=== PATIENT | female | born 1980 | race Caucasian/White ===

== ENCOUNTER 2020-11-10 08:21 | Emergency (ER) | payer MEDICARE, MEDICAID, SELFPAY ==
[2020-11-10 10:01] VITALS: BP 142/93; PULSE 109; RESP 18; TEMP 36.7; O2SAT 98; BMI 21.6
--- NOTE | 2020-11-10 10:44 | ECG_ITS ---
Test Reason : EPIGASTRIC PAIN Blood Pressure : / mmHG Vent. Rate : 090 BPM Atrial Rate : 090 BPM P-R Int : 138 ms QRS Dur : 090 ms QT Int : 358 ms P-R-T Axes : 059 067 060 degrees QTc Int : 437 ms Poor data quality, interpretation may be adversely affected Normal sinus rhythm with sinus arrhythmia Possible Anterior infarct , age undetermined Abnormal ECG No previous ECGs available Referred By: Jacquie Newell Electronically Signed By:KAT VALLE MD
--- NOTE | 2020-11-10 10:47 | ED_ITS ---
HPI - Nausea/Vomiting/Diarrhea General Chief complaint: Nausea/Vomiting/Diarrhea Stated complaint: VOMITING PAIN Time Seen by Provider: 11/10/20 10:27 Source: patient Mode of arrival: ambulatory Limitations: no limitations History of Present Illness HPI Narrative: 40-year-old female to male transgender here with complaints of upper abdominal pain and vomiting for weeks to months. Patient has been seen by a refinery operator polymerization plant at [facility] for quite some time and has an upper endoscopy scheduled for December 20. The patient admits she then has a follow-up appointment after this. She has been in discussion with her refinery operator polymerization plant and is currently on nortyplline and dexilant. She is not currently on a PPI. The patient delusion that she has upper abdominal pain which is described as burning which radiates to the chest which is associated with vomiting. She tells me that she has lost 10 lb the last month. She has no associated diarrhea, urinary symptoms, fevers, chills. Patient tells me she has symptoms right after eating. Most the time it is food in her emesis. There is no bloody or bilious emesis. Associated nausea: Yes Related Data Allergies Allergy/AdvReac Type Severity Reaction Status Date / Time strawberry [STRAWBERRY] Allergy Severe ANAPHYLAXIS Verified 11/10/20 10:05 watermelon [WATERMELON] Allergy Severe ANAPHYLAXIS Unverified 04/06/20 19:21 acetaminophen [From VICODIN] Allergy Intermediate ITCHING Unverified 04/06/20 19:21 amoxicillin [AMOXICILLIN] Allergy Intermediate ITCHING Unverified 04/06/20 19:21 hydrocodone [From VICODIN] Allergy Intermediate ITCHING Unverified 04/06/20 19:21 oxycodone [From PERCOCET] Allergy Intermediate ITCHING Unverified 04/06/20 19:21 propoxyphene Allergy Intermediate HEADACHES Unverified 04/06/20 19:21 [From DARVOCET-N] honey [HONEY] AdvReac Intermediate HEADACHES Unverified 04/06/20 19:21 Review of Systems Review of Systems: Yes all other systems are reviewed and are negative Constitutional: Constitutional: Reports no additional constitutional complaints, Denies body ache(s), Denies chills, Denies fever(s), Denies headache(s) and Denies weakness Eyes: Eyes: Reports no additional eye complaints and Denies change in vision ENT: Reports system reviewed and no additional complaints, except as documented, Denies dizziness, Denies headache(s), Denies nasal congestion, Denies nasal discharge and Denies neck pain Cardiovascular: Cardiovascular: Reports no additional cardiovascular complaints, Denies chest pain, Denies leg edema and Denies dyspnea Respiratory: Respiratory: Reports no additional respiratory complaints, Denies cough and Denies dyspnea Gastrointestinal: Gastrointestinal: Reports no additional gastrointestinal complaints, Reports abdominal pain, Denies diarrhea, Reports nausea and Reports vomiting Genitourinary: Genitourinary: Reports no additional female genitourinary complaints and Denies urinary incontinence Musculoskeletal: Musculoskeletal: Reports no additional musculoskeletal complaints, Denies back pain, Denies arthralgias, Denies joint swelling, Denies neck pain, Denies numbness and Denies tingling Integumentary/Breasts: Skin/Breast: Reports system reviewed and no additional complaints, except as docu and Denies rash Neurologic: Reports system reviewed and no additional complaints, except as documented, Denies Abnormal speech present, Denies dizziness, Denies headache(s), Denies numbness, Denies tingling and Denies weakness PMF Past Medical History Attestation statement: The following information was validated with the patient. Source: old records reviewed and nursing notes reviewed Medical History No known health problems Social History Social History Advance Directives: Yes Advance Directives Information Provided: Yes Advance Directives on File: No Physical Exam Vital Signs: Vital Signs: Last Vital Signs Temp 98.1 F 11/10/20 10:01 Pulse 109 H 11/10/20 10:01 Resp 18 11/10/20 10:01 BP 142/93 H 11/10/20 10:01 Pulse Ox 98 11/10/20 10:01 Body Mass Index 21.6 Const: General: cooperative, healthy appearing, comfortable and no acute distress Orientation/consciousness: patient oriented x3 Limitations: no limitations HENMT: Head: Yes normal to inspection Ears: hearing grossly normal bilaterally General nose exam: Normal external nose present Face and sinus: Yes normal facial exam Mouth: Normal oral and palatal mucosa present Throat: Yes posterior oropharynx normal Eyes: General: appearance normal, both eyes and all related structures Pupils: Equal, round and reactive pupils present Neck: Neck: Yes normal visual inspection Chest: Chest palpation & inspection: normal inspection of the chest Resp: Effort & Inspection: normal respiratory effort Auscultation: clear to auscultation bilaterally Cardio: Rate: regular rate Rhythm: regular rhythm Peripheral pulses: Peripheral pulses 2+ throughout GI: Inspection: Yes normal to inspection Palpation (GI): Soft to palpation and Tenderness to palpation present (GI) (Mild epigastric pain and no rebound or guarding) Auscultation: normal bowel sounds Back/Spine/Pelvis: Thoracic/Lumbar Spine: thoracic and lumbar spine normal to inspection Skin: General skin exam: no rashes or lesions noted Neuro: General: patient oriented x3, no focal motor deficits and normal sensation to monofilament Cranial nerves: Yes Equal, round and reactive pupils present Cognition (Neuro): normal cognition Speech: No Abnormal speech present Gait exam (Neuro): Normal gait present Motor exam (neuro): 5/5 motor strength present throughout Extrem: General: Yes normal to inspection Course Course Course Narrative: 40-year-old female to male here with complaints of chronic upper abdominal pain and vomiting followed by GI at [facility]. Unable to maintain p.o. per patient. Feels like he has lost weight and is dehydrated. Will check labs, UA, EKG, NS, zofran, PPI, GI cocktail. 1350-Labs unremarkable. Continued epigastric pain. Will give dose of morphine. Patient tells me she has continued epigastric pain. She is status post marly. LFTs and lipase unremarkable. Likely gastritis, GERD vs PUD. Has upcoming endoscopy with GI outpatient 12/20 at [facility]. Will discuss the patient's GI Dr. Morton. 1445-urine contaminated. No UTI symptoms. Will hold on antibiotics. Discussed with Dr. Morton from [facility]. She tells me the patient has had greater than 10 endoscopy use due to complaints of this pain. All have been unremarkable. She plans on doing a repeat endoscopy December 20 at however will put the patient on a cancellation list and with the endoscopy as needed. She tells me she saw the patient in the office on Friday. We discussed the labs that were done then and today and there are no changes. She did start the patient on Gaviscon on Friday and recommended that the patient give it some more time to see if that helps. She will follow-up with the patient in the office. Discussed the findings with the patient. Reviewed the abdominal exam is benign. Reviewed worrisome signs and symptoms such as to her more additional vomiting episodes, bilious or bloody emesis, severe abdominal pain. MDM - Nausea/Vomiting/Diarrhea MDM Narrative Medical decision making narrative: pancreatitis, gerd, gastritis, PUD Medical Records Attestation: I reviewed the patient's medical records. Lab Data Attestation: I reviewed the patient's lab results. Result diagrams: 11/10/20 11:17 11/10/20 11:17 Labs: Lab Results 11/10/20 11/10/20 11/10/20 Range/Units 11:17 11:17 11:17 WBC 7.4 (4.8-10.8) X10*3/uL RBC 5.81 H (4.20-5.50) X10*6/uL Hgb 18.0 H (12.0-16.0) g/dl Hct 54.5 H (37-47) % MCV 93.8 (80-98) fL MCH 31.0 (27.0-33.0) pg MCHC 33.0 (31.0-35.0) g/dl RDW 13.0 (11.0-16.0) % Plt Count 294 (160-400) X10*3/uL MPV 9.8 (9.4-12.3) fL Immature Gran % (Auto) 0.4 (0.0-0.4) % Neut % (Auto) 57.1 (45-73) % Lymph % (Auto) 33.4 (20-40) % [place] % (Auto) 7.4 (2-11) % Eos % (Auto) 1.4 (0-4) % Baso % (Auto) 0.3 (0-2) % Lymph # (Auto) 2.5 (1.2-4.9) X10*3/uL [place] # (Auto) 0.6 (0.1-1.2) X10*3/uL Eos # (Auto) 0.1 (0.0-0.4) X10*3/uL Baso # (Auto) 0.0 (0.0-0.2) X10*3/uL Abs Immat Gran (auto) 0.03 (0.00-0.03) X10*3/uL Absolute Neuts (auto) 4.2 (2.0-8.3) X10*3/uL Absolute Nucleated RBC 0.000 (0.0-0.012) X10*3/uL Nucleated RBC % (auto) 0.0 (0.0-0.2) /100WBC Hold Blue Top SEE NOTE Sodium 141 (135-145) mmol/L Potassium 4.0 (3.3-5.1) mmol/L Chloride 101 (96-108) mmol/L Carbon Dioxide 31 H (22-29) mmol/L Anion Gap 13 (12-20) BUN 10 (9-16) mg/dL Creatinine 1.10 (0.5-1.4) mg/dL Estim Creat Clear Calc 46.3 Estimated GFR 55 Random Glucose 74 (60-115) mg/dL Calcium 9.9 (8.4-10.2) mg/dL Magnesium 2.4 (1.6-2.6) mg/dL Total Bilirubin 0.6 (0.0-1.0) mg/dL Direct Bilirubin 0.2 (0.0-0.5) mg/dL AST 18 (5-31) U/L ALT 23 (0-31) U/L Alkaline Phosphatase 52 (39-117) U/L Total Protein 7.9 (6.5-8.0) g/dL Albumin 4.5 (3.5-5.0) g/dL Lipase 16 (8-78) U/L Urine Color Urine Appearance Urine pH (5.0-8.0) Ur Specific [place] (1.005-1.025) Urine Protein (NEG-TRACE) MG/DL Urine Glucose (UA) (NEG) MG/DL Urine Ketones (NEG) MG/DL Urine Blood (NEG) Urine Nitrite (NEG) Ur Leukocyte Esterase (NEG) Urine RBC (0) /HPF Urine WBC (0-4) /HPF Ur Squamous Epith Cells /LPF Amorphous Sediment /LPF Urine Bacteria /LPF 11/10/20 11/10/20 Range/Units 11:17 14:22 WBC (4.8-10.8) X10*3/uL RBC (4.20-5.50) X10*6/uL Hgb (12.0-16.0) g/dl Hct (37-47) % MCV (80-98) fL MCH (27.0-33.0) pg MCHC (31.0-35.0) g/dl RDW (11.0-16.0) % Plt Count (160-400) X10*3/uL MPV (9.4-12.3) fL Immature Gran % (Auto) (0.0-0.4) % Neut % (Auto) (45-73) % Lymph % (Auto) (20-40) % [place] % (Auto) (2-11) % Eos % (Auto) (0-4) % Baso % (Auto) (0-2) % Lymph # (Auto) (1.2-4.9) X10*3/uL [place] # (Auto) (0.1-1.2) X10*3/uL Eos # (Auto) (0.0-0.4) X10*3/uL Baso # (Auto) (0.0-0.2) X10*3/uL Abs Immat Gran (auto) (0.00-0.03) X10*3/uL Absolute Neuts (auto) (2.0-8.3) X10*3/uL Absolute Nucleated RBC (0.0-0.012) X10*3/uL Nucleated RBC % (auto) (0.0-0.2) /100WBC Hold Blue Top Sodium (135-145) mmol/L Potassium (3.3-5.1) mmol/L Chloride (96-108) mmol/L Carbon Dioxide (22-29) mmol/L Anion Gap (12-20) BUN (9-16) mg/dL Creatinine (0.5-1.4) mg/dL Estim Creat Clear Calc Estimated GFR Random Glucose (60-115) mg/dL Calcium (8.4-10.2) mg/dL Magnesium Cancelled (1.6-2.6) mg/dL Total Bilirubin (0.0-1.0) mg/dL Direct Bilirubin (0.0-0.5) mg/dL AST (5-31) U/L ALT (0-31) U/L Alkaline Phosphatase (39-117) U/L Total Protein (6.5-8.0) g/dL Albumin (3.5-5.0) g/dL Lipase Cancelled (8-78) U/L Urine Color YELLOW Urine Appearance TURBID Urine pH 8.5 H (5.0-8.0) Ur Specific [place] 1.015 (1.005-1.025) Urine Protein NEG (NEG-TRACE) MG/DL Urine Glucose (UA) NEG (NEG) MG/DL Urine Ketones 5 (NEG) MG/DL Urine Blood 1+ H (NEG) Urine Nitrite NEG (NEG) Ur Leukocyte Esterase 1+ H (NEG) Urine RBC 1-4 (0) /HPF Urine WBC 1-4 (0-4) /HPF Ur Squamous Epith Cells 1+ /LPF Amorphous Sediment 4+ /LPF Urine Bacteria NONE /LPF ECG Data Attestation: I personally reviewed and interpreted this ECG as follows: ECG interpretation date: 11/10/20 ECG interpretation time: 13:04 Interpretation: Normal sinus rhythm with sinus arrhythmia, rate of 90, normal OR, normal QRS, normal QTC Discharge Plan Discharge Clinical Impression: Abdominal pain Qualifiers: Abdominal location: epigastric Qualified Code(s): R10.13 - Epigastric pain Patient Disposition: Home, Self-Care Instructions: Abdominal Pain (ED) Additional Instructions: Continue the [facility] Follow-up with GI DR Morton Referrals: Korina Gerard NP [Primary Care Provider] - 2 days Interventions: ED Discharge Assessment Last Done: 11/10/20 14:51 Discharge Date/Time: 11/10/20 14:52
[2020-11-10] MEDS: 0.9 % Sodium Chloride 1,000 ML 999 ML IV (11:19)
[2020-11-10] MEDS: Lidocaine HCl Viscous 2 % 15 ML SOLUTION MUCOUS MEM (11:19)
[2020-11-10] MEDS: Famotidine/PF 20 MG/2 ML VIAL IVPUSH (11:19)
[2020-11-10] MEDS: ondansetron HCL 4 MG/2 ML VIAL IVPUSH (11:19)
[2020-11-10] MEDS: Magnesium Hydrox/Alum Hydrox 30 ML ORAL.SUSP PO (11:19)
[2020-11-10 11:30] LABS: MANUAL DIFF FLAG NO
[2020-11-10 11:37] LABS: Basophils Percent Auto 0.3 % (0-2); Eosinophils Absolute Auto 0.1 X10*3/uL (0.0-0.4); Eosinophils Percent Auto 1.4 % (0-4); Hematocrit 54.5 % (37-47); Imm Gran Abs Auto 0.03 X10*3/uL (0.00-0.03); Imm Gran Pct Auto 0.4 % (0.0-0.4); Lymphocytes Absolute Auto 2.5 X10*3/uL (1.2-4.9); Lymphocytes Percent Auto 33.4 % (20-40); Mean Corpuscular Volume 93.8 fL (80-98); Mean Platelet Volume 9.8 fL (9.4-12.3); Monocytes Absolute Auto 0.6 X10*3/uL (0.1-1.2); Monocytes Percent Auto 7.4 % (2-11); Neutrophils Absolute Auto 4.2 X10*3/uL (2.0-8.3); Neutrophils Percent Auto 57.1 % (45-73); Platelet Count 294 X10*3/uL (160-400); Red Blood Count 5.81 X10*6/uL (4.20-5.50); White Blood Count 7.4 X10*3/uL (4.8-10.8)
[2020-11-10 12:01] LABS: Alanine Aminotransferase 23 U/L (0-31); Albumin Level 4.5 g/dL (3.5-5.0); Alkaline Phosphatase 52 U/L (39-117); Anion Gap 13 (12-20); Aspartate Amino Transferase 18 U/L (5-31); Bilirubin Direct 0.2 mg/dL (0.0-0.5); Bilirubin Total 0.6 mg/dL (0.0-1.0); Blood Urea Nitrogen 10 mg/dL (9-16); Calcium 9.9 mg/dL (8.4-10.2); Carbon Dioxide 31 mmol/L (22-29); Chloride 101 mmol/L (96-108); Creatinine Clr Calc Pharmacy 46.3; Estimated Glomerular Filt Rate 55; Glucose Random 74 mg/dL (60-115); Lipase 16 U/L (8-78); Magnesium 2.4 mg/dL (1.6-2.6); Sodium 141 mmol/L (135-145); Total Protein 7.9 g/dL (6.5-8.0)
[2020-11-10] MEDS: Morphine Sulfate 4 MG/ML CARTRIDGE IVPUSH (13:26)
--- NOTE | 2020-11-10 14:17 | PC.NURSE ---
pt refusing second liter ns, gave ua spec for eval. asking to go home if theres nothing else to do .
[2020-11-10 14:30] LABS: Glucose Urine UA NEG (NEG); Leukocyte Esterase Urine 1+ (NEG); Nitrite Urine NEG (NEG); PH 8.5 (5.0-8.0); Specific Gravity - Urine 1.015 (1.005-1.025); UACC Culture Trigger YES; Urine Blood 1+ (NEG); Urine Ketones 5 MG/DL (NEG); Urine Protein NEG (NEG-TRACE)
[2020-11-10 14:36] LABS: Appearance Urine TURBID; Color Urine YELLOW
[2020-11-10 14:41] LABS: Amorphous Sediment Urine 4+ /LPF; Squamous Epithelial Cell Urine 1+ /LPF
== END 2020-11-10 14:52 | disposition home or self-care (01) ==
PROVIDERS: Nurse Practitioner Family; Emergency Provider Emergency Medicine; PCP Nurse Practitioner Family
DX: R10.13 Epigastric pain (principal); R11.2 Nausea with vomiting, unspecified
CPT/HCPCS: 36415; 80048; 80076; 81001; 81003; 83690; 83735; 85025; 87086; 93005; 96365; 96375; 99282; 99284; J2270; J2405

== ENCOUNTER 2020-11-26 15:27 | Inpatient (IN) | payer MEDICARE, MEDICAID, SELFPAY ==
--- NOTE | 2020-11-26 | ECG_ITS ---
Test Reason : ABD PAIN Blood Pressure : / mmHG Vent. Rate : 109 BPM Atrial Rate : 109 BPM P-R Int : 140 ms QRS Dur : 088 ms QT Int : 316 ms P-R-T Axes : 078 078 070 degrees QTc Int : 425 ms Sinus tachycardia Possible Left atrial enlargement Anterior infarct (cited on or before 10-NOV-2020) Abnormal ECG When compared with ECG of 10-NOV-2020 13:04, No significant change was found Referred By: Generic ED Physician Electronically Signed By:ROSS MONAE
--- NOTE | ~2020-11-26 | CT_ITS ---
EXAMINATION: CT CHEST, ABDOMEN AND PELVIS WITH CONTRAST CLINICAL INFORMATION: Reason for Exam 20 lbs weight loss, hypercalcemia, r/o malignancy COMPARISON: No pertinent prior studies are available for comparison. TECHNIQUE: Multidetector volumetric imaging was performed from the thoracic inlet through the pubic symphysis following administration of 85 mL of Omnipaque 350. Sagittal and coronal reformatted images were obtained on the technologist's workstation. This CT examination was performed using dose optimization techniques as appropriate, variously including the following: *Automated exposure control *Adjustment of mA and/or kV according to patient size (this includes techniques or standardized protocols for targeted exams where dose is matched to indication/reason for exam; i.e. extremities or head) *Use of iterative reconstruction technique DLP: 255 mGy-cm FINDINGS: CHEST: Lung: The lungs are clear without worrisome focal opacity or nodule. Nonspecific groundglass changes present in the azygoesophageal recess Mediastinum: The mediastinum is normal. The thyroid appears normal. The central vascular structures are unremarkable. No hilar or mediastinal lymphadenopathy. Pericardium/Pleura: No significant effusion. No pleural mass or thickening. Chest Wall/Axilla: Unremarkable ABDOMEN/PELVIS: Peritoneal Space: No significant free air or free fluid identified. Liver, Gallbladder, Biliary Tree: The liver is normal in size, shape, and attenuation. A hyperenhancing 1.7 x 1.2 x 1.4 cm mass is noted at the tip of the right lobe of the liver (14:244). This may be a hemangioma. No other focal hepatic lesion or biliary ductal dilatation is present. Patient status post cholecystectomy. Pancreas: Unremarkable Spleen: Unremarkable Adrenal Glands: Unremarkable Kidneys and Ureters: The kidneys are normal in size, shape, and attenuation. No hydronephrosis, hydroureter, or calculi seen. No perinephric stranding. Bladder: Unremarkable Gastrointestinal Tract: A tiny hiatal hernia is present. The esophagus at the GE junction is poorly seen and may be thickened. Given the history of weight loss, upper GI or endoscopy may be of value. A gastric diverticulum is noted superiorly. The small and large bowel are unremarkable. The appendix is none seen with certainty but there is no evidence of appendicitis.. Abdominal Wall: No significant hernia is appreciated. Lymph Nodes: No lymphadenopathy. Vascular: The aorta appears normal.. The IVC appears unremarkable. PELVIC VISCERA: An anteverted retroflexed uterus is present. An abnormal adnexal mass or free intraperitoneal fluid is not seen. OSSEUS STRUCTURES: Mild degenerative changes are noted in the spine. No bony destructive lesions are seen. CT/CT abdomen pelvis w con IMPRESSION: 1. There is some subtle possible thickening of the GE junction and given the history of weight loss further evaluation with upper GI or endoscopy is recommended. 2. Hyperenhancing liver lesion may very well be a benign hemangioma. This could be easily proven with hepatic MR. 3. No other significant abnormality is seen in the chest or abdomen.
[2020-11-26 15:32] VITALS: BP 139/99; PULSE 101; RESP 18; TEMP 36.7; O2SAT 98; BMI 20.6
--- NOTE | 2020-11-26 16:47 | ED_ITS ---
HPI - General Adult General Chief complaint: General Medical Stated complaint: Vomiting Time Seen by Provider: 11/26/20 16:12 Source: patient Mode of arrival: ambulatory Limitations: no limitations History of Present Illness HPI narrative: Patient comes emergency room complaining of vomiting and burning sensation from the left upper quadrant to the esophagus. Patient states it has been ongoing for approximately a month. Patient had an endoscopy done on November 17, her results were within normal limits, patient has been diagnosed with gastritis. This morning, patient states that she called her tactical air defense controller at [facility], she was prescribed anti emetics, patient tried taking them but he vomited the medications. Patient states that every time that he ingest anything, he vomits. This occurs daily. Patient states that he lost 20 lbs in 2 months Related Data Allergies Allergy/AdvReac Type Severity Reaction Status Date / Time strawberry [STRAWBERRY] Allergy Severe ANAPHYLAXIS Verified 11/26/20 15:31 watermelon [WATERMELON] Allergy Severe ANAPHYLAXIS Verified 11/26/20 15:31 acetaminophen [From VICODIN] Allergy Intermediate ITCHING Verified 11/26/20 15:31 amoxicillin [AMOXICILLIN] Allergy Intermediate ITCHING Verified 11/26/20 15:31 hydrocodone [From VICODIN] Allergy Intermediate ITCHING Verified 11/26/20 15:31 oxycodone [From PERCOCET] Allergy Intermediate ITCHING Verified 11/26/20 15:31 propoxyphene Allergy Intermediate HEADACHES Verified 11/26/20 15:31 [From DARVOCET-N] honey [HONEY] AdvReac Intermediate HEADACHES Verified 11/26/20 15:31 Review of Systems Review of Systems: Constitutional : 20 lb weight loss in 2 months, No Fever, No Chills, No Night Sweats, No Fatigue, No Malaise ENT/Mouth : No Hearing loss, No Ear Pain, No Nasal Congestion, No Sinus Pain, No Hoarseness, No sore throat, No Rhinorrhea, No Swallowing Difficulty Eyes: No Eye Pain, No Swelling, No Redness, No Foreign Body, No Discharge, No Vision Changes Cardiovascular : No Chest Pain, No SOB, No Dyspnea on Exertion, No Orthopnea, No Edema, No Palpitations Respiratory : No Cough, No Sputum, No Wheezing, No Smoke Exposure, No Dyspnea Gastrointestinal : Daily nausea and vomiting, saw specks of blood this morning in the vomit, No Diarrhea, No Constipation, complaining of chronic left upper quadrant burning sensation radiating to the upper esophagus, denies melena Genitourinary : no irregular bleeding, No Dysuria, No Urinary Frequency, No Hematuria, No Urinary Incontinence, No Urgency, No Flank Pain, No Urinary Flow Changes, No Hesitancy Musculoskeletal : No joint pain, No Myalgias, No Joint Swelling Skin : No Skin Lesions, No rash Neuro : No Weakness, No Numbness, No Paresthesias, No Loss of Consciousness, No Dizziness, No Headache Psych : No Anxiety/Panic, No Depression, No SI/HI/AH/VH, No Social Issues, Heme/Lymph: No Bruising, No Bleeding,No Lymphadenopathy Endocrine : No Polyuria, No Polydipsia, No Temperature Intolerance [facility] Past Medical History Medical History Asthma Bipolar 1 disorder Borderline personality disorder Depression Gastritis GERD (gastroesophageal reflux disease) PTSD (post-traumatic stress disorder) Social History Social History Alcohol intake: never Smoking Status: Current every day smoker Smoked in Last 30 Days: Yes Use of substances other than those prescribed or required for medical reasons: Yes Substance Use Type: Marijuana Advance Directives: No Advance Directives Information Provided: Yes Patient : No Physical Exam Vital Signs: Vital Signs: Last Vital Signs Temp 98.4 F 11/26/20 21:00 Pulse 84 11/26/20 21:00 Resp 16 11/26/20 21:00 BP 150/104 H 11/26/20 21:00 Pulse Ox 99 11/26/20 21:00 Body Mass Index 20.6 Appearance: Alert. Oriented X3. No acute distress. vomiting Eyes: Pupils equal, round and reactive to light. ENT: Pharynx normal. Neck: Normal inspection. Neck supple. No lymph nodes noted. No crepitus CVS: Normal heart rate and rhythm. Pulses normal. Normal S1 and S2 Respiratory: No respiratory distress. Breath sounds normal. No Wheezing. No rales Abdomen: Soft and nontender. No rigidity. No distention. MARILYN brown stool Skin: Skin warm and dry. Normal skin color. Normal skin turgor. Extremities: No lower extremity edema. No lower extremity edema. No Lacerations. No Rash Neuro: Oriented X 3. No motor deficit. No sensory deficit. Moving all extermities. No slurred speech. Course Course Course Narrative: I discussed with the patient that her calcium is high. I discussed with the patient that considering the recent finding of hypercalcemia and a 20 lb weight loss, I recommend that we scanned her chest abdomen pelvis. I discussed with the patient that it is more likely a weight loss is due to the constant vomiting episodes. However, the CT scan will be done to detect any possible malignancy. Patient agrees with plan I discussed the CT findings with the patient, he will need an MRI, patient likely having a hepatic hemangioma, unrelated to patient's symptoms. Patient agrees to be admitted. I discussed the patient with Dr. Brown Medical Decision Making Lab Data Result diagrams: 11/26/20 17:03 11/26/20 17:03 Labs: Lab Results 11/26/20 11/26/20 11/26/20 Range/Units 16:48 16:48 17:03 WBC 14.0 H (4.8-10.8) X10*3/uL RBC 5.47 (4.20-5.50) X10*6/uL Hgb 17.0 H (12.0-16.0) g/dl Hct 50.4 H (37-47) % MCV 92.1 (80-98) fL MCH 31.1 (27.0-33.0) pg MCHC 33.7 (31.0-35.0) g/dl RDW 12.5 (11.0-16.0) % Plt Count 274 (160-400) X10*3/uL MPV 9.7 (9.4-12.3) fL Immature Gran % (Auto) 0.4 (0.0-0.4) % Neut % (Auto) 76.3 H (45-73) % Lymph % (Auto) 13.4 L (20-40) % [place] % (Auto) 9.5 (2-11) % Eos % (Auto) 0.2 (0-4) % Baso % (Auto) 0.2 (0-2) % Lymph # (Auto) 1.9 (1.2-4.9) X10*3/uL [place] # (Auto) 1.3 H (0.1-1.2) X10*3/uL Eos # (Auto) 0.0 (0.0-0.4) X10*3/uL Baso # (Auto) 0.0 (0.0-0.2) X10*3/uL Abs Immat Gran (auto) 0.05 H (0.00-0.03) X10*3/uL Absolute Neuts (auto) 10.7 H (2.0-8.3) X10*3/uL Absolute Nucleated RBC 0.000 (0.0-0.012) X10*3/uL Nucleated RBC % (auto) 0.0 (0.0-0.2) /100WBC Sodium (135-145) mmol/L Potassium (3.3-5.1) mmol/L Chloride (96-108) mmol/L Carbon Dioxide (22-29) mmol/L Anion Gap (12-20) BUN (9-16) mg/dL Creatinine (0.5-1.4) mg/dL Estim Creat Clear Calc Estimated GFR Random Glucose (60-115) mg/dL Calcium (8.4-10.2) mg/dL Total Bilirubin (0.0-1.0) mg/dL Direct Bilirubin (0.0-0.5) mg/dL AST (5-31) U/L ALT (0-31) U/L Alkaline Phosphatase (39-117) U/L Total Protein (6.5-8.0) g/dL Albumin (3.5-5.0) g/dL Lipase (8-78) U/L Gastric Occult Blood POS H (NEG) Stool Occult Blood NEGATIVE (NEGATIVE) 11/26/20 Range/Units 17:03 WBC (4.8-10.8) X10*3/uL RBC (4.20-5.50) X10*6/uL Hgb (12.0-16.0) g/dl Hct (37-47) % MCV (80-98) fL MCH (27.0-33.0) pg MCHC (31.0-35.0) g/dl RDW (11.0-16.0) % Plt Count (160-400) X10*3/uL MPV (9.4-12.3) fL Immature Gran % (Auto) (0.0-0.4) % Neut % (Auto) (45-73) % Lymph % (Auto) (20-40) % [place] % (Auto) (2-11) % Eos % (Auto) (0-4) % Baso % (Auto) (0-2) % Lymph # (Auto) (1.2-4.9) X10*3/uL [place] # (Auto) (0.1-1.2) X10*3/uL Eos # (Auto) (0.0-0.4) X10*3/uL Baso # (Auto) (0.0-0.2) X10*3/uL Abs Immat Gran (auto) (0.00-0.03) X10*3/uL Absolute Neuts (auto) (2.0-8.3) X10*3/uL Absolute Nucleated RBC (0.0-0.012) X10*3/uL Nucleated RBC % (auto) (0.0-0.2) /100WBC Sodium 141 (135-145) mmol/L Potassium 3.9 (3.3-5.1) mmol/L Chloride 99 (96-108) mmol/L Carbon Dioxide 33 H (22-29) mmol/L Anion Gap 13 (12-20) BUN 8 L (9-16) mg/dL Creatinine 1.05 (0.5-1.4) mg/dL Estim Creat Clear Calc 48.5 Estimated GFR 58 Random Glucose 94 (60-115) mg/dL Calcium 13.6 H* D (8.4-10.2) mg/dL Total Bilirubin 0.6 (0.0-1.0) mg/dL Direct Bilirubin 0.2 (0.0-0.5) mg/dL AST 20 (5-31) U/L ALT 20 (0-31) U/L Alkaline Phosphatase 50 (39-117) U/L Total Protein 7.6 (6.5-8.0) g/dL Albumin 4.4 (3.5-5.0) g/dL Lipase 12 (8-78) U/L Gastric Occult Blood (NEG) Stool Occult Blood (NEGATIVE) ECG Data Attestation: I personally reviewed and interpreted this ECG as follows: (Sinus tachycardia, heart rate 109, no ST segment depression, nonspecific [address]- elevation in V3, no reciprocal changes, noT-wave inversions, QTC 109) Discharge Plan Discharge Clinical Impression: Hypercalcemia, Vomiting Patient Disposition: Admitted As Inpatient
[2020-11-26 17:05] LABS: GASOB Int Neg Ctl Valid YES; GASOB Int Pos Ctl Valid YES; Occult Blood Gastric POS (NEG)
[2020-11-26 17:06] LABS: OBS Int Ctl Valid YES; OBS1 NEGATIVE (NEGATIVE)
[2020-11-26 17:08] LABS: MANUAL DIFF FLAG NO
[2020-11-26 17:10] LABS: Basophils Percent Auto 0.2 % (0-2); Eosinophils Percent Auto 0.2 % (0-4); Hematocrit 50.4 % (37-47); Imm Gran Abs Auto 0.05 X10*3/uL (0.00-0.03); Imm Gran Pct Auto 0.4 % (0.0-0.4); Lymphocytes Absolute Auto 1.9 X10*3/uL (1.2-4.9); Lymphocytes Percent Auto 13.4 % (20-40); Mean Corpuscular HGB Conc 33.7 g/dl (31.0-35.0); Mean Corpuscular Hemoglobin 31.1 pg (27.0-33.0); Mean Corpuscular Volume 92.1 fL (80-98); Mean Platelet Volume 9.7 fL (9.4-12.3); Monocytes Absolute Auto 1.3 X10*3/uL (0.1-1.2); Monocytes Percent Auto 9.5 % (2-11); Neutrophils Absolute Auto 10.7 X10*3/uL (2.0-8.3); Neutrophils Percent Auto 76.3 % (45-73); Platelet Count 274 X10*3/uL (160-400); Red Blood Count 5.47 X10*6/uL (4.20-5.50); Red Cell Distribution Width 12.5 % (11.0-16.0)
[2020-11-26] MEDS: Famotidine/PF 20 MG/2 ML VIAL IVPUSH (17:13)
[2020-11-26] MEDS: ondansetron HCL 4 MG/2 ML VIAL IVPUSH (17:13)
[2020-11-26] MEDS: 0.9 % Sodium Chloride 1,000 ML 999 ML IVCONT ×2 (17:13→20:50)
[2020-11-26 17:42] LABS: Alanine Aminotransferase 20 U/L (0-31); Albumin Level 4.4 g/dL (3.5-5.0); Alkaline Phosphatase 50 U/L (39-117); Anion Gap 13 (12-20); Aspartate Amino Transferase 20 U/L (5-31); Bilirubin Direct 0.2 mg/dL (0.0-0.5); Bilirubin Total 0.6 mg/dL (0.0-1.0); Blood Urea Nitrogen 8 mg/dL (9-16); Carbon Dioxide 33 mmol/L (22-29); Chloride 99 mmol/L (96-108); Creatinine Clr Calc Pharmacy 48.5; Estimated Glomerular Filt Rate 58; Glucose Random 94 mg/dL (60-115); Lipase 12 U/L (8-78); Potassium 3.9 mmol/L (3.3-5.1); Sodium 141 mmol/L (135-145); Total Protein 7.6 g/dL (6.5-8.0)
[2020-11-26 17:51] LABS: Calcium 13.6 mg/dL (8.4-10.2)
[2020-11-26] MEDS: iohexoL 350 MG/ML 100 ML INFUS..BTL IV (20:10)
[2020-11-26 21:00] VITALS: BP 150/104; PULSE 84; RESP 16; TEMP 36.9; O2SAT 99
[2020-11-26 22:29] LABS: COVID-19 Test Negative (Negative)
--- NOTE | 2020-11-26 22:36 | PM.IMHP ---
History of Present Illness Date of Service: 11/26/20 Chief Complaint: Nausea vomiting This is a biological female transitioning to male, prefers the name Chin who presents to the hospital with complaints of intractable nausea and vomiting. Patient reports that started to develop nausea and vomiting since October 31 almost daily, with very minimal oral intake, reports that even a cracker would make him vomit. He is also complaining of severe heartburn, left quadrant abdominal pain, hand no bowel movements. Patient reports that he had been following up with snack steward at [facility] and and had an endoscopy done on November 17, results showed gastritis and he was started on nortriptyline as well as PPI. He reports that he tried multiple different antiemetics including Compazine with no relief of symptoms. He reports that after receiving Zofran IV in the ED he had some relief and was able to keep caridad down the 1st time in a long time. On arrival to the ED patient's lab significant for WBC count of 14, hemoglobin of 17, hematocrit of 50, sodium of 141, calcium of 13.6, heme-positive vomitus, stool occult blood negative, COVID-19 negative. Patient underwent abdominal/pelvic and CT chest with results showing some subtle possible thickening of the GE junction with a history of gastritis, hyperenhancing liver lesion possibly secondary to benign hemangioma no other significant abnormality Patient denies being on lithium, no thiazides, For p.o. intolerance as well as hyperkalemia Review of Systems Review of Systems: Yes all other systems are reviewed and are negative [facility] Medical History Asthma Bipolar 1 disorder Borderline personality disorder Depression Gastritis GERD (gastroesophageal reflux disease) PTSD (post-traumatic stress disorder) Social History Alcohol intake: never Smoking Status: Current every day smoker Smoked in Last 30 Days: Yes Use of substances other than those prescribed or required for medical reasons: Yes Substance Use Type: Marijuana Advance Directives: No Advance Directives Information Provided: Yes Patient : No Meds Allergies Allergy/AdvReac Type Severity Reaction Status Date / Time strawberry [STRAWBERRY] Allergy Severe ANAPHYLAXIS Verified 11/26/20 15:31 watermelon [WATERMELON] Allergy Severe ANAPHYLAXIS Verified 11/26/20 15:31 acetaminophen [From VICODIN] Allergy Intermediate ITCHING Verified 11/26/20 15:31 amoxicillin [AMOXICILLIN] Allergy Intermediate ITCHING Verified 11/26/20 15:31 hydrocodone [From VICODIN] Allergy Intermediate ITCHING Verified 11/26/20 15:31 oxycodone [From PERCOCET] Allergy Intermediate ITCHING Verified 11/26/20 15:31 propoxyphene Allergy Intermediate HEADACHES Verified 11/26/20 15:31 [From DARVOCET-N] honey [HONEY] AdvReac Intermediate HEADACHES Verified 11/26/20 15:31 Active Medications: Current Medications Generic Name Dose Route Start Last Admin Trade Name Freq PRN Reason Stop Dose Admin Sodium Chloride 1,000 mls @ 100 mls/hr 11/26/20 22:30 Ns IVCONT .Q10H RAINA Home Medications Medication Instructions Recorded Confirmed Last Taken Type clonazepam 1 tab PO TID PRN 11/26/20 11/26/20 Unknown History dexlansoprazole [Dexilant] 1 cap PO DAILY 11/26/20 11/26/20 Unknown History lurasidone [Latuda] 1 tab PO QPM 11/26/20 11/26/20 Unknown History lurasidone [Latuda] 1 tab PO QPM 11/26/20 11/26/20 Unknown History montelukast 1 tab PO DAILY 11/26/20 11/26/20 Unknown History nortriptyline 3 cap PO BEDTIME 11/26/20 11/26/20 Unknown History quetiapine 1 - 2 tab PO BEDTIME PRN 11/26/20 11/26/20 Unknown History Physical Exam Vital Signs and Narrative: Vital Signs: Last Vital Signs Temp 98.4 F 11/26/20 21:00 Pulse 84 11/26/20 21:00 Resp 16 11/26/20 21:00 BP 150/104 H 11/26/20 21:00 Pulse Ox 99 11/26/20 21:00 Body Mass Index 20.6 Const: General: cooperative and no acute distress Orientation/consciousness: patient oriented x3 Eyes: General: appearance normal, both eyes and all related structures Resp: Effort & Inspection: normal respiratory effort and able to speak in complete sentences Cardio: Rate: regular rate Rhythm: regular rhythm GI: Palpation (GI): Soft to palpation Auscultation: normal bowel sounds Skin: General skin exam: no rashes or lesions noted Neuro: General: patient oriented x3 Cognition (Neuro): normal cognition Extrem: General: Yes normal to inspection and Yes no pedal edema Results Labs CBC and Chem 7: 11/27/20 05:22 11/27/20 05:22 Labs: Laboratory Results - last 24 hr 11/26/20 11/26/20 11/26/20 16:48 16:48 17:03 MCV 92.1 MCH 31.1 MCHC 33.7 RDW 12.5 Plt Count 274 MPV 9.7 Immature Gran % (Auto) 0.4 Neut % (Auto) 76.3 H Lymph % (Auto) 13.4 L Coleman % (Auto) 9.5 Eos % (Auto) 0.2 Baso % (Auto) 0.2 Lymph # (Auto) 1.9 Coleman # (Auto) 1.3 H Eos # (Auto) 0.0 Baso # (Auto) 0.0 Abs Immat Gran (auto) 0.05 H Absolute Neuts (auto) 10.7 H Absolute Nucleated RBC 0.000 Nucleated RBC % (auto) 0.0 Anion Gap Estim Creat Clear Calc Estimated GFR Random Glucose Calcium Total Bilirubin Direct Bilirubin AST ALT Alkaline Phosphatase Total Protein Albumin Lipase Gastric Occult Blood POS H Stool Occult Blood NEGATIVE COVID-19 (RANDY) COVID-[employer] 11/26/20 11/26/20 17:03 21:44 MCV MCH MCHC RDW Plt Count MPV Immature Gran % (Auto) Neut % (Auto) Lymph % (Auto) Coleman % (Auto) Eos % (Auto) Baso % (Auto) Lymph # (Auto) Coleman # (Auto) Eos # (Auto) Baso # (Auto) Abs Immat Gran (auto) Absolute Neuts (auto) Absolute Nucleated RBC Nucleated RBC % (auto) Anion Gap 13 Estim Creat Clear Calc 48.5 Estimated GFR 58 Random Glucose 94 Calcium 13.6 H* D Total Bilirubin 0.6 Direct Bilirubin 0.2 AST 20 ALT 20 Alkaline Phosphatase 50 Total Protein 7.6 Albumin 4.4 Lipase 12 Gastric Occult Blood Stool Occult Blood COVID-19 (RANDY) Negative COVID-[employer] Clin Com See Note Imaging Radiologist's Impressions: Impressions Abdomen/Pelvis CT 11/26/20 19:18 IMPRESSION: 1. There is some subtle possible thickening of the GE junction and given the history of weight loss further evaluation with upper GI or endoscopy is recommended. 2. Hyperenhancing liver lesion may very well be a benign hemangioma. This could be easily proven with hepatic MR. 3. No other significant abnormality is seen in the chest or abdomen. Chest CT 11/26/20 19:18 IMPRESSION: 1. There is some subtle possible thickening of the GE junction and given the history of weight loss further evaluation with upper GI or endoscopy is recommended. 2. Hyperenhancing liver lesion may very well be a benign hemangioma. This could be easily proven with hepatic MR. 3. No other significant abnormality is seen in the chest or abdomen. Assessment and Plan (1) Hypercalcemia: Status: Acute (2) Intractable vomiting: Status: Acute pt presents to the hospital with history of gastritis intractable nausea/vomiting # intractable nausea/vomiting - most likely 2/2 gastritis vs gastroparesis less likely - CT abd/chest negative for any abnormal pathology - supportive measures with iv antiemetics - fluids - continue to follow up with GI op # Hypercalcemia - most likely 2/2 dehydration - IV fluids - follow calcium level # Bipolar disorder - continue home medications DVT ppx: lovenox
[2020-11-27] MEDS: Enoxaparin Sodium 40 MG/0.4 ML SYRINGE SUBCUT (00:28)
[2020-11-27] MEDS: 0.9 % Sodium Chloride 1,000 ML 100 ML IVCONT ×2 (00:29→07:59)
[2020-11-27] MEDS: 0.9 % Sodium Chloride Flush 3 ML SYRINGE IVFLUSH (00:29)
[2020-11-27 00:30] VITALS: BP 134/92; PULSE 84; RESP 16; TEMP 36.6; O2SAT 95
[2020-11-27 02:21] VITALS: BP 130/81; PULSE 75; RESP 16; TEMP 36.6; O2SAT 98
[2020-11-27 05:33] LABS: MANUAL DIFF FLAG NO
[2020-11-27 05:37] LABS: Basophils Percent Auto 0.3 % (0-2); Eosinophils Absolute Auto 0.2 X10*3/uL (0.0-0.4); Eosinophils Percent Auto 1.8 % (0-4); Hematocrit 44.9 % (37-47); Hemoglobin 14.9 g/dl (12.0-16.0); Imm Gran Abs Auto 0.04 X10*3/uL (0.00-0.03); Imm Gran Pct Auto 0.4 % (0.0-0.4); Lymphocytes Absolute Auto 2.9 X10*3/uL (1.2-4.9); Lymphocytes Percent Auto 30.4 % (20-40); Mean Corpuscular HGB Conc 33.2 g/dl (31.0-35.0); Mean Corpuscular Hemoglobin 31.4 pg (27.0-33.0); Mean Corpuscular Volume 94.5 fL (80-98); Mean Platelet Volume 9.9 fL (9.4-12.3); Monocytes Percent Auto 10.1 % (2-11); Neutrophils Absolute Auto 5.5 X10*3/uL (2.0-8.3); Platelet Count 247 X10*3/uL (160-400); Red Blood Count 4.75 X10*6/uL (4.20-5.50); Red Cell Distribution Width 12.9 % (11.0-16.0); White Blood Count 9.6 X10*3/uL (4.8-10.8)
[2020-11-27 06:02] LABS: Anion Gap 10 (12-20); Blood Urea Nitrogen 6 mg/dL (9-16); Calcium 9.7 mg/dL (8.4-10.2); Carbon Dioxide 28 mmol/L (22-29); Chloride 108 mmol/L (96-108); Estimated Glomerular Filt Rate > 60; Glucose Random 84 mg/dL (60-115); Potassium 3.8 mmol/L (3.3-5.1); Sodium 142 mmol/L (135-145)
[2020-11-27 06:18] VITALS: BP 132/84; PULSE 78; RESP 16; O2SAT 99
[2020-11-27 10:21] LABS: Amphetamine Screen Urine Not Detected (Not Detect); Barbiturates, Urine Not Detected (Not Detect); Benzodiazepines Screen Urine Not Detected (Not Detect); Cannabinoid Screen Urine Not Detected (Not Detect); Cocaine Screen Urine POSITIVE (Not Detect); Opiate Screen Urine Not Detected (Not Detect); Phencyclidine Screen Urine Not Detected (Not Detect)
--- NOTE | 2020-11-27 11:07 | MHC.CM.PN ---
Met with patient in regards to discharge planning. Patient prefers to be called Ray . Patient lives with his partner and 2 children, ambulates independently and had no services prior to coming to the ER. No services anticipated to be needed because patient is not homebound. PCP verified. Patient denies having a HCP. Information provided about HCP. Patient declining to complete one at this time. IMM explained and signed. Patient will transport himself home when medically stable. Continue to monitor for d/c needs.
--- NOTE | 2020-11-27 12:03 | PM.DS ---
DS: Providers Provider Date of Service: 11/27/20 Date of admission: 11/26/20 22:24 Primary care physician: Korina Gerard NP DS: Diagnosis Discharge Diagnosis (1) Hypercalcemia: Status: Acute (2) Intractable vomiting: Status: Acute (3) Neoplasm of uncertain behavior of liver: Status: Acute DS: Medications Discharge Medications Home Medications: Home Medications Medication Instructions Recorded Confirmed Dexilant 1 cap PO DAILY 11/26/20 11/26/20 Latuda 1 tab PO QPM 11/26/20 11/26/20 Latuda 1 tab PO QPM 11/26/20 11/26/20 clonazepam 1 tab PO TID PRN 11/26/20 11/26/20 montelukast 1 tab PO DAILY 11/26/20 11/26/20 nortriptyline 3 cap PO BEDTIME 11/26/20 11/26/20 quetiapine 1 - 2 tab PO BEDTIME PRN 11/26/20 11/26/20 Linzess 1 cap PO DAILY 11/27/20 11/27/20 DS: Summary Hospital Course Hospital Course: from the admission history and physical by hospitalist Leilani Brown, 11/26/20: This is a biological female transitioning to male, prefers the name Ray who presents to the hospital with complaints of intractable nausea and vomiting. Patient reports that started to develop nausea and vomiting since October 31 almost daily, with very minimal oral intake, reports that even a cracker would make him vomit. He is also complaining of severe heartburn, left quadrant abdominal pain, hand no bowel movements. Patient reports that he had been following up with dev ops engineer at [facility] and and had an endoscopy done on November 17, results showed gastritis and he was started on nortriptyline as well as PPI. He reports that he tried multiple different antiemetics including Compazine with no relief of symptoms. He reports that after receiving Zofran IV in the ED he had some relief and was able to keep caridad down the 1st time in a long time. On arrival to the ED patient's lab significant for WBC count of 14, hemoglobin of 17, hematocrit of 50, sodium of 141, calcium of 13.6, heme-positive vomitus, stool occult blood negative, COVID-19 negative. Patient underwent abdominal/pelvic and CT chest with results showing some subtle possible thickening of the GE junction with a history of gastritis, hyperenhancing liver lesion possibly secondary to benign hemangioma no other significant abnormality Patient denies being on lithium, no thiazides, The patient was admitted to the hospitalist service though boarded in the ED due to restricted bed availability. He was given IV hydration and symptoms resolved to the point where he was able to eat eggs and toast without provoking the symptoms. He has been worked up by his dev ops engineer at [facility], including with endoscopy less than 2 weeks prior showing only gastritis, and has follow-up with them 12/12/20. Abdominal migraine or cyclic vomiting syndrome is suspected. He should continue the PPI and nortriptyline hwas taking previously and keep a symptom diary to identify and avoid possible triggers. As for the hypercalcemia, this was thought to be a lab error given rapid improvement from 13.6 to 9.7 over 12 hours. Ionized calcium level is pending at the time of discharge. Repeat labs [basic metabolic panel, albumin, phosphorous, magnesium, and 25-OH vitamin D] to be done in 1-2 days were ordered. As for the hyperenhancing liver lesion, the radiologist felt this was almost certainly a benign hemangioma and recommended an outpatient MRI, which was ordered to be done in 1-2 weeks. The patient was discharged home and should follow-up with his primary care provider in 1-2 weeks. Time Spent with Patient Time attestation: Total time spent providing and/or coordinating discharge services: 35 Discharge coordination time: Greater than 30 minutes Physical Exam Vital Signs: Vital Signs: Last Vital Signs Temp 97.9 F 11/27/20 02:21 Pulse 78 11/27/20 06:18 Resp 16 11/27/20 06:18 BP 132/84 11/27/20 06:18 Pulse Ox 99 11/27/20 06:18 Body Mass Index 20.6 Gen: in no acute distress HEENT: sclera anicteric, moist mucus membranes Neck: supple Lungs: clear to auscultation bilaterally Heart: regular rate and rhythm, no murmurs Abd: soft, non-tender, non-distended Ext: no edema Skin: warm/well-perfused Neuro: alert and oriented x3, no focal findings Psych: appropriate affect DS: Data Data Completed and Pending Labs on day of discharge: Laboratory Results WBC 9.6 X10*3/uL (4.8-10.8) 11/27/20 05:22 RBC 4.75 X10*6/uL (4.20-5.50) 11/27/20 05:22 Hgb 14.9 g/dl (12.0-16.0) 11/27/20 05:22 Hct 44.9 % (37-47) 11/27/20 05:22 MCV 94.5 fL (80-98) 11/27/20 05:22 MCH 31.4 pg (27.0-33.0) 11/27/20 05:22 MCHC 33.2 g/dl (31.0-35.0) 11/27/20 05:22 RDW 12.9 % (11.0-16.0) 11/27/20 05:22 Plt Count 247 X10*3/uL (160-400) 11/27/20 05:22 MPV 9.9 fL (9.4-12.3) 11/27/20 05:22 Immature Gran % (Auto) 0.4 % (0.0-0.4) 11/27/20 05:22 Neut % (Auto) 57.0 % (45-73) 11/27/20 05:22 Lymph % (Auto) 30.4 % (20-40) 11/27/20 05:22 Mason % (Auto) 10.1 % (2-11) 11/27/20 05:22 Eos % (Auto) 1.8 % (0-4) 11/27/20 05:22 Baso % (Auto) 0.3 % (0-2) 11/27/20 05:22 Lymph # (Auto) 2.9 X10*3/uL (1.2-4.9) 11/27/20 05:22 Mason # (Auto) 1.0 X10*3/uL (0.1-1.2) 11/27/20 05:22 Eos # (Auto) 0.2 X10*3/uL (0.0-0.4) 11/27/20 05:22 Baso # (Auto) 0.0 X10*3/uL (0.0-0.2) 11/27/20 05:22 Abs Immat Gran (auto) 0.04 X10*3/uL (0.00-0.03) H 11/27/20 05:22 Absolute Neuts (auto) 5.5 X10*3/uL (2.0-8.3) 11/27/20 05:22 Absolute Nucleated RBC 0.000 X10*3/uL (0.0-0.012) 11/27/20 05:22 Nucleated RBC % (auto) 0.0 /100WBC (0.0-0.2) 11/27/20 05:22 Sodium 142 mmol/L (135-145) 11/27/20 05:22 Potassium 3.8 mmol/L (3.3-5.1) 11/27/20 05:22 Chloride 108 mmol/L (96-108) 11/27/20 05:22 Carbon Dioxide 28 mmol/L (22-29) 11/27/20 05:22 Anion Gap 10 (12-20) L 11/27/20 05:22 BUN 6 mg/dL (9-16) L 11/27/20 05:22 Creatinine 0.91 mg/dL (0.5-1.4) 11/27/20 05:22 Estim Creat Clear Calc 56.0 11/27/20 05:22 Estimated GFR > 60 11/27/20 05:22 Random Glucose 84 mg/dL (60-115) 11/27/20 05:22 Calcium 9.7 mg/dL (8.4-10.2) D 11/27/20 05:22 Total Bilirubin 0.6 mg/dL (0.0-1.0) 11/26/20 17:03 Direct Bilirubin 0.2 mg/dL (0.0-0.5) 11/26/20 17:03 AST 20 U/L (5-31) 11/26/20 17:03 ALT 20 U/L (0-31) 11/26/20 17:03 Alkaline Phosphatase 50 U/L (39-117) 11/26/20 17:03 Total Protein 7.6 g/dL (6.5-8.0) 11/26/20 17:03 Albumin 4.4 g/dL (3.5-5.0) 11/26/20 17:03 Lipase 12 U/L (8-78) 11/26/20 17:03 Gastric Occult Blood POS (NEG) H 11/26/20 16:48 Stool Occult Blood NEGATIVE (NEGATIVE) 11/26/20 16:48 Urine Opiates Screen Not Detected (Not Detect) 11/27/20 09:40 Ur Barbiturates Screen Not Detected (Not Detect) 11/27/20 09:40 Ur Phencyclidine Scrn Not Detected (Not Detect) 11/27/20 09:40 Ur Amphetamines Screen Not Detected (Not Detect) 11/27/20 09:40 U Benzodiazepines Scrn Not Detected (Not Detect) 11/27/20 09:40 Urine Cocaine Screen POSITIVE (Not Detect) H 11/27/20 09:40 U Marijuana (THC) Screen Not Detected (Not Detect) 11/27/20 09:40 COVID-19 (RANDY) Negative (Negative) 11/26/20 21:44 COVID-19 Clin Com See Note 11/26/20 21:44 Impressions Abdomen/Pelvis CT 11/26/20 19:18 IMPRESSION: 1. There is some subtle possible thickening of the GE junction and given the history of weight loss further evaluation with upper GI or endoscopy is recommended. 2. Hyperenhancing liver lesion may very well be a benign hemangioma. This could be easily proven with hepatic MR. 3. No other significant abnormality is seen in the chest or abdomen. Chest CT 11/26/20 19:18 IMPRESSION: 1. There is some subtle possible thickening of the GE junction and given the history of weight loss further evaluation with upper GI or endoscopy is recommended. 2. Hyperenhancing liver lesion may very well be a benign hemangioma. This could be easily proven with hepatic MR. 3. No other significant abnormality is seen in the chest or abdomen. Discharge Plan Discharge Patient Disposition: Home, Self-Care Discharge Diagnosis: nausea/vomiting Referrals: Korina Gerard NP [Primary Care Provider] - 1 Week Discharge Medications: Continued quetiapine 25 mg tablet 1 - 2 tab PO BEDTIME PRN (Reason: insomnia) RF: 0 clonazepam 0.5 mg tablet 1 tab PO TID PRN (Reason: anxiety) RF: 0 nortriptyline 10 mg capsule 3 cap PO BEDTIME RF: 0 montelukast 10 mg tablet 1 tab PO DAILY RF: 0 Dexilant 60 mg capsule,biphase delayed releas 1 cap PO DAILY RF: 0 Latuda 80 mg tablet 1 tab PO QPM RF: 0 Latuda 20 mg tablet 1 tab PO QPM RF: 0 Linzess 290 mcg capsule 1 cap PO DAILY RF: 0 Discharge Orders: Discharge Order (Routine); Ordered 11/27/20 Ordered By: Rojelio Hughes Diet: advance to usual diet Activity on Discharge: As tolerated Stand Alone Forms: Patient Portal Discharge page Other Ambulatory Orders: MR angio abdomen wo/w con (Routine) Timeframe: 1 Week Facility: [facility] - Location: MRI Ordered By: Rojelio Hughes Albumin Level (Routine) Timeframe: 1 Day Facility: [facility] - Location: Laboratory Ordered By: Rojelio Hughes Basic Metabolic Panel (Routine) Timeframe: 1 Day Facility: [facility] - Location: Laboratory Ordered By: Rojelio Hughes Magnesium (Routine) Timeframe: 1 Day Facility: [facility] - Location: Laboratory Ordered By: Rojelio Hughes Phosphorus (Routine) Timeframe: 1 Day Facility: [facility] - Location: Laboratory Ordered By: Rojelio Hughes Vitamin D 25-OH Total (Routine) Timeframe: 1 Day Facility: [facility] - Location: Laboratory Ordered By: Rojelio Hughes Care Plan Goals: control of nausea/vomiting/abdominal pain work up of brief episode of high calcium work up of liver mass that appears benign Health Concerns: recurrent nausea/vomiting/abdominal pain hypercalcemia (possibly lab error?) liver mass, likely hemangioma Plan of Treatment: identify and avoid triggers (diet? substances of abuse? stress? sleep deprivation?), possible abdominal migraine syndrome; follow up with GI at [facility] as scheduled 12/12 repeat labs (basic metabolic panel, albumin, vitamin D, phosphorous, magnesium) in 1-2 days outpatient MRI of the abdomen in 1-2 weeks follow up with your primary care provider in 1-2 weeks Assessment: see above Patient Instructions: Acute Nausea and Vomiting (ED)
== END 2020-11-27 11:01 | disposition home or self-care (01) | DRG 103 ==
LOC: HO.ED 21:36 → HO.EDOVER 22:37 → HO.IMC 11-27 17:48 → HO.EDOVER 11-27 17:48
PROVIDERS: Admitting Provider Internal Medicine; Emergency Provider Emergency Medicine; PCP Nurse Practitioner Family; Visit Provider Family Medicine
DX: G43.D0 Abdominal migraine, not intractable (principal); E83.52 Hypercalcemia; F17.210 Nicotine dependence, cigarettes, uncomplicated; F31.9 Bipolar disorder, unspecified; Z71.6 Tobacco abuse counseling; D18.03 Hemangioma of intra-abdominal structures; K21.9 Gastro-esophageal reflux disease without esophagitis; F43.10 Post-traumatic stress disorder, unspecified; Z20.822 Contact with and (suspected) exposure to COVID-19; Z88.0 Allergy status to penicillin; Z88.5 Allergy status to narcotic agent; Z79.899 Other long term (current) drug therapy
CPT/HCPCS: 36415; 71260; 74177; 80048; 80076; 80307; 82271; 82272; 82330; 83690; 85025; 87635; 93005; 96372; 96374; 96375; 99219; 99284; 99285; J1650; J2405; Q9967

== ENCOUNTER 2021-01-08 02:08 | Emergency (ER) | payer MEDICARE, MEDICAID, SELFPAY ==
[2021-01-08 02:15] VITALS: BP 146/94; PULSE 101; RESP 16; TEMP 37; O2SAT 99; BMI 21.1
[2021-01-08 04:00] VITALS: BP 146/94; PULSE 101; RESP 16; TEMP 37; O2SAT 99
--- NOTE | 2021-01-08 04:37 | ED_ITS ---
HPI - General Adult General Chief complaint: Abdominal Pain Stated complaint: dull stomach feeling, fullness in chest Time Seen by Provider: 01/08/21 04:07 Source: patient Mode of arrival: ambulatory History of Present Illness HPI narrative: This is a 40-year-old F2M presents with persistent sensation of a ?blockage in the throat? since 10/31/2020. As per patient food it is frequently stock and then patient has to vomit. Patient has been to multiple facilities to have this evaluated and is undergone endoscopy, CT, MRI and have been no significant findings. Patient also reports a 14 lb weight loss. Otherwise, no fevers, chills, diarrhea, urinary pain/burning/frequency. Related Data Home Medications Medication Instructions Recorded Confirmed Dexilant 1 cap PO DAILY 11/26/20 11/26/20 Latuda 1 tab PO QPM 11/26/20 11/26/20 Latuda 1 tab PO QPM 11/26/20 11/26/20 clonazepam 1 tab PO TID PRN 11/26/20 11/26/20 montelukast 1 tab PO DAILY 11/26/20 11/26/20 nortriptyline 3 cap PO BEDTIME 11/26/20 11/26/20 quetiapine 1 - 2 tab PO BEDTIME PRN 11/26/20 11/26/20 Linzess 1 cap PO DAILY 11/27/20 11/27/20 Previous Rx's Medication Instructions Recorded cefixime 400 mg PO DAILY 7 Days #7 cap 01/08/21 Allergies Allergy/AdvReac Type Severity Reaction Status Date / Time strawberry [STRAWBERRY] Allergy Severe ANAPHYLAXIS Verified 11/26/20 15:31 watermelon [WATERMELON] Allergy Severe ANAPHYLAXIS Verified 11/26/20 15:31 acetaminophen [From VICODIN] Allergy Intermediate ITCHING Verified 11/26/20 15:31 amoxicillin [AMOXICILLIN] Allergy Intermediate ITCHING Verified 11/26/20 15:31 hydrocodone [From VICODIN] Allergy Intermediate ITCHING Verified 11/26/20 15:31 oxycodone [From PERCOCET] Allergy Intermediate ITCHING Verified 11/26/20 15:31 propoxyphene Allergy Intermediate HEADACHES Verified 11/26/20 15:31 [From DARVOCET-N] honey [HONEY] AdvReac Intermediate HEADACHES Verified 11/26/20 15:31 Review of Systems Review of Systems: Pertinent positives and negatives as stated in HPI 10 point review of systems is otherwise negative. [facility] Past Medical History Source: nursing notes reviewed Medical History Asthma Bipolar 1 disorder Borderline personality disorder Depression Gastritis GERD (gastroesophageal reflux disease) Liver mass PTSD (post-traumatic stress disorder) Social History Social History Alcohol intake: never Patient Tobacco Use Status: Current everyday Tobacco user Use of substances other than those prescribed or required for medical reasons: Yes Substance Use Type: Marijuana Substance Use Frequency: Occasionally Advance Directives: No Advance Directives Information Provided: No service: No Current occupational status: disabled Physical Exam Vital Signs: Vital Signs: Last Vital Signs Temp 98.6 F 01/08/21 04:00 Pulse 101 H 01/08/21 04:00 Resp 16 01/08/21 04:00 BP 146/94 H 01/08/21 04:00 Pulse Ox 99 01/08/21 04:00 Body Mass Index 21.1 VITAL SIGNS: Reviewed. GENERAL: Well developed, well nourished, in no acute distress. HEAD: Normocephalic/atraumatic EYES: PERRLA, EOMI OROPHARYNX: no oral lesions noted, posterior pharynx clear LUNGS: Normal breath sounds. No adventitious sounds or accessory muscle use. SpO2<99> CARDIOVASCULAR: Regular rate and rhythm without noted murmurs ABDOMEN: Soft, non-tender, non-distended with bowel sounds. Course Course Course Narrative: This is a 40-year-old female with history and clinical presentation suggestive of possible dyspepsia or medication esophagitis but cannot rule out the possibility of esophageal dysfunction (possible barium swallow or manometry may provide further insight into patient's symptoms). Patient will be offered basic lab work, urinalysis, as well as a trial of simethicone. May consider GI cocktail as well. Review of all investigations otherwise negative for acute findings other than a UTI. Patient received initial antibiotics here in the emergency room and then will be discharged with remaining course. The treatment with the simethicone did not help patient's symptoms and she will be provided with alternative points that she can discuss with her primary care provider/windows security engineer. Medical Decision Making Lab Data Result diagrams: 01/08/21 04:41 01/08/21 04:41 Labs: Lab Results 01/08/21 01/08/21 01/08/21 Range/Units 04:28 04:28 04:41 WBC 10.2 (4.8-10.8) X10*3/uL RBC 5.02 (4.20-5.50) X10*6/uL Hgb 15.5 (12.0-16.0) g/dl Hct 46.3 (37-47) % MCV 92.2 (80-98) fL MCH 30.9 (27.0-33.0) pg MCHC 33.5 (31.0-35.0) g/dl RDW 12.9 (11.0-16.0) % Plt Count 271 (160-400) X10*3/uL MPV 9.3 L (9.4-12.3) fL Immature Gran % (Auto) 0.3 (0.0-0.4) % Neut % (Auto) 55.2 (45-73) % Lymph % (Auto) 36.4 (20-40) % [place] % (Auto) 7.1 (2-11) % Eos % (Auto) 0.7 (0-4) % Baso % (Auto) 0.3 (0-2) % Lymph # (Auto) 3.7 (1.2-4.9) X10*3/uL [place] # (Auto) 0.7 (0.1-1.2) X10*3/uL Eos # (Auto) 0.1 (0.0-0.4) X10*3/uL Baso # (Auto) 0.0 (0.0-0.2) X10*3/uL Abs Immat Gran (auto) 0.03 (0.00-0.03) X10*3/uL Absolute Neuts (auto) 5.6 (2.0-8.3) X10*3/uL Absolute Nucleated RBC 0.000 (0.0-0.012) X10*3/uL Nucleated RBC % (auto) 0.0 (0.0-0.2) /100WBC Sodium (135-145) mmol/L Potassium (3.3-5.1) mmol/L Chloride (96-108) mmol/L Carbon Dioxide (22-29) mmol/L Anion Gap (12-20) BUN (9-16) mg/dL Creatinine (0.5-1.4) mg/dL Estim Creat Clear Calc Estimated GFR Random Glucose (60-115) mg/dL Calcium (8.4-10.2) mg/dL Total Bilirubin (0.0-1.0) mg/dL AST (5-31) U/L ALT (0-31) U/L Alkaline Phosphatase (39-117) U/L Total Protein (6.5-8.0) g/dL Albumin (3.5-5.0) g/dL Lipase (8-78) U/L Urine Color STRAW Urine Appearance HAZY Urine pH 7.0 (5.0-8.0) Ur Specific [place] 1.015 (1.005-1.025) Urine Protein NEG (NEG-TRACE) MG/DL Urine Glucose (UA) NEG (NEG) MG/DL Urine Ketones NEG (NEG) MG/DL Urine Blood TRACE (NEG) Urine Nitrite NEG (NEG) Ur Leukocyte Esterase 3+ H (NEG) Urine RBC 0-2 (0) /HPF Urine WBC 30-49 H (0-4) /HPF Urine WBC Clumps NOTED Ur Squamous Epith Cells 2+ /LPF Urine Bacteria 1+ /LPF Urine Test NEGATIVE (NEGATIVE) 01/08/21 Range/Units 04:41 WBC (4.8-10.8) X10*3/uL RBC (4.20-5.50) X10*6/uL Hgb (12.0-16.0) g/dl Hct (37-47) % MCV (80-98) fL MCH (27.0-33.0) pg MCHC (31.0-35.0) g/dl RDW (11.0-16.0) % Plt Count (160-400) X10*3/uL MPV (9.4-12.3) fL Immature Gran % (Auto) (0.0-0.4) % Neut % (Auto) (45-73) % Lymph % (Auto) (20-40) % [place] % (Auto) (2-11) % Eos % (Auto) (0-4) % Baso % (Auto) (0-2) % Lymph # (Auto) (1.2-4.9) X10*3/uL [place] # (Auto) (0.1-1.2) X10*3/uL Eos # (Auto) (0.0-0.4) X10*3/uL Baso # (Auto) (0.0-0.2) X10*3/uL Abs Immat Gran (auto) (0.00-0.03) X10*3/uL Absolute Neuts (auto) (2.0-8.3) X10*3/uL Absolute Nucleated RBC (0.0-0.012) X10*3/uL Nucleated RBC % (auto) (0.0-0.2) /100WBC Sodium 142 (135-145) mmol/L Potassium 3.4 (3.3-5.1) mmol/L Chloride 106 (96-108) mmol/L Carbon Dioxide 31 H (22-29) mmol/L Anion Gap 8 L (12-20) BUN 7 L (9-16) mg/dL Creatinine 0.93 (0.5-1.4) mg/dL Estim Creat Clear Calc 57.7 Estimated GFR > 60 Random Glucose 95 (60-115) mg/dL Calcium 9.4 (8.4-10.2) mg/dL Total Bilirubin 0.2 (0.0-1.0) mg/dL AST 13 (5-31) U/L ALT 15 (0-31) U/L Alkaline Phosphatase 39 D (39-117) U/L Total Protein 6.8 (6.5-8.0) g/dL Albumin 4.2 (3.5-5.0) g/dL Lipase 16 (8-78) U/L Urine Color Urine Appearance Urine pH (5.0-8.0) Ur Specific [place] (1.005-1.025) Urine Protein (NEG-TRACE) MG/DL Urine Glucose (UA) (NEG) MG/DL Urine Ketones (NEG) MG/DL Urine Blood (NEG) Urine Nitrite (NEG) Ur Leukocyte Esterase (NEG) Urine RBC (0) /HPF Urine WBC (0-4) /HPF Urine WBC Clumps Ur Squamous Epith Cells /LPF Urine Bacteria /LPF Urine Test (NEGATIVE) Discharge Plan Discharge Clinical Impression: Dysphagia, Dyspepsia, UTI (urinary tract infection) Patient Disposition: Home, Self-Care Instructions: Urinary Tract Infection in Women (ED), Indigestion (ED), Dysphagia (ED) Additional Instructions: Resume all home medications as prescribed. Follow-up with your primary care provider in the next 1-2 days for re-evaluation and further outpatient management. - consider the possibility pill esophagitis. - may consider requesting possible manometry studies or barium swallow for further evaluation of your symptoms. Return to the ER for acute worsening of your symptoms. Prescriptions: New cefixime 400 mg capsule 400 mg PO DAILY 7 Days Qty: 7 RF: 0 No Action quetiapine 25 mg tablet 1 - 2 tab PO BEDTIME PRN (Reason: insomnia) RF: 0 clonazepam 0.5 mg tablet 1 tab PO TID PRN (Reason: anxiety) RF: 0 nortriptyline 10 mg capsule 3 cap PO BEDTIME RF: 0 montelukast 10 mg tablet 1 tab PO DAILY RF: 0 Dexilant 60 mg capsule,biphase delayed releas 1 cap PO DAILY RF: 0 Latuda 80 mg tablet 1 tab PO QPM RF: 0 Latuda 20 mg tablet 1 tab PO QPM RF: 0 Linzess 290 mcg capsule 1 cap PO DAILY RF: 0 Referrals: Physician,Unknown [Primary Care Provider] - 2 days
[2021-01-08 04:46] LABS: Basophils Percent Auto 0.3 % (0-2); Eosinophils Absolute Auto 0.1 X10*3/uL (0.0-0.4); Eosinophils Percent Auto 0.7 % (0-4); Hematocrit 46.3 % (37-47); Hemoglobin 15.5 g/dl (12.0-16.0); Imm Gran Abs Auto 0.03 X10*3/uL (0.00-0.03); Imm Gran Pct Auto 0.3 % (0.0-0.4); Lymphocytes Absolute Auto 3.7 X10*3/uL (1.2-4.9); Lymphocytes Percent Auto 36.4 % (20-40); MANUAL DIFF FLAG NO; Mean Corpuscular HGB Conc 33.5 g/dl (31.0-35.0); Mean Corpuscular Hemoglobin 30.9 pg (27.0-33.0); Mean Corpuscular Volume 92.2 fL (80-98); Mean Platelet Volume 9.3 fL (9.4-12.3); Monocytes Absolute Auto 0.7 X10*3/uL (0.1-1.2); Monocytes Percent Auto 7.1 % (2-11); Neutrophils Absolute Auto 5.6 X10*3/uL (2.0-8.3); Neutrophils Percent Auto 55.2 % (45-73); Platelet Count 271 X10*3/uL (160-400); Red Blood Count 5.02 X10*6/uL (4.20-5.50); Red Cell Distribution Width 12.9 % (11.0-16.0); White Blood Count 10.2 X10*3/uL (4.8-10.8)
[2021-01-08 04:47] LABS: Glucose Urine UA NEG (NEG); Leukocyte Esterase Urine 3+ (NEG); Nitrite Urine NEG (NEG); Specific Gravity - Urine 1.015 (1.005-1.025); UACC Culture Trigger YES; Urine Blood TRACE (NEG); Urine Ketones NEG (NEG); Urine Protein NEG (NEG-TRACE)
[2021-01-08 04:48] LABS: Appearance Urine HAZY; Color Urine STRAW
[2021-01-08 04:49] LABS: UPreg QC Valid YES; Urine Pregnancy NEGATIVE (NEGATIVE)
[2021-01-08 04:55] LABS: Bacteria Urine 1+ /LPF; RBC Urine 0-2 /HPF (0); Squamous Epithelial Cell Urine 2+ /LPF; WBC Clumps Urine NOTED; WBC Urine 30-49 /HPF (0-4)
[2021-01-08 05:15] LABS: Alanine Aminotransferase 15 U/L (0-31); Albumin Level 4.2 g/dL (3.5-5.0); Alkaline Phosphatase 39 U/L (39-117); Anion Gap 8 (12-20); Aspartate Amino Transferase 13 U/L (5-31); Bilirubin Total 0.2 mg/dL (0.0-1.0); Blood Urea Nitrogen 7 mg/dL (9-16); Calcium 9.4 mg/dL (8.4-10.2); Carbon Dioxide 31 mmol/L (22-29); Chloride 106 mmol/L (96-108); Creatinine Clr Calc Pharmacy 57.7; Estimated Glomerular Filt Rate > 60; Glucose Random 95 mg/dL (60-115); Lipase 16 U/L (8-78); Potassium 3.4 mmol/L (3.3-5.1); Sodium 142 mmol/L (135-145); Total Protein 6.8 g/dL (6.5-8.0)
== END 2021-01-08 06:21 | disposition home or self-care (01) ==
PROVIDERS: Emergency Provider Student in an Organized Health Care Education/Training Program
DX: N39.0 Urinary tract infection, site not specified (principal); R13.10 Dysphagia, unspecified; R10.13 Epigastric pain; J45.909 Unspecified asthma, uncomplicated
CPT/HCPCS: 36415; 80053; 81001; 81003; 81025; 83690; 85025; 87086; 99283; 99284

== ENCOUNTER 2023-05-29 08:20 | Emergency (ER) | payer MEDICARE, MEDICAID, SELFPAY ==
[2023-05-29 08:24] VITALS: BP 142/97; PULSE 109; RESP 18; TEMP 36.1; O2SAT 100; BMI 30.3
--- OUTSIDE RECORDS SUMMARY | 2023-05-29 08:43 | XMS_ITS | Continuity of Care Document ---
Author Name Unknown Organization [facility] Address [address] [place] [address]- Care Team Providers Care Grab Operator Name Role Phone Moustapha PINA, Korina Frazier Primary Care Physician [facility]counter [facility] Date(s): 03/03/23 - 04/02/23 [facility] [address] [place] [address]- Allergies, Adverse Reactions, Alerts Substance Reaction Severity Status doxycycline Active erythromycin rash Active Darvocet-N 100 Itchy Migraine Active amoxicillin hives Unknown Active penicillin rash Active pseudoephedrine Active venlafaxine Active Naprosyn gi upset Active raspberry Active Latex itching Active Strawberries migraine Hives Active Watermelon Hives Active Immunizations Given and Recorded Vaccine Date Status Refusal Reason tetanus/diphtheria/pertussis, acel(Tdap) 12/09/22 Given tetanus/diphtheria/pertussis, acel(Tdap) 1 09/25/09 Given influenza virus vaccine, inactivated 05/31/22 Jarrod rded influenza virus vaccine, inactivated 04/16/21 Jarrod rded influenza virus vaccine, inactivated 04/17/20 Jarrod rded influenza virus vaccine, inactivated 2 05/31/19 Re corded influenza virus vaccine, inactivated 04/15/18 Jarrod rded influenza virus vaccine, inactivated 03/05/16 Jarrod rded influenza virus vaccine, inactivated 11/03/15 Give n influenza virus vaccine, inactivated 05/07/14 Give n influenza virus vaccine, inactivated 3 03/21/11 Gi jimenez SARS-CoV-2 (COVID-19) mRNA-1273 vaccine 07/20/21 R ecorded SARS-CoV-2 (COVID-19) mRNA-1273 vaccine 10/11/20 R ecorded SARS-CoV-2 (COVID-19) mRNA-1273 vaccine 09/13/20 R ecorded SARS-CoV-2 (COVID-19) mRNA BNT-162b2 vac 12/09/20 Recorded hepatitis B adult vaccine 08/01/16 Given hepatitis B adult vaccine 02/02/16 Given Measles/Mumps/Rubella Virus Vaccine 02/02/16 Given Measles/Mumps/Rubella Virus Vaccine 07/25/81 Recor ded 1Admin Note: former pcp 2Result Comment: [facility] [place] [id number] 3Admin Note: MANUFACTURE BIOMEDICAL INFO SHEET GIVEN GIVEN W/O INCIDENT Medications 18 gauge 1 or 1.5 inch needles 18 gauge 1 or 1.5 inch needles, See Instructions, # 12 each, Refills 5, Tot. Refills 5, Maintenance, for use to draw testosterone cypionate, 03/03/23 14:20:00 EDT, Compound, 150, cm, 02/28/23 13:55:00 EDT, Height, 54, kg, 05/17/22 12:01:00 EDT, Dry We... Start Date: 03/03/23 Status: Ordered 1mL slip tip tuberculin syringe with 25 gauge 5/8th inch needles 1mL slip tip tuberculin syringe with 25 gauge 5/8th inch needles, See Instructions, # 12 each, Refills 5, Tot. Refills 5, Maintenance, for use with testosterone cypionate, 03/03/23 14:20:00 EDT, Compound, 150, cm, 02/28/23 13:55:00 EDT, Height, 54, kg... Start Date: 03/03/23 Status: Ordered albuterol CFC free 90 mcg/inh inhalation aerosol 1, puffs, Inhalation, 4 times a day, PRN, use with spacer chamber, # 18 Gm, Refills 6, Tot. Refills6, Maintenance, 12/09/22 9:56:00 EDT, Aerosol, Route to Pharmacy Electronically, [id number], [facility] #[id number], d/c... Start Date: 12/09/22 Status: Ordered amLODIPine 10 mg oral tablet 10 mg, 1, tablet, By Mouth, Daily, # 90 tablet, Refills 3, Tot. Refills 3, Maintenance, 02/28/23 14:09:00 EDT, Route to Pharmacy Electronically, [facility] #[id number], note dose increase, 150, cm, 02/28/23 13:55:00 EDT, Height, 54, kg, 05/17/22... Start Date: 02/28/23 Status: Ordered BP Monitor with cuff BP Monitor with cuff, See Instructions, # 1 each, Refills 0, Tot. Refills 0, Maintenance, Dx: Hypertension (I10); Amlodipine 5mg; Duration: Lifetime Check your BPDaily, 2 hours after taking BP Medication., 12/09/22 10:59:00 EDT, Supply Start Date: 12/09/22 Status: Ordered busPIRone 5 mg oral tablet See Instructions, 7.5mg BID, Instructions Replace Required Details Start Date: 08/30/22 Status: Ordered clonazePAM 0.5 mg oral tablet 1 tablet = 0.5 mg, By Mouth, 2 times a day, 0 Refills, Maintenance, 06/30/19 13:51:45 EST Start Date: 06/30/19 Status: Ordered Dexilant 60 mg oral delayed release capsule 1 capsule = 60 mg, By Mouth, Daily, # 30 capsule, 6 Refills, Maintenance, 01/27/23 13:36:00 EDT, [facility] #[id number], Partial fill upon patient request if the prescription is for a schedule II opioid drug., 150, cm, 12/09/22 9:40:00 EDT, [place]... Start Date: 01/27/23 Status: Ordered dicyclomine 20 mg oral tablet 1 tablet = 20 mg, By Mouth, 4 times a day, # 360 tablet, 3 Refills, Hard Stop 07/12/24 14:31:00 EST, 07/12/23 15:21:00 EST, Tablet, [facility] #[id number], Partial fill upon patient request if the prescription is for a schedule II opioid drug., 1... Start Date: 07/12/23 Stop Date: 07/12/24 Status: Ordered dicyclomine 20 mg oral tablet 1 tablet = 20 mg, By Mouth, 4 times a day, # 360 tablet, 3 Refills, Hard Stop 07/12/23 15:21:00 EST, 08/23/22 16:31:00 EST, Tablet, [facility] #[id number], Partial fill upon patient request if the prescription is for a schedule II opioid drug., 1... Start Date: 08/23/22 Stop Date: 07/12/23 Status: Ordered Dulcolax Stool Softener = 100 mg, By Mouth, 2 times a day, OTC, 0 Refills, Maintenance, 01/15/22 10:55:00 EDT, Partial fillupon patient request if the prescription is for a schedule II opioid drug. Start Date: 01/15/22 Status: Ordered Flonase 50 mcg/inh nasal spray 1 sprays, Nares, Both, Daily in AM, # 16 Gm, 0 Refills, Maintenance, 12/09/22 10:06:00 EDT, [place], [facility] #[id number], Partial fill upon patient request if the prescription is for a scheduleII opioid drug., 1 sprays Nares, Both Daily in AM,... Start Date: 12/09/22 Status: Ordered Latuda 20 mg oral tablet 1 tablet = 20 mg, By Mouth, Daily, 0 Refills, Maintenance, 08/30/22 9:07:00 EST, Partial fill upon patient request if the prescription is for a schedule II opioid drug. Start Date: 08/30/22 Status: Ordered Latuda 80 mg oral tablet 1 tablet = 80 mg, By Mouth, Daily, 0 Refills, Maintenance, 08/30/22 9:07:00 EST, Partial fill upon patient request if the prescription is for a schedule II opioid drug. Start Date: 08/30/22 Status: Ordered montelukast 10 mg oral tablet 1, tablet, By Mouth, Daily, # 90 tablet, Refills 3, Tot. Refills 3, 12/09/22 9:56:00 EDT, Route to Pharmacy Electronically, [facility] #[id number], 150, cm, 12/09/22 9:40:00 EDT, Height, 54, kg,05/17/22 12:01:00 EDT, Dry Weight Start Date: 12/09/22 Status: Ordered nortriptyline 10 mg oral capsule 3, capsule, By Mouth, Daily at bedtime, # 90 capsule, Refills 0, Maintenance, 02/24/23 9:21:00 EDT,Route to Pharmacy Electronically, [facility] #[id number], 150, cm, 12/09/22 9:40:00 EDT, Height, 54, kg, 05/17/22 12:01:00 EDT, Dry Weight Start Date: 02/24/23 Status: Ordered SEROquel 100 mg oral tablet 100 mg, 1, tablet, By Mouth, 2 times a day, Refills 0, Maintenance, 08/30/22 9:09:00 EST, Partial fill upon patient request if the prescription is for a schedule II opioid drug. Start Date: 08/30/22 Status: Ordered testosterone cypionate 200 mg/mL intramuscular solution 0.25 mL = 50 mg, Intramuscular, Every week, # 1.25 mL, 3 Refills, Maintenance, 02/28/23 14:10:00 EDT, Injection, [facility] #[id number], Partial fill upon patient request if the prescription is for a schedule II opioid drug., 150, cm, 02/28/23 13... Start Date: 02/28/23 Status: Ordered Vitamin D3 1000 intl units oral capsule 1 capsule = 1,000 International_Units, By Mouth, Daily, # 90 tablet, 3 Refills, Maintenance, 11/17/18 13:24:08 EDT, Capsule Start Date: 11/17/18 Status: Ordered Problem List Condition Confirmation Course Effective Dates Status Health St atus Informant Allergic rhinitis Confirmed Active Anxiety Confirmed Active Cyst, arachnoid 1 Confirmed Active Asthma Confirmed Active Chronic constipation Confirmed Active Conduction disorder of the heart Confirmed Active Gender dysphoria Confirmed Active GERD - Gastro-esophageal reflux disease 2 Confirmed Active Hypertension Confirmed Active Major depression Confirmed Active Migraines Confirmed Active Nicotine dependence Confirmed Active PTSD - Post-traumatic stress disorder Confirmed Active 1followed by neurology MRI brain was perfomed showing right posterior fossa arachnoid cyst with no concerning of feature of rapid expansion. MRI T&LSpine essentially normal. 2followed by GI Social History Social History Type Response Smoking Status Never (less than 100 in lifetime) entered on: 12/09/22 Sex Female Patient Care team information Care Team Personnel Name: Sandie Saleem MA Position: [facility] RN Member Role: Primary Care Nurse Name: Amita Arredondo RN Position: [facility] SN Musical Instrument Maker Member Role: Primary Care Nurse Name: Caroline Hernandez Position: [facility] RN Member Role: Primary Care Nurse Name: Arthur Griffin DO Position: [facility] EMPLOYMENT INTERVIEWER MD Member Role: Lifetime EMPLOYMENT INTERVIEWER Physician Address: Address: [address] [place], [place] [address]s [facility] [employer] [place] [address]- [place] Name: Moustapha PINA, Korina Frazier Position: [facility] PCO Associate Professional Member Role: PCP Address: Address: [address], -Level [facility] [place] [address]- Care Team Related Persons Name: TRAVON CANTRELL Address: home [address] [place] [address] Name: SERAFIN LANDA Address: [address] [place] [address] Name: SOL GILLILAND Address: home [address] [place] [address] Name: DELIA DWYER Address: [address] [place] [address]
--- OUTSIDE RECORDS SUMMARY | 2023-05-29 08:43 | XMS_ITS | Continuity of Care Document ---
Author Name Unknown Organization [facility] Address [address] [place] [address]- Care Team Providers Care Belt And Link Assembly Supervisor Name Role Phone Moustapha PINA, Korina Frazier Primary Care Physician [facility] Date[facility]s): 01/07/23 - 02/26/23 [facility] [address] [place] [address]- Attending Physician: Korina Gerard NP Admitting Physician: Moustapha PINA, Korina Frazier Allergies, Adverse Reactions, Alerts Substance Reaction Severity Status doxycycline Active erythromycin rash Active venlafaxine Active Darvocet-N 100 Itchy Migraine Active amoxicillin hives Unknown Active penicillin rash Active pseudoephedrine Active Naprosyn gi upset Active raspberry Active [...] former pcp 2Result Comment: notification [place] [id number] 3Admin Note: MANUFACTURE BIOMEDICAL INFO SHEET GIVEN GIVEN W/O INCIDENT Medications albuterol CFC free 90 mcg/inh inhalation aerosol 1, puffs, Inhalation, 4 times a day, PRN, use with spacer chamber, # 18 Gm, Refills 6, Tot. Refills6, Maintenance, 12/09/22 9:56:00 EDT, Aerosol, Route to Pharmacy Electronically, [id number], [facility] #[id number], d/c... Start Date: 12/09/22 Status: Ordered amLODIPine 5 mg oral tablet 5 mg, 1, tablet, By Mouth, Daily, # 90 tablet, Refills 0, Tot. Refills 0, Maintenance, 12/09/22 10:13:00 EDT, Route to Pharmacy Electronically, [facility] #[id number], Partial fill upon patient request if the prescription is for a schedule II opi... Start Date: 12/09/22 Status: Ordered BP Monitor with cuff BP [...] capsule, 6 Refills, Maintenance, 01/27/23 13:36:00 EDT, [facility] #[id number], Partial fill upon patient request if the prescription is for a schedule II opioid drug., 150, cm, 12/09/22 9:40:00 EDT, He[place]... Start Date: 01/27/23 Status: Ordered dicyclomine 20 mg oral tablet 1 tablet = 20 mg, By Mouth, 4 times a day, # 360 tablet, 3 Refills, Hard Stop 07/12/23 15:21:00 EST, 08/23/22 16:31:00 EST, Tablet, [facility] #[id number], Partial fill upon patient request if the [...] Gm, 0 Refills, Maintenance, 12/09/22 10:06:00 EDT, [place], [facility] #[id number], Partial fill upon patient request if the [...] 12/09/22 9:56:00 EDT, Route to Pharmacy Electronically, [facility] #[id number], 150, cm, 12/09/22 9:40:00 EDT, Height, 54, kg,05/17/22 12:01:00 EDT, Dry Weight Start Date: 12/09/22 Status: Ordered nortriptyline 10 mg oral capsule 3, capsule, By Mouth, Daily at bedtime, # 90 capsule, Refills 0, Maintenance, 02/24/23 9:21:00 EDT,Route to Pharmacy Electronically, [facility] #[id number], 150, cm, 12/09/22 9:40:00 EDT, Height, 54, [...] mL = 50 mg, Intramuscular, Every week, 0 Refills, Maintenance, 12/15/18 11:41:31 EDT Start Date: 12/15/18 Status: Ordered Vitamin D3 1000 intl units [...] Team Personnel Name: Sandie Saleem [place] Position: [facility] RN Member Role: Primary Care Nurse Name: Amita Arredondo RN Position: [facility] SN Machinist Instructor Member Role: Primary Care Nurse Name: Caroline Hernandez Position: [facility] RN Member Role: Primary Care Nurse Name: Arthur Girffin DO Position: [facility] RETURNER MD Member Role: Lifetime RETURNER Physician Address: Address: [address] [place], [place] [address]s [facility] [place] [address]- Name: Moustapha PINA, Korina Frazier Position: [facility] PCO Associate Professional Member Role: PCP Address: Address: [address] [facility], C-Level [facility] [place] [address]- Care Team Related Persons Name: TRAVON CANTRELL Address: [address] [place] [address] Name: SERAFIN LANDA Address: [address] [place] [address] Name: SOL GILLILAND Address: [address] [place] [address] Name: DELIA DWYER Address: [address] [place] [address]
--- OUTSIDE RECORDS SUMMARY | 2023-05-29 08:43 | XMS_ITS | Continuity of Care Document ---
Author Name Unknown Organization [facility] Mina analia Address [address] [place] [address] [address] [place] [address]- Care Team Providers Care Warehouse Handler Name Role Phone Moustapha PINA, Korina Frazier Primary Care Physician [facility]counter [facility] Date(s): 03/06/22 - 04/05/22 [facility] [address] [place] [address]- Allergies, Adverse Reactions, Alerts Substance Reaction Severity Status doxycycline Active erythromycin rash Active amoxicillin hives Unknown Active penicillin rash Active pseudoephedrine Active venlafaxine Active Naprosyn gi upset Active raspberry Active Latex itching Active Strawberries migraine Hives Active Watermelon Hives Active Darvocet-N 100 Itchy Migraine Active Immunizations Given and Recorded Vaccine Date Status Refusal Reason SARS-CoV-2 (COVID-19) mRNA BNT-162b2 vac 12/09/20 Recorded influenza virus vaccine, inactivated 1 05/31/19 Re corded influenza virus vaccine, inactivated 11/03/15 Give n influenza virus vaccine, inactivated 05/07/14 Give n influenza virus vaccine, inactivated 2 03/21/11 Gi jimenez hepatitis B adult vaccine 08/01/16 Given hepatitis B adult vaccine 02/02/16 Given Measles/Mumps/Rubella Virus Vaccine 02/02/16 Given tetanus/diphtheria/pertussis, acel(Tdap) 3 09/25/09 Given 1Result Comment: notification [place] [id number] 2Admin Note: MANUFACTURE BIOMEDICAL INFO SHEET GIVEN GIVEN W/O INCIDENT 3Admin Note: former pcp Medications albuterol CFC free 90 mcg/inh inhalation aerosol 1, puffs, Inhalation, 4 times a day, PRN, use with spacer chamber, # 18 Gm, Refills 6, Tot. Refills6, Maintenance, 12/20/21 17:01:00 EDT, Aerosol, Route to Pharmacy Electronically, [id number], [facility] #[id number], d/... Start Date: 12/20/21 Status: Ordered biotin 5000 mcg oral tablet, disintegrating 1 tablet = 5,000 mcg, By Mouth, Daily, 0 Refills, Maintenance, 06/30/19 13:53:28 EST Start Date: 06/30/19 Status: Ordered clonazePAM 0.5 mg oral tablet 1 tablet = 0.5 mg, By Mouth, 2 times a day, 0 Refills, Maintenance, 06/30/19 13:51:45 EST Start Date: 06/30/19 Status: Ordered Dexilant 30 mg oral delayed release capsule 1 capsule = 30 mg, By Mouth, Daily, 60 mg daily, # 30 capsule, 0 Refills, Maintenance, 04/30/13 9:07:07 EDT, EC Capsule Start Date: 04/30/13 Status: Ordered dicyclomine 20 mg oral tablet 1 tablet = 20 mg, By Mouth, 4 times a day, # 120 tablet, 0 Refills, Maintenance, 03/28/22 15:53:00 EDT, Tablet, [facility] #[id number], Partial fill upon patient request if the prescription is for a schedule II opioid drug., 152.4, cm, 01/24/22 1... Start Date: 03/28/22 Status: Ordered dicyclomine 20 mg oral tablet 1 tablet = 20 mg, By Mouth, 4 times a day, # 120 tablet, 0 Refills, Hard Stop 04/25/23 11:14:00 EDT, 03/26/22 12:59:00 EDT, Tablet, [facility] #[id number], Partial fill upon patient request if the prescription is for a schedule II opioid drug., 1... Start Date: 03/26/22 Stop Date: 04/25/23 Status: Ordered docusate sodium 250 mg oral capsule 1 capsule = 250 mg, By Mouth, Daily, PRN for constipation, # 20 capsule, 2 Refills, Maintenance, 10/25/19 13:21:00 EDT, Capsule, [facility] #[id number], 152.4, cm, 09/27/19 9:43:00 EDT, Height, 52.3, kg, 07/07/19 12:17:00 EST, Dry Weight Start Date: 10/25/19 Status: Ordered Dulcolax Stool Softener = 100 mg, By Mouth, 2 times a day, OTC, 0 Refills, Maintenance, 01/15/22 10:55:00 EDT, Partial fillupon patient request if the prescription is for a schedule II opioid drug. Start Date: 01/15/22 Status: Ordered famotidine 20 mg oral tablet 1, tablet, By Mouth, 2 times a day, AVOID EATING AND DRINKING FOR 10 MINUTES AFTER EACH DOSE, # 180tablet, Refills 0, Route to Pharmacy Electronically, [facility] #[id number], 152.4, cm, 04/10/21 12:27:00 EDT, Height, 50.6, kg, 06/02/20 11:55:00... Start Date: 07/10/21 Status: Ordered Flovent HFA 110 mcg/inh inhalation aerosol 2 puffs, Inhalation, 2 times a day, # 12 Gm, 3 Refills, Maintenance, 01/15/21 16:58:00 EDT, Aerosol, [facility] #[id number], to replace arnuity ellipta, 152.4, cm, 12/11/20 18:27:00 EDT, Height,50.6, kg, 06/02/20 11:55:00 EST, Dry Weight Start Date: 01/15/21 Status: Ordered fluticasone 50 mcg/inh nasal spray See Instructions, USE 1 SPRAY IN EACH NOSTRIL TWICE A DAY, # 48 mL, 1 Refills, [id number], 90,USE 1 SPRAY IN EACH NOSTRIL TWICE A DAY, 152.4, cm, 04/10/21 12:27:00 EDT, Height, 50.6, kg, 06/02/20 11:55:00 EST, Dry Weight Start Date: 08/06/21 Status: Ordered Francesca Root 0 Refills, Maintenance, 06/30/19 13:53:04 EST Start Date: 06/30/19 Status: Ordered Latuda 60 mg oral tablet 1 tablet = 60 mg, By Mouth, Daily, 0 Refills, Maintenance, 06/30/19 13:51:11 EST Start Date: 06/30/19 Status: Ordered Linzess 145 mcg oral capsule 1 capsule = 145 mcg, By Mouth, Daily, # 30 capsule, 0 Refills, Maintenance, 01/15/22 10:52:00 EDT, Capsule, Partial fill upon patient request if the prescription is for a schedule II opioid drug. Start Date: 01/15/22 Status: Ordered montelukast 10 mg oral tablet 1, tablet, By Mouth, Daily, # 90 tablet, Refills 1, Route to Pharmacy Electronically, [id number], 152.4, cm, 04/10/21 12:27:00 EDT, Height, 50.6, kg, 06/02/20 11:55:00 EST, Dry Weight Start Date: 11/27/21 Status: Ordered Multivitamin Daily, 0 Refills, Maintenance, 06/30/19 13:53:50 EST Start Date: 06/30/19 Status: Ordered nortriptyline 10 mg oral capsule 30 mg, 3, capsule, By Mouth, Daily at bedtime, Refills 0, Maintenance, 06/30/19 13:48:55 EST Start Date: 06/30/19 Status: Ordered QUEtiapine 25 mg oral tablet 25 mg, 1, tablet, By Mouth, Daily at bedtime, Refills 0, Maintenance, 06/30/19 13:50:15 EST Start Date: 06/30/19 Status: Ordered testosterone cypionate 200 mg/mL intramuscular solution 0.2 mL = 40 mg, Intramuscular, Every week, 0 Refills, Maintenance, 12/15/18 11:41:31 EDT Start Date: 12/15/18 Status: Ordered Vitamin D3 1000 intl units oral capsule 1 capsule = 1,000 International_Units, By Mouth, Daily, # 90 tablet, 3 Refills, Maintenance, 11/17/18 13:24:08 EDT, Capsule Start Date: 11/17/18 Status: Ordered Problem List Condition Effective Dates Status Health Status Inform ant Allergic rhinitis(Confirmed) Active Anxiety(Confirmed) Active Cyst, arachnoid(Confirmed) 1 Active Asthma(Confirmed) Active Chronic constipation(Confirmed) Active Conduction disorder of the heart(Confirmed) Active Urinary hesitancy(Confirmed) Active Dysmenorrhea(Confirmed) Active Non binary masculine present ing - Ray, he/him(Confirmed) 2 Active GERD - Gastro-esophageal ref lux disease(Confirmed) 3 Active Major depression(Confirmed) Active Migraines(Confirmed) Active PTSD - Post-traumatic stress disorder(Confirmed) Active 1followed by neurology MRI brain was perfomed showing right posterior fossa arachnoid cyst with no concerning of feature of rapid expansion. MRI T&LSpine essentially normal. 2Ray, they/them, he/him 3followed by GI Social History Social History Type Response Tobacco Use: former smoker. Sex Female Care Team Personnel Name: Moustapha PINA, Korina Frazier Address: [address] [facility], C-Level [facility] [place] [address]-
--- OUTSIDE RECORDS SUMMARY | 2023-05-29 08:43 | XMS_ITS | Continuity of Care Document ---
Author Name Unknown Organization [facility] Address [address] [place] [address]- Care Team Providers Care Undercar Specialist Name Role Phone Moustapha PINA, Korina Frazier Primary Care Physician Encounter [facility] Date(s): 12/27/20 - 04/26/21 [facility] [address] [place] [address]- Attending Physician: Eliecer Obregon MD Admitting Physician: Eliecer Obregon MD Referring Physician: Korina Gerard NP Allergies, Adverse Reactions, Alerts Substance Reaction Severity Status doxycycline Active erythromycin rash Active amoxicillin hives Unknown Active venlafaxine Active Darvocet-N 100 Itchy Migraine Active penicillin rash Active pseudoephedrine Active Naprosyn [...] Comment: notification [place] [id number] 2Admin Note: MANUFACTURE BIOMEDICAL INFO SHEET GIVEN GIVEN W/O INCIDENT 3Admin Note: former pcp Medications albuterol CFC free 90 mcg/inh inhalation aerosol 1, puffs, Inhalation, 4 times a day, PRN, use with spacer chamber, # 18 Gm, Refills 6, Tot. Refills6, Maintenance, 01/02/21 16:16:00 EDT, Aerosol, Route to Pharmacy Electronically, [id number], [facility] #[id number], d/... Start Date: 01/02/21 Status: Ordered biotin 5000 mcg oral tablet, disintegrating 1 tablet = 5,000 mcg, By Mouth, Daily, 0 Refills, Maintenance, 06/30/19 13:53:28 EST Start Date: 06/30/19 Status: Ordered calcium carbonate 1000 mg oral tablet, chewable Daily, 0 Refills, Maintenance, 06/30/19 13:54:35 EST Start Date: 06/30/19 Status: Ordered clonazePAM [...] Capsule Start Date: 04/30/13 Status: Ordered dicyclomine 10 mg oral capsule 1 capsule = 10 mg, By Mouth, 4 times a day, PRN Esophageal pain spasm, # 120 capsule, 0 Refills, Maintenance, 04/10/21 13:13:00 EDT, [facility] #[id number], Partial fill upon patient request if the prescription is for a schedule II opioid drug.,... Start Date: 04/10/21 Stop Date: 05/10/21 Status: Ordered docusate sodium 250 mg oral capsule 1 capsule = 250 mg, By Mouth, Daily, PRN for constipation, # 20 capsule, 2 Refills, Maintenance, 10/25/19 13:21:00 EDT, Capsule, [facility] #[id number], 152.4, cm, 09/27/19 9:43:00 EDT, Height, 52.3, kg, 07/07/19 12:17:00 EST, Dry Weight Start Date: 10/25/19 Status: Ordered famotidine 20 mg oral tablet 1, tablet, By Mouth, 2 times a day, AVOID EATING AND DRINKING FOR 10 MINUTES AFTER EACH DOSE, # 180tablet, Refills 0, Route to Pharmacy Electronically, [facility] #[id number], 152.4, cm, 04/10/21 12:27:00 EDT, Height, 50.6, kg, 06/02/20 11:55:00... Start Date: 04/11/21 Status: Ordered Flonase 50 mcg/inh nasal spray 1 sprays, Nares, Both, 2 times a day, # 16 Gm, 5 Refills, Maintenance, 10/30/20 11:26:00 EDT, [place], [facility]/pharmacy #[id number], 1 sprays Nares, Both 2 times a day, 152.4, cm, 04/06/20 15:52:00 EDT, Height, 50.6, kg, 06/02/20 11:55:00 EST, Dry Weight Start Date: 10/30/20 Status: Ordered Flovent HFA 110 mcg/inh inhalation aerosol 2 puffs, Inhalation, 2 times a day, # 12 Gm, 3 Refills, Maintenance, 01/15/21 16:58:00 EDT, Aerosol, [facility] #[id number], to replace arnuity ellipta, 152.4, cm, 12/11/20 18:27:00 EDT, Height,50.6, kg, 06/02/20 11:55:00 EST, Dry Weight Start Date: 01/15/21 Status: Ordered Franecsca Root 0 Refills, Maintenance, 06/30/19 13:53:04 EST Start Date: 06/30/19 Status: Ordered Glucosamine Chondroitin MSM Complex 0 Refills, Maintenance, 06/30/19 13:52:24 EST Start Date: 06/30/19 Status: Ordered Latuda 60 mg oral tablet 1 tablet = 60 mg, By Mouth, Daily, 0 Refills, Maintenance, 06/30/19 13:51:11 EST Start Date: 06/30/19 Status: Ordered Linzess 290 mcg oral capsule 1 capsule = 290 mcg, By Mouth, Daily, 0 Refills, Maintenance, 06/30/19 13:49:42 EST Start Date: 06/30/19 Status: Ordered Magnesium 400 mg Magnesium 400 mg, Daily, Refills 0, Maintenance, 06/30/19 13:55:18 EST, Compound Start Date: 06/30/19 Status: Ordered Multivitamin Daily, 0 Refills, Maintenance, [...] 13:50:15 EST Start Date: 06/30/19 Status: Ordered Singulair 10 mg oral tablet 10 mg, 1, tablet, By Mouth, Daily, # 30 tablet, Refills 5, Tot. Refills 5, Maintenance, 10/30/20 11:26:00 EDT, Route to Pharmacy Electronically, [facility]/pharmacy #[id number], 152.4, cm, 04/06/20 15:52:00 EDT, Height, 50.6, kg, 06/02/20 11:55:00 EST, Dry Weight Start Date: 10/30/20 Status: Ordered sucralfate 1 gm oral tablet 1, tablet, By Mouth, 4 times a day, ON AN ON AN EMPTY STOMACH., # 360 tablet, Refills 0, Tot. Refills 0, Maintenance, 12/01/20 16:39:00 EDT, Route to Pharmacy Electronically, [facility] #[id number], 152.4, cm, 12/01/20 14:57:00 EDT, Height, 50.6,... Start Date: 12/01/20 Status: Ordered testosterone cypionate 200 mg/mL intramuscular solution 0.2 mL = 40 mg, Intramuscular, Every week, 0 Refills, Maintenance, 12/15/18 11:41:31 EDT Start Date: 12/15/18 Status: Ordered turmeric 500 mg oral capsule 1 capsule = 500 mg, By Mouth, Daily, 0 Refills, Maintenance, 06/30/19 13:52:51 EST Start Date: 06/30/19 Status: Ordered Vitamin B12 1000 mcg oral tablet 1 tablet = 1,000 mcg, By Mouth, Daily, # 30 tablet, 3 Refills, Maintenance, 04/12/19 17:05:39 EDT, Tablet Start Date: 04/12/19 Status: Ordered Vitamin D3 1000 intl units oral capsule 1 capsule = 1,000 International_Units, By Mouth, Daily, # 90 tablet, 3 Refills, Maintenance, 11/17/18 13:24:08 EDT, Capsule Start Date: 11/17/18 Status: Ordered Zinc See Instructions, 140 mg By Mouth Daily, 0 Refills, Maintenance, 06/30/19 13:56:33 EST Start Date: 06/30/19 Status: Ordered Zofran 4 mg oral tablet 1 tablet = 4 mg, By Mouth, Daily, # 5 each, 0 Refills, Maintenance, 11/13/20 19:38:00 EDT, Tablet, [facility] #[id number], Partial fill upon patient request if the prescription is for a scheduleII opioid drug., 152.4, cm, 11/13/20 17:17:00 EDT,... Start Date: 11/13/20 Status: Ordered Problem List Condition Effective Dates Status Health Status Inform ant Allergic rhinitis(Confirmed) Active Anxiety(Confirmed) Active Cyst, arachnoid(Confirmed) 1 Active Asthma(Confirmed) Active Chronic constipation(Confirmed) Active Conduction disorder of the heart(Confirmed) Active Urinary hesitancy(Confirmed) Active Dysmenorrhea(Confirmed) Active Gender dysphoria(Confirmed) 2 Active GERD - Gastro-esophageal ref lux [...]
--- OUTSIDE RECORDS SUMMARY | 2023-05-29 08:43 | XMS_ITS | Continuity of Care Document ---
Author Name Unknown Organization [facility] Address [address] [place] [address]- Care Team Providers Care Surgical Territory Manager Name Role Phone Moustapha PINA, Korina Frazier Primary Care Physician [facility] Date[facility]s): 08/04/20 - 09/03/20 [facility] [address] [place] [address]- Attending Physician: Aylin Barker Admitting Physician: AdmtrAylin Referring Physician: Admtr ArAdriana Allergies, Adverse Reactions, Alerts Substance Reaction Severity Status doxycycline Active erythromycin rash Active amoxicillin hives Unknown Active penicillin rash Active pseudoephedrine Active venlafaxine Active Naprosyn gi upset Active raspberry Active Latex itching Active Strawberries migraine Hives Active Watermelon Hives Active Darvocet-N 100 Itchy Migraine Active Immunizations Given and Recorded Vaccine Date Status Refusal Reason influenza virus vaccine, inactivated 1 05/31/19 Re corded influenza virus vaccine, inactivated 11/03/15 Give n influenza virus vaccine, inactivated 05/07/14 Give n influenza virus vaccine, inactivated 2 03/21/11 Gi jimenez hepatitis B adult vaccine 08/01/16 Given hepatitis B adult vaccine 02/02/16 Given Measles/Mumps/Rubella Virus Vaccine 02/02/16 Given tetanus/diphtheria/pertussis, acel(Tdap) 3 09/25/09 Given 1Result Comment: notification received [place] [address] [place] [id number] 2Admin Note: MANUFACTURE BIOMEDICAL INFO SHEET GIVEN GIVEN W/O INCIDENT 3Admin Note: former pcp Medications Arnuity Ellipta 100 mcg inhalation powder See Instructions, TAKE 1 PUFF EVERY 24B HOURS, # 30 Unknown, 1 Refills, Maintenance, [id number], 152.4, cm, 09/27/19 9:43:00 EDT, Height, 52.3, kg, 07/07/19 12:17:00 EST, Dry Weight Start Date: 01/11/20 Status: Ordered biotin 5000 mcg oral tablet, [...] EC Capsule Start Date: 04/30/13 Status: Ordered docusate sodium 250 mg oral capsule 1 capsule = 250 mg, By Mouth, Daily, PRN for constipation, # 20 capsule, 2 Refills, Maintenance, 10/25/19 13:21:00 EDT, Capsule, [facility] #[id number], 152.4, cm, 09/27/19 9:43:00 EDT, Height, 52.3, kg, 07/07/19 12:17:00 EST, Dry Weight Start Date: 10/25/19 Status: Ordered Flonase 50 mcg/inh nasal spray 1 sprays, Nares, Both, 2 times a day, # 16 Gm, 2 Refills, Maintenance, 08/17/20 15:24:00 EST, [place], [facility]/pharmacy #[id number], 1 sprays Nares, Both 2 times a day, 152.4, cm, 04/06/20 15:52:00 EDT, Height, 50.6, kg, 06/02/20 11:55:00 EST, Dry Weight Start Date: 08/17/20 Status: Ordered Francesca Root 0 Refills, Maintenance, [...] 13:49:42 EST Start Date: 06/30/19 Status: Ordered loratadine 10 mg oral tablet 10 mg, 1, tablet, By Mouth, Daily, # 30 tablet, Refills 4, Tot. Refills 4, Maintenance, 11/17/18 13:26:13 EDT, Route to Pharmacy Electronically, [id number], [facility]/pharmacy #[id number] Start Date: 11/17/18 Status: Ordered Magnesium 400 mg Magnesium 400 [...] 13:50:15 EST Start Date: 06/30/19 Status: Ordered Robitussin Cough + Chest Congestion DM 20 mg-200 mg/20 mL oral liquid 20 mL, By Mouth, Every 6 hours, PRN as needed for cough, not to exceed 6 doses/day, # 120 mL, 0 Refills, Maintenance, 07/15/19 15:55:00 EST, Liquid, [facility]/pharmacy #[id number], 20 mL By Mouth Every 6 hours,PRN:as needed for cough,Instr:not to exceed 6 doses/d... Start Date: 07/15/19 Status: Ordered Singulair 10 mg oral tablet 10 mg, 1, tablet, By Mouth, Daily, # 30 tablet, Refills 5, Tot. Refills 5, Maintenance, 05/09/20 17:38:00 EDT, Route to Pharmacy Electronically, [facility]/pharmacy #[id number], 152.4, cm, 04/06/20 15:52:00 EDT, Height, 52.3, kg, 07/07/19 12:17:00 EST, Dry Weight Start Date: 05/09/20 Status: Ordered testosterone cypionate 200 mg/mL intramuscular solution 0.2 mL = 40 mg, Intramuscular, Every week, 0 Refills, Maintenance, 12/15/18 11:41:31 EDT Start Date: 12/15/18 Status: Ordered turmeric 500 mg oral capsule 1 capsule = 500 mg, By Mouth, Daily, 0 Refills, Maintenance, 06/30/19 13:52:51 EST Start Date: 06/30/19 Status: Ordered Ventolin HFA 108 mcg/inh inhalation aerosol with adapter 1 puffs, Inhalation, 4 times a day, PRN for wheezing, # 18 Gm, 4 Refills, Maintenance, 10/15/19 16:09:00 EDT, Aerosol, [email or web address] #[id number], 152.4, cm, 09/27/19 9:43:00 EDT, Height, 52.3, kg, 07/07/19 12:17:00 EST, Dry Weight Start Date: 10/15/19 Status: Ordered Vitamin B12 1000 mcg oral [...] Refills, Maintenance, 06/30/19 13:56:33 EST Start Date: 12/11/19 Status: Ordered Problem List Condition Effective Dates [...]
--- OUTSIDE RECORDS SUMMARY | 2023-05-29 08:43 | XMS_ITS | Continuity of Care Document ---
Author Name Unknown Organization [facility] Address [address] [place] [address]- Care Team Providers Care Energy Technician Name Role Phone Moustapha PINA, Korina Frazier Primary Care Physician [facility] Date[facility]s): 01/27/20 - 02/26/20 [facility] [address] [place] [phone]- [place] Allergies, Adverse Reactions, Alerts Substance Reaction Severity [...] Comment: notification [place] [id number] 2Admin Note: MANUFACTURE BIOMEDICAL INFO SHEET GIVEN GIVEN W/O INCIDENT 3Admin Note: former pcp Medications Arnuity Ellipta 100 mcg inhalation powder See Instructions, TAKE 1 PUFF EVERY 24B HOURS, # 30 Unknown, 1 Refills, Maintenance, [facility], 152.4, cm, 09/27/19 9:43:00 EDT, Height, 52.3, [...] 2 Refills, Maintenance, 10/25/19 13:21:00 EDT, Capsule, [facility] #[id number], 152.4, cm, 09/27/19 9:43:00 EDT, Height, 52.3, kg, 07/07/19 12:17:00 EST, Dry Weight Start Date: 10/25/19 Status: Ordered Flonase 50 mcg/inh nasal spray 1 sprays, Nares, Both, 2 times a day, # 16 Gm, 2 Refills, Maintenance, 12/01/19 17:06:00 EDT, [place], [facility] #[id number], 1 sprays Nares, Both 2 times a day, 152.4, cm, 09/27/19 9:43:00 EDT, Height, 52.3, kg, 07/07/19 12:17:00 EST, Dry Weight Start Date: 12/01/19 Status: Ordered Francesca Root 0 Refills, Maintenance, [...] 11/17/18 13:26:13 EDT, Route to Pharmacy Electronically, [id number], [facility]/pharmacy #[id number] Start Date: 11/17/18 Status: [...] 0 Refills, Maintenance, 07/15/19 15:55:00 EST, Liquid, [facility]/pharmacy #[id number], 20 mL By Mouth Every 6 hours,PRN:as needed for cough,Instr:not to exceed 6 doses/d... Start Date: 07/15/19 Status: Ordered Singulair 10 mg oral tablet 10 mg, 1, tablet, By Mouth, Daily, # 30 tablet, Refills 5, Tot. Refills 5, Maintenance, 09/09/19 18:57:00 EST, Route to Pharmacy Electronically, [facility]/pharmacy #[id number], 152.4, cm, 07/15/19 13:23:00 EST, Height, 52.3, kg, 07/07/19 12:17:00 EST, Dry Weight Start Date: 09/09/19 Status: Ordered testosterone cypionate 200 mg/mL intramuscular [...] 4 Refills, Maintenance, 10/15/19 16:09:00 EDT, Aerosol, [facility] #[id number], 152.4, cm, 09/27/19 9:43:00 EDT, Height, 52.3, [...] 13:56:33 EST Start Date: 06/30/19 Status: Ordered Problem List Condition Effective Dates [...]
--- OUTSIDE RECORDS SUMMARY | 2023-05-29 08:43 | XMS_ITS | Continuity of Care Document ---
Author Name Unknown Organization [facility] Address [address] [place] [address]- Care Team Providers Care Bending Shed Worker Name Role Phone Moustapha PINA, Korina Frazier Primary Care Physician [facility] Date[facility]s): 01/25/20 - 02/24/20 [facility] [address] [place] [id number]- [place] Allergies, Adverse Reactions, Alerts Substance Reaction [...] Comment: notification [place] [id number] 2Admin Note: MANUFACTURE BIOMEDICAL INFO SHEET GIVEN GIVEN W/O INCIDENT 3Admin Note: former pcp Medications Arnuity Ellipta 100 mcg inhalation powder See Instructions, TAKE 1 PUFF EVERY 24B HOURS, # 30 Unknown, 1 Refills, Maintenance, [facility], 152.4, cm, 09/27/19 9:43:00 EDT, Height, 52.3, [...] 2 Refills, Maintenance, 10/25/19 13:21:00 EDT, Capsule, [facility] #[id number], 152.4, cm, 09/27/19 9:43:00 EDT, Height, 52.3, kg, 07/07/19 12:17:00 EST, Dry Weight Start Date: 10/25/19 Status: Ordered Flonase 50 mcg/inh nasal spray 1 sprays, Nares, Both, 2 times a day, # 16 Gm, 2 Refills, Maintenance, 12/01/19 17:06:00 EDT, [place], [facility] #[id number], 1 sprays Nares, Both 2 times a [...] 11/17/18 13:26:13 EDT, Route to Pharmacy Electronically, [id number], [facility]/pharmacy #[id number] Start Date: 11/17/18 Status: Ordered [...] 0 Refills, Maintenance, 07/15/19 15:55:00 EST, Liquid, [facility]/pharmacy #[id number], 20 mL By Mouth Every 6 hours,PRN:as needed for cough,Instr:not to exceed 6 doses/d... Start Date: 07/15/19 Status: Ordered Singulair 10 mg oral tablet 10 mg, 1, tablet, By Mouth, Daily, # 30 tablet, Refills 5, Tot. Refills 5, Maintenance, 09/09/19 18:57:00 EST, Route to Pharmacy Electronically, [facility]/pharmacy #[id number], 152.4, cm, 07/15/19 13:23:00 EST, [...] 4 Refills, Maintenance, 10/15/19 16:09:00 EDT, Aerosol, [facility] #[id number], 152.4, cm, 09/27/19 9:43:00 EDT, Height, 52.3, [...]
--- OUTSIDE RECORDS SUMMARY | 2023-05-29 08:43 | XMS_ITS | Continuity of Care Document ---
Author Name Unknown Organization [facility] Address [address] [place] [address]- Care Team Providers Care General Utility Maintenance Repairer Name Role Phone Moustapha PINA, Korina Frazier Primary Care Physician [facility] 03[facility]14[facility]23 - 04/13/23 [facility] [address] [place] [address]- Allergies, Adverse Reactions, Alerts Substance Reaction Severity Status doxycycline Active erythromycin rash Active pseudoephedrine Active Darvocet-N 100 Itchy Migraine Active amoxicillin hives Unknown Active penicillin rash Active venlafaxine Active Naprosyn gi upset Active [...] former pcp 2Result Comment: [facility] [place] [id number] 3Admin Note: MANUFACTURE BIOMEDICAL INFO SHEET GIVEN [...] 9:56:00 EDT, Aerosol, Route to Pharmacy Electronically, [id number], [facility] #[id number], d/c... Start Date: 12/09/22 Status: Ordered amLODIPine 10 mg oral tablet 10 mg, 1, tablet, By Mouth, Daily, # 90 tablet, Refills 3, Tot. Refills 3, Maintenance, 02/28/23 14:09:00 EDT, Route to Pharmacy Electronically, [facility] #[id number], note dose increase, 150, cm, 02/28/23 13:55:00 [...] capsule, 6 Refills, Maintenance, 01/27/23 13:36:00 EDT, [facility] #[id number], Partial fill upon patient request if the prescription is for a schedule II opioid drug., 150, cm, 12/09/22 9:40:00 EDT, [facility]... Start Date: 01/27/23 Status: Ordered dicyclomine 20 mg oral tablet 1 tablet = 20 mg, By Mouth, 4 times a day, # 360 tablet, 3 Refills, Hard Stop 07/12/24 14:31:00 EST, 07/12/23 15:21:00 EST, Tablet, [facility] #[id number], Partial fill upon patient request if the prescription is for a schedule II opioid drug., 1... Start Date: 07/12/23 Stop Date: 07/12/24 Status: Ordered dicyclomine 20 mg oral tablet 1 tablet = 20 mg, By Mouth, 4 times a day, # 360 tablet, 3 Refills, Hard Stop 07/12/23 15:21:00 EST, 08/23/22 16:31:00 EST, Tablet, [facility] #[id number], Partial fill upon patient request if the [...] Gm, 0 Refills, Maintenance, 12/09/22 10:06:00 EDT, [place], [facility] #[id number], Partial fill upon patient request if the [...] 12/09/22 9:56:00 EDT, Route to Pharmacy Electronically, [facility] #[id number], 150, cm, 12/09/22 9:40:00 EDT, Height, 54, kg,05/17/22 12:01:00 EDT, Dry Weight Start Date: 12/09/22 Status: Ordered nortriptyline 10 mg oral capsule 3, capsule, By Mouth, Daily at bedtime, # 90 capsule, Refills 0, Maintenance, 02/24/23 9:21:00 EDT,Route to Pharmacy Electronically, [facility] #[id number], 150, cm, 12/09/22 9:40:00 EDT, Height, 54, [...] 3 Refills, Maintenance, 02/28/23 14:10:00 EDT, [place], [facility] #[id number], Partial fill upon patient request if the [...] Team Personnel Name: Sandie Saleem [place] Position: [facility] RN Member Role: Primary Care Nurse Name: Amita Arredondo RN Position: [facility] SN Radio Time Buyer Member Role: Primary Care Nurse Name: Caroline Hernandez Position: [facility] RN Member Role: Primary Care Nurse Name: Arthur Griffin DO Position: [facility] PLAYGROUND AIDE MD Member Role: Lifetime PLAYGROUND AIDE Physician Address: Address: [address] [place], [place] [address] [facility] [place] [address]- [place] Name: Moustapha PINA, Korina Frazier Position: [facility] PCO Associate Professional Member Role: PCP Address: Address: [address] [facility], -Level [facility] [place] [address]- Care Team Related Persons Name: TRAVON CANTRELL Address: home [address] [place] [address] Name: SERAFIN LANDA Address: [address] [place] [address] Name: SOL GILLILAND Address: [address] [place] [address] Name: DELIA DWYER Address: home [address] [place] [address]
--- OUTSIDE RECORDS SUMMARY | 2023-05-29 08:43 | XMS_ITS | Continuity of Care Document ---
Author Name Unknown Organization [facility] Address [address] [place] [address]- Care Team Providers Care Outreach Librarian Name Role Phone Moustapha PINA, Korina Frazier Primary Care Physician [facility]): 03/10/23 - 04/09/23 [facility] [address] [place] [address]- Allergies, Adverse Reactions, Alerts Substance Reaction Severity [...] former pcp 2Result Comment: [facility] [place] [id number] 3Admin Note: MANUFACTURE BIOMEDICAL INFO SHEET GIVEN [...] 9:56:00 EDT, Aerosol, Route to Pharmacy Electronically, [id number], [facility] #[id number], d/c... Start Date: 12/09/22 Status: Ordered amLODIPine 10 mg oral tablet 10 mg, 1, tablet, By Mouth, Daily, # 90 tablet, Refills 3, Tot. Refills 3, Maintenance, 02/28/23 14:09:00 EDT, Route to Pharmacy Electronically, [facility] #[id number], note dose increase, 150, cm, 02/28/23 13:55:00 [...] capsule, 6 Refills, Maintenance, 01/27/23 13:36:00 EDT, [facility] #92007, Partial fill upon patient request if the prescription is for a schedule II opioid drug., 150, cm, 12/09/22 9:40:00 EDT, Vinh... Start Date: 01/27/23 Status: Ordered dicyclomine 20 mg oral tablet 1 tablet = 20 mg, By Mouth, 4 times a day, # 360 tablet, 3 Refills, Hard Stop 07/12/24 14:31:00 EST, 07/12/23 15:21:00 EST, Tablet, [facility] #88936, Partial fill upon patient request if the prescription is for a schedule II opioid drug., 1... Start Date: 07/12/23 Stop Date: 07/12/24 Status: Ordered dicyclomine 20 mg oral tablet 1 tablet = 20 mg, By Mouth, 4 times a day, # 360 tablet, 3 Refills, Hard Stop 07/12/23 15:21:00 EST, 08/23/22 16:31:00 EST, Tablet, [facility] #[id number], Partial fill upon patient request if the [...] Gm, 0 Refills, Maintenance, 12/09/22 10:06:00 EDT, [place], [facility] #53608, Partial fill upon patient request if the [...] 12/09/22 9:56:00 EDT, Route to Pharmacy Electronically, [facility] #[id number], 150, cm, 12/09/22 9:40:00 EDT, Height, 54, kg,05/17/22 12:01:00 EDT, Dry Weight Start Date: 12/09/22 Status: Ordered nortriptyline 10 mg oral capsule 3, capsule, By Mouth, Daily at bedtime, # 90 capsule, Refills 0, Maintenance, 02/24/23 9:21:00 EDT,Route to Pharmacy Electronically, [facility] #35491, 150, cm, 12/09/22 9:40:00 EDT, Height, 54, [...] 3 Refills, Maintenance, 02/28/23 14:10:00 EDT, In[place], [facility] #36529, Partial fill upon patient request if the [...] Team Personnel Name: Sandie Saleem [place] Position: [facility] RN Member Role: Primary Care Nurse Name: Amita Arredondo RN Position: [facility] SN Golf Course Superintendent Member Role: Primary Care Nurse Name: Caroline Hernandez Position: [facility] RN Member Role: Primary Care Nurse Name: Arthur Griffin DO Position: [facility] STEEL WORKER MD Member Role: Lifetime STEEL WORKER Physician Address: Address: [address] [place], [place] [address]s [facility] [place] [address]- [place] Name: Moustapha PINA, Korina Frazier Position: [facility] PCO Associate Professional Member Role: PCP Address: Address: [address] [facility], -Level [facility] [place] [address]- Care Team Related Persons Name: TRAVON CANTRELL Address: [address] [place] [address] Name: SERAFIN LANDA Address: [address] [place] [address] Name: SOL GILLILAND Address: [address] [place] [address] Name: DELIA DWYER Address: [address] [place] [address]
--- OUTSIDE RECORDS SUMMARY | 2023-05-29 08:43 | XMS_ITS | Continuity of Care Document ---
Author Name Unknown Organization [facility] Address [address] [place] [address]- Care Team Providers Care Exec. Creative Director Name Role Phone Moustapha PINA, Korina Frazier Primary Care Physician [facility] 04/01/23 - 05/01/23 [facility] [address] [place] [address]- Attending Physician: Aylin Barker Admitting Physician: AdmtrAylin Referring Physician: AdmtrAylin Allergies, Adverse Reactions, Alerts Substance Reaction Severity [...] former pcp 2Result Comment: notification received from [facility] [place], [place] [id number] 3Admin Note: MANUFACTURE BIOMEDICAL INFO SHEET GIVEN [...] 9:56:00 EDT, Aerosol, Route to Pharmacy Electronically, [id number], [facility] #[id number], d/c... Start Date: 12/09/22 Status: Ordered amLODIPine 10 mg oral tablet 10 mg, 1, tablet, By Mouth, Daily, # 90 tablet, Refills 3, Tot. Refills 3, Maintenance, 02/28/23 14:09:00 EDT, Route to Pharmacy Electronically, [facility] #[id number], note dose increase, 150, cm, 02/28/23 13:55:00 [...] capsule, 6 Refills, Maintenance, 01/27/23 13:36:00 EDT, [facility] #[id number], Partial fill upon patient request if the prescription is for a schedule II opioid drug., 150, cm, 12/09/22 9:40:00 EDT, [facility]... Start Date: 01/27/23 Status: Ordered dicyclomine 20 mg oral tablet 1 tablet = 20 mg, By Mouth, 4 times a day, # 360 tablet, 3 Refills, Hard Stop 07/12/24 14:31:00 EST, 07/12/23 15:21:00 EST, Tablet, [facility] #[id number], Partial fill upon patient request if the prescription is for a schedule II opioid drug., 1... Start Date: 07/12/23 Stop Date: 07/12/24 Status: Ordered dicyclomine 20 mg oral tablet 1 tablet = 20 mg, By Mouth, 4 times a day, # 360 tablet, 3 Refills, Hard Stop 07/12/23 15:21:00 EST, 08/23/22 16:31:00 EST, Tablet, [facility] #[id number], Partial fill upon patient request if the [...] Gm, 0 Refills, Maintenance, 12/09/22 10:06:00 EDT, [place], [facility] #[id number], Partial fill upon patient request if the [...] 12/09/22 9:56:00 EDT, Route to Pharmacy Electronically, [facility] #[id number], 150, cm, 12/09/22 9:40:00 EDT, Height, 54, kg,05/17/22 12:01:00 EDT, Dry Weight Start Date: 12/09/22 Status: Ordered nortriptyline 10 mg oral capsule 3, capsule, By Mouth, Daily at bedtime, # 90 capsule, Refills 6, Maintenance, 04/28/23 10:25:00 EDT, Route to Pharmacy Electronically, [facility] #[id number], 150, cm, 02/28/23 13:55:00 EDT, Height, 54, kg, 05/17/22 12:01:00 EDT, Dry Weight Start Date: 04/28/23 Status: Ordered SEROquel 100 mg oral tablet [...] 3 Refills, Maintenance, 02/28/23 14:10:00 EDT, In[place], [facility] #[id number], Partial fill upon patient request if the [...] (less than 100 in lifetime) entered on: 5/22/23 Sex Female Radiology * Event Display: X-Ray Spine, Non- BH Authored Date: * Event Display: X-Ray Spine, Non- BH Authored Date: * Event Display: MRI Spine, Non- BH Authored Date: * Event Display: MRI Spine, Non- BH Authored Date: * Event Display: MRI Spine, Non- BH Authored Date: * Event Display: MRI Spine, Non- BH Authored Date: Patient Care team information Care Team Personnel Name: Sandie Saleem [place] Position: [facility] RN Member Role: Primary Care Nurse Name: Amita Arredondo RN Position: [facility] SN Corporate Security Officer Member Role: Primary Care Nurse Name: Caroline Hernandez Position: [facility] RN Member Role: Primary Care Nurse Name: Arthur Griffin DO Position: [facility] ASSOCIATE MUSIC PROFESSOR MD Member Role: Lifetime ASSOCIATE MUSIC PROFESSOR Physician Address: Address: [address] [place], [place] [address] [facility] [place] [address]- [place] Name: Korina Gerard NP Position: [facility] PCO Associate Professional Member Role: PCP Address: Address: [address] [place] [address], -[facility] [place] [address]- Care Team Related Persons Name: TRAVON CANTRELL Address: home [address] [place] [address] Name: SERAFIN LANDA Address: [address] [place] [address] Name: SOL GILLILAND Address: [address] [place] [address] Name: DELIA DWYER Address: [address] [place] [address]
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
--- OUTSIDE RECORDS SUMMARY | 2023-05-29 08:44 | XMS_ITS | Continuity of Care Document ---
Author Name Unknown Organization [facility] Address [address] [place] [address]- Care Team Providers Care Race Starter Name Role Phone Moustapha PINA, Korina Frazier Primary Care Physician [facility] Date[facility]s): 12/29/20 - 01/28/21 [facility] [address] [place] [address]- Allergies, Adverse Reactions, Alerts Substance Reaction Severity [...] Comment: notification received [place] [address] [place] [id number] 2Admin Note: MANUFACTURE BIOMEDICAL INFO SHEET GIVEN GIVEN W/O INCIDENT 3Admin Note: former pcp Medications albuterol CFC free 90 mcg/inh inhalation aerosol 1, puffs, Inhalation, 4 times a day, PRN, use with spacer chamber, # 18 Gm, Refills 6, Tot. Refills6, Maintenance, 01/02/21 16:16:00 EDT, Aerosol, Route to Pharmacy Electronically, [id number], [facility] #68190, d/... Start Date: 01/02/21 Status: Ordered biotin [...] 2 Refills, Maintenance, 10/25/19 13:21:00 EDT, Capsule, [facility] #48404, 152.4, cm, 09/27/19 9:43:00 EDT, Height, 52.3, kg, 07/07/19 12:17:00 EST, Dry Weight Start Date: 10/25/19 Status: Ordered famotidine 20 mg oral tablet 1, tablet, By Mouth, 2 times a day, AVOID EATING AND DRINKING FOR 10 MINUTES AFTER EACH DOSE, # 180tablet, Refills 0, Tot. Refills 0, Maintenance, 12/01/20 16:39:00 EDT, Route to Pharmacy Electronically, [facility] #40793, 152.4, cm, ... Start Date: 12/01/20 Status: Ordered Flonase 50 mcg/inh nasal spray 1 sprays, Nares, Both, 2 times a day, # 16 Gm, 5 Refills, Maintenance, 10/30/20 11:26:00 EDT, [place], [facility]/pharmacy #7151, 1 sprays Nares, Both 2 times a day, 152.4, cm, 04/06/20 15:52:00 EDT, Height, 50.6, kg, 06/02/20 11:55:00 EST, Dry Weight Start Date: 10/30/20 Status: Ordered Flovent HFA 110 mcg/inh inhalation aerosol 2 puffs, Inhalation, 2 times a day, # 12 Gm, 3 Refills, Maintenance, 01/15/21 16:58:00 EDT, Aerosol, [facility] #06882, to replace arnuity ellipta, 152.4, cm, 12/11/20 [...] 10/30/20 11:26:00 EDT, Route to Pharmacy Electronically, [facility]/pharmacy #2071, 152.4, cm, 04/06/20 15:52:00 EDT, Height, 50.6, kg, 06/02/20 11:55:00 EST, Dry Weight Start Date: 10/30/20 Status: Ordered sucralfate 1 gm oral tablet 1, tablet, By Mouth, 4 times a day, ON AN ON AN EMPTY STOMACH., # 360 tablet, Refills 0, Tot. Refills 0, Maintenance, 12/01/20 16:39:00 EDT, Route to Pharmacy Electronically, [facility] #15820, 152.4, cm, 12/01/20 14:57:00 EDT, Height, 50.6,... [...] 11/13/20 19:38:00 EDT, Tablet, [facility] #12052, Partial fill upon patient request if the [...]
--- OUTSIDE RECORDS SUMMARY | 2023-05-29 08:44 | XMS_ITS | Continuity of Care Document ---
Author Name Unknown Organization [facility] Address [address] [place] [address]- Care Team Providers Care Cold Saw Operator Name Role Phone Moustapha PINA, Korina Frazier Primary Care Physician Encounter [facility] Date(s): 12/10/22 - 02/16/23 [facility] [address] [place] [address]- Attending Physician: Korina Gerard NP Admitting Physician: [...] 2Result Comment: notification [place] [address] 3Admin Note: MANUFACTURE BIOMEDICAL INFO SHEET GIVEN GIVEN W/O INCIDENT Medications albuterol CFC free 90 mcg/inh inhalation aerosol 1, puffs, Inhalation, 4 times a day, PRN, use with spacer chamber, # 18 Gm, Refills 6, Tot. Refills6, Maintenance, 12/09/22 9:56:00 EDT, Aerosol, Route to Pharmacy Electronically, [id number], [email or web address] #[id number], d/c... Start Date: 12/09/22 Status: Ordered amLODIPine 5 mg oral tablet 5 mg, 1, tablet, By Mouth, Daily, # 90 tablet, Refills 0, Tot. Refills 0, Maintenance, 12/09/22 10:13:00 EDT, Route to Pharmacy Electronically, [facility] #75370, Partial fill upon patient request if the [...] capsule, 6 Refills, Maintenance, 01/27/23 13:36:00 EDT, [facility] #00602, Partial fill upon patient request if the prescription is for a schedule II opioid drug., 150, cm, 12/09/22 9:40:00 EDT, [place]... Start Date: 01/27/23 Status: Ordered dicyclomine 20 mg oral tablet 1 tablet = 20 mg, By Mouth, 4 times a day, # 360 tablet, 3 Refills, Hard Stop 07/12/23 15:21:00 EST, 08/23/22 16:31:00 EST, Tablet, [facility] #10107, Partial fill upon patient request if the [...] Gm, 0 Refills, Maintenance, 12/09/22 10:06:00 EDT, [place], [facility] #22594, Partial fill upon patient request if the [...] 12/09/22 9:56:00 EDT, Route to Pharmacy Electronically, [facility] #43941, 150, cm, 12/09/22 9:40:00 EDT, Height, 54, kg,05/17/22 12:01:00 EDT, Dry Weight Start Date: 12/09/22 Status: Ordered nortriptyline 10 mg oral capsule 3, capsule, By Mouth, Daily at bedtime, # 90 capsule, Refills 0, Maintenance, 01/27/23 9:45:00 EDT,Route to Pharmacy Electronically, [facility] #80818, 150, cm, 12/09/22 9:40:00 EDT, Height, 54, kg, 05/17/22 12:01:00 EDT, Dry Weight Start Date: 01/27/23 Status: Ordered SEROquel 100 mg oral tablet [...] Team Personnel Name: Sandie Saleem [place] Position: [facility] RN Member Role: Primary Care Nurse Name: Amita Arredondo RN Position: [facility] SN Child Development Assistant Member Role: Primary Care Nurse Name: Caroline Hernandez Position: [facility] RN Member Role: Primary Care Nurse Name: Arthur Griffin DO Position: [facility] BUILDING CONSTRUCTION TEACHER MD Member Role: [employer] BUILDING CONSTRUCTION TEACHER Physician Address: Address: [address] [place], [place] [address]s [facility] [employer] [place] [address]- Name: Moustapha PINA, Korina Frazier Position: [facility] PCO Associate Professional Member Role: PCP Address: Address: [address] [facility], C-Level [facility] [place] [address]- Care Team Related Persons Name: TRAVON CANTRELL Address: home [address] [place] [address] Name: SERAFIN LANDA Address: home [address] [place] [address] Name: SOL GILLILAND Address: home [address] [place] [address] Name: DELIA DWYER Address: home [address] [place] [address]
--- OUTSIDE RECORDS SUMMARY | 2023-05-29 08:44 | XMS_ITS | Continuity of Care Document ---
Author Name Unknown Organization [facility] anal[facility] Address [address] [place] [address] [address] [place] [address]- Care Team Providers Care Insulation Cutter And Former Name Role Phone Moustapha PINA, Korina Frazier Primary Care Physician [facility] Date[facility]s): 02/12/22 - 03/14/22 [facility] [address] [place] [address]- Allergies, Adverse Reactions, Alerts Substance Reaction Severity [...] Comment: notification [place] [id number] 2Admin Note: MANUFACTURE BIOMEDICAL INFO SHEET GIVEN GIVEN W/O INCIDENT 3Admin Note: former pcp Medications albuterol CFC free 90 mcg/inh inhalation aerosol 1, puffs, Inhalation, 4 times a day, PRN, use with spacer chamber, # 18 Gm, Refills 6, Tot. Refills6, Maintenance, 12/20/21 17:01:00 EDT, Aerosol, Route to Pharmacy Electronically, [id number], [facility] #72208, d/... Start Date: 12/20/21 Status: Ordered biotin [...] Mouth, 4 times a day, # 120 capsule, 0 Refills, Maintenance, 02/28/22 15:12:00 EDT, Capsule, [facility] #26897, Partial fill upon patient request if the prescription is for a schedule II opioid drug., 152.4, cm, ... Start Date: 02/28/22 Stop Date: 03/30/22 Status: Ordered docusate sodium 250 mg oral capsule 1 capsule = 250 mg, By Mouth, Daily, PRN for constipation, # 20 capsule, 2 Refills, Maintenance, 10/25/19 13:21:00 EDT, Capsule, [facility] #71836, 152.4, cm, 09/27/19 9:43:00 EDT, Height, 52.3, [...] 180tablet, Refills 0, Route to Pharmacy Electronically, [facility] #62901, 152.4, cm, 04/10/21 12:27:00 EDT, Height, 50.6, kg, 06/02/20 11:55:00... Start Date: 07/10/21 Status: Ordered Flovent HFA 110 mcg/inh inhalation aerosol 2 puffs, Inhalation, 2 times a day, # 12 Gm, 3 Refills, Maintenance, 01/15/21 16:58:00 EDT, Aerosol, [facility] #57545, to replace arnuity ellipta, 152.4, cm, 12/11/20 18:27:00 EDT, Height,50.6, kg, 06/02/20 11:55:00 EST, Dry Weight Start Date: 01/15/21 Status: Ordered fluticasone 50 mcg/inh nasal spray See Instructions, USE 1 SPRAY IN EACH NOSTRIL TWICE A DAY, # 48 mL, 1 Refills, [facility], 90,USE 1 SPRAY IN EACH NOSTRIL TWICE [...] tablet, Refills 1, Route to Pharmacy Electronically, [facility], 152.4, cm, 04/10/21 12:27:00 EDT, Height, 50.6, [...] Personnel Name: Moustapha PINA, Korina Frazier Address: [address] [place] [address], -Level [facility] Adult Medicine [place], [place] [address]
--- OUTSIDE RECORDS SUMMARY | 2023-05-29 08:44 | XMS_ITS | Continuity of Care Document ---
Author Name Unknown Organization [facility] ter Address [address] [place] [address]- Care Team Providers Care Magnet Valve Assembler Name Role Phone Moustapha PINA, Korina Frazier Primary Care Physician [facility] Date[facility]s): 07/20/19 - 07/20/[address] [address]- [facility] Attending Physician: Berlin Guillen NP Allergies, Adverse Reactions, Alerts Substance Reaction [...] Comment: notification [place] [id number] 2Admin Note: MANUFACTURE BIOMEDICAL INFO SHEET GIVEN [...] Daily, PRN for constipation, # 20 capsule, 3 Refills, Maintenance, 06/14/19 20:02:16 EST, Capsule Start Date: 06/14/19 Status: Ordered Flonase 50 mcg/inh nasal spray 1 sprays, Nares, Both, 2 times a day, # 16 Gm, 2 Refills, Maintenance, 05/31/19 10:19:56 EST, [place], 1 sprays Nares, Both 2 times a day Start Date: 05/31/19 Status: Ordered Francesca Root 0 Refills, Maintenance, [...] 11/17/18 13:26:13 EDT, Route to Pharmacy Electronically, [id number], [facility]/pharmacy #[id number] Start Date: 11/17/18 Status: Ordered [...] 0 Refills, Maintenance, 07/15/19 15:55:00 EST, Liquid, [facility]/pharmacy #2071, 20 mL By Mouth Every 6 hours,PRN:as needed for cough,Instr:not to exceed 6 doses/d... Start Date: 07/15/19 Status: Ordered Singulair 10 mg oral tablet 10 mg, 1, tablet, By Mouth, Daily, # 30 tablet, Refills 5, Tot. Refills 5, Maintenance, 07/07/19 16:46:00 EST, Route to Pharmacy Electronically, [facility]/pharmacy #207, 152.4, cm, 07/07/19 12:17:00 EST, Height, 52.3, kg, 07/07/19 12:17:00 EST, Dry Weight Start Date: 07/07/19 Status: Ordered testosterone cypionate 200 mg/mL intramuscular [...] wheezing, # 18 Gm, 4 Refills, Maintenance, 01/28/19 17:30:02 EDT, Aerosol Start Date: 01/28/19 Status: Ordered Vitamin B12 1000 mcg oral [...] Effective Dates Status Health Status Inform ant Anxiety(Confirmed) Active Asthma(Confirmed) Active Conduction disorder of the heart(Confirmed) Active Urinary hesitancy(Confirmed) Active Dysmenorrhea(Confirmed) Active Esophageal reflux (GERD)(Confirmed) 11/09/12 Active Gender dysphoria(Confirmed) 1 Active GERD - Gastro-esophageal ref lux disease(Confirmed) Active Major depression(Confirmed) Active Migraines(Confirmed) Active Heart palpitations(Confirmed) Active PTSD - Post-traumatic stress disorder(Confirmed) Active 1Ray, they/them, he/him Social History Social History Type Response Tobacco Use: former smoker. Sex Female
--- OUTSIDE RECORDS SUMMARY | 2023-05-29 08:44 | XMS_ITS | Continuity of Care Document ---
Author Name Unknown Organization [facility] analia Address [address] [place] [address] [address] [place] [address]- Care Team Providers Care Payment Processor Name Role Phone Moustapha PINA, Korina Frazier Primary Care Physician [facility]s): 01/15/22 - 01/22/22 [facility] [address] [place] [address] Drive [address] [place], [place] [address] Attending Physician: Greyson Burns MD Referring Physician: Moustapha PINA, Korina Frazier Allergies, [...] Comment: notification [place] [id number] 2Admin Note: MANUFACTURE BIOMEDICAL INFO SHEET GIVEN GIVEN W/O INCIDENT 3Admin Note: former pcp Medications albuterol CFC free 90 mcg/inh inhalation aerosol 1, puffs, Inhalation, 4 times a day, PRN, use with spacer chamber, # 18 Gm, Refills 6, Tot. Refills6, Maintenance, 12/20/21 17:01:00 EDT, Aerosol, Route to Pharmacy Electronically, [id number], [facility] #12537, d/... Start Date: 12/20/21 Status: Ordered biotin [...] 2 Refills, Maintenance, 10/25/19 13:21:00 EDT, Capsule, [facility] #87109, 152.4, cm, 09/27/19 9:43:00 EDT, Height, 52.3, [...] 180tablet, Refills 0, Route to Pharmacy Electronically, [facility] #52636, 152.4, cm, 04/10/21 12:27:00 EDT, Height, 50.6, kg, 06/02/20 11:55:00... Start Date: 07/10/21 Status: Ordered Flovent HFA 110 mcg/inh inhalation aerosol 2 puffs, Inhalation, 2 times a day, # 12 Gm, 3 Refills, Maintenance, 01/15/21 16:58:00 EDT, Aerosol, [email or web address] #96381, to replace arnuity ellipta, 152.4, cm, 12/11/20 18:27:00 EDT, Height,50.6, kg, 06/02/20 11:55:00 EST, Dry Weight Start Date: 01/15/21 Status: Ordered fluticasone 50 mcg/inh nasal spray See Instructions, USE 1 SPRAY IN EACH NOSTRIL TWICE A DAY, # 48 mL, 1 Refills, [facility], 90,USE 1 SPRAY IN EACH NOSTRIL TWICE [...] 1, Route to Pharmacy Electronically, [facility], 152.4, cm, 04/10/21 12:27:00 EDT, Height, 50.6, [...] normal. 2Ray, they/them, he/him 3followed by GI Vital Signs Most recent to oldest [Reference Range]: 1 Height 152.4 cm (01/15/22 10:50 AM) Social History Social History Type Response Tobacco Use: former smoker. Sex Female
--- OUTSIDE RECORDS SUMMARY | 2023-05-29 08:44 | XMS_ITS | Continuity of Care Document ---
Author Name Unknown Organization [facility] Address [address] [place] [address]- Care Team Providers Care Crutch Maker Name Role Phone Moustapha PINA, Korina Frazier Primary Care Physician [facility]): [facility]20 - 05/03/20 [facility] [address] [place] [address]- [facility] Attending Physician: Konstantin Barker8 Admitting Physician: AdmtrAylin Referring Physician: Admtr, Ar8 Allergies, Adverse Reactions, [...] Given 1Result Comment: [facility] [place] [id number] 2Admin Note: MANUFACTURE BIOMEDICAL INFO SHEET GIVEN GIVEN W/O INCIDENT 3Admin Note: former pcp Medications Arnuity Ellipta 100 mcg inhalation powder See Instructions, TAKE 1 PUFF EVERY 24B HOURS, # 30 Unknown, 1 Refills, Maintenance, [facility], 152.4, cm, 09/27/19 9:43:00 EDT, Height, 52.3, [...] 2 Refills, Maintenance, 10/25/19 13:21:00 EDT, Capsule, [facility] #95369, 152.4, cm, 09/27/19 9:43:00 EDT, Height, 52.3, kg, 07/07/19 12:17:00 EST, Dry Weight Start Date: 10/25/19 Status: Ordered Flonase 50 mcg/inh nasal spray 1 sprays, Nares, Both, 2 times a day, # 16 Gm, 2 Refills, Maintenance, 02/28/20 18:09:00 EDT, [place], [facility]/pharmacy #2071, 1 sprays Nares, Both 2 [...] 11/17/18 13:26:13 EDT, Route to Pharmacy Electronically, [id number], [facility]/pharmacy #2071 Start Date: 11/17/18 Status: Ordered [...] 0 Refills, Maintenance, 07/15/19 15:55:00 EST, Liquid, [facility]/pharmacy #2071, 20 mL By Mouth Every 6 hours,PRN:as needed for cough,Instr:not to exceed 6 doses/d... Start Date: 07/15/19 Status: Ordered Singulair 10 mg oral tablet 10 mg, 1, tablet, By Mouth, Daily, # 30 tablet, Refills 5, Tot. Refills 5, Maintenance, 09/09/19 18:57:00 EST, Route to Pharmacy Electronically, [facility]/pharmacy #2071, 152.4, cm, 07/15/19 13:23:00 EST, [...] 4 Refills, Maintenance, 10/15/19 16:09:00 EDT, [facility]erosol, [facility], 152.4, cm, 09/27/19 9:43:00 EDT, Height, 52.3, [...]
--- OUTSIDE RECORDS SUMMARY | 2023-05-29 08:44 | XMS_ITS | Continuity of Care Document ---
Author Name Unknown Organization [facility] Address [address] [place] [address]- Care Team Providers Care Cable Repairer Name Role Phone Moustapha PINA, Korina Frazier Primary Care Physician [facility] 03/10/23 - 04/09/23 [facility] [address] [place] [address]- Allergies, Adverse Reactions, Alerts Substance Reaction Severity [...] former pcp 2Result Comment: notification received [place] [id number] 3Admin Note: MANUFACTURE BIOMEDICAL INFO SHEET GIVEN [...] 9:56:00 EDT, Aerosol, Route to Pharmacy Electronically, [id number], [facility] #75661, d/c... Start Date: 12/09/22 Status: Ordered amLODIPine 10 mg oral tablet 10 mg, 1, tablet, By Mouth, Daily, # 90 tablet, Refills 3, Tot. Refills 3, Maintenance, 02/28/23 14:09:00 EDT, Route to Pharmacy Electronically, [facility] #80766, note dose increase, 150, cm, 02/28/23 13:55:00 [...] capsule, 6 Refills, Maintenance, 01/27/23 13:36:00 EDT, [facility] #28104, Partial fill upon patient request if the prescription is for a schedule II opioid drug., 150, cm, 12/09/22 9:40:00 EDT, [facility]... Start Date: 01/27/23 Status: Ordered dicyclomine 20 mg oral tablet 1 tablet = 20 mg, By Mouth, 4 times a day, # 360 tablet, 3 Refills, Hard Stop 07/12/24 14:31:00 EST, 07/12/23 15:21:00 EST, Tablet, [facility] #98346, Partial fill upon patient request if the prescription is for a schedule II opioid drug., 1... Start Date: 07/12/23 Stop Date: 07/12/24 Status: Ordered dicyclomine 20 mg oral tablet 1 tablet = 20 mg, By Mouth, 4 times a day, # 360 tablet, 3 Refills, Hard Stop 07/12/23 15:21:00 EST, 08/23/22 16:31:00 EST, Tablet, [facility] #81686, Partial fill upon patient request if the [...] Gm, 0 Refills, Maintenance, 12/09/22 10:06:00 EDT, [place], [facility] #36020, Partial fill upon patient request if the [...] 12/09/22 9:56:00 EDT, Route to Pharmacy Electronically, [facility] #37376, 150, cm, 12/09/22 9:40:00 EDT, Height, 54, kg,05/17/22 12:01:00 EDT, Dry Weight Start Date: 12/09/22 Status: Ordered nortriptyline 10 mg oral capsule 3, capsule, By Mouth, Daily at bedtime, # 90 capsule, Refills 0, Maintenance, 02/24/23 9:21:00 EDT,Route to Pharmacy Electronically, [facility] #68187, 150, cm, 12/09/22 9:40:00 EDT, Height, 54, [...] 3 Refills, Maintenance, 02/28/23 14:10:00 EDT, [place], [facility] #79725, Partial fill upon patient request if the [...] Team Personnel Name: Sandie Saleem MA Position: [facility] RN Member Role: Primary Care Nurse Name: Amita Arredondo RN Position: [facility] SN Vp Sales Member Role: Primary Care Nurse Name: Caroline Hernandez Position: [facility] RN Member Role: Primary Care Nurse Name: Arthur Griffin DO Position: [facility] MAIL DISTRIBUTION SCHEME EXAMINER MD Member Role: [employer] MAIL DISTRIBUTION SCHEME EXAMINER Physician Address: Address: [address] [place], [place] [address]s [facility] [place] [address]- [place] Name: Moustapha PINA, Korina Frazier Position: [facility] PCO Associate Professional Member Role: PCP Address: Address: [address] [facility], -Level [facility] [place] [address]- Care Team Related Persons Name: TRAVON CANTRELL Address: home [address] [place] [address] Name: SERAFIN LANDA Address: [address] [place] [address] Name: SOL GILLILAND Address: [address] [place] [address] Name: DELIA DWYER Address: [address] [place] [address]
--- OUTSIDE RECORDS SUMMARY | 2023-05-29 08:44 | XMS_ITS | Continuity of Care Document ---
Author Name Unknown Organization [facility] Address [address] [place] [address]- Care Team Providers Care Repossessor Name Role Phone Moustapha PINA, Korina Frazier Primary Care Physician Encounter [facility] Date(s): 03/06/23 - 05/01/23 [facility] [address] [place] [address]- Attending Physician: Moustapha PINA, Korina Frazier Admitting Physician: Moustapha PINA, Korina Frazier Referring Physician: Moustapha PINA, Korina Frazier Allergies, [...] former pcp 2Result Comment: [place] [id number] 3Admin Note: MANUFACTURE BIOMEDICAL INFO SHEET GIVEN [...] 9:56:00 EDT, Aerosol, Route to Pharmacy Electronically, [id number], [id number], d/c... Start Date: 12/09/22 Status: Ordered amLODIPine 10 mg oral tablet 10 mg, 1, tablet, By Mouth, Daily, # 90 tablet, Refills 3, Tot. Refills 3, Maintenance, 02/28/23 14:09:00 EDT, Route to Pharmacy Electronically, [facility] #[id number], note dose increase, 150, cm, 02/28/23 13:55:00 [...] capsule, 6 Refills, Maintenance, 01/27/23 13:36:00 EDT, [facility] #[id number], Partial fill upon patient request if the prescription is for a schedule II opioid drug., 150, cm, 12/09/22 9:40:00 EDT, [place]... Start Date: 01/27/23 Status: Ordered dicyclomine 20 mg oral tablet 1 tablet = 20 mg, By Mouth, 4 times a day, # 360 tablet, 3 Refills, Hard Stop 07/12/24 14:31:00 EST, 07/12/23 15:21:00 EST, Tablet, [facility] #49269, Partial fill upon patient request if the prescription is for a schedule II opioid drug., 1... Start Date: 07/12/23 Stop Date: 07/12/24 Status: Ordered dicyclomine 20 mg oral tablet 1 tablet = 20 mg, By Mouth, 4 times a day, # 360 tablet, 3 Refills, Hard Stop 07/12/23 15:21:00 EST, 08/23/22 16:31:00 EST, Tablet, [facility] #50390, Partial fill upon patient request if the [...] Gm, 0 Refills, Maintenance, 12/09/22 10:06:00 EDT, [place], [facility] #87989, Partial fill upon patient request if the [...] 12/09/22 9:56:00 EDT, Route to Pharmacy Electronically, [facility] #[id number], 150, cm, 12/09/22 9:40:00 EDT, Height, 54, kg,05/17/22 12:01:00 EDT, Dry Weight Start Date: 12/09/22 Status: Ordered nortriptyline 10 mg oral capsule 3, capsule, By Mouth, Daily at bedtime, # 90 capsule, Refills 6, Maintenance, 04/28/23 10:25:00 EDT, Route to Pharmacy Electronically, [facility] #54447, 150, cm, 02/28/23 13:55:00 EDT, Height, 54, [...] 3 Refills, Maintenance, 02/28/23 14:10:00 EDT, [place], [facility] #[id number], Partial fill upon patient request if the [...] Team Personnel Name: Sandie Saleem [place] Position: [facility] RN Member Role: Primary Care Nurse Name: Amita Arredondo RN Position: [facility] SN Eyelet Punch Operator Member Role: Primary Care Nurse Name: Caroline Hernandez Position: [facility] RN Member Role: Primary Care Nurse Name: Arthur Griffin DO Position: [facility] TRAFFIC SIGN SUPERVISOR MD Member Role: [employer] TRAFFIC SIGN SUPERVISOR Physician Address: Address: [address] [place] [address] [facility] [place] [address]- Name: Moustapha PINA, Korina Frazier Position: [facility] PCO Associate Professional Member Role: PCP Address: Address: [address] [place] [address], -Level [facility] [place] [address]- Care Team Related Persons Name: TRAVON CANTRELL Address: home [address] [place] [address] Name: SERAFIN LANDA Address: home [address] [place] [address] Name: SOL GILLILAND Address: home [address] [place] [address] Name: DELIA DWYER Address: home [address] [place] [address]
--- OUTSIDE RECORDS SUMMARY | 2023-05-29 08:44 | XMS_ITS | Continuity of Care Document ---
Author Name Unknown Organization [facility] Address [address] [place] [address]- Care Team Providers Care Pens And Pencils Repairer Name Role Phone Moustapha PINA, Korina Frazier Primary Care Physician Encounter [facility] Date(s): 11/17/19 - 11/24/19 [facility] [address] [place] [address]- [facility] Attending Physician: Not on Staff, Attending MD Allergies, Adverse Reactions, Alerts Substance Reaction Severity [...] Comment: notification [place] [id number] 2Admin Note: MANUFACTURE BIOMEDICAL INFO SHEET GIVEN [...] 2 Refills, Maintenance, 10/25/19 13:21:00 EDT, Capsule, [facility] #00121, 152.4, cm, 09/27/19 9:43:00 EDT, Height, 52.3, kg, 07/07/19 12:17:00 EST, Dry Weight Start Date: 10/25/19 Status: Ordered Flonase 50 mcg/inh nasal spray 1 sprays, Nares, Both, 2 times a day, # 16 Gm, 2 Refills, Maintenance, 10/25/19 13:20:00 EDT, [place], [facility] #[id number], 1 sprays Nares, Both 2 times a [...] 11/17/18 13:26:13 EDT, Route to Pharmacy Electronically, [id number], [facility]/pharmacy #207 Start Date: 11/17/18 Status: Ordered Magnesium [...] 0 Refills, Maintenance, 07/15/19 15:55:00 EST, Liquid, [facility]/pharmacy #207, 20 mL By Mouth Every 6 hours,PRN:as needed for cough,Instr:not to exceed 6 doses/d... Start Date: 07/15/19 Status: Ordered Singulair 10 mg oral tablet 10 mg, 1, tablet, By Mouth, Daily, # 30 tablet, Refills 5, Tot. Refills 5, Maintenance, 09/09/19 18:57:00 EST, Route to Pharmacy Electronically, [facility]/pharmacy #207, 152.4, cm, 07/15/19 13:23:00 EST, Height, 52.3, [...] 4 Refills, Maintenance, 10/15/19 16:09:00 EDT, Aerosol, [facility] #[id number], 152.4, cm, 09/27/19 9:43:00 EDT, Height, 52.3, [...]
--- OUTSIDE RECORDS SUMMARY | 2023-05-29 08:44 | XMS_ITS | Continuity of Care Document ---
Author Name Unknown Organization [facility] Address [address] [place] [address]- Care Team Providers Care Egg Smeller Name Role Phone Moustapha PINA, Korina Frazier Primary Care Physician Encounter [facility] Date(s): 04/24/20 - 05/01/20 [facility] [address] [place] [address]- [facility] Attending Physician: Homar Crow MD Referring Physician: Moustapha PINA, Korina Frazier [...] Comment: notification [place] [id number] 2Admin Note: MANUFACTURE BIOMEDICAL INFO SHEET GIVEN GIVEN W/O INCIDENT 3Admin Note: former pcp Medications Arnuity Ellipta 100 mcg inhalation powder See Instructions, TAKE 1 PUFF EVERY 24B HOURS, # 30 Unknown, 1 Refills, Maintenance, [facility], 152.4, cm, 03/09/20 9:43:00 EDT, Height, 52.3, kg, 07/07/19 12:17:00 [...] 2 Refills, Maintenance, 10/25/19 13:21:00 EDT, Capsule, [facility] #20600, 152.4, cm, 09/27/19 9:43:00 EDT, Height, 52.3, kg, 07/07/19 12:17:00 EST, Dry Weight Start Date: 10/25/19 Status: Ordered Flonase 50 mcg/inh nasal spray 1 sprays, Nares, Both, 2 times a day, # 16 Gm, 2 Refills, Maintenance, 02/28/20 18:09:00 EDT, [place], [facility]/pharmacy #2561, 1 sprays Nares, Both 2 times a [...] 11/17/18 13:26:13 EDT, Route to Pharmacy Electronically, [id number], [facility]/pharmacy #2071 Start Date: 11/17/18 Status: [...] 0 Refills, Maintenance, 07/15/19 15:55:00 EST, Liquid, [facility]/pharmacy #2071, 20 mL By Mouth Every 6 hours,PRN:as needed for cough,Instr:not to exceed 6 doses/d... Start Date: 07/15/19 Status: Ordered Singulair 10 mg oral tablet 10 mg, 1, tablet, By Mouth, Daily, # 30 tablet, Refills 5, Tot. Refills 5, Maintenance, 09/09/19 18:57:00 EST, Route to Pharmacy Electronically, [facility]/pharmacy #2071, 152.4, cm, 07/15/19 13:23:00 [...] 4 Refills, Maintenance, 10/15/19 16:09:00 EDT, Aerosol, [facility] #26449, 152.4, cm, 09/27/19 9:43:00 EDT, Height, 52.3, [...]
--- OUTSIDE RECORDS SUMMARY | 2023-05-29 08:44 | XMS_ITS | Continuity of Care Document ---
Author Name Unknown Organization [facility] Address [address] [place] [address]- Care Team Providers Care Avionics Technician Name Role Phone Moustapha PINA, Korina Frazier Primary Care Physician Encounter [facility] Date(s): 04/10/22 - 05/10/22 [facility] [address] [place] [address]- Attending Physician: Aylin Barker Admitting Physician: AdmtrAylin [...] Comment: notification [place] [id number] 2Admin Note: MANUFACTURE BIOMEDICAL INFO SHEET GIVEN GIVEN W/O INCIDENT 3Admin Note: former pcp Medications albuterol CFC free 90 mcg/inh inhalation aerosol 1, puffs, Inhalation, 4 times a day, PRN, use with spacer chamber, # 18 Gm, Refills 6, Tot. Refills6, Maintenance, 12/20/21 17:01:00 EDT, Aerosol, Route to Pharmacy Electronically, [id number], [facility] #[id number], d/... Start Date: 12/20/21 Status: Ordered biotin [...] 0 Refills, Maintenance, 03/28/22 15:53:00 EDT, Tablet, [facility] #03977, Partial fill upon patient request if the prescription is for a schedule II opioid drug., 152.4, cm, 01/24/22 1... Start Date: 03/28/22 Status: Ordered dicyclomine 20 mg oral tablet 1 tablet = 20 mg, By Mouth, 4 times a day, # 120 tablet, 3 Refills, Hard Stop 07/09/23 11:37:00 EST, 04/26/22 12:33:00 EDT, Tablet, [facility] #15026, Partial fill upon patient request if the prescription is for a schedule II opioid drug., 1... Start Date: 04/26/22 Stop Date: 07/09/23 Status: Ordered dicyclomine 20 mg oral tablet 1 tablet = 20 mg, By Mouth, 4 times a day, # 120 tablet, 0 Refills, Hard Stop 04/25/23 11:14:00 EDT, 03/26/22 12:59:00 EDT, Tablet, [facility] #10700, Partial fill upon patient request if the prescription is for a schedule II opioid drug., 1... Start Date: 03/26/22 Stop Date: 04/25/23 Status: Ordered docusate sodium 250 mg oral capsule 1 capsule = 250 mg, By Mouth, Daily, PRN for constipation, # 20 capsule, 2 Refills, Maintenance, 10/25/19 13:21:00 EDT, Capsule, [facility] #03953, 152.4, cm, 09/27/19 9:43:00 EDT, Height, 52.3, [...] 180tablet, Refills 0, Route to Pharmacy Electronically, [facility] #51571, 152.4, cm, 04/10/21 12:27:00 EDT, Height, 50.6, kg, 06/02/20 11:55:00... Start Date: 07/10/21 Status: Ordered Flovent HFA 110 mcg/inh inhalation aerosol 2 puffs, Inhalation, 2 times a day, # 12 Gm, 3 Refills, Maintenance, 01/15/21 16:58:00 EDT, Aerosol, [facility] #40624, to replace arnuity ellipta, 152.4, cm, 12/11/20 18:27:00 EDT, Height,50.6, kg, 06/02/20 11:55:00 EST, Dry Weight Start Date: 01/15/21 Status: Ordered fluticasone 50 mcg/inh nasal spray See Instructions, USE 1 SPRAY IN EACH NOSTRIL TWICE A DAY, # 48 mL, 1 Refills, [facility], 90,USE 1 SPRAY IN EACH NOSTRIL TWICE [...] 1, Route to Pharmacy Electronically, [facility], 152.4, cm, 04/10/21 12:27:00 EDT, Height, 50.6, [...] Conduction disorder of the heart Confirmed Active Urinary hesitancy Confirmed Active Dysmenorrhea Confirmed Active Non binary masculine presenting - Ray, he/him 2 Confirmed Active GERD - Gastro-esophageal reflux disease 3 Confirmed Active Major depression Confirmed Active Migraines Confirmed Active PTSD - Post-traumatic stress disorder Confirmed Active 1followed by neurology MRI brain was perfomed showing right posterior fossa arachnoid cyst with no concerning of feature of rapid expansion. MRI T&LSpine essentially normal. 2Ray, they/them, he/him 3followed by GI Social History Social History Type Response Tobacco Use: former smoker. Sex Female Patient Care team information Personnel Name: Moustapha PINA, Korina Frazier Address: Address: [address] [facility], C-Level [facility] [place], [place] [address]
--- OUTSIDE RECORDS SUMMARY | 2023-05-29 08:44 | XMS_ITS | Continuity of Care Document ---
Author Name Unknown Organization [facility] Address [address] [place] [address]- Care Team Providers Care Research Development Director Name Role Phone Moustapha PINA, Korina Frazier Primary Care Physician Encounter [facility] [id number] Date(s): 04/10/22 - 05/10/22 [facility] [address] [place] [address]- Attending Physician: Not on Staff, Attending MD [...] Comment: notification [place] [id number] 2Admin Note: MANUFACTURE BIOMEDICAL INFO SHEET GIVEN GIVEN W/O INCIDENT 3Admin Note: former pcp Medications albuterol CFC free 90 mcg/inh inhalation aerosol 1, puffs, Inhalation, 4 times a day, PRN, use with spacer chamber, # 18 Gm, Refills 6, Tot. Refills6, Maintenance, 12/20/21 17:01:00 EDT, Aerosol, Route to Pharmacy Electronically, [id number], [facility] #57353, d/... Start Date: 12/20/21 Status: Ordered biotin [...] 0 Refills, Maintenance, 03/28/22 15:53:00 EDT, Tablet, [facility] #22532, Partial fill upon patient request if the prescription is for a schedule II opioid drug., 152.4, cm, 01/24/22 1... Start Date: 03/28/22 Status: Ordered dicyclomine 20 mg oral tablet 1 tablet = 20 mg, By Mouth, 4 times a day, # 120 tablet, 3 Refills, Hard Stop 07/09/23 11:37:00 EST, 04/26/22 12:33:00 EDT, Tablet, [facility] #85589, Partial fill upon patient request if the prescription is for a schedule II opioid drug., 1... Start Date: 04/26/22 Stop Date: 07/09/23 Status: Ordered dicyclomine 20 mg oral tablet 1 tablet = 20 mg, By Mouth, 4 times a day, # 120 tablet, 0 Refills, Hard Stop 04/25/23 11:14:00 EDT, 03/26/22 12:59:00 EDT, Tablet, [facility] #64752, Partial fill upon patient request if the prescription is for a schedule II opioid drug., 1... Start Date: 03/26/22 Stop Date: 04/25/23 Status: Ordered docusate sodium 250 mg oral capsule 1 capsule = 250 mg, By Mouth, Daily, PRN for constipation, # 20 capsule, 2 Refills, Maintenance, 10/25/19 13:21:00 EDT, Capsule, [facility] #84882, 152.4, cm, 09/27/19 9:43:00 EDT, Height, 52.3, [...] 180tablet, Refills 0, Route to Pharmacy Electronically, [facility] #71090, 152.4, cm, 04/10/21 12:27:00 EDT, Height, 50.6, kg, 06/02/20 11:55:00... Start Date: 07/10/21 Status: Ordered Flovent HFA 110 mcg/inh inhalation aerosol 2 puffs, Inhalation, 2 times a day, # 12 Gm, 3 Refills, Maintenance, 01/15/21 16:58:00 EDT, Aerosol, [facility] #44004, to replace arnuity ellipta, 152.4, cm, 12/11/20 18:27:00 EDT, Height,50.6, kg, 06/02/20 11:55:00 EST, Dry Weight Start Date: 01/15/21 Status: Ordered fluticasone 50 mcg/inh nasal spray See Instructions, USE 1 SPRAY IN EACH NOSTRIL TWICE A DAY, # 48 mL, 1 Refills, [facility], 90,USE 1 SPRAY IN EACH NOSTRIL TWICE [...] 1, Route to Pharmacy Electronically, [facility], 152.4, cm, 04/10/21 12:27:00 EDT, Height, 50.6, [...] Moustapha PINA, Korina Frazier Address: Address: [address] [facility], C-Level [facility] [place], [place] [address]
--- OUTSIDE RECORDS SUMMARY | 2023-05-29 08:44 | XMS_ITS | Continuity of Care Document ---
Author Name Unknown Organization [facility] Address [address] [place] [address]- Care Team Providers Care Dealmaker Name Role Phone Moustapha PINA, Korina Frazier Primary Care Physician Encounter [facility] Date(s): 10/31/21 - 11/30/21 [facility] [address] [place] [address]- Allergies, Adverse Reactions, Alerts Substance Reaction Severity Status doxycycline Active erythromycin rash Active amoxicillin hives Unknown Active pseudoephedrine Active venlafaxine Active Naprosyn gi upset Active Darvocet-N 100 Itchy Migraine Active penicillin rash Active raspberry Active Latex itching Active Strawberries [...] Comment: notification received [place] [id number] 2Admin Note: MANUFACTURE BIOMEDICAL INFO SHEET GIVEN GIVEN W/O INCIDENT 3Admin Note: former pcp Medications albuterol CFC free 90 mcg/inh inhalation aerosol 1, puffs, Inhalation, 4 times a day, PRN, use with spacer chamber, # 18 Gm, Refills 6, Tot. Refills6, Maintenance, 01/02/21 16:16:00 EDT, Aerosol, Route to Pharmacy Electronically, [id number], [facility] #07676, d/... Start Date: 01/02/21 Status: Ordered biotin [...] capsule, 0 Refills, Maintenance, 04/10/21 13:13:00 EDT, [facility] #57674, Partial fill upon patient request if the prescription is for a schedule II opioid drug.,... Start Date: 04/10/21 Stop Date: 05/10/21 Status: Ordered docusate sodium 250 mg oral capsule 1 capsule = 250 mg, By Mouth, Daily, PRN for constipation, # 20 capsule, 2 Refills, Maintenance, 10/25/19 13:21:00 EDT, Capsule, [facility] #02517, 152.4, cm, 09/27/19 9:43:00 EDT, Height, 52.3, kg, 07/07/19 12:17:00 EST, Dry Weight Start Date: 10/25/19 Status: Ordered famotidine 20 mg oral tablet 1, tablet, By Mouth, 2 times a day, AVOID EATING AND DRINKING FOR 10 MINUTES AFTER EACH DOSE, # 180tablet, Refills 0, Route to Pharmacy Electronically, [facility] #06550, 152.4, cm, 04/10/21 12:27:00 EDT, Height, 50.6, kg, 06/02/20 11:55:00... Start Date: 07/10/21 Status: Ordered Flovent HFA 110 mcg/inh inhalation aerosol 2 puffs, Inhalation, 2 times a day, # 12 Gm, 3 Refills, Maintenance, 01/15/21 16:58:00 EDT, Aerosol, [facility] #52211, to replace arnuity ellipta, 152.4, cm, 12/11/20 18:27:00 EDT, Height,50.6, kg, 06/02/20 11:55:00 EST, Dry Weight Start Date: 01/15/21 Status: Ordered fluticasone 50 mcg/inh nasal spray See Instructions, USE 1 SPRAY IN EACH NOSTRIL TWICE A DAY, # 48 mL, 1 Refills, [facility] 07489, 90,USE 1 SPRAY IN EACH NOSTRIL TWICE [...] EST, Compound Start Date: 06/30/19 Status: Ordered montelukast 10 mg oral tablet 1, tablet, By Mouth, Daily, # 90 tablet, Refills 1, Route to Pharmacy Electronically, [facility] 80308, 152.4, cm, 04/10/21 12:27:00 EDT, Height, 50.6, [...] 13:50:15 EST Start Date: 06/30/19 Status: Ordered sucralfate 1 gm oral tablet 1, tablet, By Mouth, 4 times a day, ON AN ON AN EMPTY STOMACH., # 360 tablet, Refills 0, Tot. Refills 0, Maintenance, 12/01/20 16:39:00 EDT, Route to Pharmacy Electronically, [facility]90923, 152.4, cm, 12/01/20 14:57:00 EDT, Height, 50.6,... [...] 0 Refills, Maintenance, 11/13/20 19:38:00 EDT, Tablet, [facility] #69759, Partial fill upon patient request if the [...]
--- OUTSIDE RECORDS SUMMARY | 2023-05-29 08:44 | XMS_ITS | Continuity of Care Document ---
Author Name Unknown Organization [facility] Address [address] [place] [address]- Care Team Providers Care Breast Splitter Name Role Phone Moustapha PINA, Korina Frazier Primary Care Physician Encounter [facility] Date(s): 10/15/19 - 10/22/19 [facility] [address] [place] [address] [facility] Encounter Diagnosis Anxiety(Discharge Diagnosis) - 10/15/19 Asthma(Discharge Diagnosis) - 10/15/19 Esophageal reflux (GERD)(Discharge Diagnosis) - 10/15/19 Gender dysphoria(Discharge Diagnosis) - 10/15/19 Major depression(Discharge Diagnosis) - 10/15/19 Attending Physician: Not on Staff, Attending MD [...] Given 1Result Comment: [place] [id number] 2Admin Note: MANUFACTURE BIOMEDICAL INFO SHEET GIVEN [...] constipation, # 20 capsule, 3 Refills, Maintenance, 08/11/19 8:19:00 EST, Capsule, [facility]/pharmacy #2071, 152.4, cm, 07/15/19 13:23:00 EST, Height, 52.3, kg,07/07/19 12:17:00 EST, Dry Weight Start Date: 08/11/19 Status: Ordered Flonase 50 mcg/inh nasal spray 1 sprays, Nares, Both, 2 times a day, # 16 Gm, 2 Refills, Maintenance, 08/13/19 17:37:00 EST, [place], [facility]/pharmacy #2071, 1 sprays Nares, Both 2 times a day, 152.4, cm, 07/15/19 13:23:00 EST, Height, 52.3, kg, 07/07/19 12:17:00 EST, Dry Weight Start Date: 08/13/19 Status: Ordered Francesca Root 0 Refills, Maintenance, [...] 11/17/18 13:26:13 EDT, Route to Pharmacy Electronically, [id number], [facility]/pharmacy #2071 Start Date: 11/17/18 Status: [...] 0 Refills, Maintenance, 07/15/19 15:55:00 EST, Liquid, [facility]/pharmacy #2071, 20 mL By Mouth Every 6 hours,PRN:as needed for cough,Instr:not to exceed 6 doses/d... Start Date: 07/15/19 Status: Ordered Singulair 10 mg oral tablet 10 mg, 1, tablet, By Mouth, Daily, # 30 tablet, Refills 5, Tot. Refills 5, Maintenance, 09/09/19 18:57:00 EST, Route to Pharmacy Electronically, [facility]/pharmacy #2071, 152.4, cm, 07/15/19 13:23:00 [...] 4 Refills, Maintenance, 10/15/19 16:09:00 EDT, Aerosol, [email or web address] #63905, 152.4, cm, 09/27/19 9:43:00 EDT, Height, 52.3, [...] Diagnosis Diagnosis Type Effective Dates Health Status Clinical Service Informant Anxiety Discharge Diagnosis 10/15/19 Asthma Discharge Diagnosis 10/15/19 Esophageal reflux (GERD) Discharge Diagnosis 10/15/19 Gender dysphoria Discharge Diagnosis 10/15/19 Major depression Discharge Diagnosis 10/15/19 Procedures Procedure Date Related Diagnosis Body Site Status Arthropathy of left foot 1 Completed [facility] Social History Social History Type Response Tobacco Use: former smoker. Sex Female
--- OUTSIDE RECORDS SUMMARY | 2023-05-29 08:44 | XMS_ITS | Continuity of Care Document ---
Author Name Unknown Organization [facility] Address [address] [place] [address]- Care Team Providers Care Word Processing Operator Name Role Phone Moustapha PINA, Korina Frazier Primary Care Physician [place] [facility] [place](s): 09/18/22 - 12/15/22 [facility] [address] [place] [address]- Attending Physician: Korina Gerard NP Admitting Physician: [...] 2Result Comment: notification received [place] [id number] 3Admin Note: MANUFACTURE BIOMEDICAL INFO SHEET GIVEN GIVEN W/O INCIDENT Medications albuterol CFC free 90 mcg/inh inhalation aerosol 1, puffs, Inhalation, 4 times a day, PRN, use with spacer chamber, # 18 Gm, Refills 6, Tot. Refills6, Maintenance, 12/09/22 9:56:00 EDT, Aerosol, Route to Pharmacy Electronically, [id number], [facility] #[id number], d/c... Start Date: 12/09/22 Status: Ordered amLODIPine 5 mg oral tablet 5 mg, 1, tablet, By Mouth, Daily, # 90 tablet, Refills 0, Tot. Refills 0, Maintenance, 12/09/22 10:13:00 EDT, Route to Pharmacy Electronically, [facility] #[id number], Partial fill upon patient request if the [...] mg, By Mouth, Daily, # 30 capsule, 0 Refills, Maintenance, 09/08/22 14:11:00 EST, [facility] #[id number], Partial fill upon patient request if the prescription is for a schedule II opioid drug., 150, cm, 08/30/22 9:12:00 EST, [place]... Start Date: 09/08/22 Status: Ordered dicyclomine 20 mg oral tablet 1 tablet = 20 mg, By Mouth, 4 times a day, # 360 tablet, 3 Refills, Hard Stop 07/12/23 15:21:00 EST, 08/23/22 16:31:00 EST, Tablet, [facility] #[id number], Partial fill upon patient request if the [...] Gm, 0 Refills, Maintenance, 12/09/22 10:06:00 EDT, [place], [facility] #[id number], Partial fill upon patient request if the [...] 12/09/22 9:56:00 EDT, Route to Pharmacy Electronically, [facility] #[id number], 150, cm, 12/09/22 9:40:00 EDT, Height, 54, kg,05/17/22 12:01:00 EDT, Dry Weight Start Date: 12/09/22 Status: Ordered nortriptyline 10 mg oral capsule 30 mg, 3, capsule, By Mouth, Daily at bedtime, 30 mg at bedtime, # 90 capsule, Refills 3, Tot. Refills 3, Maintenance, 08/26/22 16:11:00 EST, Route to Pharmacy Electronically, [facility] #[id number], Partial fill upon patient request if the presc... Start Date: 08/26/22 Stop Date: 12/24/22 Status: Ordered SEROquel 100 mg oral tablet [...] team information Care Team Personnel Name: Sandie Menon Position: [facility] RN Member Role: Primary Care Nurse Name: Amita Arredondo RN Position: [facility] SN Medical Attendant Member Role: Primary Care Nurse Name: Caroline Hernandez Position: [facility] RN Member Role: Primary Care Nurse Name: Arthur Griffin DO Position: [facility] MANAGER OF COMMUNITY RELATIONS MD Member Role: Lifetime MANAGER OF COMMUNITY RELATIONS Physician Address: Address: [address] [place], [place] [address]s [facility] [place] [address]- Name: Moustapha PINA, Korina Frazier Position: [facility] PCO Associate Professional Member Role: PCP Address: Address: [address] [facility], -Level [facility] [place] [address]- Care Team Related Persons Name: TRAVON CANTRELL Address: home [address] [place] [address] Name: SERAFIN LANDA Address: home [address] [place] [address] Name: SOL GILLILAND Address: home [address] [place] [address] Name: DELIA DWYER Address: home [address] [place] [address]
--- OUTSIDE RECORDS SUMMARY | 2023-05-29 08:44 | XMS_ITS | Continuity of Care Document ---
Author Name Unknown Organization [facility] Address [address] [place] [address]- Care Team Providers Care Blow Molding Machine Operator Name Role Phone Moustapha PINA, Korina Frazier Primary Care Physician Encounter [facility] Date(s): 01/15/22 - 02/14/22 [facility] [address] [place] [id number] Allergies, Adverse Reactions, Alerts Substance Reaction Severity [...] Comment: notification received [facility] [place] [id number] 2Admin Note: MANUFACTURE BIOMEDICAL INFO SHEET GIVEN GIVEN W/O INCIDENT 3Admin Note: former pcp Medications albuterol CFC free 90 mcg/inh inhalation aerosol 1, puffs, Inhalation, 4 times a day, PRN, use with spacer chamber, # 18 Gm, Refills 6, Tot. Refills6, Maintenance, 12/20/21 17:01:00 EDT, Aerosol, Route to Pharmacy Electronically, [id number], [facility] #[id number], d/... Start Date: 12/20/21 Status: Ordered biotin [...] 2 Refills, Maintenance, 10/25/19 13:21:00 EDT, Capsule, [facility] #[id number], 152.4, cm, 09/27/19 9:43:00 EDT, Height, 52.3, [...] 180tablet, Refills 0, Route to Pharmacy Electronically, [facility] #92571, 152.4, cm, 04/10/21 12:27:00 EDT, Height, 50.6, kg, 06/02/20 11:55:00... Start Date: 07/10/21 Status: Ordered Flovent HFA 110 mcg/inh inhalation aerosol 2 puffs, Inhalation, 2 times a day, # 12 Gm, 3 Refills, Maintenance, 01/15/21 16:58:00 EDT, Aerosol, [facility] #11222, to replace arnuity ellipta, 152.4, cm, 12/11/20 18:27:00 EDT, Height,50.6, kg, 06/02/20 11:55:00 EST, Dry Weight Start Date: 01/15/21 Status: Ordered fluticasone 50 mcg/inh nasal spray See Instructions, USE 1 SPRAY IN EACH NOSTRIL TWICE A DAY, # 48 mL, 1 Refills, [facility], 90,USE 1 SPRAY IN EACH NOSTRIL TWICE [...] tablet, Refills 1, Route to Pharmacy Electronically, [facility], 152.4, cm, 04/10/21 12:27:00 EDT, Height, 50.6, [...]
--- OUTSIDE RECORDS SUMMARY | 2023-05-29 08:44 | XMS_ITS | Continuity of Care Document ---
Author Name Unknown Organization [facility] ter Address [address] [place] [address]- Care Team Providers Care Banquet Prep Cook Name Role Phone Moustapha PINA, Korina Frazier Primary Care Physician [place] [facility] [place](s[place] 01/22/23 - 02/27/[address] [address]- Attending Physician: Moustapha PINA, Korina Frazier Admitting Physician: Korina Gerard NP Referring Physician: Moustapha PINA, Korina Frazier Allergies, [...] 2Result Comment: notification received from tiffaniesandra [place], [place] [id number] 3Admin Note: MANUFACTURE BIOMEDICAL INFO SHEET GIVEN GIVEN W/O INCIDENT Medications albuterol CFC free 90 mcg/inh inhalation aerosol 1, puffs, Inhalation, 4 times a day, PRN, use with spacer chamber, # 18 Gm, Refills 6, Tot. Refills6, Maintenance, 12/09/22 9:56:00 EDT, Aerosol, Route to Pharmacy Electronically, [id number], [facility] #[id number], d/c... Start Date: 12/09/22 Status: Ordered amLODIPine 5 mg oral tablet 5 mg, 1, tablet, By Mouth, Daily, # 90 tablet, Refills 0, Tot. Refills 0, Maintenance, 12/09/22 10:13:00 EDT, Route to Pharmacy Electronically, [facility] #[id number], Partial fill upon patient request if the [...] capsule, 6 Refills, Maintenance, 01/27/23 13:36:00 EDT, [facility] #65557, Partial fill upon patient request if the prescription is for a schedule II opioid drug., 150, cm, 12/09/22 9:40:00 EDT, Heigh... Start Date: 01/27/23 Status: Ordered dicyclomine 20 mg oral tablet 1 tablet = 20 mg, By Mouth, 4 times a day, # 360 tablet, 3 Refills, Hard Stop 07/12/23 15:21:00 EST, 08/23/22 16:31:00 EST, Tablet, [facility] #67202, Partial fill upon patient request if the [...] Gm, 0 Refills, Maintenance, 12/09/22 10:06:00 EDT, [place], [facility] #79219, Partial fill upon patient request if the [...] 12/09/22 9:56:00 EDT, Route to Pharmacy Electronically, [facility] #[id number], 150, cm, 12/09/22 9:40:00 EDT, Height, 54, kg,05/17/22 12:01:00 EDT, Dry Weight Start Date: 12/09/22 Status: Ordered nortriptyline 10 mg oral capsule 3, capsule, By Mouth, Daily at bedtime, # 90 capsule, Refills 0, Maintenance, 02/24/23 9:21:00 EDT,Route to Pharmacy Electronically, [facility] #[id number], 150, cm, 12/09/22 9:40:00 EDT, Height, 54, [...] Team Personnel Name: Sandie Saleem [place] Position: [facility] RN Member Role: Primary Care Nurse Name: Amita Arredondo RN Position: [facility] SN Locomotive Observer Member Role: Primary Care Nurse Name: Caroline Hernandez Position: [facility] RN Member Role: Primary Care Nurse Name: Arthur Griffin DO Position: [facility] GAME BREEDING FARM MANAGER MD Member Role: Lifetime GAME BREEDING FARM MANAGER Physician Address: Address: [address] [place] [address] [facility] [place] [address]- Name: Moustapha PINA, Korina Frazier Position: [facility] PCO Associate Professional Member Role: PCP Address: Address: [address] [facility], -Level [facility] [place] [address]- Care Team Related Persons Name: TRAVON CANTRELL Address: [address] [place] [address] Name: SERAFIN LANDA Address: [address] [place] [address] Name: SOL GILLILAND Address: [address] [place] [address] Name: DELIA DWYER Address: [address] [place] [address]
--- OUTSIDE RECORDS SUMMARY | 2023-05-29 08:45 | XMS_ITS | Continuity of Care Document ---
Author Name Unknown Organization [facility] Address [address] [place] [address]- Care Team Providers Care Test Conductor Name Role Phone Moustapha PINA, Korina Frazier Primary Care Physician [place] [facility] [place]/20 [facility] [address] [place] [address]- [facility] Attending Physician: Aylin Barker Admitting Physician: AdmAylin castillo Referring Physician: AdmtrAylin Allergies, Adverse Reactions, Alerts [...] Given 1Result Comment: [place] [id number] 2Admin Note: MANUFACTURE BIOMEDICAL INFO SHEET GIVEN GIVEN W/O INCIDENT 3Admin Note: former pcp Medications Arnuity Ellipta 100 mcg inhalation powder See Instructions, TAKE 1 PUFF EVERY 24B HOURS, # 30 Unknown, 1 Refills, Maintenance, [facility], 152.4, cm, 09/27/19 9:43:00 EDT, Height, 52.3, [...] 2 Refills, Maintenance, 10/25/19 13:21:00 EDT, Capsule, [facility] #93438, 152.4, cm, 09/27/19 9:43:00 EDT, Height, 52.3, kg, 07/07/19 12:17:00 EST, Dry Weight Start Date: 10/25/19 Status: Ordered Flonase 50 mcg/inh nasal spray 1 sprays, Nares, Both, 2 times a day, # 16 Gm, 2 Refills, Maintenance, 02/28/20 18:09:00 EDT, [place], [facility]/pharmacy #2071, 1 sprays Nares, [...] 11/17/18 13:26:13 EDT, Route to Pharmacy Electronically, [id number], [facility]/pharmacy #2071 Start Date: 11/17/18 [...] 0 Refills, Maintenance, 07/15/19 15:55:00 EST, Liquid, [facility]/pharmacy #2071, 20 mL By Mouth Every 6 hours,PRN:as needed for cough,Instr:not to exceed 6 doses/d... Start Date: 07/15/19 Status: Ordered Singulair 10 mg oral tablet 10 mg, 1, tablet, By Mouth, Daily, # 30 tablet, Refills 5, Tot. Refills 5, Maintenance, 05/09/20 17:38:00 EDT, Route to Pharmacy Electronically, [facility]/pharmacy #2071, 152.4, cm, 04/06/20 [...] 4 Refills, Maintenance, 10/15/19 16:09:00 EDT, [facility]erosol, [facility]08481, 152.4, cm, 09/27/19 9:43:00 EDT, Height, 52.3, [...]
--- OUTSIDE RECORDS SUMMARY | 2023-05-29 08:45 | XMS_ITS | Continuity of Care Document ---
Author Name Unknown Organization [facility] Address [address] [place] [address]- Care Team Providers Care Transit Mixer Operator Name Role Phone Moustapha PINA, Korina Frazier Primary Care Physician Encounter [facility] [place] Date(s): 04/13/21 - 05/13/21 [facility] [address] [place] [address] [place] Allergies, Adverse Reactions, Alerts Substance Reaction Severity [...] 1Result Comment: notification received from [place]ah [place] [id number] 2Admin Note: MANUFACTURE BIOMEDICAL INFO SHEET GIVEN GIVEN W/O INCIDENT 3Admin Note: former pcp Medications albuterol CFC free 90 mcg/inh inhalation aerosol 1, puffs, Inhalation, 4 times a day, PRN, use with spacer chamber, # 18 Gm, Refills 6, Tot. Refills6, Maintenance, 01/02/21 16:16:00 EDT, Aerosol, Route to Pharmacy Electronically, [id number], [facility] #04076, d/... Start Date: 01/02/21 Status: Ordered biotin [...] capsule, 0 Refills, Maintenance, 04/10/21 13:13:00 EDT, [facility] #43948, Partial fill upon patient request if the prescription is for a schedule II opioid drug.,... Start Date: 04/10/21 Stop Date: 05/10/21 Status: Ordered docusate sodium 250 mg oral capsule 1 capsule = 250 mg, By Mouth, Daily, PRN for constipation, # 20 capsule, 2 Refills, Maintenance, 10/25/19 13:21:00 EDT, Capsule, [facility] #82318, 152.4, cm, 09/27/19 9:43:00 EDT, Height, 52.3, kg, 07/07/19 12:17:00 EST, Dry Weight Start Date: 10/25/19 Status: Ordered famotidine 20 mg oral tablet 1, tablet, By Mouth, 2 times a day, AVOID EATING AND DRINKING FOR 10 MINUTES AFTER EACH DOSE, # 180tablet, Refills 0, Route to Pharmacy Electronically, [facility] #99561, 152.4, cm, 04/10/21 12:27:00 EDT, Height, 50.6, kg, 06/02/20 11:55:00... Start Date: 04/11/21 Status: Ordered Flonase 50 mcg/inh nasal spray 1 sprays, Nares, Both, 2 times a day, # 16 Gm, 5 Refills, Maintenance, 10/30/20 11:26:00 EDT, [place], [facility]/pharmacy #2071, 1 sprays Nares, Both 2 times a day, 152.4, cm, 04/06/20 15:52:00 EDT, Height, 50.6, kg, 06/02/20 11:55:00 EST, Dry Weight Start Date: 10/30/20 Status: Ordered Flovent HFA 110 mcg/inh inhalation aerosol 2 puffs, Inhalation, 2 times a day, # 12 Gm, 3 Refills, Maintenance, 01/15/21 16:58:00 EDT, Aerosol, [facility] #44789, to replace arnuity ellipta, 152.4, cm, 12/11/20 [...] 10/30/20 11:26:00 EDT, Route to Pharmacy Electronically, [facility]/pharmacy #2071, 152.4, cm, 04/06/20 15:52:00 EDT, Height, 50.6, kg, 06/02/20 11:55:00 EST, Dry Weight Start Date: 10/30/20 Status: Ordered sucralfate 1 gm oral tablet 1, tablet, By Mouth, 4 times a day, ON AN ON AN EMPTY STOMACH., # 360 tablet, Refills 0, Tot. Refills 0, Maintenance, 12/01/20 16:39:00 EDT, Route to Pharmacy Electronically, [facility] #94740, 152.4, cm, 12/01/20 14:57:00 EDT, Height, 50.6,... [...] 0 Refills, Maintenance, 11/13/20 19:38:00 EDT, Tablet, [facility] #66612, Partial fill upon patient request if the [...]
--- OUTSIDE RECORDS SUMMARY | 2023-05-29 08:45 | XMS_ITS | Continuity of Care Document ---
Author Name Unknown Organization [facility] Address [address] [place] [address]- Care Team Providers Care Ladle Operator Name Role Phone Moustapha PINA, Korina Frazier Primary Care Physician Encounter [facility] Date(s): 11/27/21 - 12/27/21 [facility] [address] [place] [address]- Allergies, Adverse Reactions, Alerts Substance Reaction Severity [...] Comment: notification received [place] [id number] 2Admin Note: MANUFACTURE BIOMEDICAL INFO SHEET GIVEN GIVEN W/O INCIDENT 3Admin Note: former pcp Medications albuterol CFC free 90 mcg/inh inhalation aerosol 1, puffs, Inhalation, 4 times a day, PRN, use with spacer chamber, # 18 Gm, Refills 6, Tot. Refills6, Maintenance, 12/20/21 17:01:00 EDT, Aerosol, Route to Pharmacy Electronically, [id number], [facility] #06551, d/... Start Date: 12/20/21 Status: Ordered biotin [...] spasm, # 120 capsule, 0 Refills, Maintenance, 12/26/21 11:59:00 EDT, [facility] #39937, Partial fill upon patient request if the prescription is for a schedule II opioid drug.,... Start Date: 12/26/21 Stop Date: 01/25/22 Status: Ordered docusate sodium 250 mg oral capsule 1 capsule = 250 mg, By Mouth, Daily, PRN for constipation, # 20 capsule, 2 Refills, Maintenance, 10/25/19 13:21:00 EDT, Capsule, [facility] #91772, 152.4, cm, 09/27/19 9:43:00 EDT, Height, 52.3, kg, 07/07/19 12:17:00 EST, Dry Weight Start Date: 10/25/19 Status: Ordered famotidine 20 mg oral tablet 1, tablet, By Mouth, 2 times a day, AVOID EATING AND DRINKING FOR 10 MINUTES AFTER EACH DOSE, # 180tablet, Refills 0, Route to Pharmacy Electronically, [facility] #18191, 152.4, cm, 04/10/21 12:27:00 EDT, Height, 50.6, kg, 06/02/20 11:55:00... Start Date: 07/10/21 Status: Ordered Flovent HFA 110 mcg/inh inhalation aerosol 2 puffs, Inhalation, 2 times a day, # 12 Gm, 3 Refills, Maintenance, 01/15/21 16:58:00 EDT, Aerosol, [facility] #56018, to replace arnuity ellipta, 152.4, cm, 12/11/20 18:27:00 EDT, Height,50.6, kg, 06/02/20 11:55:00 EST, Dry Weight Start Date: 01/15/21 Status: Ordered fluticasone 50 mcg/inh nasal spray See Instructions, USE 1 SPRAY IN EACH NOSTRIL TWICE A DAY, # 48 mL, 1 Refills, [facility], 90,USE 1 SPRAY IN EACH NOSTRIL TWICE [...] tablet, Refills 1, Route to Pharmacy Electronically, [facility] 325[facility], 152.4, cm, 04/10/21 12:27:00 EDT, Height, 50.6, [...] 12/01/20 16:39:00 EDT, [facility] to [facility] Electronically, [facility]98362, 152.4, cm, 12/01/20 14:57:00 EDT, Height, 50.6,... [...] 0 Refills, Maintenance, 11/13/20 19:38:00 EDT, Tablet, [facility] #91793, Partial fill upon patient request if the [...]
--- OUTSIDE RECORDS SUMMARY | 2023-05-29 08:45 | XMS_ITS | Continuity of Care Document ---
Author Name Unknown Organization [facility] Address [address] [place] [address] [address] [place] [address]- Care Team Providers Care Customer Consulting Manager Name Role Phone Moustapha PINA, Korina Frazier Primary Care Physician En[place] [facility] [place] Date(s): 04/30/22 - 05/30/22 [facility] [address] [place] [address]- Attending Physician: Admjonathan, Aylin Admitting Physician: Admtr, Aylin Referring Physician: Admtr, Ar8 Allergies, Adverse Reactions, Alerts Substance Reaction Severity Status doxycycline Active erythromycin rash Active Naprosyn gi upset Active Darvocet-N 100 Itchy Migraine Active amoxicillin hives Unknown Active penicillin rash Active pseudoephedrine Active venlafaxine Active raspberry Active Latex itching Active Strawberries [...] Comment: notification [place] [id number] 2Admin Note: MANUFACTURE BIOMEDICAL INFO SHEET GIVEN GIVEN W/O INCIDENT 3Admin Note: former pcp Medications albuterol CFC free 90 mcg/inh inhalation aerosol 1, puffs, Inhalation, 4 times a day, PRN, use with spacer chamber, # 18 Gm, Refills 6, Tot. Refills6, Maintenance, 12/20/21 17:01:00 EDT, Aerosol, Route to Pharmacy Electronically, [id number], [facility] #[id number], d/... Start Date: 12/20/21 Status: Ordered biotin [...] 0 Refills, Maintenance, 03/28/22 15:53:00 EDT, Tablet, [facility] #22807, Partial fill upon patient request if the prescription is for a schedule II opioid drug., 152.4, cm, 01/24/22 1... Start Date: 03/28/22 Status: Ordered dicyclomine 20 mg oral tablet 1 tablet = 20 mg, By Mouth, 4 times a day, # 120 tablet, 3 Refills, Hard Stop 07/09/23 11:37:00 EST, 04/26/22 12:33:00 EDT, Tablet, [facility] #[id number], Partial fill upon patient request if the prescription is for a schedule II opioid drug., 1... Start Date: 04/26/22 Stop Date: 07/09/23 Status: Ordered dicyclomine 20 mg oral tablet 1 tablet = 20 mg, By Mouth, 4 times a day, # 120 tablet, 0 Refills, Hard Stop 04/25/23 11:14:00 EDT, 03/26/22 12:59:00 EDT, Tablet, [facility] #03318, Partial fill upon patient request if the prescription is for a schedule II opioid drug., 1... Start Date: 03/26/22 Stop Date: 04/25/23 Status: Ordered docusate sodium 250 mg oral capsule 1 capsule = 250 mg, By Mouth, Daily, PRN for constipation, # 20 capsule, 2 Refills, Maintenance, 10/25/19 13:21:00 EDT, Capsule, [facility] #01146, 152.4, cm, 09/27/19 9:43:00 EDT, Height, 52.3, [...] 180tablet, Refills 0, Route to Pharmacy Electronically, [facility] #91545, 152.4, cm, 04/10/21 12:27:00 EDT, Height, 50.6, kg, 06/02/20 11:55:00... Start Date: 07/10/21 Status: Ordered Flovent HFA 110 mcg/inh inhalation aerosol 2 puffs, Inhalation, 2 times a day, # 12 Gm, 3 Refills, Maintenance, 01/15/21 16:58:00 EDT, Aerosol, [facility] #53961, to replace arnuity ellipta, 152.4, cm, 12/11/20 18:27:00 EDT, Height,50.6, kg, 06/02/20 11:55:00 EST, Dry Weight Start Date: 01/15/21 Status: Ordered fluticasone 50 mcg/inh nasal spray See Instructions, USE 1 SPRAY IN EACH NOSTRIL TWICE A DAY, # 48 mL, 1 Refills, [facility], 90,USE 1 SPRAY IN EACH NOSTRIL TWICE [...] 1, Route to Pharmacy Electronically, [facility], 152.4, cm, 04/10/21 12:27:00 EDT, Height, 50.6, [...] smoker. Sex Female Patient Care team information Care Team Personnel Name: Sandie Menon Position: [facility] RN Member Role: Primary Care Nurse Name: Amita Arredondo RN Position: [facility] SN Cutting Table Operator Member Role: Primary Care Nurse Name: Caroline Hernandez Position: [facility] RN Member Role: Primary Care Nurse Name: Arthur Griffin DO Position: [facility] FORESTRY AND WILDLIFE MANAGER MD Member Role: Lifetime FORESTRY AND WILDLIFE MANAGER Physician Address: Address: [address] [place] [address] [facility] [address]- Name: Korina Gerard NP Position: [facility] PCO Associate Professional Member Role: PCP Address: Address: [address] [facility], C-Level [facility] [place] [address]- Care Team Related Persons Name: TRAVON CANTRELL Address: home [address] [place] [address] Name: SERAFIN LANDA Address: [address] [place] [address] Name: SOL GILLILAND Address: [address] [place] [address] Name: DELIA DWYER Address: [address] [place] [address]
--- OUTSIDE RECORDS SUMMARY | 2023-05-29 08:45 | XMS_ITS | Continuity of Care Document ---
Author Name Unknown Organization [facility] Address [address] [place] [address]- Care Team Providers Care Stereotyper Helper Name Role Phone Moustapha PINA, Korina Frazier Primary Care Physician [facility]counter [facility] Date[facility]s): 03/29/20 - 04/29/20 [facility] [address] [place] [address]- [place] Attending Physician: Taras Torers MD Admitting Physician: Taras Torres MD Allergies, Adverse Reactions, Alerts Substance Reaction [...] Given 1Result Comment: [facility] [place] [facility] [place] [address] 2Admin Note: MANUFACTURE BIOMEDICAL INFO SHEET GIVEN GIVEN W/O INCIDENT 3Admin Note: former pcp Medications Arnuity Ellipta 100 mcg inhalation powder See Instructions, TAKE 1 PUFF EVERY 24B HOURS, # 30 Unknown, 1 Refills, Maintenance, [facility], 152.4, cm, 09/27/19 9:43:00 EDT, Height, 52.3, [...] 2 Refills, Maintenance, 10/25/19 13:21:00 EDT, Capsule, [facility] #[id number], 152.4, cm, 09/27/19 9:43:00 EDT, Height, 52.3, kg, 07/07/19 12:17:00 EST, Dry Weight Start Date: 10/25/19 Status: Ordered Flonase 50 mcg/inh nasal spray 1 sprays, Nares, Both, 2 times a day, # 16 Gm, 2 Refills, Maintenance, 02/28/20 18:09:00 EDT, [place], [facility]/pharmacy #2071, 1 sprays Nares, Both 2 [...] 11/17/18 13:26:13 EDT, Route to Pharmacy Electronically, [id number], [facility]/pharmacy #2071 Start Date: 11/17/18 Status: Ordered [...] 0 Refills, Maintenance, 07/15/19 15:55:00 EST, [place], [facility]/pharmacy #2071, 20 mL By Mouth Every 6 hours,PRN:as needed for cough,Instr:not to exceed 6 doses/d... Start Date: 07/15/19 Status: Ordered Singulair 10 mg oral tablet 10 mg, 1, tablet, By Mouth, Daily, # 30 tablet, Refills 5, Tot. Refills 5, Maintenance, 09/09/19 18:57:00 EST, Route to Pharmacy Electronically, [facility]/pharmacy #2071, 152.4, cm, 07/15/19 13:23:00 EST, [...] 4 Refills, Maintenance, 10/15/19 16:09:00 EDT, Aerosol, [facility] #84956, 152.4, cm, 09/27/19 9:43:00 EDT, Height, 52.3, [...]
--- OUTSIDE RECORDS SUMMARY | 2023-05-29 08:45 | XMS_ITS | Continuity of Care Document ---
Author Name Unknown Organization [facility] Address [address] [place] [address]- Care Team Providers Care Continuity Manager Name Role Phone Moustapha PINA, Korina Frazier Primary Care Physician [place] [facility] [place] [facility] [place] Date(s): 06/20/21 - 07/20/21 [facility] [address] [place] [address]- Attending Physician: Aylin Barker Admitting Physician: AdmtrAylin [...] 1Result Comment: [place] [id number] 2Admin Note: MANUFACTURE BIOMEDICAL INFO SHEET GIVEN GIVEN W/O INCIDENT 3Admin Note: former pcp Medications albuterol CFC free 90 mcg/inh inhalation aerosol 1, puffs, Inhalation, 4 times a day, PRN, use with spacer chamber, # 18 Gm, Refills 6, Tot. Refills6, Maintenance, 01/02/21 16:16:00 EDT, Aerosol, Route to Pharmacy Electronically, [id number], [facility] #[id number], d/... Start Date: 01/02/21 Status: Ordered biotin [...] capsule, 0 Refills, Maintenance, 04/10/21 13:13:00 EDT, [facility] #[id number], Partial fill upon patient request if the prescription is for a schedule II opioid drug.,... Start Date: 04/10/21 Stop Date: 05/10/21 Status: Ordered docusate sodium 250 mg oral capsule 1 capsule = 250 mg, By Mouth, Daily, PRN for constipation, # 20 capsule, 2 Refills, Maintenance, 10/25/19 13:21:00 EDT, Capsule, [facility] #50210, 152.4, cm, 09/27/19 9:43:00 EDT, Height, 52.3, kg, 07/07/19 12:17:00 EST, Dry Weight Start Date: 10/25/19 Status: Ordered famotidine 20 mg oral tablet 1, tablet, By Mouth, 2 times a day, AVOID EATING AND DRINKING FOR 10 MINUTES AFTER EACH DOSE, # 180tablet, Refills 0, Route to Pharmacy Electronically, [facility] #[id number], 152.4, cm, 04/10/21 12:27:00 EDT, Height, 50.6, kg, 06/02/20 11:55:00... Start Date: 07/10/21 Status: Ordered Flonase 50 mcg/inh nasal spray 1 sprays, Nares, Both, 2 times a day, # 16 Gm, 5 Refills, Maintenance, 10/30/20 11:26:00 EDT, [place], [facility]/pharmacy #2071, 1 sprays Nares, Both 2 times a day, 152.4, cm, 04/06/20 15:52:00 EDT, Height, 50.6, kg, 06/02/20 11:55:00 EST, Dry Weight Start Date: 10/30/20 Status: Ordered Flovent HFA 110 mcg/inh inhalation aerosol 2 puffs, Inhalation, 2 times a day, # 12 Gm, 3 Refills, Maintenance, 01/15/21 16:58:00 EDT, Aerosol, [facility] #08534, to replace arnuity ellipta, 152.4, cm, 12/11/20 [...] tablet, Refills 5, Tot. Refills 5, Maintenance, 06/05/21 8:17:00 EST, Route to Pharmacy Electronically, [facility]/pharmacy #2071, 152.4, cm, 04/10/21 12:27:00 EDT, Height, 50.6, kg, 06/02/20 11:55:00 EST, Dry Weight Start Date: 06/05/21 Status: Ordered sucralfate 1 gm oral tablet 1, tablet, By Mouth, 4 times a day, ON AN ON AN EMPTY STOMACH., # 360 tablet, Refills 0, Tot. Refills 0, Maintenance, 12/01/20 16:39:00 EDT, Route to Pharmacy Electronically, [facility] #70716, 152.4, cm, 12/01/20 14:57:00 EDT, Height, 50.6,... [...] 0 Refills, Maintenance, 11/13/20 19:38:00 EDT, Tablet, [facility] #58012, Partial fill upon patient request if the [...]
--- OUTSIDE RECORDS SUMMARY | 2023-05-29 08:45 | XMS_ITS | Continuity of Care Document ---
Author Name Unknown Organization [facility] Address [address] [place] [address]- Care Team Providers Care Barrel Repairer Name Role Phone Moustapha PINA, Korina Frazier Primary Care Physician Encounter [facility] [place] Date(s): 04/10/21 - 05/10/21 [facility] [address] [place] [address]- Attending Physician: AdmAylin castillo Admitting Physician: Admtr, Ar8 Referring Physician: Admtr, Ar8 Allergies, Adverse Reactions, Alerts Substance Reaction Severity Status doxycycline Active erythromycin rash Active amoxicillin hives Unknown Active pseudoephedrine Active Darvocet-N 100 Itchy Migraine Active penicillin rash Active venlafaxine Active Naprosyn [...] Comment: notification received from [place] [address] [place] [id number] 2Admin Note: MANUFACTURE BIOMEDICAL INFO SHEET GIVEN GIVEN W/O INCIDENT 3Admin Note: former pcp Medications albuterol CFC free 90 mcg/inh inhalation aerosol 1, puffs, Inhalation, 4 times a day, PRN, use with spacer chamber, # 18 Gm, Refills 6, Tot. Refills6, Maintenance, 01/02/21 16:16:00 EDT, Aerosol, Route to Pharmacy Electronically, [id number], [facility] #10521, d/... Start Date: 01/02/21 Status: Ordered biotin [...] capsule, 0 Refills, Maintenance, 04/10/21 13:13:00 EDT, [facility] #29793, Partial fill upon patient request if the prescription is for a schedule II opioid drug.,... Start Date: 04/10/21 Stop Date: 05/10/21 Status: Ordered docusate sodium 250 mg oral capsule 1 capsule = 250 mg, By Mouth, Daily, PRN for constipation, # 20 capsule, 2 Refills, Maintenance, 10/25/19 13:21:00 EDT, Capsule, [facility] #50927, 152.4, cm, 09/27/19 9:43:00 EDT, Height, 52.3, kg, 07/07/19 12:17:00 EST, Dry Weight Start Date: 10/25/19 Status: Ordered famotidine 20 mg oral tablet 1, tablet, By Mouth, 2 times a day, AVOID EATING AND DRINKING FOR 10 MINUTES AFTER EACH DOSE, # 180tablet, Refills 0, Route to Pharmacy Electronically, [facility] #03629, 152.4, cm, 04/10/21 12:27:00 EDT, Height, 50.6, kg, 06/02/20 11:55:00... Start Date: 04/11/21 Status: Ordered Flonase 50 mcg/inh nasal spray 1 sprays, Nares, Both, 2 times a day, # 16 Gm, 5 Refills, Maintenance, 10/30/20 11:26:00 EDT, [place], [facility]/pharmacy #2071, 1 sprays Nares, Both 2 times a day, 152.4, cm, 04/06/20 15:52:00 EDT, Height, 50.6, kg, 06/02/20 11:55:00 EST, Dry Weight Start Date: 10/30/20 Status: Ordered Flovent HFA 110 mcg/inh inhalation aerosol 2 puffs, Inhalation, 2 times a day, # 12 Gm, 3 Refills, Maintenance, 01/15/21 16:58:00 EDT, Aerosol, [facility] #[id number], to replace arnuity ellipta, 152.4, cm, 12/11/20 [...] 10/30/20 11:26:00 EDT, Route to Pharmacy Electronically, [facility]/pharmacy #2071, 152.4, cm, 04/06/20 15:52:00 EDT, Height, 50.6, kg, 06/02/20 11:55:00 EST, Dry Weight Start Date: 10/30/20 Status: Ordered sucralfate 1 gm oral tablet 1, tablet, By Mouth, 4 times a day, ON AN ON AN EMPTY STOMACH., # 360 tablet, Refills 0, Tot. Refills 0, Maintenance, 12/01/20 16:39:00 EDT, Route to Pharmacy Electronically, [facility] #46517, 152.4, cm, 12/01/20 14:57:00 EDT, Height, 50.6,... [...] 0 Refills, Maintenance, 11/13/20 19:38:00 EDT, Tablet, [facility] #51795, Partial fill upon patient request if the [...]
--- OUTSIDE RECORDS SUMMARY | 2023-05-29 08:45 | XMS_ITS | Continuity of Care Document ---
Author Name Unknown Organization [facility] Address [address] [place] [address]- Care Team Providers Care College Director Name Role Phone Moustapha PINA, Korina Frazier Primary Care Physician [facility]counter [facility] Date(s): 01/27/23 - 02/26/23 [facility] [address] [place] [address]- Allergies, Adverse Reactions, Alerts Substance Reaction Severity [...] former pcp 2Result Comment: notification received from [facility] [place] [address] 3Admin Note: MANUFACTURE BIOMEDICAL INFO SHEET GIVEN GIVEN W/O INCIDENT Medications albuterol CFC free 90 mcg/inh inhalation aerosol 1, puffs, Inhalation, 4 times a day, PRN, use with spacer chamber, # 18 Gm, Refills 6, Tot. Refills6, Maintenance, 12/09/22 9:56:00 EDT, Aerosol, Route to Pharmacy Electronically, [id number], [facility] #[id number], d/c... Start Date: 12/09/22 Status: Ordered amLODIPine 5 mg oral tablet 5 mg, 1, tablet, By Mouth, Daily, # 90 tablet, Refills 0, Tot. Refills 0, Maintenance, 12/09/22 10:13:00 EDT, Route to Pharmacy Electronically, [facility] #[id number], Partial fill upon patient request if the [...] capsule, 6 Refills, Maintenance, 01/27/23 13:36:00 EDT, [facility] #00220, Partial fill upon patient request if the prescription is for a schedule II opioid drug., 150, cm, 12/09/22 9:40:00 EDT, [place]... Start Date: 01/27/23 Status: Ordered dicyclomine 20 mg oral tablet 1 tablet = 20 mg, By Mouth, 4 times a day, # 360 tablet, 3 Refills, Hard Stop 07/12/23 15:21:00 EST, 08/23/22 16:31:00 EST, Tablet, [facility] #90881, Partial fill upon patient request if the [...] Gm, 0 Refills, Maintenance, 12/09/22 10:06:00 EDT, [place], [facility] #82194, Partial fill upon patient request if the [...] 12/09/22 9:56:00 EDT, Route to Pharmacy Electronically, [facility] #[id number], 150, cm, 12/09/22 9:40:00 EDT, Height, 54, kg,05/17/22 12:01:00 EDT, Dry Weight Start Date: 12/09/22 Status: Ordered nortriptyline 10 mg oral capsule 3, capsule, By Mouth, Daily at bedtime, # 90 capsule, Refills 0, Maintenance, 02/24/23 9:21:00 EDT,Route to Pharmacy Electronically, [facility] #49452, 150, cm, 12/09/22 9:40:00 EDT, Height, 54, [...] Team Personnel Name: Sandie Saleem [place] Position: [facility] RN Member Role: Primary Care Nurse Name: Amita Arredondo RN Position: [facility] SN Biofuels Technology Manager Member Role: Primary Care Nurse Name: Caroline Hernandez Position: [facility] RN Member Role: Primary Care Nurse Name: Arthur Griffin DO Position: [facility] COUNTY JUDGE MD Member Role: [employer] COUNTY JUDGE Physician Address: Address: [address] [place] [address] [place] [address]- [place] Name: Korina Gerard NP Position: [facility] PCO Associate Professional Member Role: PCP Address: Address: [address] [place] [address], -Level [facility] [place] [address]- Care Team Related Persons Name: TRAVON CANTRELL Address: [address] [place] [address] Name: SREAFIN LANDA Address: [address] [place] [address] Name: SOL GILLILAND Address: [address] [place] [address] Name: DELIA DWYER Address: [address] [place] [address]
--- OUTSIDE RECORDS SUMMARY | 2023-05-29 08:45 | XMS_ITS | Continuity of Care Document ---
Author Name Unknown Organization [facility] Address [address] [place] [address]- Care Team Providers Care Sheriffs Detective Name Role Phone Moustapha PINA, Korina Frazier Primary Care Physician [facility]counter [facility] Date(s): 01/27/23 - 02/26/23 [facility] [address] [place] [address]- [place] Allergies, Adverse Reactions, Alerts Substance Reaction [...] former pcp 2Result Comment: notification received from [facility] [place] [id number] 3Admin Note: MANUFACTURE BIOMEDICAL INFO SHEET GIVEN GIVEN W/O INCIDENT Medications albuterol CFC free 90 mcg/inh inhalation aerosol 1, puffs, Inhalation, 4 times a day, PRN, use with spacer chamber, # 18 Gm, Refills 6, Tot. Refills6, Maintenance, 12/09/22 9:56:00 EDT, Aerosol, Route to Pharmacy Electronically, [id number], [facility] #[id number], d/c... Start Date: 12/09/22 Status: Ordered amLODIPine 5 mg oral tablet 5 mg, 1, tablet, By Mouth, Daily, # 90 tablet, Refills 0, Tot. Refills 0, Maintenance, 12/09/22 10:13:00 EDT, Route to Pharmacy Electronically, [facility] #[id number], Partial fill upon patient request if the [...] capsule, 6 Refills, Maintenance, 01/27/23 13:36:00 EDT, [facility] #[id number], Partial fill upon patient request if the prescription is for a schedule II opioid drug., 150, cm, 12/09/22 9:40:00 EDT, [place]... Start Date: 01/27/23 Status: Ordered dicyclomine 20 mg oral tablet 1 tablet = 20 mg, By Mouth, 4 times a day, # 360 tablet, 3 Refills, Hard Stop 07/12/23 15:21:00 EST, 08/23/22 16:31:00 EST, Tablet, [facility] #[id number], Partial fill upon patient request if the [...] Gm, 0 Refills, Maintenance, 12/09/22 10:06:00 EDT, [place], [facility] #[id number], Partial fill upon patient request if the [...] 12/09/22 9:56:00 EDT, Route to Pharmacy Electronically, [facility] #97004, 150, cm, 12/09/22 9:40:00 EDT, Height, 54, kg,05/17/22 12:01:00 EDT, Dry Weight Start Date: 12/09/22 Status: Ordered nortriptyline 10 mg oral capsule 3, capsule, By Mouth, Daily at bedtime, # 90 capsule, Refills 0, Maintenance, 02/24/23 9:21:00 EDT,Route to Pharmacy Electronically, [facility] #70404, 150, cm, 12/09/22 9:40:00 EDT, Height, 54, [...] Care team information Care Team Personnel Name: Stiven [place] Sandie Position: [facility] RN Member Role: Primary Care Nurse Name: Amita Arredondo RN Position: [facility] SN Risk Compliance Analyst Member Role: Primary Care Nurse Name: Caroline Hernandez Position: [facility] RN Member Role: Primary Care Nurse Name: Arthur Griffin DO Position: [facility] CARE MANAGEMENT ASSOCIATE MD Member Role: Lifetime CARE MANAGEMENT ASSOCIATE Physician Address: Address: [address] [place], [place] [address]s [facility] [place] [address]- Name: Korina Gerard NP Position: [facility] PCO Associate Professional Member Role: PCP Address: Address: [address] [place] [address], -[facility] [place] [address]- Care Team Related Persons Name: TRAVON CANTRELL Address: [address] [place] [address] Name: SERAFIN LANDA Address: [address] [place] [address] Name: SOL GILLILAND Address: [address] [place] [address] Name: DELIA DWYER Address: [address] [place] [address]
--- OUTSIDE RECORDS SUMMARY | 2023-05-29 08:45 | XMS_ITS | Continuity of Care Document ---
Author Name Unknown Organization [facility] Address [address] [place] [address]- Care Team Providers Care Log Driver Name Role Phone Moustapha PINA, Korina Frazier Primary Care Physician En[place] [facility] [place] [place] Date(s): 06/20/21 - 06/27/21 [facility] [address] [place] [address]- Attending Physician: Tristin GARG, Homar Referring Physician: Moustapha PINA, Korina Frazier Allergies, [...] Comment: notification received [place] [address] 2Admin Note: MANUFACTURE BIOMEDICAL INFO SHEET GIVEN GIVEN W/O INCIDENT 3Admin Note: former pcp Medications albuterol CFC free 90 mcg/inh inhalation aerosol 1, puffs, Inhalation, 4 times a day, PRN, use with spacer chamber, # 18 Gm, Refills 6, Tot. Refills6, Maintenance, 01/02/21 16:16:00 EDT, Aerosol, Route to Pharmacy Electronically, [id number], [facility] #[id number], d/... Start Date: 01/02/21 Status: Ordered biotin [...] capsule, 0 Refills, Maintenance, 04/10/21 13:13:00 EDT, [facility] #[id number], Partial fill upon patient request if the prescription is for a schedule II opioid drug.,... Start Date: 04/10/21 Stop Date: 05/10/21 Status: Ordered docusate sodium 250 mg oral capsule 1 capsule = 250 mg, By Mouth, Daily, PRN for constipation, # 20 capsule, 2 Refills, Maintenance, 10/25/19 13:21:00 EDT, Capsule, [facility] #22238, 152.4, cm, 09/27/19 9:43:00 EDT, Height, 52.3, kg, 07/07/19 12:17:00 EST, Dry Weight Start Date: 10/25/19 Status: Ordered famotidine 20 mg oral tablet 1, tablet, By Mouth, 2 times a day, AVOID EATING AND DRINKING FOR 10 MINUTES AFTER EACH DOSE, # 180tablet, Refills 0, Route to Pharmacy Electronically, [facility] #[id number], 152.4, cm, 04/10/21 12:27:00 EDT, Height, 50.6, kg, 06/02/20 11:55:00... Start Date: 04/11/21 Status: Ordered Flonase 50 mcg/inh nasal spray 1 sprays, Nares, Both, 2 times a day, # 16 Gm, 5 Refills, Maintenance, 10/30/20 11:26:00 EDT, [place], [facility]/pharmacy #2071, 1 sprays Nares, Both 2 times a day, 152.4, cm, 04/06/20 15:52:00 EDT, Height, 50.6, kg, 06/02/20 11:55:00 EST, Dry Weight Start Date: 10/30/20 Status: Ordered Flovent HFA 110 mcg/inh inhalation aerosol 2 puffs, Inhalation, 2 times a day, # 12 Gm, 3 Refills, Maintenance, 01/15/21 16:58:00 EDT, Aerosol, [facility] #[id number], to replace arnuity ellipta, 152.4, cm, 12/11/20 [...] 06/05/21 8:17:00 EST, Route to Pharmacy Electronically, [facility]/pharmacy #2071, 152.4, cm, 04/10/21 12:27:00 EDT, Height, 50.6, kg, 06/02/20 11:55:00 EST, Dry Weight Start Date: 06/05/21 Status: Ordered sucralfate 1 gm oral tablet 1, tablet, By Mouth, 4 times a day, ON AN ON AN EMPTY STOMACH., # 360 tablet, Refills 0, Tot. Refills 0, Maintenance, 12/01/20 16:39:00 EDT, Route to Pharmacy Electronically, [facility]42898, 152.4, cm, 12/01/20 14:57:00 EDT, Height, 50.6,... [...] 0 Refills, Maintenance, 11/13/20 19:38:00 EDT, Tablet, [facility] #14050, Partial fill upon patient request if the [...]
--- OUTSIDE RECORDS SUMMARY | 2023-05-29 08:45 | XMS_ITS | Continuity of Care Document ---
Author Name Unknown Organization [facility] Address [address] [place] [address] [address] [place] [address]- Care Team Providers Care Steam Engineer Name Role Phone Moustapha PINA, Korina Frazier Primary Care Physician Encounter [facility] [place] Date(s): 01/15/22 - 02/14/22 [facility] [address] [place] [address]- Attending Physician: Konstantin Barker8 Admitting Physician: AdmtrAylin Referring Physician: Admtr, Ar8 Allergies, Adverse Reactions, Alerts Substance Reaction Severity Status doxycycline Active erythromycin rash Active amoxicillin hives Unknown Active Darvocet-N 100 Itchy Migraine Active penicillin rash Active pseudoephedrine Active venlafaxine [...] Comment: notification [place] [address] 2Admin Note: MANUFACTURE BIOMEDICAL INFO SHEET GIVEN GIVEN W/O INCIDENT 3Admin Note: former pcp Medications albuterol CFC free 90 mcg/inh inhalation aerosol 1, puffs, Inhalation, 4 times a day, PRN, use with spacer chamber, # 18 Gm, Refills 6, Tot. Refills6, Maintenance, 12/20/21 17:01:00 EDT, Aerosol, Route to Pharmacy Electronically, [id number], [facility] #[id number], d/... Start Date: 12/20/21 Status: Ordered biotin [...] 2 Refills, Maintenance, 10/25/19 13:21:00 EDT, Capsule, [facility] #[id number], 152.4, cm, 09/27/19 9:43:00 EDT, Height, 52.3, [...] 180tablet, Refills 0, Route to Pharmacy Electronically, [facility] #[id number], 152.4, cm, 04/10/21 12:27:00 EDT, Height, 50.6, kg, 06/02/20 11:55:00... Start Date: 07/10/21 Status: Ordered Flovent HFA 110 mcg/inh inhalation aerosol 2 puffs, Inhalation, 2 times a day, # 12 Gm, 3 Refills, Maintenance, 01/15/21 16:58:00 EDT, Aerosol, [facility] #45763, to replace arnuity ellipta, 152.4, cm, 12/11/20 18:27:00 EDT, Height,50.6, kg, 06/02/20 11:55:00 EST, Dry Weight Start Date: 01/15/21 Status: Ordered fluticasone 50 mcg/inh nasal spray See Instructions, USE 1 SPRAY IN EACH NOSTRIL TWICE A DAY, # 48 mL, 1 Refills, [facility], 90,USE 1 SPRAY IN EACH NOSTRIL TWICE [...] tablet, Refills 1, Route to Pharmacy Electronically, [facility] 9[facility]15, 152.4, cm, 04/10/21 12:27:00 EDT, Height, 50.6, [...]
--- OUTSIDE RECORDS SUMMARY | 2023-05-29 08:45 | XMS_ITS | Continuity of Care Document ---
Author Name Unknown Organization [facility] Mina analia Address [address] [place] [address] [address] [place] [address]- Care Team Providers Care Logistics Engineer Name Role Phone Moustapha PINA, Korina Frazier Primary Care Physician [place] [facility] [place] Date(s): 04/22/22 - 04/29/22 [facility] [address] [place] [address] Drive [address] [place] [address]- Attending Physician: Greyson Burns MD Allergies, Adverse Reactions, Alerts Substance Reaction [...] 1Result Comment: [place] [id number] 2Admin Note: MANUFACTURE BIOMEDICAL INFO SHEET GIVEN GIVEN W/O INCIDENT 3Admin Note: former pcp Medications acetaminophen 325 mg oral tablet 650 mg, 2, tablet, By Mouth, Every 6 hours, PRN, for 10 days, # 50 tablet, Refills 1, Tot. Refills 1, Acute 05/05/22 15:55:00 EDT, as needed for pain, 04/15/22 15:55:00 EDT, Route to Pharmacy Electronically, [facility] #[id number], Partial fill u... Start Date: 04/15/22 Stop Date: 05/05/22 Status: Ordered albuterol CFC free 90 mcg/inh inhalation aerosol 1, puffs, Inhalation, 4 times a day, PRN, use with spacer chamber, # 18 Gm, Refills 6, Tot. Refills6, Maintenance, 12/20/21 17:01:00 EDT, Aerosol, Route to Pharmacy Electronically, [id number], [facility] #[id number], d/... Start Date: 12/20/21 Status: Ordered biotin [...] 0 Refills, Maintenance, 03/28/22 15:53:00 EDT, Tablet, [facility] #[id number], Partial fill upon patient request if the prescription is for a schedule II opioid drug., 152.4, cm, 01/24/22 1... Start Date: 03/28/22 Status: Ordered dicyclomine 20 mg oral tablet 1 tablet = 20 mg, By Mouth, 4 times a day, # 120 tablet, 3 Refills, Hard Stop 07/09/23 11:37:00 EST, 04/26/22 12:33:00 EDT, Tablet, [facility] #[id number], Partial fill upon patient request if the prescription is for a schedule II opioid drug., 1... Start Date: 04/26/22 Stop Date: 07/09/23 Status: Ordered dicyclomine 20 mg oral tablet 1 tablet = 20 mg, By Mouth, 4 times a day, # 120 tablet, 0 Refills, Hard Stop 04/25/23 11:14:00 EDT, 03/26/22 12:59:00 EDT, Tablet, [facility] #[id number], Partial fill upon patient request if the prescription is for a schedule II opioid drug., 1... Start Date: 03/26/22 Stop Date: 04/25/23 Status: Ordered docusate sodium 250 mg oral capsule 1 capsule = 250 mg, By Mouth, Daily, PRN for constipation, # 20 capsule, 2 Refills, Maintenance, 10/25/19 13:21:00 EDT, Capsule, [facility] #[id number], 152.4, cm, 09/27/19 9:43:00 EDT, Height, 52.3, [...] 180tablet, Refills 0, Route to Pharmacy Electronically, [facility] #[id number], 152.4, cm, 04/10/21 12:27:00 EDT, Height, 50.6, kg, 06/02/20 11:55:00... Start Date: 07/10/21 Status: Ordered Flovent HFA 110 mcg/inh inhalation aerosol 2 puffs, Inhalation, 2 times a day, # 12 Gm, 3 Refills, Maintenance, 01/15/21 16:58:00 EDT, Aerosol, [facility] #69751, to replace erick montgomeryta, 152.4, cm, 12/11/20 18:27:00 EDT, Height,50.6, kg, 06/02/20 11:55:00 EST, Dry Weight Start Date: 01/15/21 Status: Ordered fluticasone 50 mcg/inh nasal spray See Instructions, USE 1 SPRAY IN EACH NOSTRIL TWICE A DAY, # 48 mL, 1 Refills, [facility] 84[facility], 90,USE 1 SPRAY IN EACH NOSTRIL TWICE A DAY, 152.4, cm, 04/10/21 12:27:00 EDT, Height, 50.6, kg, 06/02/20 11:55:00 EST, Dry Weight Start Date: 08/06/21 Status: Ordered Francesca Root 0 Refills, Maintenance, 06/30/19 13:53:04 EST Start Date: 06/30/19 Status: Ordered ibuprofen 200 mg oral tablet 400 mg, 2, tablet, By Mouth, Every 6 hours, PRN, for 10 days, # 100 tablet, Refills 1, Tot. Refills1, Acute 05/05/22 15:56:00 EDT, for pain, 04/15/22 15:56:00 EDT, Route to Pharmacy Electronically, [facility] #[id number], Partial fill upon patie... Start Date: 04/15/22 Stop Date: 05/05/22 Status: Ordered Latuda 60 mg oral tablet [...] tablet, Refills 1, Route to Pharmacy Electronically, [facility] [id number], 152.4, cm, 04/10/21 12:27:00 EDT, Height, 50.6, [...] recent to oldest [Reference Range]: 1 Height 150 cm (04/22/22 9:23 AM) Weight 54.09 kg (04/22/22 9:23 AM) Body Mass Index [18.5-24.99 kg/m2] 24.04 kg/m2 (04/22/22 9:23 AM) Temperature [96.8-100.4 DegF] 98.6 DegF (04/22/22 9:23 AM) Temperature Route Temporal (04/22/22 9:23 AM) Weight Obtained Via Standing scale (04/22/22 9:23 AM) Social History Social History Type Response Tobacco Use: former smoker. Sex Female Patient Care team information Personnel Name: Moustapha PINA, Korina Frazier Address: Address: [address] [place] [address], -Level [facility] Adult [facility] [place], [place] [address]
--- OUTSIDE RECORDS SUMMARY | 2023-05-29 08:45 | XMS_ITS | Continuity of Care Document ---
Author Name Unknown Organization [facility] Address [address] [place] [address]- Care Team Providers Care Game Developer Name Role Phone Moustapha PINA, Korina Frazier Primary Care Physician [facility]counter [facility] Date(s): 09/17/22 - 10/17/22 [facility] [address] [place] [address]- Allergies, Adverse Reactions, Alerts Substance Reaction Severity [...] 1Result Comment: [place] [id number] 2Admin Note: MANUFACTURE BIOMEDICAL INFO SHEET GIVEN GIVEN W/O INCIDENT 3Admin Note: former pcp Medications albuterol CFC free 90 mcg/inh inhalation aerosol 1, puffs, Inhalation, 4 times a day, PRN, use with spacer chamber, # 18 Gm, Refills 6, Tot. Refills6, Maintenance, 12/20/21 17:01:00 EDT, Aerosol, Route to Pharmacy Electronically, [id number], [facility] #[id number], d/... Start Date: 12/20/21 Status: Ordered busPIRone 5 mg oral tablet TAKE 1 TABLET BY MOUTH THREE TIMES DAILY NEEDED Start Date: 08/30/22 Status: Ordered clonazePAM 0.5 mg oral tablet 1 tablet = 0.5 mg, By Mouth, 2 times a day, 0 Refills, Maintenance, 06/30/19 13:51:45 EST Start Date: 06/30/19 Status: Ordered Dexilant 60 mg oral delayed release capsule 1 capsule = 60 mg, By Mouth, Daily, # 30 capsule, 0 Refills, Maintenance, 09/08/22 14:11:00 EST, [facility] #[id number], Partial fill upon patient request if the prescription is for a schedule II opioid drug., 150, cm, 08/30/22 9:12:00 EST, Heigh... Start Date: 09/08/22 Status: Ordered dicyclomine 20 mg oral tablet 1 tablet = 20 mg, By Mouth, 4 times a day, # 360 tablet, 3 Refills, Hard Stop 07/12/23 15:21:00 EST, 08/23/22 16:31:00 EST, Tablet, [facility] #[id number], Partial fill upon patient request if the prescription is for a schedule II opioid drug., 1... Start Date: 08/23/22 Stop Date: 07/12/23 Status: Ordered Dulcolax Stool Softener = 100 mg, By Mouth, 2 times a day, OTC, 0 Refills, Maintenance, 01/15/22 10:55:00 EDT, Partial fillupon patient request if the prescription is for a schedule II opioid drug. Start Date: 01/15/22 Status: Ordered Latuda 20 mg oral tablet [...] Mouth, Daily, # 90 tablet, Refills 1, Tot. Refills 1, 09/03/22 15:10:00 EST, Route toPharmacy Electronically, [facility]/pharmacy #2071, 150, cm, 08/30/22 9:12:00 EST, Height, 54, kg, 05/17/22 12:01:00 EDT, Dry Weight Start Date: 09/03/22 Status: Ordered nortriptyline 10 mg oral capsule 30 mg, 3, capsule, By Mouth, Daily at bedtime, 30 mg at bedtime, # 90 capsule, Refills 3, Tot. Refills 3, Maintenance, 08/26/22 16:11:00 EST, Route to Pharmacy Electronically, [facility] #[id number], Partial fill upon patient request if the [...] 11:41:31 EDT Start Date: 12/15/18 Status: Ordered traMADol 50 mg oral tablet TAKE 1 TABLET BY MOUTH THREE TIMES DAILY NEEDED FOR PAIN Start Date: 08/30/22 Status: Ordered Vitamin D3 1000 intl units [...] Care Team Personnel Name: Sandie Menon Position: [facility] RN Member Role: Primary Care Nurse Name: Amita Arredondo RN Position: [facility] SN Parole Or Probation Officer Member Role: Primary Care Nurse Name: Caroline Hernandez Position: [facility] RN Member Role: Primary Care Nurse Name: Arthur Griffin DO Position: [facility] SALICYLIC ACID BLENDER MD Member Role: Lifetime SALICYLIC ACID BLENDER Physician Address: Address: [address] [place] [address] Women's [place] [address]- [place] Name: Moustapha PINA, Korina Frazier Position: [facility] PCO Associate Professional Member Role: PCP Address: Address: [address] [facility], C-Level [facility] [place] [address]- Care Team Related Persons Name: TRAVON CANTRELL Address: home [address] [place] [address] Name: SERAFIN LANDA Address: home [address] [place] [address] Name: SOL GILLILAND Address: home [address] [place] [address] Name: DELIA DWYER Address: home [address] [place] [address]
--- OUTSIDE RECORDS SUMMARY | 2023-05-29 08:45 | XMS_ITS | Continuity of Care Document ---
Author Name Unknown Organization [facility] Address [address] [place] [address]- Care Team Providers Care Wildfire Prevention Specialist Name Role Phone Moustapha PINA, Korina Frazier Primary Care Physician [facility]counter [facility] Date(s): 03/29/20 - 04/28/20 [facility] [address] [place] [id number] [place] Allergies, Adverse Reactions, Alerts Substance Reaction [...] Comment: notification [place] [id number] 2Admin Note: MANUFACTURE BIOMEDICAL INFO SHEET GIVEN GIVEN W/O INCIDENT 3Admin Note: former pcp Medications Arnuity Ellipta 100 mcg inhalation powder See Instructions, TAKE 1 PUFF EVERY 24B HOURS, # 30 Unknown, 1 Refills, Maintenance, [facility], 152.4, cm, 09/27/19 9:43:00 EDT, Height, 52.3, [...] 2 Refills, Maintenance, 10/25/19 13:21:00 EDT, Capsule, [facility] #73730, 152.4, cm, 09/27/19 9:43:00 EDT, Height, 52.3, kg, 07/07/19 12:17:00 EST, Dry Weight Start Date: 10/25/19 Status: Ordered Flonase 50 mcg/inh nasal spray 1 sprays, Nares, Both, 2 times a day, # 16 Gm, 2 Refills, Maintenance, 02/28/20 18:09:00 EDT, [place], [facility]/pharmacy #2071, 1 sprays Nares, Both 2 times [...] 11/17/18 13:26:13 EDT, Route to Pharmacy Electronically, [id number], [facility]/pharmacy #2071 Start Date: 11/17/18 Status: Ordered Magnesium [...] 0 Refills, Maintenance, 07/15/19 15:55:00 EST, Liquid, [facility]/pharmacy #2071, 20 mL By Mouth Every 6 hours,PRN:as needed for cough,Instr:not to exceed 6 doses/d... Start Date: 07/15/19 Status: Ordered Singulair 10 mg oral tablet 10 mg, 1, tablet, By Mouth, Daily, # 30 tablet, Refills 5, Tot. Refills 5, Maintenance, 09/09/19 18:57:00 EST, Route to Pharmacy Electronically, [facility]/pharmacy #2071, 152.4, cm, 07/15/19 13:23:00 EST, Height, [...] 10/15/19 16:09:00 EDT, [facility]erosol, [id number], 152.4, cm, 09/27/19 9:43:00 EDT, Height, 52.3, [...]
--- OUTSIDE RECORDS SUMMARY | 2023-05-29 08:45 | XMS_ITS | Continuity of Care Document ---
Author Name Unknown Organization [facility] Mina analia Address [address] [place] [address] [address] [place] [address]- Care Team Providers Care Manager Media Relations Name Role Phone Moustapha PINA, Korina Frazier Primary Care Physician En[place] [facility] [place](s): 05/17/22 - 06/16/22 [facility] [address] [place], [place] [address] Attending Physician: Aylin Barker Admitting Physician: AdmtrAylin Referring Physician: Admtr, Ar8 [...] Comment: notification [place] [id number] 2Admin Note: MANUFACTURE BIOMEDICAL INFO SHEET GIVEN GIVEN W/O INCIDENT 3Admin Note: former pcp Medications albuterol CFC free 90 mcg/inh inhalation aerosol 1, puffs, Inhalation, 4 times a day, PRN, use with spacer chamber, # 18 Gm, Refills 6, Tot. Refills6, Maintenance, 12/20/21 17:01:00 EDT, Aerosol, Route to Pharmacy Electronically, [id number], [facility] #[id number], d/... Start Date: 12/20/21 Status: Ordered biotin [...] 0 Refills, Maintenance, 03/28/22 15:53:00 EDT, Tablet, [facility] #55212, Partial fill upon patient request if the prescription is for a schedule II opioid drug., 152.4, cm, 01/24/22 1... Start Date: 03/28/22 Status: Ordered dicyclomine 20 mg oral tablet 1 tablet = 20 mg, By Mouth, 4 times a day, # 120 tablet, 3 Refills, Hard Stop 07/09/23 11:37:00 EST, 04/26/22 12:33:00 EDT, Tablet, [facility] #[id number], Partial fill upon patient request if the prescription is for a schedule II opioid drug., 1... Start Date: 04/26/22 Stop Date: 07/09/23 Status: Ordered dicyclomine 20 mg oral tablet 1 tablet = 20 mg, By Mouth, 4 times a day, # 120 tablet, 0 Refills, Hard Stop 04/25/23 11:14:00 EDT, 03/26/22 12:59:00 EDT, Tablet, [facility] #[id number], Partial fill upon patient request if the prescription is for a schedule II opioid drug., 1... Start Date: 03/26/22 Stop Date: 04/25/23 Status: Ordered docusate sodium 250 mg oral capsule 1 capsule = 250 mg, By Mouth, Daily, PRN for constipation, # 20 capsule, 2 Refills, Maintenance, 10/25/19 13:21:00 EDT, Capsule, [facility] #02979, 152.4, cm, 09/27/19 9:43:00 EDT, Height, 52.3, [...] 180tablet, Refills 0, Route to Pharmacy Electronically, [facility] #[id number], 152.4, cm, 04/10/21 12:27:00 EDT, Height, 50.6, kg, 06/02/20 11:55:00... Start Date: 07/10/21 Status: Ordered Flovent HFA 110 mcg/inh inhalation aerosol 2 puffs, Inhalation, 2 times a day, # 12 Gm, 3 Refills, Maintenance, 01/15/21 16:58:00 EDT, Aerosol, [facility] #[id number], to replace arnuity ellipta, 152.4, cm, 12/11/20 18:27:00 EDT, Height,50.6, kg, 06/02/20 11:55:00 EST, Dry Weight Start Date: 01/15/21 Status: Ordered fluticasone 50 mcg/inh nasal spray See Instructions, USE 1 SPRAY IN EACH NOSTRIL TWICE A DAY, # 48 mL, 1 Refills, [facility] 1944[facility], 90,USE 1 SPRAY IN EACH NOSTRIL TWICE [...] 90 tablet, Refills 0, Tot. Refills 0, 06/07/22 8:54:00 EST, Route to Pharmacy Electronically, [facility]/pharmacy #2071, 150, cm, 05/17/22 12:01:00 EDT, Height, 54, kg, 05/17/22 12:01:00 EDT, Dry Weight Start Date: 06/07/22 Status: Ordered Multivitamin Daily, 0 Refills, Maintenance, [...] Care Team Personnel Name: Sandie Menon Position: [facility] RN Member Role: Primary Care Nurse Name: Amita Arredondo RN Position: [facility] SN Utility Inspector Member Role: Primary Care Nurse Name: Caroline Hernandez Position: [facility] RN Member Role: Primary Care Nurse Name: Arthur Griffin DO Position: [facility] ELECTRO MECHANICAL DESIGNER MD Member Role: Lifetime ELECTRO MECHANICAL DESIGNER Physician Address: Address: [address] [place] [address] Women's Health [place] [address]- Name: Korina Gerard NP Position: [facility] PCO Associate Professional Member Role: PCP Address: Address: [address] [facility], -Level [facility] [place] [address]- Care Team Related Persons Name: TRAVON CANTRELL Address: home [address] [place] [address] Name: SERAFIN LANDA Address: home [address] [place] [address] Name: SOL GILLILAND Address: home [address] [place] [address] Name: DELIA DWYER Address: home [address] [place] [address]
[2023-05-29 08:46] VITALS: BP 148/99; PULSE 105; RESP 14; TEMP 36.7; O2SAT 98
--- OUTSIDE RECORDS SUMMARY | 2023-05-29 08:46 | XMS_ITS | Continuity of Care Document ---
Author Name Unknown Organization [facility] Mina analia Address [address] [place] [address] Dri ve [address] [place] [address]- Care Team Providers Care Ankle Patch Molder Name Role Phone Moustapha PINA, Korina Frazier Primary Care Physician [place] [facility] [place] 04/30/22 - 05/07/22 [facility] Surgery [address] [place] [address] Drive [address] [place] [address]- Attending Physician: Deepali Salazar Allergies, Adverse Reactions, Alerts Substance Reaction Severity Status doxycycline Active erythromycin rash Active amoxicillin hives Unknown Active penicillin rash Active Naprosyn gi upset Active raspberry Active Latex itching Active Strawberries migraine Hives Active Watermelon Hives Active Darvocet-N 100 Itchy Migraine Active pseudoephedrine Active venlafaxine Active Immunizations Given and Recorded Vaccine Date [...] Comment: notification [place] [id number] 2Admin Note: MANUFACTURE BIOMEDICAL INFO SHEET GIVEN GIVEN W/O INCIDENT 3Admin Note: former pcp Medications albuterol CFC free 90 mcg/inh inhalation aerosol 1, puffs, Inhalation, 4 times a day, PRN, use with spacer chamber, # 18 Gm, Refills 6, Tot. Refills6, Maintenance, 12/20/21 17:01:00 EDT, Aerosol, Route to Pharmacy Electronically, [id number], [facility] #[id number], d/... Start Date: 12/20/21 Status: Ordered biotin [...] 0 Refills, Maintenance, 03/28/22 15:53:00 EDT, Tablet, [email or web address] #75957, Partial fill upon patient request if the prescription is for a schedule II opioid drug., 152.4, cm, 01/24/22 1... Start Date: 03/28/22 Status: Ordered dicyclomine 20 mg oral tablet 1 tablet = 20 mg, By Mouth, 4 times a day, # 120 tablet, 3 Refills, Hard Stop 07/09/23 11:37:00 EST, 04/26/22 12:33:00 EDT, Tablet, [email or web address] #87020, Partial fill upon patient request if the prescription is for a schedule II opioid drug., 1... Start Date: 04/26/22 Stop Date: 07/09/23 Status: Ordered dicyclomine 20 mg oral tablet 1 tablet = 20 mg, By Mouth, 4 times a day, # 120 tablet, 0 Refills, Hard Stop 04/25/23 11:14:00 EDT, 03/26/22 12:59:00 EDT, Tablet, [facility] #28703, Partial fill upon patient request if the prescription is for a schedule II opioid drug., 1... Start Date: 03/26/22 Stop Date: 04/25/23 Status: Ordered docusate sodium 250 mg oral capsule 1 capsule = 250 mg, By Mouth, Daily, PRN for constipation, # 20 capsule, 2 Refills, Maintenance, 10/25/19 13:21:00 EDT, Capsule, [facility] #35279, 152.4, cm, 09/27/19 9:43:00 EDT, Height, 52.3, [...] 180tablet, Refills 0, Route to Pharmacy Electronically, [facility] #23086, 152.4, cm, 04/10/21 12:27:00 EDT, Height, 50.6, kg, 06/02/20 11:55:00... Start Date: 07/10/21 Status: Ordered Flovent HFA 110 mcg/inh inhalation aerosol 2 puffs, Inhalation, 2 times a day, # 12 Gm, 3 Refills, Maintenance, 01/15/21 16:58:00 EDT, Aerosol, [facility] #13298, to replace arnuity ellipta, 152.4, cm, 12/11/20 18:27:00 EDT, Height,50.6, kg, 06/02/20 11:55:00 EST, Dry Weight Start Date: 01/15/21 Status: Ordered fluticasone 50 mcg/inh nasal spray See Instructions, USE 1 SPRAY IN EACH NOSTRIL TWICE A DAY, # 48 mL, 1 Refills, [facility], 90,USE 1 SPRAY IN EACH NOSTRIL TWICE [...] 1, Route to Pharmacy Electronically, [facility], 152.4, cm, 04/10/21 12:27:00 EDT, Height, 50.6, [...] Moustapha PINA, Korina Frazier Address: Address: [address] [facility], C-Level [facility] Adult Medicine [place], [place] [address]
--- OUTSIDE RECORDS SUMMARY | 2023-05-29 08:46 | XMS_ITS | Continuity of Care Document ---
Author Name Unknown Organization [facility] Address [address] [place] [address]- Care Team Providers Care Reinsurance Accountant Name Role Phone Moustapha PINA, Korina Frazier Primary Care Physician [facility] Date[facility]s): 11/18/19 - 12/18/19 [facility] [address] [place] [address]- [facility] Attending Physician: Admtr, Konstantin8 Admitting Physician: Admtr, Konstantin8 Referring Physician: Admtr, Ar8 Allergies, Adverse Reactions, [...] 1Result Comment: [place] [id number] 2Admin Note: MANUFACTURE BIOMEDICAL INFO SHEET GIVEN [...] 2 Refills, Maintenance, 10/25/19 13:21:00 EDT, Capsule, [facility] #[id number], 152.4, cm, 09/27/19 9:43:00 EDT, Height, 52.3, kg, 07/07/19 12:17:00 EST, Dry Weight Start Date: 10/25/19 Status: Ordered Flonase 50 mcg/inh nasal spray 1 sprays, Nares, Both, 2 times a day, # 16 Gm, 2 Refills, Maintenance, 12/01/19 17:06:00 EDT, [place], [facility] #[id number], 1 sprays Nares, Both 2 times a [...] 11/17/18 13:26:13 EDT, Route to Pharmacy Electronically, [id number], [facility]/pharmacy #207 Start Date: 11/17/18 Status: Ordered Magnesium [...] 0 Refills, Maintenance, 07/15/19 15:55:00 EST, Liquid, [facility]/pharmacy #2071, 20 mL By Mouth Every 6 hours,PRN:as needed for cough,Instr:not to exceed 6 doses/d... Start Date: 07/15/19 Status: Ordered Singulair 10 mg oral tablet 10 mg, 1, tablet, By Mouth, Daily, # 30 tablet, Refills 5, Tot. Refills 5, Maintenance, 09/09/19 18:57:00 EST, Route to Pharmacy Electronically, [facility]/pharmacy #2071, 152.4, cm, 07/15/19 13:23:00 EST, Height, [...] 4 Refills, Maintenance, 10/15/19 16:09:00 EDT, Aerosol, [facility] #25995, 152.4, cm, 09/27/19 9:43:00 EDT, Height, 52.3, [...]
--- OUTSIDE RECORDS SUMMARY | 2023-05-29 08:46 | XMS_ITS | Continuity of Care Document ---
Author Name Unknown Organization [facility] Address [address] [place] [address]- Care Team Providers Care Sewer Bricklayer Name Role Phone Moustapha PINA, Korina Frazier Primary Care Physician [facility] Date(s): 07/15/19 - 07/25/19 [facility] [address] [place] [address]- [facility] Attending Physician: Aylin Barker Admitting Physician: AdmtrAylin Referring Physician: Admtr, ArAdriana Allergies, Adverse Reactions, Alerts Substance Reaction [...] Comment: notification received from [place]ilah [address] [place] [id number] 2Admin Note: MANUFACTURE BIOMEDICAL INFO SHEET GIVEN [...] Gm, 2 Refills, Maintenance, 05/31/19 10:19:56 EST, [place], 1 sprays Nares, Both 2 times a [...] 11/17/18 13:26:13 EDT, Route to Pharmacy Electronically, [id number], [facility]/pharmacy #207 Start Date: 11/17/18 Status: Ordered Magnesium [...] Refills, Maintenance, 07/15/19 15:55:00 EST, Liquid, [facility]/pharmacy #207, 20 mL By Mouth Every 6 hours,PRN:as needed for cough,Instr:not to exceed 6 doses/d... Start Date: 07/15/19 Status: Ordered Singulair 10 mg oral tablet 10 mg, 1, tablet, By Mouth, Daily, # 30 tablet, Refills 5, Tot. Refills 5, Maintenance, 07/07/19 16:46:00 EST, Route to Pharmacy Electronically, [facility]/pharmacy #207, 152.4, cm, 07/07/19 12:17:00 EST, Height, [...]
--- OUTSIDE RECORDS SUMMARY | 2023-05-29 08:46 | XMS_ITS | Continuity of Care Document ---
Author Name Unknown Organization [facility] Address [address] [place] [address]- Care Team Providers Care Online Advertising Manager Name Role Phone Moustapha PINA, Korina Frazier Primary Care Physician Encounter [facility] Date(s): 03/10/23 - 04/09/23 [facility] [address] [place] [address]- Allergies, Adverse Reactions, Alerts Substance Reaction Severity [...] former pcp 2Result Comment: notification received [place] [id number] 3Admin Note: MANUFACTURE BIOMEDICAL INFO SHEET GIVEN [...] 9:56:00 EDT, Aerosol, Route to Pharmacy Electronically, [id number], [facility] #[id number], d/c... Start Date: 12/09/22 Status: Ordered amLODIPine 10 mg oral tablet 10 mg, 1, tablet, By Mouth, Daily, # 90 tablet, Refills 3, Tot. Refills 3, Maintenance, 02/28/23 14:09:00 EDT, Route to Pharmacy Electronically, [facility] #[id number], note dose increase, 150, cm, 02/28/23 13:55:00 [...] capsule, 6 Refills, Maintenance, 01/27/23 13:36:00 EDT, [facility] #[id number], Partial fill upon patient request if the prescription is for a schedule II opioid drug., 150, cm, 12/09/22 9:40:00 EDT, [facility]... Start Date: 01/27/23 Status: Ordered dicyclomine 20 mg oral tablet 1 tablet = 20 mg, By Mouth, 4 times a day, # 360 tablet, 3 Refills, Hard Stop 07/12/24 14:31:00 EST, 07/12/23 15:21:00 EST, Tablet, [facility] #[id number], Partial fill upon patient request if the prescription is for a schedule II opioid drug., 1... Start Date: 07/12/23 Stop Date: 07/12/24 Status: Ordered dicyclomine 20 mg oral tablet 1 tablet = 20 mg, By Mouth, 4 times a day, # 360 tablet, 3 Refills, Hard Stop 07/12/23 15:21:00 EST, 08/23/22 16:31:00 EST, Tablet, [facility] #[id number], Partial fill upon patient request if the [...] Gm, 0 Refills, Maintenance, 12/09/22 10:06:00 EDT, [place], [facility] #[id number], Partial fill upon patient request if the [...] 12/09/22 9:56:00 EDT, Route to Pharmacy Electronically, [facility] #[id number], 150, cm, 12/09/22 9:40:00 EDT, Height, 54, kg,05/17/22 12:01:00 EDT, Dry Weight Start Date: 12/09/22 Status: Ordered nortriptyline 10 mg oral capsule 3, capsule, By Mouth, Daily at bedtime, # 90 capsule, Refills 0, Maintenance, 02/24/23 9:21:00 EDT,Route to Pharmacy Electronically, [facility] #[id number], 150, cm, 12/09/22 9:40:00 EDT, Height, 54, [...] 3 Refills, Maintenance, 02/28/23 14:10:00 EDT, Injection, [facility] #[id number], Partial fill upon patient request if the [...] Team Personnel Name: Sandie Saleem [place] Position: [facility] RN Member Role: Primary Care Nurse Name: Amita Arredondo RN Position: [facility] SN Anesthesia Attending Member Role: Primary Care Nurse Name: Caroline Hernandez Position: [facility] RN Member Role: Primary Care Nurse Name: Arthur Griffin DO Position: [facility] FLIGHT RESERVATIONS MANAGER MD Member Role: Lifetime FLIGHT RESERVATIONS MANAGER Physician Address: Address: [address] [place], [place] [address]s [facility] [place] [address]- [place] Name: Moustapha PINA, Korina Frazier Position: [facility] PCO Associate Professional Member Role: PCP Address: Address: [address] [facility], -Level [facility] [place] [address]- Care Team Related Persons Name: TRAVON CANTRELL Address: home [address] [place] [address] Name: SERAFIN LANDA Address: [address] [place] [address] Name: SOL GILLILAND Address: [address] [place] [address] Name: DELIA DWYER Address: home [address] [place] [address]
--- OUTSIDE RECORDS SUMMARY | 2023-05-29 08:46 | XMS_ITS | Continuity of Care Document ---
Author Name Unknown Organization [facility] Address [address] [place] [address]- Care Team Providers Care Legal Operations Manager Name Role Phone Moustapha PINA, Korina Frazier Primary Care Physician Encounter [facility] Date(s): 04/06/20 - 04/13/20 [facility] [address] [place] [address]- [facility] Encounter Diagnosis Nasal congestion(Discharge Diagnosis) - 04/06/20 Eustachian catarrh(Discharge Diagnosis) - 04/06/20 Eustachian tube dysfunction(Discharge Diagnosis) - 04/06/20 Attending Physician: Joselin GARG, Darrell Alcala Referring [...] Comment: notification [place] [id number] 2Admin Note: MANUFACTURE BIOMEDICAL INFO SHEET GIVEN GIVEN W/O INCIDENT 3Admin Note: former pcp Medications Arnuity Ellipta 100 mcg inhalation powder See Instructions, TAKE 1 PUFF EVERY 24B HOURS, # 30 Unknown, 1 Refills, Maintenance, [id number], 152.4, cm, 09/27/19 9:43:00 EDT, Height, 52.3, kg, 07/07/19 12:17:00 EST, Dry Weight Start Date: 01/11/20 Status: Ordered Bactrim DS 800 mg-160 mg oral tablet 1 tablet, By Mouth, 2 times a day, for 14 days, # 28 tablet, 0 Refills, Acute 04/20/20 16:23:00 EDT, 04/06/20 16:23:00 EDT, Tablet, [facility]/pharmacy #[id number], 1 tablet By Mouth 2 times a day,x14 days, 152.4, cm, 04/06/20 15:52:00 EDT, Height, 52.3, kg, 07/07... Start Date: 04/06/20 Stop Date: 04/20/20 Status: Ordered biotin 5000 mcg oral tablet, [...] 2 Refills, Maintenance, 10/25/19 13:21:00 EDT, Capsule, [facility] #[id number], 152.4, cm, 09/27/19 9:43:00 EDT, Height, 52.3, kg, 07/07/19 12:17:00 EST, Dry Weight Start Date: 10/25/19 Status: Ordered Flonase 50 mcg/inh nasal spray 1 sprays, Nares, Both, 2 times a day, # 16 Gm, 2 Refills, Maintenance, 02/28/20 18:09:00 EDT, [place], [facility]/pharmacy #[id number], 1 sprays Nares, Both [...] 11/17/18 13:26:13 EDT, Route to Pharmacy Electronically, [id number], [facility]/pharmacy #207 Start Date: 11/17/18 Status: [...] 0 Refills, Maintenance, 07/15/19 15:55:00 EST, Liquid, [facility]/pharmacy #2071, 20 mL By Mouth Every 6 hours,PRN:as needed for cough,Instr:not to exceed 6 doses/d... Start Date: 07/15/19 Status: Ordered Singulair 10 mg oral tablet 10 mg, 1, tablet, By Mouth, Daily, # 30 tablet, Refills 5, Tot. Refills 5, Maintenance, 09/09/19 18:57:00 EST, Route to Pharmacy Electronically, [facility]/pharmacy #[id number], 152.4, cm, 07/15/19 13:23:00 [...] 4 Refills, Maintenance, 10/15/19 16:09:00 EDT, Aerosol, [facility] #[id number], 152.4, cm, 09/27/19 9:43:00 EDT, Height, 52.3, [...] Effective Dates Health Status Clinical Service Informant Nasal congestion Discharge Diagnosis 04/06/20 Eustachian catarrh Discharge Diagnosis 04/06/20 Eustachian tube dysfunction Discharge Diagnosis 04/06/20 Vital Signs Most recent to oldest [Reference Range]: 1 Height 152.4 cm (04/06/20 3:52 PM) Oxygen Saturation [94-100 %] 100 % (04/06/20 3:52 PM) Pulse Rate [55-90 bpm] 123 bpm *H* (04/06/20 3:52 PM) Blood Pressure [90-138/55-84 mm Hg] 159/ 94mm Hg *H* (04/06/20 3:52 PM) Respiratory Rate [16-30 br/min] 20 br/mi n (04/06/20 3:52 PM) Mode of Delivery (Oxygen) Room air (04/06/20 3:52 PM) Blood pressure sites Arm, left (04/06/20 3:52 PM) Social History Social History Type Response Tobacco Use: former smoker. Sex Female
--- OUTSIDE RECORDS SUMMARY | 2023-05-29 08:46 | XMS_ITS | Continuity of Care Document ---
Author Name Unknown Organization [facility] Address [address] [place] [address]- Care Team Providers Care Wool Hanker Name Role Phone Moustapha PINA, Korina Frazier Primary Care Physician Encounter [facility] Date(s): 11/15/22 - 12/15/22 [facility] [address] [place] [address]- Allergies, Adverse Reactions, Alerts Substance Reaction Severity [...] former pcp 2Result Comment: notification received from [facility] [place] [address] 3Admin Note: MANUFACTURE BIOMEDICAL INFO SHEET GIVEN GIVEN W/O INCIDENT Medications albuterol CFC free 90 mcg/inh inhalation aerosol 1, puffs, Inhalation, 4 times a day, PRN, use with spacer chamber, # 18 Gm, Refills 6, Tot. Refills6, Maintenance, 12/09/22 9:56:00 EDT, Aerosol, Route to Pharmacy Electronically, [id number], [facility] #[id number], d/c... Start Date: 12/09/22 Status: Ordered amLODIPine 5 mg oral tablet 5 mg, 1, tablet, By Mouth, Daily, # 90 tablet, Refills 0, Tot. Refills 0, Maintenance, 12/09/22 10:13:00 EDT, Route to Pharmacy Electronically, [facility] #[id number], Partial fill upon patient request if the [...] capsule, 0 Refills, Maintenance, 09/08/22 14:11:00 EST, [facility] #[id number], Partial fill upon patient request if the prescription is for a schedule II opioid drug., 150, cm, 08/30/22 9:12:00 EST, Heigh... Start Date: 09/08/22 Status: Ordered dicyclomine 20 mg oral tablet 1 tablet = 20 mg, By Mouth, 4 times a day, # 360 tablet, 3 Refills, Hard Stop 07/12/23 15:21:00 EST, 08/23/22 16:31:00 EST, Tablet, [facility] #[id number], Partial fill upon patient request if the [...] Gm, 0 Refills, Maintenance, 12/09/22 10:06:00 EDT, [place], [facility] #[id number], Partial fill upon patient request if the [...] 12/09/22 9:56:00 EDT, Route to Pharmacy Electronically, [facility] #[id number], 150, cm, 12/09/22 9:40:00 EDT, Height, 54, kg,05/17/22 12:01:00 EDT, Dry Weight Start Date: 12/09/22 Status: Ordered nortriptyline 10 mg oral capsule 30 mg, 3, capsule, By Mouth, Daily at bedtime, 30 mg at bedtime, # 90 capsule, Refills 3, Tot. Refills 3, Maintenance, 08/26/22 16:11:00 EST, Route to Pharmacy Electronically, [facility] #[id number], Partial fill upon patient request if the [...] Care Team Personnel Name: Sandie Menon Position: [facility] RN Member Role: Primary Care Nurse Name: Amita Arredondo RN Position: [facility] SN Gum Worker Member Role: Primary Care Nurse Name: Caroline Hernandez Position: [facility] RN Member Role: Primary Care Nurse Name: Arthur Griffin DO Position: [facility] DIRECTOR SECURITY RISK MANAGEMENT MD Member Role: Lifetime DIRECTOR SECURITY RISK MANAGEMENT Physician Address: Address: [address] [place], [place] [address]s [facility] [employer] [place] [address]- Name: Moustapha PINA, Korina Frazier Position: [facility] PCO Associate Professional Member Role: PCP Address: Address: [address] [place] [address], -Level [facility] [place] [address]- Care Team Related Persons Name: TRAVON CANTRELL Address: [address] [place] [address] Name: SERAFIN LANDA Address: [address] [place] [address] Name: SOL GILLILAND Address: [address] [place] [address] Name: DELIA DWYER Address: [address] [place] [address]
--- OUTSIDE RECORDS SUMMARY | 2023-05-29 08:46 | XMS_ITS | Continuity of Care Document ---
Author Name Unknown Organization [facility] Address [address] [place] [address]- Care Team Providers Care Counterperson Name Role Phone Moustapha PINA, Korina Frazier Primary Care Physician [facility]counter [facility] Date(s): 12/06/20 - 01/05/21 [facility] [address] [place] [address]- Allergies, Adverse Reactions, Alerts Substance Reaction Severity [...] Comment: notification received from [place] [address] [place] [id number] 2Admin Note: MANUFACTURE BIOMEDICAL INFO SHEET GIVEN GIVEN W/O INCIDENT 3Admin Note: former pcp Medications albuterol CFC free 90 mcg/inh inhalation aerosol 1, puffs, Inhalation, 4 times a day, PRN, use with spacer chamber, # 18 Gm, Refills 6, Tot. Refills6, Maintenance, 01/02/21 16:16:00 EDT, Aerosol, Route to Pharmacy Electronically, [id number], [facility] #[id number], d/... Start Date: 01/02/21 Status: Ordered Arnuity Ellipta 100 mcg inhalation powder See Instructions, TAKE 1 PUFF EVERY 24B HOURS, # 30 Unknown, 4 Refills, 12/11/20 18:42:00 EDT, [facility] #[id number], 152.4, cm, 12/11/20 18:27:00 EDT, Height, 50.6, kg, 06/02/20 11:55:00 EST, Dry Weight Start Date: 12/11/20 Status: Ordered biotin 5000 mcg oral tablet, [...] 2 Refills, Maintenance, 10/25/19 13:21:00 EDT, Capsule, [facility] #[id number], 152.4, cm, 09/27/19 9:43:00 EDT, Height, 52.3, kg, 07/07/19 12:17:00 EST, Dry Weight Start Date: 10/25/19 Status: Ordered famotidine 20 mg oral tablet 1, tablet, By Mouth, 2 times a day, AVOID EATING AND DRINKING FOR 10 MINUTES AFTER EACH DOSE, # 180tablet, Refills 0, Tot. Refills 0, Maintenance, 12/01/20 16:39:00 EDT, Route to Pharmacy Electronically, [facility] #[id number], 152.4, cm, ... Start Date: 12/01/20 Status: Ordered Flonase 50 mcg/inh nasal spray 1 sprays, Nares, Both, 2 times a day, # 16 Gm, 5 Refills, Maintenance, 10/30/20 11:26:00 EDT, [place], [facility], 1 sprays Nares, Both 2 times a day, 152.4, cm, 04/06/20 15:52:00 EDT, Height, 50.6, kg, 06/02/20 11:55:00 EST, Dry Weight Start Date: 10/30/20 Status: Ordered Francesca Root 0 Refills, Maintenance, [...] 10/30/20 11:26:00 EDT, Route to Pharmacy Electronically, [facility]acy #2071, 152.4, cm, 04/06/20 15:52:00 EDT, Height, 50.6, kg, 06/02/20 11:55:00 EST, Dry Weight Start Date: 10/30/20 Status: Ordered sucralfate 1 gm oral tablet 1, tablet, By Mouth, 4 times a day, ON AN ON AN EMPTY STOMACH., # 360 tablet, Refills 0, Tot. Refills 0, Maintenance, 12/01/20 16:39:00 EDT, Route to Pharmacy Electronically, [facility] #[id number], 152.4, cm, 12/01/20 14:57:00 EDT, Height, 50.6,... [...] 11/13/20 19:38:00 EDT, Tablet, [facility] #[id number], Partial fill upon patient request if the [...]
--- OUTSIDE RECORDS SUMMARY | 2023-05-29 08:46 | XMS_ITS | Continuity of Care Document ---
Author Name Unknown Organization [facility] anal[facility] Address [address] [place] [address] Dri [address] [place] [address]- Care Team Providers Care Mid Level Business Analyst Name Role Phone Moustapha PINA, Korina Frazier Primary Care Physician Encounter [facility] Date(s): 05/17/22 - 05/24/22 [facility] [address] [place] [address] Drive [address] [place] [address]- Attending Physician: Greyson Burns MD Allergies, Adverse [...] 1Result Comment: [place] [id number] 2Admin Note: MANUFACTURE BIOMEDICAL INFO SHEET GIVEN GIVEN W/O INCIDENT 3Admin Note: former pcp Medications albuterol CFC free 90 mcg/inh inhalation aerosol 1, puffs, Inhalation, 4 times a day, PRN, use with spacer chamber, # 18 Gm, Refills 6, Tot. Refills6, Maintenance, 12/20/21 17:01:00 EDT, Aerosol, Route to Pharmacy Electronically, [id number], [facility] #[id number], d/... Start Date: 12/20/21 Status: Ordered biotin [...] 0 Refills, Maintenance, 03/28/22 15:53:00 EDT, Tablet, [facility] #05709, Partial fill upon patient request if the prescription is for a schedule II opioid drug., 152.4, cm, 01/24/22 1... Start Date: 03/28/22 Status: Ordered dicyclomine 20 mg oral tablet 1 tablet = 20 mg, By Mouth, 4 times a day, # 120 tablet, 3 Refills, Hard Stop 07/09/23 11:37:00 EST, 04/26/22 12:33:00 EDT, Tablet, [facility] #09892, Partial fill upon patient request if the prescription is for a schedule II opioid drug., 1... Start Date: 04/26/22 Stop Date: 07/09/23 Status: Ordered dicyclomine 20 mg oral tablet 1 tablet = 20 mg, By Mouth, 4 times a day, # 120 tablet, 0 Refills, Hard Stop 04/25/23 11:14:00 EDT, 03/26/22 12:59:00 EDT, Tablet, [facility] #65873, Partial fill upon patient request if the prescription is for a schedule II opioid drug., 1... Start Date: 03/26/22 Stop Date: 04/25/23 Status: Ordered docusate sodium 250 mg oral capsule 1 capsule = 250 mg, By Mouth, Daily, PRN for constipation, # 20 capsule, 2 Refills, Maintenance, 10/25/19 13:21:00 EDT, Capsule, [facility] #68443, 152.4, cm, 09/27/19 9:43:00 EDT, Height, 52.3, [...] 180tablet, Refills 0, Route to Pharmacy Electronically, [facility] #[id number], 152.4, cm, 04/10/21 12:27:00 EDT, Height, 50.6, kg, 06/02/20 11:55:00... Start Date: 07/10/21 Status: Ordered Flovent HFA 110 mcg/inh inhalation aerosol 2 puffs, Inhalation, 2 times a day, # 12 Gm, 3 Refills, Maintenance, 01/15/21 16:58:00 EDT, Aerosol, [facility] #84629, to replace arnuity ellipta, 152.4, cm, 12/11/20 18:27:00 EDT, Height,50.6, kg, 06/02/20 11:55:00 EST, Dry Weight Start Date: 01/15/21 Status: Ordered fluticasone 50 mcg/inh nasal spray See Instructions, USE 1 SPRAY IN EACH NOSTRIL TWICE A DAY, # 48 mL, 1 Refills, [facility], 90,USE 1 SPRAY IN EACH NOSTRIL TWICE [...] 1, Route to Pharmacy Electronically, [facility], 152.4, cm, 04/10/21 12:27:00 EDT, Height, 50.6, [...] oldest [Reference Range]: 1 Height 150 cm (05/17/22 12:01 PM) Weight 54 kg (05/17/22 12:01 PM) Body Mass Index [18.5-24.99 kg/m2] 24 kg /m2 (05/17/22 12:01 PM) Dry Weight 54 kg (05/17/22 12:01 PM) Dry Weight Obtained Via Standing scale (05/17/22 12:01 PM) Social History Social History Type Response Tobacco Use: former smoker. Sex Female Patient Care team information Personnel Name: Moustapha PINA, Korina Frazier Address: Address: [address] [place] [address], -Level [facility] Adult Medicine [place], [place] [address]
--- OUTSIDE RECORDS SUMMARY | 2023-05-29 08:46 | XMS_ITS | Continuity of Care Document ---
Author Name Unknown Organization [facility] Address [address] [place] [address]- Care Team Providers Care Cst Name Role Phone Moustapha PINA, Korina Frazier Primary Care Physician Encounter [facility] Date(s): 04/15/22 - 04/15/[address] [address]- Discharge Disposition: A-D/C Home Attending Physician: Greyson Burns MD Admitting Physician: Greyson Burns MD Referring Physician: Greyson Burns MD Allergies, Adverse Reactions, [...] Comment: notification [place] [id number] 2Admin Note: MANUFACTURE BIOMEDICAL INFO SHEET GIVEN GIVEN W/O INCIDENT 3Admin Note: former pcp Medications acetaminophen 325 mg oral tablet 650 mg, 2, tablet, By Mouth, Every 6 hours, PRN, for 10 days, # 50 tablet, Refills 1, Tot. Refills 1, Acute 05/05/22 15:55:00 EDT, as needed for pain, 04/15/22 15:55:00 EDT, Route to Pharmacy Electronically, [facility] #[id number], Partial fill u... Start Date: 04/15/22 Stop Date: 05/05/22 Status: Ordered albuterol CFC free 90 mcg/inh inhalation aerosol 1, puffs, Inhalation, 4 times a day, PRN, use with spacer chamber, # 18 Gm, Refills 6, Tot. Refills6, Maintenance, 12/20/21 17:01:00 EDT, Aerosol, Route to Pharmacy Electronically, [id number], [facility] #[id number], d/... Start Date: 12/20/21 Status: Ordered biotin [...] 0 Refills, Maintenance, 03/28/22 15:53:00 EDT, Tablet, [facility] #73707, Partial fill upon patient request if the prescription is for a schedule II opioid drug., 152.4, cm, 01/24/22 1... Start Date: 03/28/22 Status: Ordered dicyclomine 20 mg oral tablet 1 tablet = 20 mg, By Mouth, 4 times a day, # 120 tablet, 0 Refills, Hard Stop 04/25/23 11:14:00 EDT, 03/26/22 12:59:00 EDT, Tablet, [facility] #24254, Partial fill upon patient request if the prescription is for a schedule II opioid drug., 1... Start Date: 03/26/22 Stop Date: 04/25/23 Status: Ordered docusate sodium 250 mg oral capsule 1 capsule = 250 mg, By Mouth, Daily, PRN for constipation, # 20 capsule, 2 Refills, Maintenance, 10/25/19 13:21:00 EDT, Capsule, [facility] #44473, 152.4, cm, 09/27/19 9:43:00 EDT, Height, 52.3, [...] 180tablet, Refills 0, Route to Pharmacy Electronically, [facility] #[id number], 152.4, cm, 04/10/21 12:27:00 EDT, Height, 50.6, kg, 06/02/20 11:55:00... Start Date: 07/10/21 Status: Ordered Flovent HFA 110 mcg/inh inhalation aerosol 2 puffs, Inhalation, 2 times a day, # 12 Gm, 3 Refills, Maintenance, 01/15/21 16:58:00 EDT, Aerosol, [facility] #[id number], to replace arnuity ellipta, 152.4, cm, 12/11/20 18:27:00 EDT, Height,50.6, kg, 06/02/20 11:55:00 EST, Dry Weight Start Date: 01/15/21 Status: Ordered fluticasone 50 mcg/inh nasal spray See Instructions, USE 1 SPRAY IN EACH NOSTRIL TWICE A DAY, # 48 mL, 1 Refills, [facility], 90,USE 1 SPRAY IN EACH NOSTRIL TWICE [...] 04/15/22 15:56:00 EDT, Route to Pharmacy Electronically, [facility] #02033, Partial fill upon patie... Start Date: 04/15/22 [...] tablet, Refills 1, Route to Pharmacy Electronically, [facility], 152.4, cm, 04/10/21 12:27:00 EDT, Height, 50.6, kg, 06/02/20 11:55:00 EST, Dry Weight Start Date: 11/27/21 Status: Ordered Multivitamin Daily, 0 Refills, Maintenance, 06/30/19 13:53:50 EST Start Date: 06/30/19 Status: Ordered nortriptyline 10 mg oral capsule 30 mg, 3, capsule, By Mouth, Daily at bedtime, Refills 0, Maintenance, 06/30/19 13:48:55 EST Start Date: 06/30/19 Status: Ordered oxyCODONE 5 mg oral tablet 5 mg, 1, tablet, By Mouth, Every 6 hours, PRN, for 3 days, # 12 tablet, Refills 0, Tot. Refills 0, Acute 04/18/22 15:55:00 EDT, for pain, 04/15/22 15:55:00 EDT, Route to Pharmacy Electronically, [facility] #[id number], Partial fill upon patient r... Start Date: 04/15/22 Stop Date: 04/18/22 Status: Ordered QUEtiapine 25 mg oral tablet [...] Most recent to oldest [Reference Range]: 1 2 3 Height 150 cm (04/15/22 7:05 AM) Weight 54.2 kg (04/15/22 7:05 AM) Oxygen Saturation [94-100 %] 94 % (04/15/22 1:30 PM) 95 % (04/15/22 1:00 PM) 98 % (04/15/22 12:30 PM) Pulse Rate [55-90 bpm] 99 bpm *H* (04/15/22 7:05 AM) Body Mass Index [18.5-24.99 kg/m2] 24.09 kg/m2 (04/15/22 7:05 AM) Blood Pressure [90-138/55-84 mm Hg] 118/77mm Hg (04/15/22 1:30 PM) 111/69mm Hg (04/15/22 1:00 PM) 110/80mm Hg (04/15/22 12:30 PM) Respiratory Rate [16-30 br/min] 15 br/min *L* (04/15/22 1:30 PM) 14 br/min *L* (04/15/22 1:00 PM) 11 br/min *L* (04/15/22 12:30 PM) Temperature [96.8-100.4 DegF] 98.4 DegF (04/15/22 11:05 AM) 98.2 DegF (04/15/22 7:05 AM) Liters per Minute 3 L/min (04/15/22 1:00 PM) 3 L/min (04/15/22 12:30 PM) 3 L/min (04/15/22 12:15 PM) Mode of Delivery (Oxygen) Room air (04/15/22 1:30 PM) Nasal cannula (04/15/22 1:00 PM) Nasal cannula (04/15/22 12:30 PM) Blood pressure sites Arm, right (04/15/22 1:30 PM) Arm, right (04/15/22 12:30 PM) Arm, right (04/15/22 12:15 PM) Temperature Route Temporal (04/15/22 11:05 AM) Temporal (04/15/22 7:05 AM) Dry Weight 54.2 kg (04/15/22 7:05 AM) Weight Obtained Via Standing scale (04/15/22 7:05 AM) Dry Weight Obtained Via Standing scale (04/15/22 7:05 AM) Social History Social History Type Response Tobacco Use: former smoker. Sex Female Care Team Personnel Name: Moustapha PIAN, Korina Frazier Address: [address] [place] [address], -[facility] Adult Medicine [place], [place] [address]
--- OUTSIDE RECORDS SUMMARY | 2023-05-29 08:46 | XMS_ITS | Continuity of Care Document ---
Author Name Unknown Organization [facility] Mina analia Address [address] [place] [address] [address] [place] [address]- Care Team Providers Care General Surgery Physician Assistant Name Role Phone Moustapha PINA, Korina Frazier Primary Care Physician [place] [facility] [place]22 [facility] [address] [place] [address]- Attending Physician: AdmAylin castillo Admitting Physician: AdmtrAylin Referring Physician: Admtr, Ar8 Allergies, Adverse Reactions, Alerts Substance Reaction Severity Status doxycycline Active erythromycin rash Active amoxicillin hives Unknown Active venlafaxine Active Strawberries migraine Hives Active Watermelon Hives Active Darvocet-N 100 Itchy Migraine Active penicillin rash Active pseudoephedrine Active Naprosyn gi upset Active raspberry Active Latex itching Active Immunizations Given and [...] Comment: notification [place] [id number] 2Admin Note: MANUFACTURE BIOMEDICAL INFO SHEET GIVEN GIVEN W/O INCIDENT 3Admin Note: former pcp Medications albuterol CFC free 90 mcg/inh inhalation aerosol 1, puffs, Inhalation, 4 times a day, PRN, use with spacer chamber, # 18 Gm, Refills 6, Tot. Refills6, Maintenance, 12/20/21 17:01:00 EDT, Aerosol, Route to Pharmacy Electronically, [id number], [facility] #[id number], d/... Start Date: 12/20/21 Status: Ordered biotin [...] 0 Refills, Maintenance, 03/28/22 15:53:00 EDT, Tablet, [id number], Partial fill upon patient request if the prescription is for a schedule II opioid drug., 152.4, cm, 01/24/22 1... Start Date: 03/28/22 Status: Ordered dicyclomine 20 mg oral tablet 1 tablet = 20 mg, By Mouth, 4 times a day, # 120 tablet, 3 Refills, Hard Stop 07/09/23 11:37:00 EST, 04/26/22 12:33:00 EDT, Tablet, [facility] #[id number], Partial fill upon patient request if the prescription is for a schedule II opioid drug., 1... Start Date: 04/26/22 Stop Date: 07/09/23 Status: Ordered dicyclomine 20 mg oral tablet 1 tablet = 20 mg, By Mouth, 4 times a day, # 120 tablet, 0 Refills, Hard Stop 04/25/23 11:14:00 EDT, 03/26/22 12:59:00 EDT, Tablet, [facility] #[id number], Partial fill upon patient request if the prescription is for a schedule II opioid drug., 1... Start Date: 03/26/22 Stop Date: 04/25/23 Status: Ordered docusate sodium 250 mg oral capsule 1 capsule = 250 mg, By Mouth, Daily, PRN for constipation, # 20 capsule, 2 Refills, Maintenance, 10/25/19 13:21:00 EDT, Capsule, [facility] #69663, 152.4, cm, 09/27/19 9:43:00 EDT, Height, 52.3, [...] 180tablet, Refills 0, Route to Pharmacy Electronically, [facility] #[id number], 152.4, cm, 04/10/21 12:27:00 EDT, Height, 50.6, kg, 06/02/20 11:55:00... Start Date: 07/10/21 Status: Ordered Flovent HFA 110 mcg/inh inhalation aerosol 2 puffs, Inhalation, 2 times a day, # 12 Gm, 3 Refills, Maintenance, 01/15/21 16:58:00 EDT, Aerosol, [facility] #[id number], to replace arnuity ellipta, 152.4, cm, 12/11/20 18:27:00 EDT, Height,50.6, kg, 06/02/20 11:55:00 EST, Dry Weight Start Date: 01/15/21 Status: Ordered fluticasone 50 mcg/inh nasal spray See Instructions, USE 1 SPRAY IN EACH NOSTRIL TWICE A DAY, # 48 mL, 1 Refills, [facility] [id number], 90,USE 1 SPRAY IN EACH NOSTRIL TWICE [...] 06/07/22 8:54:00 EST, Route to Pharmacy Electronically, [facility]/pharmacy #[id number], 150, cm, 05/17/22 12:01:00 EDT, Height, [...] Care Team Personnel Name: Sandie Menon Position: [facility] RN Member Role: Primary Care Nurse Name: Amita Arredondo RN Position: [facility] SN Mixer Operator Helper Hot Metal Member Role: Primary Care Nurse Name: Caroline Hernandez Position: [facility] RN Member Role: Primary Care Nurse Name: Arthur Griffin DO Position: [facility] BUSINESS CONSULTANT MD Member Role: [employer] BUSINESS CONSULTANT Physician Address: Address: [address] [place] [address] [facility] [employer] [place] [address]- Name: Korina Gerard NP Position: [facility] PCO Associate Professional Member Role: PCP Address: Address: [address] [facility], -Level [facility] [place] [address]- Care Team Related Persons Name: TRAVON CANTRELL Address: home [address] [place] [address] Name: SERAFIN LANDA Address: home [address] [place] [address] Name: SOL GILLILAND Address: home [address] [place] [address] Name: DELIA DWYER Address: [address] [place] [address]
--- OUTSIDE RECORDS SUMMARY | 2023-05-29 08:46 | XMS_ITS | Continuity of Care Document ---
Author Name Unknown Organization [facility] Address [address] [place] [address]- Care Team Providers Care Cloth Measurer Machine Name Role Phone Moustapha PINA, Korina Frazier Primary Care Physician [facility] Date(s): 11/29/20 - 12/29/20 [facility] [address] [place] [address]- Allergies, Adverse Reactions, Alerts Substance Reaction Severity [...] Given 1Result Comment: notification received [facility] [place] [place] [id number] 2Admin Note: MANUFACTURE BIOMEDICAL INFO SHEET GIVEN GIVEN W/O INCIDENT 3Admin Note: former pcp Medications Arnuity Ellipta 100 mcg inhalation powder See Instructions, TAKE 1 PUFF EVERY 24B HOURS, # 30 Unknown, 4 Refills, 12/11/20 18:42:00 EDT, [facility] #[id number], 152.4, cm, 12/11/20 18:27:00 EDT, Height, 50.6, [...] 2 Refills, Maintenance, 10/25/19 13:21:00 EDT, Capsule, [facility] #[id number], 152.4, cm, 09/27/19 9:43:00 EDT, Height, 52.3, kg, 07/07/19 12:17:00 EST, Dry Weight Start Date: 10/25/19 Status: Ordered famotidine 20 mg oral tablet 1, tablet, By Mouth, 2 times a day, AVOID EATING AND DRINKING FOR 10 MINUTES AFTER EACH DOSE, # 180tablet, Refills 0, Tot. Refills 0, Maintenance, 12/01/20 16:39:00 EDT, Route to Pharmacy Electronically, [facility] #[id number], 152.4, cm, ... Start Date: 12/01/20 Status: Ordered Flonase 50 mcg/inh nasal spray 1 sprays, Nares, Both, 2 times a day, # 16 Gm, 5 Refills, Maintenance, 10/30/20 11:26:00 EDT, [place], [facility]/pharmacy #[id number], 1 sprays Nares, Both 2 times [...] 11:26:00 EDT, Route to Pharmacy Electronically, [facility]/pharmacy #[id number], 152.4, cm, 04/06/20 15:52:00 EDT, Height, 50.6, kg, 06/02/20 11:55:00 EST, Dry Weight Start Date: 10/30/20 Status: Ordered sucralfate 1 gm oral tablet 1, tablet, By Mouth, 4 times a day, ON AN ON AN EMPTY STOMACH., # 360 tablet, Refills 0, Tot. Refills 0, Maintenance, 12/01/20 16:39:00 EDT, Route to Pharmacy Electronically, [facility] #[id number], 152.4, cm, 12/01/20 14:57:00 EDT, Height, 50.6,... [...] wheezing, # 18 Gm, 4 Refills, Maintenance, 12/11/20 18:40:00 EDT, Aerosol, [facility] #72825, 152.4, cm, 12/11/20 18:27:00 EDT, Height, 50.6, kg,06/02/20 11:55:00 EST, Dry Weight Start Date: 12/11/20 Status: Ordered Vitamin B12 1000 mcg oral [...] 11/13/20 19:38:00 EDT, Tablet, [facility] #[id number], Partial fill upon patient request if the [...]
--- OUTSIDE RECORDS SUMMARY | 2023-05-29 08:46 | XMS_ITS | Continuity of Care Document ---
Author Name Unknown Organization [facility] Mina analia Address [address] [place] [address] [address] [place] [address]- Care Team Providers Care Armhole Baster Hand Name Role Phone Moustapha PINA, Korina Frazier Primary Care Physician [place] [facility] [place] - 05/16/22 [facility] [address] [place] [address] Drive [address] [place] [address]- Allergies, Adverse Reactions, Alerts Substance Reaction Severity [...] Comment: notification [place] [id number] 2Admin Note: MANUFACTURE BIOMEDICAL INFO SHEET GIVEN GIVEN W/O INCIDENT 3Admin Note: former pcp Medications albuterol CFC free 90 mcg/inh inhalation aerosol 1, puffs, Inhalation, 4 times a day, PRN, use with spacer chamber, # 18 Gm, Refills 6, Tot. Refills6, Maintenance, 12/20/21 17:01:00 EDT, Aerosol, Route to Pharmacy Electronically, [id number], [facility] #[id number], d/... Start Date: 12/20/21 Status: Ordered biotin [...] 0 Refills, Maintenance, 03/28/22 15:53:00 EDT, Tablet, [facility] #49317, Partial fill upon patient request if the prescription is for a schedule II opioid drug., 152.4, cm, 01/24/22 1... Start Date: 03/28/22 Status: Ordered dicyclomine 20 mg oral tablet 1 tablet = 20 mg, By Mouth, 4 times a day, # 120 tablet, 3 Refills, Hard Stop 07/09/23 11:37:00 EST, 04/26/22 12:33:00 EDT, Tablet, [facility] #81442, Partial fill upon patient request if the prescription is for a schedule II opioid drug., 1... Start Date: 04/26/22 Stop Date: 07/09/23 Status: Ordered dicyclomine 20 mg oral tablet 1 tablet = 20 mg, By Mouth, 4 times a day, # 120 tablet, 0 Refills, Hard Stop 04/25/23 11:14:00 EDT, 03/26/22 12:59:00 EDT, Tablet, [facility] #31723, Partial fill upon patient request if the prescription is for a schedule II opioid drug., 1... Start Date: 03/26/22 Stop Date: 04/25/23 Status: Ordered docusate sodium 250 mg oral capsule 1 capsule = 250 mg, By Mouth, Daily, PRN for constipation, # 20 capsule, 2 Refills, Maintenance, 10/25/19 13:21:00 EDT, Capsule, [facility] #59876, 152.4, cm, 09/27/19 9:43:00 EDT, Height, 52.3, [...] 180tablet, Refills 0, Route to Pharmacy Electronically, [facility] #[id number], 152.4, cm, 04/10/21 12:27:00 EDT, Height, 50.6, kg, 06/02/20 11:55:00... Start Date: 07/10/21 Status: Ordered Flovent HFA 110 mcg/inh inhalation aerosol 2 puffs, Inhalation, 2 times a day, # 12 Gm, 3 Refills, Maintenance, 01/15/21 16:58:00 EDT, Aerosol, [facility] #41951, to replace arnuity ellipta, 152.4, cm, 12/11/20 18:27:00 EDT, Height,50.6, kg, 06/02/20 11:55:00 EST, Dry Weight Start Date: 01/15/21 Status: Ordered fluticasone 50 mcg/inh nasal spray See Instructions, USE 1 SPRAY IN EACH NOSTRIL TWICE A DAY, # 48 mL, 1 Refills, [facility], 90,USE 1 SPRAY IN EACH NOSTRIL TWICE [...] 1, Route to Pharmacy Electronically, [facility], 152.4, cm, 04/10/21 12:27:00 EDT, Height, 50.6, [...] Moustapha PINA, Korina Frazier Address: Address: [address] [facility], C-Level [facility] Adult Medicine [place], [place] [address]
--- OUTSIDE RECORDS SUMMARY | 2023-05-29 08:46 | XMS_ITS | Continuity of Care Document ---
Author Name Unknown Organization [facility] Address [address] [place] [address]- Care Team Providers Care Cloth Boil Off Machine Operator Name Role Phone Moustapha PINA, Korina Frazier Primary Care Physician [facility]counter [facility] Date[facility]s): 08/03/20 - 09/03/20 [facility] [address] [place] [address]- Attending Physician: Taras Torres MD Admitting Physician: Traas Torres MD Referring Physician: Moustapha PINA, Korina Frazier [...] Given 1Result Comment: [facility] [place] [id number] 2Admin Note: MANUFACTURE BIOMEDICAL INFO SHEET GIVEN GIVEN W/O INCIDENT 3Admin Note: former pcp Medications Arnuity Ellipta 100 mcg inhalation powder See Instructions, TAKE 1 PUFF EVERY 24B HOURS, # 30 Unknown, 1 Refills, Maintenance, [facility], 152.4, cm, 09/27/19 9:43:00 EDT, Height, 52.3, [...] 2 Refills, Maintenance, 10/25/19 13:21:00 EDT, Capsule, [facility] #08174, 152.4, cm, 09/27/19 9:43:00 EDT, Height, 52.3, kg, 07/07/19 12:17:00 EST, Dry Weight Start Date: 10/25/19 Status: Ordered Flonase 50 mcg/inh nasal spray 1 sprays, Nares, Both, 2 times a day, # 16 Gm, 2 Refills, Maintenance, 08/17/20 15:24:00 EST, [place], [facility]/pharmacy #2071, 1 sprays Nares, Both 2 [...] 11/17/18 13:26:13 EDT, Route to Pharmacy Electronically, [id number], [facility]/pharmacy #207 Start Date: 11/17/18 Status: Ordered [...] Maintenance, 07/15/19 15:55:00 EST, Liquid, [facility]/pharmacy #2071, 20 mL By Mouth Every 6 hours,PRN:as needed for cough,Instr:not to exceed 6 doses/d... Start Date: 07/15/19 Status: Ordered Singulair 10 mg oral tablet 10 mg, 1, tablet, By Mouth, Daily, # 30 tablet, Refills 5, Tot. Refills 5, Maintenance, 05/09/20 17:38:00 EDT, Route to Pharmacy Electronically, [facility]/pharmacy #2071, 152.4, cm, 04/06/20 15:52:00 EDT, [...] 4 Refills, Maintenance, 10/15/19 16:09:00 EDT, [id number], 152.4, cm, 09/27/19 9:43:00 EDT, Height, 52.3, [...]
--- OUTSIDE RECORDS SUMMARY | 2023-05-29 08:46 | XMS_ITS | Continuity of Care Document ---
Author Name Unknown Organization [facility] Address [address] [place] [address]- Care Team Providers Care Flattening Machine Operator Name Role Phone Moustapha PINA, Korina Frazier Primary Care Physician [facility] Date(s): 01/10/22 - 02/09/22 [facility] [address] [place] [id number] Allergies, Adverse Reactions, Alerts Substance [...] Given 1Result Comment: [facility] [place] [id number] 2Admin Note: MANUFACTURE BIOMEDICAL INFO SHEET GIVEN GIVEN W/O INCIDENT 3Admin Note: former pcp Medications albuterol CFC free 90 mcg/inh inhalation aerosol 1, puffs, Inhalation, 4 times a day, PRN, use with spacer chamber, # 18 Gm, Refills 6, Tot. Refills6, Maintenance, 12/20/21 17:01:00 EDT, Aerosol, Route to Pharmacy Electronically, [id number], [facility] #[id number], d/... Start Date: 12/20/21 Status: Ordered biotin [...] 2 Refills, Maintenance, 10/25/19 13:21:00 EDT, Capsule, [facility] #[id number], 152.4, cm, 09/27/19 9:43:00 EDT, Height, 52.3, [...] 180tablet, Refills 0, Route to Pharmacy Electronically, [facility] #79813, 152.4, cm, 04/10/21 12:27:00 EDT, Height, 50.6, kg, 06/02/20 11:55:00... Start Date: 07/10/21 Status: Ordered Flovent HFA 110 mcg/inh inhalation aerosol 2 puffs, Inhalation, 2 times a day, # 12 Gm, 3 Refills, Maintenance, 01/15/21 16:58:00 EDT, Aerosol, [facility] #60417, to replace arnuity ellipta, 152.4, cm, 12/11/20 18:27:00 EDT, Height,50.6, kg, 06/02/20 11:55:00 EST, Dry Weight Start Date: 01/15/21 Status: Ordered fluticasone 50 mcg/inh nasal spray See Instructions, USE 1 SPRAY IN EACH NOSTRIL TWICE A DAY, # 48 mL, 1 Refills, [facility], 90,USE 1 SPRAY IN EACH NOSTRIL TWICE [...] tablet, Refills 1, Route to Pharmacy Electronically, [facility] 42313, 152.4, cm, 04/10/21 12:27:00 EDT, Height, 50.6, [...]
--- OUTSIDE RECORDS SUMMARY | 2023-05-29 08:46 | XMS_ITS | Continuity of Care Document ---
Author Name Unknown Organization [facility] Mina analia Address [address] [place] [address] [address] [place] [address]- Care Team Providers Care Customer Service Representative Teacher Name Role Phone Moustapha PINA, Korina Frazier Primary Care Physician Encounter [facility] Date(s): 03/30/22 - 07/28/22 [facility] Surgery [address] [place] [address] Drive [address] [place] [address]- Attending Physician: Greyson Burns MD Allergies, Adverse [...] 1Result Comment: [place] [id number] 2Admin Note: MANUFACTURE BIOMEDICAL INFO SHEET GIVEN GIVEN W/O INCIDENT 3Admin Note: former pcp Medications albuterol CFC free 90 mcg/inh inhalation aerosol 1, puffs, Inhalation, 4 times a day, PRN, use with spacer chamber, # 18 Gm, Refills 6, Tot. Refills6, Maintenance, 12/20/21 17:01:00 EDT, Aerosol, Route to Pharmacy Electronically, [id number], [facility] #[id number], d/... Start Date: 12/20/21 Status: Ordered biotin [...] 0 Refills, Maintenance, 03/28/22 15:53:00 EDT, Tablet, [facility] #[id number], Partial fill upon patient request if the prescription is for a schedule II opioid drug., 152.4, cm, 01/24/22 1... Start Date: 03/28/22 Status: Ordered dicyclomine 20 mg oral tablet 1 tablet = 20 mg, By Mouth, 4 times a day, # 120 tablet, 3 Refills, Hard Stop 07/09/23 11:37:00 EST, 04/26/22 12:33:00 EDT, Tablet, [facility] #[id number], Partial fill upon patient request if the prescription is for a schedule II opioid drug., 1... Start Date: 04/26/22 Stop Date: 07/09/23 Status: Ordered dicyclomine 20 mg oral tablet 1 tablet = 20 mg, By Mouth, 4 times a day, # 120 tablet, 0 Refills, Hard Stop 04/25/23 11:14:00 EDT, 03/26/22 12:59:00 EDT, Tablet, [facility] #01511, Partial fill upon patient request if the prescription is for a schedule II opioid drug., 1... Start Date: 03/26/22 Stop Date: 04/25/23 Status: Ordered docusate sodium 250 mg oral capsule 1 capsule = 250 mg, By Mouth, Daily, PRN for constipation, # 20 capsule, 2 Refills, Maintenance, 10/25/19 13:21:00 EDT, Capsule, [facility] #73559, 152.4, cm, 09/27/19 9:43:00 EDT, Height, 52.3, [...] 180tablet, Refills 0, Route to Pharmacy Electronically, [facility] #[id number], 152.4, cm, 04/10/21 12:27:00 EDT, Height, 50.6, kg, 06/02/20 11:55:00... Start Date: 07/10/21 Status: Ordered Flovent HFA 110 mcg/inh inhalation aerosol 2 puffs, Inhalation, 2 times a day, # 12 Gm, 3 Refills, Maintenance, 01/15/21 16:58:00 EDT, Aerosol, [facility] #40449, to replace arnuity ellipta, 152.4, cm, 12/11/20 18:27:00 EDT, Height,50.6, kg, 06/02/20 11:55:00 EST, Dry Weight Start Date: 01/15/21 Status: Ordered fluticasone 50 mcg/inh nasal spray See Instructions, USE 1 SPRAY IN EACH NOSTRIL TWICE A DAY, # 48 mL, 1 Refills, [facility] 56742, 90,USE 1 SPRAY IN EACH NOSTRIL TWICE [...] 06/07/22 8:54:00 EST, Route to Pharmacy Electronically, [facility]/pharmacy #2071, 150, cm, 05/17/22 12:01:00 EDT, Height, [...] Care Team Personnel Name: Sandie Menon Position: [facility] RN Member Role: Primary Care Nurse Name: Amita Arredondo RN Position: [facility] SN Tool Supervisor Member Role: Primary Care Nurse Name: Caroline Hernandez Position: [facility] RN Member Role: Primary Care Nurse Name: Arthur Griffin DO Position: [facility] BATHHOUSE ATTENDANT MD Member Role: Lifetime BATHHOUSE ATTENDANT Physician Address: Address: [address] [place] [address] [employer] [place] [address]- Name: Korina Gerard NP Position: [facility] PCO Associate Professional Member Role: PCP Address: Address: [address] [facility], -Level [facility] Adult [place] [address]- Care Team Related Persons Name: TRAVON CANTRELL Address: home [address] [place] [address] Name: SERAFIN LANDA Address: [address] [place] [address] Name: SOL GILLILAND Address: [address] [place] [address] Name: DELIA DWYER Address: home [address] [place] [address]
--- OUTSIDE RECORDS SUMMARY | 2023-05-29 08:47 | XMS_ITS | Continuity of Care Document ---
Author Name Unknown Organization [facility] Address [address] [place] [address]- Care Team Providers Care Solid Glass Rod Dowel Machine Operator Name Role Phone Moustapha PINA, Korina Frazier Primary Care Physician [facility] Date[facility]s): 11/18/19 - 11/25/19 [facility] [address] [place] [address]- [facility] Attending Physician: Not on Staff, Attending MD [...] Comment: notification [place] [id number] 2Admin Note: MANUFACTURE BIOMEDICAL INFO SHEET GIVEN [...] 2 Refills, Maintenance, 10/25/19 13:21:00 EDT, Capsule, [facility] #09058, 152.4, cm, 09/27/19 9:43:00 EDT, Height, 52.3, kg, 07/07/19 12:17:00 EST, Dry Weight Start Date: 10/25/19 Status: Ordered Flonase 50 mcg/inh nasal spray 1 sprays, Nares, Both, 2 times a day, # 16 Gm, 2 Refills, Maintenance, 10/25/19 13:20:00 EDT, [place], [facility] #16670, 1 sprays Nares, Both 2 times a [...] 11/17/18 13:26:13 EDT, Route to Pharmacy Electronically, [id number], [facility]/pharmacy #207 Start Date: 11/17/18 [...] to Pharmacy Electronically, [facility]/pharmacy #207, 152.4, cm, 07/15/19 13:23:00 EST, Height, [...] 4 Refills, Maintenance, 10/15/19 16:09:00 EDT, Aerosol, [facility] #34302, 152.4, cm, 09/27/19 9:43:00 EDT, Height, 52.3, [...]
--- OUTSIDE RECORDS SUMMARY | 2023-05-29 08:47 | XMS_ITS | Continuity of Care Document ---
Author Name Unknown Organization [facility] Mina analia Address [address] [place] [address] [address] [place] [address]- Care Team Providers Care Salesperson Household Appliances Name Role Phone Moustapha PINA, Korina Frazier Primary Care Physician Encounter [facility] Date(s): 05/03/22 - 06/02/22 [facility] [address] [place] [address] Drive [address] [place] [address]- Allergies, Adverse Reactions, Alerts Substance Reaction Severity [...] Comment: notification [place] [id number] 2Admin Note: MANUFACTURE BIOMEDICAL INFO SHEET GIVEN GIVEN W/O INCIDENT 3Admin Note: former pcp Medications albuterol CFC free 90 mcg/inh inhalation aerosol 1, puffs, Inhalation, 4 times a day, PRN, use with spacer chamber, # 18 Gm, Refills 6, Tot. Refills6, Maintenance, 12/20/21 17:01:00 EDT, Aerosol, Route to Pharmacy Electronically, [id number], [facility] #[id number], d/... Start Date: 12/20/21 Status: Ordered biotin [...] 0 Refills, Maintenance, 03/28/22 15:53:00 EDT, Tablet, [facility][id number], Partial fill upon patient request if the prescription is for a schedule II opioid drug., 152.4, cm, 01/24/22 1... Start Date: 03/28/22 Status: Ordered dicyclomine 20 mg oral tablet 1 tablet = 20 mg, By Mouth, 4 times a day, # 120 tablet, 3 Refills, Hard Stop 07/09/23 11:37:00 EST, 04/26/22 12:33:00 EDT, Tablet, [facility] #[id number], Partial fill upon patient request if the prescription is for a schedule II opioid drug., 1... Start Date: 04/26/22 Stop Date: 07/09/23 Status: Ordered dicyclomine 20 mg oral tablet 1 tablet = 20 mg, By Mouth, 4 times a day, # 120 tablet, 0 Refills, Hard Stop 04/25/23 11:14:00 EDT, 03/26/22 12:59:00 EDT, Tablet, [facility] #[id number], Partial fill upon patient request if the prescription is for a schedule II opioid drug., 1... Start Date: 03/26/22 Stop Date: 04/25/23 Status: Ordered docusate sodium 250 mg oral capsule 1 capsule = 250 mg, By Mouth, Daily, PRN for constipation, # 20 capsule, 2 Refills, Maintenance, 10/25/19 13:21:00 EDT, Capsule, [facility] #[id number], 152.4, cm, 09/27/19 9:43:00 EDT, Height, 52.3, [...] 180tablet, Refills 0, Route to Pharmacy Electronically, [facility] #[id number], 152.4, cm, 04/10/21 12:27:00 EDT, Height, 50.6, kg, 06/02/20 11:55:00... Start Date: 07/10/21 Status: Ordered Flovent HFA 110 mcg/inh inhalation aerosol 2 puffs, Inhalation, 2 times a day, # 12 Gm, 3 Refills, Maintenance, 01/15/21 16:58:00 EDT, Aerosol, [facility] #[id number], to replace arnuity ellipta, 152.4, cm, 12/11/20 18:27:00 EDT, Height,50.6, kg, 06/02/20 11:55:00 EST, Dry Weight Start Date: 01/15/21 Status: Ordered fluticasone 50 mcg/inh nasal spray See Instructions, USE 1 SPRAY IN EACH NOSTRIL TWICE A DAY, # 48 mL, 1 Refills, [id number], 90,USE 1 SPRAY IN EACH NOSTRIL TWICE [...] 1, Route to Pharmacy Electronically, [id number], 152.4, cm, 04/10/21 12:27:00 EDT, Height, 50.6, [...] Care Team Personnel Name: Sandie Menon Position: [facility] RN Member Role: Primary Care Nurse Name: Amita Arredondo RN Position: [facility] SN Drywall Carrier Member Role: Primary Care Nurse Name: Caroline Hernandez Position: [facility] RN Member Role: Primary Care Nurse Name: Arthur Griffin DO Position: [facility] DEFENSE TRAVEL ADMINISTRATOR MD Member Role: Lifetime DEFENSE TRAVEL ADMINISTRATOR Physician Address: Address: [address] [place] [address] Women's Health Polls Or [place] [address]- Name: Korina Gerard NP Position: [facility] PCO Associate Professional Member Role: PCP Address: Address: [address] [place] [address], -Level [facility] [place] [address]- Care Team Related Persons Name: TRAVON CANTRELL Address: home [address] [place] [address] Name: SERAFIN LANDA Address: [address] [place] [address] Name: SOL GILLILAND Address: [address] [place] [address] Name: DELIA WDYER Address: [address] [place] [address]
--- NOTE | 2023-05-29 08:58 | ECG_ITS ---
Test Reason : seizure Blood Pressure : / mmHG Vent. Rate : 101 BPM Atrial Rate : 101 BPM P-R Int : 146 ms QRS Dur : 070 ms QT Int : 344 ms P-R-T Axes : 041 043 035 degrees QTc Int : 446 ms Sinus tachycardia Low voltage QRS Nonspecific T wave abnormality Abnormal ECG When compared with ECG of 26-NOV-2020 15:48, Non-specific change in ST segment in Anterior leads Nonspecific T wave abnormality no longer evident in Lateral leads Referred By: Veronica Redding Electronically Signed By:JACK SEO MD
--- NOTE | 2023-05-29 08:58 | ED.GENADULT ---
HPI - General Adult General Chief complaint: Seizure Stated complaint: Referred by PCP - multiple seizures in past week Time Seen by Provider: 05/29/23 08:38 Source: patient and family () Mode of arrival: ambulatory History of Present Illness HPI narrative: This is a 42-year-old patient who presents with new episodes of what the patient's feels may have been seizures but on describe being that on Friday when patient sat down to and describes that patient became stiff but did not notice any abnormal movement and then was finally able to set the patient up and at the time patient stated that they could not hear for a brief period of time. Patient then describe to that there was another episode while using the toilet. There have been 2 medication changes within the past month to include Seroquel and patient is currently scheduled to undergo a sleep study for suspected SADIQ. Patient denies any alcohol/drug/smoking. Related Data Home Medications Medication Instructions Recorded Confirmed clonazepam 0.5 mg tablet 1 tab PO TID PRN anxiety 11/26/20 11/26/20 dexlansoprazole 60 mg 1 cap PO DAILY 11/26/20 11/26/20 capsule,biphase delayed release (Dexilant) lurasidone 20 mg tablet (Latuda) 1 tab PO QPM 11/26/20 11/26/20 lurasidone 80 mg tablet (Latuda) 1 tab PO QPM 11/26/20 11/26/20 montelukast 10 mg tablet 1 tab PO DAILY 11/26/20 11/26/20 nortriptyline 10 mg capsule 3 cap PO BEDTIME 11/26/20 11/26/20 quetiapine 25 mg tablet 1 - 2 tab PO BEDTIME PRN insomnia 11/26/20 11/26/20 linaclotide 290 mcg capsule 1 cap PO DAILY 11/27/20 11/27/20 (Linzess) Previous Rx's Medication Instructions Recorded cefixime 400 mg capsule 400 mg PO DAILY 7 days #7 caps 01/08/21 cefdinir 300 mg capsule 300 mg PO BID 7 days #14 caps 05/29/23 Allergies Allergy/AdvReac Type Severity Reaction Status Date / Time strawberry [STRAWBERRY] Allergy Severe ANAPHYLAXIS Verified 11/26/20 15:31 watermelon [WATERMELON] Allergy Severe ANAPHYLAXIS Verified 11/26/20 15:31 acetaminophen [From VICODIN] Allergy Intermediate ITCHING Verified 11/26/20 15:31 amoxicillin [AMOXICILLIN] Allergy Intermediate ITCHING Verified 11/26/20 15:31 hydrocodone [From VICODIN] Allergy Intermediate ITCHING Verified 11/26/20 15:31 oxycodone [From PERCOCET] Allergy Intermediate ITCHING Verified 11/26/20 15:31 propoxyphene Allergy Intermediate HEADACHES Verified 11/26/20 15:31 [From DARVOCET-N] honey [HONEY] AdvReac Intermediate HEADACHES Verified 11/26/20 15:31 Review of Systems Review of Systems: Pertinent positives and negatives as stated in HPI [facility] Past Medical History Source: nursing notes reviewed Medical History Liver mass Borderline personality disorder Bipolar 1 disorder PTSD (post-traumatic stress disorder) Depression GERD (gastroesophageal reflux disease) Asthma Gastritis Social History Social History Unable to assess alcohol history related to: Unknown Alcohol intake: never Patient Tobacco Use Status: Current everyday Tobacco user Smoked in Last 30 Days: No Use of substances other than those prescribed or required for medical reasons: Unknown Substance Use Type: Marijuana Advance Directives: No Advance Directives Information Provided: Yes Patient : No service: No Current occupational status: disabled Physical Exam ED Vital Signs: Vital Signs - 24 hr 05/29/23 08:24 05/29/23 08:46 05/29/23 09:49 Temperature 97 F 98.0 F Pulse Rate 109 H 105 H 82 Respiratory Rate 18 14 Blood Pressure 142/97 H 148/99 H 148/97 H Pulse Oximetry 100 98 Oxygen Delivery Method Room Air Room Air 05/29/23 09:51 05/29/23 09:52 Temperature Pulse Rate 94 99 Respiratory Rate Blood Pressure 148/97 H 146/95 H Pulse Oximetry Oxygen Delivery Method BMI result Body Mass Index 30.3 Medical Decision Making Medical Decision Making MDM Narrative: 42-year-old patient with history and clinical presentation, DDX: Vasovagal syncope and will rule out infection, anemia, electrolyte abnormalities, arrhythmias especially in the setting of change in medications. I reviewed all investigations and hematologic indices are not significant for a leukocytosis but there is a left shift and a microcytic anemia. Platelets are mildly elevated. Chemistry indices are grossly within normal limits and there is no evidence of MAGGY her electrolytes/liver enzyme abnormalities. Patient does have elevated protein levels of 9.1 which I will instruct to have further evaluated in the outpatient setting by the primary care doctor. Urinalysis appears to be positive for urinary tract infection despite absence bacteria it appears to be a clean-catch with multiple wbc's. Orthostatics are negative. Patient is otherwise discharged home after discussion of all results. My interpretation is patient had vasovagal syncope secondary to underlying infection but also recommending that patient have further outpatient evaluation of anemia with elevated protein levels. Differential Diagnosis Differential Diagnoses: The differential diagnosis associated with the presentation includes Please see the discussion Admission/Observation Consideration of admission/observation: Escalation of care including admission/observation considered Please see the discussion above Lab Data MDM Lab Attestation statement: I reviewed the patient's lab results. Please see the discussion above 05/29/23 09:36 05/29/23 09:36 Labs: Lab Results 05/29/23 Range/Units 09:36 WBC 10.3 (4.8-10.8) X10*3/uL RBC 5.27 (4.20-5.50) X10*6/uL Hgb 11.4 L (12.0-16.0) g/dl Hct 38.7 (37.0-47.0) % MCV 73.4 L (80.0-98.0) fL MCH 21.6 L (27.0-33.0) pg MCHC 29.5 L (31.0-35.0) g/dl RDW 17.2 H (11.0-16.0) % Plt Count 480 H (160-400) X10*3/uL MPV 8.4 L (9.4-12.3) fL Immature Gran % (Auto) 0.5 H (0.0-0.4) % Neut % (Auto) 74.0 H (45-73) % Lymph % (Auto) 17.8 L (20-40) % Archer % (Auto) 6.3 (2-11) % Eos % (Auto) 1.2 (0-4) % Baso % (Auto) 0.2 (0-2) % Lymph # (Auto) 1.8 (1.2-4.9) X10*3/uL Archer # (Auto) 0.7 (0.1-1.2) X10*3/uL Eos # (Auto) 0.1 (0.0-0.4) X10*3/uL Baso # (Auto) 0.0 (0.0-0.2) X10*3/uL Abs Immat Gran (auto) 0.05 H (0.00-0.03) X10*3/uL Absolute Neuts (auto) 7.6 (2.0-8.3) x10*3/uL Absolute Nucleated RBC 0.000 (0.0-0.012) X10*3/uL Nucleated RBC % (auto) 0.0 (0.0-0.2) /100WBC Sodium 142 (135-145) mmol/L Potassium 3.8 (3.3-5.1) mmol/L Chloride 104 (96-108) mmol/L Carbon Dioxide 27 (22-29) mmol/L Anion Gap 15 (12-20) BUN 14 (9-16) mg/dL Creatinine 0.84 (0.5-1.4) mg/dL Estim Creat Clear Calc 73.1 Estimated GFR > 60 Random Glucose 82 (60-115) mg/dL Calcium 9.5 (8.4-10.2) mg/dL Magnesium 1.9 (1.6-2.6) mg/dL Total Bilirubin 0.2 (0.0-1.0) mg/dL AST 22 (5-31) U/L ALT 19 (0-31) U/L Alkaline Phosphatase 84 (39-117) U/L Total Protein 9.1 H (6.5-8.0) g/dL Albumin 4.3 (3.5-5.0) g/dL Urine Color Yellow Urine Appearance Clear Urine pH 6.0 (5.0-9.0) Ur Specific Cisco 1.020 (1.005-1.025) Urine Protein Trace (Neg-Trace) mg/dL Urine Glucose (UA) Negative (Negative) mg/dL Urine Ketones Negative (Negative) mg/dL Urine Blood Negative (Negative) Urine Nitrite Negative (Negative) Ur Leukocyte Esterase Moderate (2+) H (Negative) Urine RBC 3-5 H (0-2) /HPF Urine WBC 21-50 H (0-5) /HPF Ur Squamous Epith Cells 0-2 (0-2) /HPF Urine Bacteria None Seen (None Seen) Hyaline Casts 3-5 (0-2) /LPF Urine Opiates Screen Not Detected (Not Detect) Urine Fentanyl Screen Not Detected (Not Detect) Ur Barbiturates Screen Not Detected (Not Detect) Ur Phencyclidine Scrn Not Detected (Not Detect) Ur Amphetamines Screen Not Detected (Not Detect) U Benzodiazepines Scrn Not Detected (Not Detect) Urine Cocaine Screen Not Detected (Not Detect) U Marijuana (THC) Screen Not Detected (Not Detect) Independent Interpretation I performed an independent interpretation of an: EKG Interpretation: Sinus tachycardia, HR-101, no STEMI, IL/QRS are within normal limits, QT-344 and QTC-446 External Record Review External record reviewed: Outpatient record, Prior outpatient labs and Prior outpatient radiology Critical Care Time Critical Care Time Critical Care Time: Yes Total Critical Care Time: 30 Attestation: I personally attest to this time spent taking care of the patient. Discharge Plan Discharge Clinical Impression: Vasovagal syncope, UTI (urinary tract infection), Elevated total protein, Microcytic anemia Patient Disposition: Home, Self-Care Instructions: Urinary Tract Infection in Women (ED), Iron Rich Diet (ED), Syncope (ED), Anemia (ED) Additional Instructions: 1. Resume all home medications as prescribed. 2. Please complete the course of antibiotics as ordered. 3. I highly recommend follow-up with your primary care doctor for a combination of anemia and elevated protein levels for further evaluation. Return to the ER for any worsening symptoms. Prescriptions: New cefdinir 300 mg capsule 300 mg PO BID 7 Days Qty: 14 0RF No Action cefixime 400 mg capsule 400 mg PO DAILY 7 Days Qty: 7 0RF quetiapine 25 mg tablet 1 - 2 tab PO BEDTIME PRN (Reason: insomnia) clonazepam 0.5 mg tablet 1 tab PO TID PRN (Reason: anxiety) nortriptyline 10 mg capsule 3 cap PO BEDTIME montelukast 10 mg tablet 1 tab PO DAILY Dexilant 60 mg capsule,biphase delayed releas 1 cap PO DAILY Latuda 80 mg tablet 1 tab PO QPM Latuda 20 mg tablet 1 tab PO QPM Linzess 290 mcg capsule 1 cap PO DAILY Rx Instructions: PATIENT HAS NOT BEEN TAKING BECAUSE THEY HAVE NOT BEEN ABLE TO TAKE WITH FOOD Referrals: Korina Gerard NP [Primary Care Provider] -
[2023-05-29 09:43] LABS: MANUAL DIFF FLAG NO
[2023-05-29 09:44] LABS: Basophils Percent Auto 0.2 % (0-2); Eosinophils Absolute Auto 0.1 X10*3/uL (0.0-0.4); Eosinophils Percent Auto 1.2 % (0-4); Hematocrit 38.7 % (37.0-47.0); Hemoglobin 11.4 g/dl (12.0-16.0); Imm Gran Abs Auto 0.05 X10*3/uL (0.00-0.03); Imm Gran Pct Auto 0.5 % (0.0-0.4); Lymphocytes Absolute Auto 1.8 X10*3/uL (1.2-4.9); Lymphocytes Percent Auto 17.8 % (20-40); Mean Corpuscular HGB Conc 29.5 g/dl (31.0-35.0); Mean Corpuscular Hemoglobin 21.6 pg (27.0-33.0); Mean Corpuscular Volume 73.4 fL (80.0-98.0); Mean Platelet Volume 8.4 fL (9.4-12.3); Monocytes Absolute Auto 0.7 X10*3/uL (0.1-1.2); Monocytes Percent Auto 6.3 % (2-11); Neutrophils Absolute Auto 7.6 x10*3/uL (2.0-8.3); Platelet Count 480 X10*3/uL (160-400); Red Blood Count 5.27 X10*6/uL (4.20-5.50); Red Cell Distribution Width 17.2 % (11.0-16.0); White Blood Count 10.3 X10*3/uL (4.8-10.8)
[2023-05-29 09:45] LABS: Appearance Urine Clear; Color Urine Yellow; Glucose Urine UA Negative (Negative); Leukocyte Esterase Urine Moderate (2+) (Negative); Nitrite Urine Negative (Negative); UMIC TRIGGER UACC YES; Urine Blood Negative (Negative); Urine Ketones Negative (Negative); Urine Protein Trace mg/dL (Neg-Trace)
[2023-05-29 09:48] LABS: Bacteria Urine None Seen (None Seen); Squamous Epithelial Cell Urine 0-2 /HPF (0-2); UACC Culture Trigger YES; WBC Urine 21-50 /HPF (0-5)
[2023-05-29 09:49] VITALS: BP 148/97; PULSE 82
[2023-05-29 09:51] VITALS: BP 148/97; PULSE 94
[2023-05-29 09:52] VITALS: BP 146/95; PULSE 99
[2023-05-29 09:59] LABS: Amphetamine Screen Urine Not Detected (Not Detect); Barbiturates, Urine Not Detected (Not Detect); Benzodiazepines Screen Urine Not Detected (Not Detect); Cannabinoid Screen Urine Not Detected (Not Detect); Cocaine Screen Urine Not Detected (Not Detect); Fentanyl, urine Not Detected (Not Detect); Opiate Screen Urine Not Detected (Not Detect); Phencyclidine Screen Urine Not Detected (Not Detect)
[2023-05-29 10:00] LABS: Alanine Aminotransferase 19 U/L (0-31); Albumin Level 4.3 g/dL (3.5-5.0); Alkaline Phosphatase 84 U/L (39-117); Anion Gap 15 (12-20); Aspartate Amino Transferase 22 U/L (5-31); Bilirubin Total 0.2 mg/dL (0.0-1.0); Blood Urea Nitrogen 14 mg/dL (9-16); Calcium 9.5 mg/dL (8.4-10.2); Carbon Dioxide 27 mmol/L (22-29); Chloride 104 mmol/L (96-108); Creatinine Clr Calc Pharmacy 73.1; Estimated Glomerular Filt Rate > 60; Glucose Random 82 mg/dL (60-115); Magnesium 1.9 mg/dL (1.6-2.6); Potassium 3.8 mmol/L (3.3-5.1); Sodium 142 mmol/L (135-145); Total Protein 9.1 g/dL (6.5-8.0)
--- NOTE | 2023-05-29 10:00 | PC.NURSE ---
calm, coop. no distress. breathes well. no pain
[2023-05-29 10:41] VITALS: BP 142/100; PULSE 90; RESP 18; TEMP 36.8; O2SAT 99
== END 2023-05-29 10:56 | disposition home or self-care (01) ==
PROVIDERS: Emergency Provider Student in an Organized Health Care Education/Training Program; PCP Nurse Practitioner Family
DX: R55 Syncope and collapse (principal); N39.0 Urinary tract infection, site not specified; D50.9 Iron deficiency anemia, unspecified; R77.9 Abnormality of plasma protein, unspecified; K21.9 Gastro-esophageal reflux disease without esophagitis; F17.200 Nicotine dependence, unspecified, uncomplicated; Z79.899 Other long term (current) drug therapy
CPT/HCPCS: 36415; 80053; 80307; 81001; 83735; 85025; 87086; 93005; 99283; 99285

== ENCOUNTER 2023-05-30 17:50 | Emergency (ER) | payer MEDICARE, MEDICAID, SELFPAY ==
[2023-05-30 17:57] VITALS: BP 135/72; PULSE 121; O2SAT 98
[2023-05-30 18:14] VITALS: BP 149/94; PULSE 118; RESP 16; TEMP 37.1; O2SAT 95; BMI 33.1
--- NOTE | 2023-05-30 18:15 | ED.ALCOHOL ---
HPI - Alcohol General Chief Complaint: ETOH/Substance Use Stated Complaint: STOMACH PAIN, ETOH. [place] PD CUSTODY Source: patient, old records reviewed and police Mode of arrival: EMS Limitations: other (ETOH abuse) History of Present Illness HPI narrative: 42 yo patient with PMH of PTSD, bipolar disorder, GERD, asthma, gastritis, borderline personality disorder who was seen on 05/29 for two episodes ?seizures referred to PCP sent home on cefdinir for presumed UTI. Chin denies symptoms at this time and states UTI symptoms are improved. When I go to the room Chin states they don't want to talk to me and ask me to leave the police state there was ETOH involved in some sort of domestic call. No head trauma reported though scrape noted on R forearm no SI noted. Here for clearance. Chin denies hx of ETOH withdrawal or seizures. MD complaint: alcohol intoxication Last drink: Just prior to admission Chronic alcohol use: No Previous visits for alcohol intoxication: No Recent trauma: Yes (abrasion on R forearm) Associated symptoms: denies other symptoms Treatments prior to arrival: none Related Data Home Medications Medication Instructions Recorded Confirmed clonazepam 0.5 mg tablet 1 tab PO TID PRN anxiety 11/26/20 11/26/20 dexlansoprazole 60 mg 1 cap PO DAILY 11/26/20 11/26/20 capsule,biphase delayed release (Dexilant) lurasidone 20 mg tablet (Latuda) 1 tab PO QPM 11/26/20 11/26/20 lurasidone 80 mg tablet (Latuda) 1 tab PO QPM 11/26/20 11/26/20 montelukast 10 mg tablet 1 tab PO DAILY 11/26/20 11/26/20 nortriptyline 10 mg capsule 3 cap PO BEDTIME 11/26/20 11/26/20 quetiapine 25 mg tablet 1 - 2 tab PO BEDTIME PRN insomnia 11/26/20 11/26/20 linaclotide 290 mcg capsule 1 cap PO DAILY 11/27/20 11/27/20 (Linzess) Previous Rx's Medication Instructions Recorded cefixime 400 mg capsule 400 mg PO DAILY 7 days #7 caps 01/08/21 cefdinir 300 mg capsule 300 mg PO BID 7 days #14 caps 05/29/23 Allergies Allergy/AdvReac Type Severity Reaction Status Date / Time strawberry [STRAWBERRY] Allergy Severe ANAPHYLAXIS Verified 05/30/23 18:23 watermelon [WATERMELON] Allergy Severe ANAPHYLAXIS Verified 05/30/23 18:23 acetaminophen [From VICODIN] Allergy Intermediate ITCHING Verified 05/30/23 18:23 amoxicillin [AMOXICILLIN] Allergy Intermediate ITCHING Verified 05/30/23 18:23 hydrocodone [From VICODIN] Allergy Intermediate ITCHING Verified 05/30/23 18:23 oxycodone [From PERCOCET] Allergy Intermediate ITCHING Verified 05/30/23 18:23 propoxyphene Allergy Intermediate HEADACHES Verified 05/30/23 18:23 [From DARVOCET-N] honey [HONEY] AdvReac Intermediate HEADACHES Verified 05/30/23 18:23 Review of Systems Review of Systems: Constitutional : No Fever, No Chills ENT/Mouth : No Ear Pain, No Nasal Congestion, No sore throat Eyes: No Eye Pain, No Swelling, No Redness Cardiovascular : No Chest Pain, No SOB Respiratory : No Cough, No Sputum, No Dyspnea Gastrointestinal : No Nausea, No Vomiting, No Diarrhea, No Hematochezia, No Melena Genitourinary : No Dysuria, No Urinary Frequency, No Hematuria Musculoskeletal : No Myalgias Skin : No Skin Lesions, No rash Neuro : No Weakness, No Numbness, No Paresthesias, No Dizziness, No Headache Psych : positive Anxiety, no Depression, no SI/HI Heme/Lymph: No Lymphadenopathy Endocrine : No Polyuria, No Polydipsia All other systems reviewed and are negative [facility] Past Medical History Attestation statement: The following information was validated with the patient. Source: old records reviewed Medical History Liver mass Borderline personality disorder Bipolar 1 disorder PTSD (post-traumatic stress disorder) Depression GERD (gastroesophageal reflux disease) Asthma Gastritis Social History Social History Unable to assess alcohol history related to: Unknown Alcohol intake: current Alcohol intake frequency: 3 or more drinks per day Alcohol type: beer and hard liquor Patient Tobacco Use Status: Current everyday Tobacco user Use of substances other than those prescribed or required for medical reasons: Refusing to respond Substance Use Type: Marijuana Advance Directives: No Advance Directives Information Provided: No service: No Current occupational status: disabled Physical Exam ED Vital Signs: Vital Signs - 24 hr 05/30/23 18:14 05/30/23 19:19 05/30/23 20:04 Temperature 98.7 F Pulse Rate 118 H 119 H 11 L Respiratory Rate 16 18 16 Blood Pressure 149/94 H 111/76 125/71 Pulse Oximetry 95 96 97 Oxygen Delivery Method Room Air Room Air Room Air BMI result Body Mass Index 33.1 Appearance: Alert. Oriented X3. No acute distress. Eyes: Pupils equal, round and reactive to light. ENT: Pharynx normal. Atraumatic Neck: Normal inspection. Neck supple. CVS: Normal heart rate and rhythm. Pulses normal. Respiratory: No respiratory distress. Breath sounds normal. Abdomen: Soft and nontender. Skin: Skin warm and dry. Normal skin color. Normal skin turgor. Extremities: No lower extremity edema. R forearm superficial abrasion Neuro: Oriented X 3. No motor deficit. No sensory deficit. Course Course Course Narrative: patient has no complaints feels fine stable for Medical Decision Making Medical Decision Making [facility] Narrative: 42 yo patient with PMH of PTSD, bipolar disorder, GERD, asthma, gastritis, borderline personality disorder here with c/o ETOH intoxication has R forearm abrasion but no other signs of trauma, no SI will need to observe until clinically sober has no other compliaints Differential Diagnosis Differential Diagnoses: The differential diagnosis associated with the presentation includes ETOH intoxication Admission/Observation Consideration of admission/observation: Escalation of care including admission/observation considered observed and stable for DC at this time Lab Data [facility] Lab Attestation statement: I reviewed the patient's lab results. Labs: Lab Results 05/30/23 Range/Units 18:08 POC Glucose 126 H (60-115) mg/dL Independent Historian Clinical information obtained from an independent historian. History obtained from or confirmed by: EMS External Record Review External record reviewed: Inpatient record Discharge Plan Discharge Clinical Impression: Alcoholic intoxication Qualifiers: Complication of substance-induced condition: uncomplicated Qualified Code(s): F10.920 - Alcohol use, unspecified with intoxication, uncomplicated Patient Disposition: Home, Self-Care Instructions: Alcohol Intoxication (ED) Additional Instructions: plaese monitor for falls and safety risk. return for any concerns. Prescriptions: No Action cefixime 400 mg capsule 400 mg PO DAILY 7 Days Qty: 7 0RF quetiapine 25 mg tablet 1 - 2 tab PO BEDTIME PRN (Reason: insomnia) clonazepam 0.5 mg tablet 1 tab PO TID PRN (Reason: anxiety) nortriptyline 10 mg capsule 3 cap PO BEDTIME montelukast 10 mg tablet 1 tab PO DAILY Dexilant 60 mg capsule,biphase delayed releas 1 cap PO DAILY Latuda 80 mg tablet 1 tab PO QPM Latuda 20 mg tablet 1 tab PO QPM Linzess 290 mcg capsule 1 cap PO DAILY Rx Instructions: PATIENT HAS NOT BEEN TAKING BECAUSE THEY HAVE NOT BEEN ABLE TO TAKE WITH FOOD cefdinir 300 mg capsule 300 mg PO BID 7 Days Qty: 14 0RF
[2023-05-30 18:23] VITALS: PULSE 118
[2023-05-30 18:27] LABS: Glucose, Whole Blood 126 mg/dL (60-115)
--- NOTE | 2023-05-30 18:30 | PC.NURSE ---
police at bedside w pt. fully changed into safety gown alongside rn/tech/pd on arrival and belongings placed in bag- security to bring to decon. no si/hi/ah/vh. reports being intoxicated w/etoh today. denies hitting head- reports a fall at some point w abrasions to right arm.
--- NOTE | 2023-05-30 19:00 | PC.NURSE ---
assumed care of pt at this time. upon entering room pt yelled at this RN to leave because i want to sleep. unable to assess pt at this time. [employer] at bedside.
[2023-05-30 19:19] VITALS: BP 111/76; PULSE 119; RESP 18; O2SAT 96
[2023-05-30 20:04] VITALS: BP 125/71; PULSE 11; RESP 16; O2SAT 97
--- NOTE | 2023-05-30 20:41 | PC.NURSE ---
pt reported he feels fine and am ready to leave I dont understand what I am waiting for. upon asking patient if he had cp/sob/n/v/IBRAHIM/dizziness pt stated no I already told you I feel fine. [employer] states able to sonja pt if ready for d/c. Dr. Puga notified.
== END 2023-05-30 20:47 | disposition home or self-care (01) ==
PROVIDERS: Emergency Provider Emergency Medicine; PCP Internal Medicine
DX: F10.920 Alcohol use, unspecified with intoxication, uncomplicated (principal); F17.200 Nicotine dependence, unspecified, uncomplicated; Y90.9 Presence of alcohol in blood, level not specified; Z79.899 Other long term (current) drug therapy; Z71.6 Tobacco abuse counseling
CPT/HCPCS: 82947; 99284

== ENCOUNTER 2024-01-27 08:52 | Inpatient (IN) | payer MEDICARE, MEDICAID, SELFPAY ==
[2024-01-27 09:19] VITALS: BP 118/77; PULSE 113; RESP 17; TEMP 36.7; O2SAT 96; BMI 30.3
--- NOTE | 2024-01-27 09:24 | ECG_ITS ---
Test Reason : dizzy Blood Pressure : / mmHG Vent. Rate : 113 BPM Atrial Rate : 113 BPM P-R Int : 154 ms QRS Dur : 070 ms QT Int : 306 ms P-R-T Axes : 049 083 026 degrees QTc Int : 419 ms Sinus tachycardia Low voltage QRS Septal infarct (cited on or before 27-JAN-2024) T wave abnormality, consider inferior ischemia T wave abnormality, consider anterolateral ischemia Abnormal ECG When compared with ECG of 29-MAY-2023 09:28, Anterolateral ischemia present Referred By: Generic ED Physician Electronically Signed By:Wing Landeros
[2024-01-27 09:41] LABS: MANUAL DIFF FLAG NO
[2024-01-27 09:46] LABS: Basophils Percent Auto 0.2 % (0-2); Eosinophils Percent Auto 0.2 % (0-4); Hematocrit 37.9 % (37.0-47.0); Hemoglobin 11.3 g/dl (12.0-16.0); Imm Gran Abs Auto 0.05 X10*3/uL (0.00-0.03); Imm Gran Pct Auto 0.5 % (0.0-0.4); Lymphocytes Absolute Auto 1.6 X10*3/uL (1.2-4.9); Lymphocytes Percent Auto 16.1 % (20-40); Mean Corpuscular HGB Conc 29.8 g/dl (31.0-35.0); Mean Corpuscular Hemoglobin 19.5 pg (27.0-33.0); Mean Corpuscular Volume 65.5 fL (80.0-98.0); Mean Platelet Volume 8.5 fL (9.4-12.3); Monocytes Absolute Auto 0.8 X10*3/uL (0.1-1.2); Monocytes Percent Auto 7.7 % (2-11); Neutrophils Absolute Auto 7.6 x10*3/uL (2.0-8.3); Neutrophils Percent Auto 75.3 % (45-73); Platelet Count 646 X10*3/uL (160-400); Red Blood Count 5.79 X10*6/uL (4.20-5.50); Red Cell Distribution Width 18.6 % (11.0-16.0)
[2024-01-27 10:16] LABS: Alanine Aminotransferase 16 U/L (0-31); Albumin Level 4.1 g/dL (3.5-5.0); Alkaline Phosphatase 54 U/L (39-117); Anion Gap 13 (12-20); Aspartate Amino Transferase 17 U/L (5-31); Bilirubin Direct 0.1 mg/dL (0.0-0.5); Bilirubin Total 0.3 mg/dL (0.0-1.0); Blood Urea Nitrogen 20 mg/dL (9-16); Calcium 9.4 mg/dL (8.4-10.2); Carbon Dioxide 30 mmol/L (22-29); Chloride 94 mmol/L (96-108); Creatinine Clr Calc Pharmacy 38.9; Estimated Glomerular Filt Rate 36; Glucose Random 138 mg/dL (60-115); Lipase 20 U/L (8-78); Sodium 135 mmol/L (135-145); Total Protein 8.1 g/dL (6.5-8.0)
[2024-01-27 10:18] LABS: Potassium 2.2 mmol/L (3.3-5.1)
[2024-01-27 10:23] LABS: Influenza A PCR NEGATIVE (Negative); Influenza B PCR NEGATIVE (Negative); Resp Syncy Virus RNA Qual PCR NEGATIVE (Negative); SARS COV2 PCR INHOUSE NEGATIVE (Negative)
[2024-01-27 11:19] LABS: Magnesium 2.7 mg/dL (1.6-2.6)
[2024-01-27 11:44] VITALS: BP 107/71; PULSE 100; RESP 16; O2SAT 99
[2024-01-27] MEDS: 0.9 % Sodium Chloride 1,000 ML 500 ML IVCONT (12:39)
[2024-01-27] MEDS: ondansetron HCL 4 MG/2 ML VIAL IVPUSH ×2 (12:39→16:40)
[2024-01-27] MEDS: Potassium Chloride/H20 10 MEQ/100 ML PIGGYBACK 100 MEQ IV ×3 (12:40→18:30)
[2024-01-27] MEDS: Potassium Chloride ER 20 MEQ TAB.ER.PRT PO (12:45)
--- NOTE | 2024-01-27 12:46 | ED_ITS ---
HPI - General Adult General Chief complaint: Seizure Stated complaint: dehydrated, vomiting, seizures Time Seen by Provider: 01/27/24 11:47 Source: patient Mode of arrival: ambulatory Limitations: no limitations History of Present Illness ED Provider: Dr. Burciaga HPI narrative: Patient with vomiting for the past 6 days. He presents because yesterday he had seizures but he is also feeling weak. Onset (ago): day(s) Related Data Home Medications ?Medication ?Instructions ?Recorded ?Confirmed clonazepam 0.5 mg tablet 1 tab PO TID PRN anxiety 11/26/20 11/26/20 dexlansoprazole 60 mg 1 cap PO DAILY 11/26/20 11/26/20 capsule,biphase delayed release (Dexilant) lurasidone 20 mg tablet (Latuda) 1 tab PO QPM 11/26/20 11/26/20 lurasidone 80 mg tablet (Latuda) 1 tab PO QPM 11/26/20 11/26/20 montelukast 10 mg tablet 1 tab PO DAILY 11/26/20 11/26/20 nortriptyline 10 mg capsule 3 cap PO BEDTIME 11/26/20 11/26/20 quetiapine 25 mg tablet 1 - 2 tab PO BEDTIME PRN insomnia 11/26/20 11/26/20 linaclotide 290 mcg capsule 1 cap PO DAILY 11/27/20 11/27/20 (Linzess) Previous Rx's ?Medication ?Instructions ?Recorded cefixime 400 mg capsule 400 mg PO DAILY 7 days #7 caps 01/08/21 cefdinir 300 mg capsule 300 mg PO BID 7 days #14 caps 05/29/23 Allergies Allergy/AdvReac Type Severity Reaction Status Date / Time acetaminophen [From VICODIN] Allergy Intermediate ITCHING Verified 01/27/24 09:24 amoxicillin [AMOXICILLIN] Allergy Intermediate ITCHING Verified 01/27/24 09:24 hydrocodone [From VICODIN] Allergy Intermediate ITCHING Verified 01/27/24 09:24 oxycodone [From PERCOCET] Allergy Intermediate ITCHING Verified 01/27/24 09:24 propoxyphene Allergy Intermediate HEADACHES Verified 01/27/24 09:24 [From DARVOCET-N] honey [HONEY] AdvReac Intermediate HEADACHES Verified 01/27/24 09:24 Review of Systems 2 Review of Systems: Yes all other systems are reviewed and are negative Neurologic: Denies Sensory deficit (Neuro) [facility] Past Medical History Medical History Liver mass Borderline personality disorder Bipolar 1 disorder PTSD (post-traumatic stress disorder) Depression GERD (gastroesophageal reflux disease) Asthma Gastritis Social History Social History Unable to assess alcohol history related to: Unknown Alcohol intake: current Alcohol intake frequency: 3 or more drinks per day Alcohol type: beer and hard liquor Patient Tobacco Use Status: Current everyday Tobacco user Smoked in Last 30 Days: Yes Use of substances other than those prescribed or required for medical reasons: No Substance Use Type: Marijuana Advance Directives: No Patient : No service: No Current occupational status: disabled Physical Exam ED Vital Signs: Vital Signs - 24 hr 01/27/24 09:19 01/27/24 11:44 01/27/24 14:40 Temperature 98.1 F Pulse Rate 113 H 100 96 Respiratory Rate 17 16 16 Blood Pressure 118/77 107/71 Pulse Oximetry 96 99 95 Oxygen Delivery Method Room Air Room Air Room Air BMI result Body Mass Index 30.3 Const Nutritional Appearance: average body habitus Orientation/consciousness: oriented to person and patient oriented x3 Limitations: no limitations HENMT Head: Yes normal to inspection Ears: external ears normal General nose exam: Normal external nose present Mouth: Normal oral and palatal mucosa present and oropharynx normal Throat: Yes posterior oropharynx normal Eyes General: appearance normal, both eyes and all related structures Neck Neck: Yes normal visual inspection Chest Chest palpation & inspection: normal inspection of the chest Resp Auscultation: clear to auscultation bilaterally Cardio Jugular venous distension: no JVD Rate: regular rate Rhythm: regular rhythm Heart sounds: S1 normal heart sound present and S2 normal heart sound present GI Inspection: Yes normal to inspection Palpation (GI): Soft to palpation, nontender and No hepatosplenomegaly present Auscultation: normal bowel sounds General: Yes no CVA tenderness Back/Spine/Pelvis Back: no CVA tenderness Skin General skin exam: no rashes or lesions noted Neuro General: oriented to person and patient oriented x3 Cranial nerves: Yes CN's II-XII intact bilaterally Motor exam (neuro): 5/5 motor strength present throughout Sensory Exam: No Sensory deficit (Neuro) Extrem General: Yes normal to inspection Psych Appearance: grossly normal Course Reevaluation(s) Reevaluation #1: Procedure: peripheral IV placed by me as nursing was unable to obtain difficult stick Time: 12:47 Reevaluation #2: patient still with hypokalemia and twave changes will admit Time: 16:00 Medications Administered Discontinued Medications Generic Name Dose Route Start Last Admin Trade Name Freq PRN Reason Stop Dose Admin Potassium Chloride 10 meq in 100 mls @ 100 mls/hr 01/27/24 11:49 01/27/24 15:16 Potassium Chloride/H20 IV 01/27/24 12:48 Infused ONCE ONE Infusion Sodium Chloride 1,000 mls @ 500 mls/hr 01/27/24 12:15 01/27/24 15:16 Ns IVCONT 01/27/24 14:14 Infused .Q2H RAINA Infusion Ondansetron HCl 4 mg 01/27/24 11:49 01/27/24 12:39 Ondansetron Hcl 4 Mg/2 Ml Vial IVPUSH 01/27/24 11:50 4 mg ONCE ONE Administration Potassium Chloride 20 meq 01/27/24 11:49 01/27/24 12:45 Potassium Chloride Er 20 Meq Tab.Er.Prt PO 01/27/24 11:50 20 meq ONCE ONE Administration Medical Decision Making Differential Diagnosis Differential Diagnoses: The differential diagnosis associated with the presentation includes (dehydration, renal failure, hypokalemia, seizure disorder) Admission/Observation Consideration of admission/observation: Escalation of care including admission/observation considered (upon arrival patient considered for admission) Consult Healthcare Provider Management of the patient was discussed with: Hospitalist Lab Data MDM Lab Attestation statement: I reviewed the patient's lab results. 01/27/24 09:36 01/27/24 15:26 Labs: Lab Results 01/27/24 01/27/24 01/27/24 Range/Units 09:36 15:19 15:26 WBC 10.0 (4.8-10.8) X10*3/uL RBC 5.79 H (4.20-5.50) X10*6/uL Hgb 11.3 L (12.0-16.0) g/dl Hct 37.9 (37.0-47.0) % MCV 65.5 L (80.0-98.0) fL MCH 19.5 L (27.0-33.0) pg MCHC 29.8 L (31.0-35.0) g/dl RDW 18.6 H (11.0-16.0) % Plt Count 646 H D (160-400) X10*3/uL MPV 8.5 L (9.4-12.3) fL Immature Gran % (Auto) 0.5 H (0.0-0.4) % Neut % (Auto) 75.3 H (45-73) % Lymph % (Auto) 16.1 L (20-40) % [place] % (Auto) 7.7 (2-11) % Eos % (Auto) 0.2 (0-4) % Baso % (Auto) 0.2 (0-2) % Lymph # (Auto) 1.6 (1.2-4.9) X10*3/uL [place] # (Auto) 0.8 (0.1-1.2) X10*3/uL Eos # (Auto) 0.0 (0.0-0.4) X10*3/uL Baso # (Auto) 0.0 (0.0-0.2) X10*3/uL Abs Immat Gran (auto) 0.05 H (0.00-0.03) X10*3/uL Absolute Neuts (auto) 7.6 (2.0-8.3) x10*3/uL Absolute Nucleated RBC 0.000 (0.0-0.012) X10*3/uL Nucleated RBC % (auto) 0.0 (0.0-0.2) /100WBC Sodium 135 136 (135-145) mmol/L Potassium 2.2 L* 2.7 L* D (3.3-5.1) mmol/L Chloride 94 L 98 (96-108) mmol/L Carbon Dioxide 30 H 27 (22-29) mmol/L Anion Gap 13 14 (12-20) BUN 20 H 16 (9-16) mg/dL Creatinine 1.56 H 1.15 (0.5-1.4) mg/dL Estim Creat Clear Calc 38.9 52.9 Estimated GFR 36 51 POC Glucose 90 (60-115) mg/dL Random Glucose 138 H 97 (60-115) mg/dL Calcium 9.4 8.5 D (8.4-10.2) mg/dL Magnesium 2.7 H (1.6-2.6) mg/dL Total Bilirubin 0.3 (0.0-1.0) mg/dL Direct Bilirubin 0.1 (0.0-0.5) mg/dL AST 17 (5-31) U/L ALT 16 (0-31) U/L Alkaline Phosphatase 54 (39-117) U/L Total Protein 8.1 H (6.5-8.0) g/dL Albumin 4.1 (3.5-5.0) g/dL Lipase 20 (8-78) U/L Influenza Type A (PCR) NEGATIVE (Negative) Influenza Type B (PCR) NEGATIVE (Negative) RSV RNA Qual (PCR) NEGATIVE (Negative) SARS-CoV-2 RNA (RT-PCR) NEGATIVE (Negative) Independent Interpretation I performed an independent interpretation of an: EKG (sinus 115, flipped ts anterior laterally) Independent Historian Clinical information obtained from an independent historian. History obtained from or confirmed by: Friend External Record Review External record reviewed: Prior outpatient labs Prescription Management I considered prescription management with: Antibiotic (no evidence of infection) Discharge Plan Discharge Clinical Impression: Acute hypokalemia, Dehydration, Epileptic seizure Patient Disposition: Admitted As Inpatient Print Language: Polish
[2024-01-27 14:40] VITALS: PULSE 96; RESP 16; O2SAT 95
--- NOTE | 2024-01-27 14:55 | ECG_ITS ---
Test Reason : REPEAT Blood Pressure : / mmHG Vent. Rate : 097 BPM Atrial Rate : 097 BPM P-R Int : 162 ms QRS Dur : 080 ms QT Int : 364 ms P-R-T Axes : 041 065 -39 degrees QTc Int : 462 ms Normal sinus rhythm Low voltage QRS Septal infarct (cited on or before 27-JAN-2024) T wave abnormality, consider lateral ischemia Abnormal ECG When compared with ECG of 27-JAN-2024 09:26, Serial changes of Septal infarct Present Referred By: Tutu Burciaga Electronically Signed By:Wing Landeros
[2024-01-27 15:30] LABS: Glucose, Whole Blood 90 mg/dL (60-115)
[2024-01-27 15:48] LABS: Anion Gap 14 (12-20); Blood Urea Nitrogen 16 mg/dL (9-16); Calcium 8.5 mg/dL (8.4-10.2); Carbon Dioxide 27 mmol/L (22-29); Chloride 98 mmol/L (96-108); Creatinine Clr Calc Pharmacy 52.9; Estimated Glomerular Filt Rate 51; Glucose Random 97 mg/dL (60-115); Potassium 2.7 mmol/L (3.3-5.1); Sodium 136 mmol/L (135-145)
[2024-01-27] MEDS: Acetaminophen 325 MG TABLET 975 MG PO (16:40)
--- NOTE | 2024-01-27 16:43 | PM.IMHP ---
History of Present Illness Date of Service: 01/27/24 Chief Complaint: Nausea and vomiting, breakthrough seizure A 43 years old trans to male with PMH of anxiety, bipolar disease who presented to the hospital with intractable nausea and vomiting for the last 5 days complicated by reported seizure like activities. The patient and his sister reports that for the last 5 days he could not tolerate any PO diet or medications which led to multiple episodes of seizure like activity that the patient reports to be aware during some of them to his surroundings. denies chest pain, palpitations, SOB, fever, chills, diarrhea or urinary symptoms. no recent sick contacts or marijuana smoking. In ED found to be in hypokalemia requiring IV and PO replacement. admitted for further evaluation and close monitoring. Review of Systems Review of Systems: No fever, chills but has weakness No chest pain, palpitation No shortness of breath or coughing No abdominal pain but has nausea or vomiting No urinary symptoms PMFSH Medical History (Updated 01/27/24 @ 16:59 by Maribel Camp MD) Liver mass Borderline personality disorder Bipolar 1 disorder PTSD (post-traumatic stress disorder) Depression GERD (gastroesophageal reflux disease) Asthma Gastritis Social History Unable to assess alcohol history related to: Unknown Alcohol intake: current Alcohol intake frequency: 3 or more drinks per day Alcohol type: beer and hard liquor Patient Tobacco Use Status: Current everyday Tobacco user Smoked in Last 30 Days: Yes Use of substances other than those prescribed or required for medical reasons: No Substance Use Type: Marijuana Advance Directives: No Patient : No service: No Current occupational status: disabled Meds Allergies Allergy/AdvReac Type Severity Reaction Status Date / Time acetaminophen [From VICODIN] Allergy Intermediate ITCHING Verified 01/27/24 09:24 amoxicillin [AMOXICILLIN] Allergy Intermediate ITCHING Verified 01/27/24 09:24 hydrocodone [From VICODIN] Allergy Intermediate ITCHING Verified 01/27/24 09:24 oxycodone [From PERCOCET] Allergy Intermediate ITCHING Verified 01/27/24 09:24 propoxyphene Allergy Intermediate HEADACHES Verified 01/27/24 09:24 [From DARVOCET-N] honey [HONEY] AdvReac Intermediate HEADACHES Verified 01/27/24 09:24 Active Medications: Current Medications Potassium Chloride (Potassium Chloride/H20) 10 meq in 100 mls @ 100 mls/hr IV Q1H RAINA Stop: 01/27/24 18:29 Potassium Chloride (Potassium Chloride/H20) 10 meq in 100 mls @ 100 mls/hr IV ONCE ONE Stop: 01/27/24 17:18 Home Medications ?Medication ?Instructions ?Recorded ?Confirmed ?Last Taken ?Type clonazepam 0.5 mg tablet 1 tab PO TID PRN anxiety 11/26/20 11/26/20 Unknown History lurasidone 20 mg tablet (Latuda) 1 tab PO QPM 11/26/20 11/26/20 Unknown History lurasidone 80 mg tablet (Latuda) 1 tab PO QPM 11/26/20 11/26/20 Unknown History montelukast 10 mg tablet 1 tab PO DAILY 11/26/20 11/26/20 Unknown History nortriptyline 10 mg capsule 3 cap PO BEDTIME 11/26/20 11/26/20 Unknown History quetiapine 25 mg tablet 1 - 2 tab PO BEDTIME PRN insomnia 11/26/20 11/26/20 Unknown History linaclotide 290 mcg capsule 1 cap PO DAILY 11/27/20 11/27/20 Unknown History (Linzess) amlodipine 10 mg tablet 10 mg PO DAILY 01/27/24 Unknown History dexlansoprazole 60 mg 60 mg PO DAILY 01/27/24 Unknown History capsule,biphase delayed release dicyclomine 20 mg tablet 20 mg PO QID 01/27/24 Unknown History hydrochlorothiazide 25 mg tablet 25 mg PO DAILY 01/27/24 Unknown History sertraline 100 mg tablet 100 mg PO QAM 01/27/24 Unknown History testosterone cypionate 200 mg/mL 50 mg IM QWEEK 01/27/24 Unknown History intramuscular oil topiramate 25 mg tablet mg PO 01/27/24 Unknown History Physical Exam Vital Signs and Narrative: Vital Signs: Last Vital Signs Temp 98.1 F 01/27/24 09:19 Pulse 96 01/27/24 14:40 Resp 16 01/27/24 14:40 BP 107/71 01/27/24 11:44 Pulse Ox 95 01/27/24 14:40 O2 Del Method Room Air 01/27/24 14:40 BMI result Body Mass Index 30.3 Const: Other: Constitutional : Awake, interactive, not in distress Neck : Normal inspection, Supple Cardiovascular : RRR, no JVP, no lower extremity edema Respiratory : good bilateral air entry, no crackles, wheezes or rhonchi Gastrointestinal: soft, lax, Normal bowel sounds, Non tender Skin : Warm, Dry Neurological : Alert & oriented x3, No focal deficit Results Labs 01/27/24 09:36 01/27/24 15:26 Labs: Laboratory Results - last 24 hr 01/27/24 01/27/24 01/27/24 09:36 15:19 15:26 MCV 65.5 L MCH 19.5 L MCHC 29.8 L RDW 18.6 H Plt Count 646 H D MPV 8.5 L Immature Gran % (Auto) 0.5 H Neut % (Auto) 75.3 H Lymph % (Auto) 16.1 L [place] % (Auto) 7.7 Eos % (Auto) 0.2 Baso % (Auto) 0.2 Lymph # (Auto) 1.6 [place] # (Auto) 0.8 Eos # (Auto) 0.0 Baso # (Auto) 0.0 Abs Immat Gran (auto) 0.05 H Absolute Neuts (auto) 7.6 Absolute Nucleated RBC 0.000 Nucleated RBC % (auto) 0.0 Anion Gap 13 14 Estim Creat Clear Calc 38.9 52.9 Estimated GFR 36 51 POC Glucose 90 Random Glucose 138 H 97 Calcium 9.4 8.5 D Magnesium 2.7 H Total Bilirubin 0.3 Direct Bilirubin 0.1 AST 17 ALT 16 Alkaline Phosphatase 54 Total Protein 8.1 H Albumin 4.1 Lipase 20 Influenza Type A (PCR) NEGATIVE Influenza Type B (PCR) NEGATIVE RSV RNA Qual (PCR) NEGATIVE SARS-CoV-2 RNA (RT-PCR) NEGATIVE Assessment and Plan (1) Dehydration: Status: Acute (2) Acute hypokalemia: Status: Acute (3) Seizure: Status: Acute (4) Intractable nausea and vomiting: Status: Acute Plan A 43 years old trans to male with PMH of anxiety, bipolar disease who presented to the hospital with intractable nausea and vomiting for the last 5 days complicated by reported seizure like activities. Intractable nausea and vomiting could be related to gastritis, stomach bug or CVC check urine tox start Omeprazole IV fluids diet as tolerated Acute hypokalemia 2/2 vomiting IV and PO replacement follow BMP Seizure like activity on Topiramate per PCP, levels pending plan to follow with outpatient neurology for further work up seizure precautions from description seems a non-epileptical seizures and may not need seizure medication Bipolar disease continue home medications DVT PPx Lovenox Patient will likely need 2o vernight hospital stay for correcting electrolytes and treating intractable nausea and vomiting. Quality Stroke Does the patient have a stroke diagnosis?: No VTE Prior VTE?: No VTE Risk Level:: Medical - moderate - high VTE Device Contraindication: Treatment Not Indicated VTE Drug Contraindication: N/A - Med Ordered
[2024-01-27] MEDS: Potassium Chloride ER 20 MEQ TAB.ER.PRT 40 MEQ PO ×2 (16:47→21:56)
[2024-01-27] MEDS: Lactated Ringers 1,000 ML 80 ML IVCONT (16:51)
[2024-01-27 17:06] VITALS: BP 106/68; PULSE 96; RESP 16; TEMP 36.8; O2SAT 99
--- NOTE | 2024-01-27 17:42 | PHA.MEDREC ---
Pharmacy Consult ? Medication Reconciliation Pharmacy has completed the medication reconciliation. Spoke to patient to confirm med list. Patient states he is no longer on Dicyclomine 20 mg qid, Linzess 290 mg daily, Latuda 20 mg daily.
[2024-01-27] MEDS: Famotidine 20 MG TABLET PO (17:57)
[2024-01-27] MEDS: Enoxaparin Sodium 40 MG/0.4 ML SYRINGE SUBCUT (17:57)
--- NOTE | 2024-01-27 18:54 | PC.NURSE ---
patient called this RN into room, started 3rd bag of potassium and patient complaining of the IV burning at this time, LR rate increased to see if that would alleviatte burning, patient called RN back in stating it was still burning and they would like the infusion to be stopped at this time. admitting MD made aware, per MD, ok to stop potassium infusion, will supplement with PO at this time. patient now resting comfortably on stretcher. LR continues running through PIV. patient sitting up in bed eating offering no furter complaints at this time
[2024-01-27 21:15] VITALS: BP 100/61; PULSE 95; RESP 16; O2SAT 95
[2024-01-27] MEDS: Topiramate 25 MG TABLET 50 MG PO (21:56)
[2024-01-27] MEDS: Nortriptyline HCl 10 MG CAPSULE 30 MG PO (21:56)
[2024-01-27] MEDS: QUEtiapine Fumarate 25 MG TABLET 37.5 MG PO (21:56)
[2024-01-27] MEDS: clonazePAM 0.5 MG TABLET PO (22:33)
[2024-01-27 23:46] VITALS: BP 109/55; PULSE 101; RESP 20; TEMP 36.4; O2SAT 95
[2024-01-28 04:00] VITALS: BP 101/59; PULSE 90; RESP 20; TEMP 37.2; O2SAT 97
[2024-01-28] MEDS: Lactated Ringers 1,000 ML 80 ML IVCONT (05:16)
[2024-01-28 07:01] LABS: Anion Gap 10 (12-20); Blood Urea Nitrogen 14 mg/dL (9-16); Calcium 8.5 mg/dL (8.4-10.2); Carbon Dioxide 29 mmol/L (22-29); Chloride 102 mmol/L (96-108); Creatinine Clr Calc Pharmacy 50.2; Estimated Glomerular Filt Rate 49; Glucose Random 93 mg/dL (60-115); Sodium 138 mmol/L (135-145)
[2024-01-28 07:55] VITALS: BP 107/64; PULSE 100; RESP 18; TEMP 36.3; O2SAT 96
[2024-01-28] MEDS: ondansetron HCL 4 MG/2 ML VIAL IVPUSH (08:23)
[2024-01-28] MEDS: Potassium Chloride ER 20 MEQ TAB.ER.PRT 40 MEQ PO (08:23)
[2024-01-28] MEDS: Topiramate 25 MG TABLET 50 MG PO (08:23)
[2024-01-28] MEDS: Famotidine 20 MG TABLET PO (08:23)
[2024-01-28] MEDS: clonazePAM 0.5 MG TABLET PO (08:23)
--- NOTE | 2024-01-28 08:44 | MHC.CM.PN ---
IMM 01/28/24, Pt. lives with spouse, he does not use home health services or medical equipment. HCP discussed, pt. declined to complete one at this time. PCP confirmed: Korina Gerard. Spouse to transport home at DC. DCP is home, self care. CM to follow and assist with DC planning.
[2024-01-28 11:23] VITALS: BP 107/56; PULSE 96; RESP 18; TEMP 36.7; O2SAT 98
--- NOTE | 2024-01-28 12:44 | PM.DS ---
DS: Providers Provider Date of Service: 01/28/24 Date of admission: 01/27/24 16:55 Primary care physician: Korina Gerard NP DS: Diagnosis Discharge Diagnosis (1) Dehydration: Status: Acute (2) Acute hypokalemia: Status: Acute (3) Seizure: Status: Acute (4) Intractable nausea and vomiting: Status: Acute (5) MALINI (iron deficiency anemia): Status: Acute DS: Summary Hospital Course Hospital Course: Admission note HPI A 43 years old trans to male with PMH of anxiety, bipolar disease who presented to the hospital with intractable nausea and vomiting for the last 5 days complicated by reported seizure like activities. The patient and his sister reports that for the last 5 days he could not tolerate any PO diet or medications which led to multiple episodes of seizure like activity that the patient reports to be aware during some of them to his surroundings. denies chest pain, palpitations, SOB, fever, chills, diarrhea or urinary symptoms. no recent sick contacts or marijuana smoking. In ED found to be in hypokalemia requiring IV and PO replacement. admitted for further evaluation and close monitoring. Hospital course The patient was admitted for evaluation of Intractable nausea and vomiting that was treated with IV fluids and supportive measures as images were negative for any acute findings. responded well to IV fluids, Zofran and advancing diet as it was tolerated well with no reported vomiting over the hospital stay. [place] good enough to be discharged home. Acute hypokalemia secondary to vomiting was treated with IV and PO replacement with good response. extra doses given prior to discharge. plan to repeat BMP test as outpatient. Seizure like activity that was wittnessed the night before admission while patient on Topiramate per PCP, levels pending. No recurrence of the seizure while inpatient. Kept on home medication of Topiramate with a plan to follow with outpatient neurology for further work up. Noticed to have evidence of iron defeciency anemia and started on iron replacement therapy. Old CT scan of abdomen from 2020 was concerning for possible thickening of the GE junction will likely need further evaluation with upper endoscopy as outpatient. referral to GI placed. To repeat CBC next week. I spoke with the patient significant other Isha as instructed by the patient and told her about the need to follow up with [facility] for follow up appointment as referral was placed. Discharge plan Advance diet as tolerated Zofran as needed for nausea keep yourself well hydrated Repeat blood tests next week The patient made quicker than expected recovery and will not need 2 overnight hospital stay. Time Attestation Discharge Coordination Time (in mins): 34 Quality: Safe Use of Opioids Does Pt have an Active Cancer Diagnosis on the Problem List?: No Quality: Stroke Does the patient have a stroke diagnosis?: No Physical Exam Vital Signs: Vital Signs: Last Vital Signs Temp 98.0 F 01/28/24 11:23 Pulse 96 01/28/24 11:23 Resp 18 01/28/24 11:23 BP 107/56 L 01/28/24 11:23 Pulse Ox 98 01/28/24 11:23 O2 Del Method Room Air 01/28/24 11:23 BMI result Body Mass Index 30.3 Const: Other: Constitutional : Awake, interactive, not in distress Neck : Normal inspection, Supple Cardiovascular : RRR, no JVP, no lower extremity edema Respiratory : good bilateral air entry, no crackles, wheezes or rhonchi Gastrointestinal: soft, lax, Normal bowel sounds, Non tender Skin : Warm, Dry Neurological : Alert & oriented x3, No focal deficit DS: Data Data Completed and Pending Labs on day of discharge: Laboratory Results - last 24 hr 01/27/24 01/27/24 01/28/24 15:19 15:26 06:09 Sodium 136 138 Potassium 2.7 L* D 3.0 L Chloride 98 102 Carbon Dioxide 27 29 Anion Gap 14 10 L BUN 16 14 Creatinine 1.15 1.21 Estim Creat Clear Calc 52.9 50.2 Estimated GFR 51 49 POC Glucose 90 Random Glucose 97 93 Calcium 8.5 D 8.5 Discharge Plan Discharge Anticipated Discharge Date/Time: 01/28/24 12:32 Patient Disposition: Home, Self-Care Discharge Diagnosis: Nausea and vomiting Referrals: Silvino Lopez MD [Physician] - 2 Weeks (MALINI with weight loss. CT concerning for EJ wall thickening. for upper endoscopy and further work up. ) Korina Gerard NP [Primary Care Provider] - 1 Week Discharge Medications: New ondansetron 4 mg tablet,disintegrating 4 mg PO Q8H PRN (Reason: nausea and vomiting) Qty: 20 0RF ferrous sulfate 325 mg (65 mg iron) tablet 325 mg PO DAILY Qty: 90 0RF omeprazole 20 mg capsule,delayed release(DR/EC) 20 mg PO DAILY Qty: 90 0RF Continued quetiapine 25 mg tablet 37.5 mg PO BEDTIME clonazepam 0.5 mg tablet 1 tab PO BID nortriptyline 10 mg capsule 3 cap PO BEDTIME montelukast 10 mg tablet 1 tab PO DAILY lurasidone [Latuda] 80 mg tablet 1 tab PO BEDTIME sertraline 100 mg tablet 100 mg PO DAILY topiramate 25 mg tablet 50 mg PO BID amlodipine 10 mg tablet 10 mg PO DAILY hydrochlorothiazide 25 mg tablet 25 mg PO DAILY testosterone cypionate 200 mg/mL oil 50 mg IM CORNELL dexlansoprazole 60 mg capsule,biphase delayed releas 60 mg PO DAILY docusate sodium 100 mg Capsule 200 mg PO DAILY Discharge Orders: Discharge Order (Routine); Ordered 01/28/24 Ordered By: Maribel Camp Diet: Advance to usual diet Activity on Discharge: As tolerated Stand Alone Forms: Patient Portal Discharge page, Work/School Release Print Language: Arabic Other Ambulatory Orders: Basic Metabolic Panel (Routine) Timeframe: 1 Day Facility: [facility] - Location: Laboratory Ordered By: Maribel Camp Complete Blood Count Auto Diff (Routine) Timeframe: 1 Week Facility: [facility] - Location: Laboratory Ordered By: Maribel Camp Care Plan Goals: Advance diet as tolerated Zofran as needed for nausea keep yourself well hydrated Repeat blood tests next week Health Concerns: Read below Plan of Treatment: Read below Assessment: Read below Discharge Date/Time: 01/28/24 13:00
[2024-01-28] MEDS: Potassium Chloride ER 20 MEQ TAB.ER.PRT PO (12:51)
--- NOTE | 2024-01-28 13:19 | MHC.CM.PN ---
Pt. has been medically cleared for DC, he will go home via his , DCP is self care.
--- NOTE | 2024-01-28 18:41 | P.CDIM_ITS ---
PROVIDER RESPONSE TEXT: To clarify, the appropriate diagnosis supported by the clinical indicators: Gastritis: chronic QUERY TEXT: PHYSICIAN'S DOCUMENTATION REQUEST Date of Query: 01/28/2024 10:06 AM EDT Patient Name: Chin VELAZQUEZ Admit Date: 01/27/2024 Dear Maribel Camp, A review of the medical record indicates additional documentation may be needed. Please review below and update the documentation accordingly. Clinical Indicators: H&P noted within the Plan: Intractable nausea and vomiting could be related to Gastritis. check urine tox Start Omeprazole IV fluids diet as tolerated. Clarify which of the following accurately represents the acuity of the documented Gastritis: Possible options might include: Gastritis Acute, chronic, viral, spastic or other Other (explain) Clinically unable to determine (explain) Thank you, Lauren Thornton, CCS, CDIS Use of terms such as suspected, likely, concern for, or probable (associated with a specific diagnosi s that is being evaluated, monitored, or treated as if it exists) are acceptable and can be coded in the inpatient se tting, when documented at the time of discharge. Please use your independent medical judgment in providing your response. THIS QUERY IS PART OF THE PERMANENT MEDICAL RECORD
[2024-01-30 04:34] LABS: Topiramate 10.3 mcg/mL (see note)
== END 2024-01-28 13:00 | disposition home or self-care (01) | DRG 641 ==
LOC: HO.ED 16:14 → HO.EDOVER 16:57 → HO.IMC 19:16
PROVIDERS: Physician Assistant; Admitting Provider Student in an Organized Health Care Education/Training Program; Emergency Provider Emergency Medicine; PCP Nurse Practitioner Family; Visit Provider Student in an Organized Health Care Education/Training Program
DX: E87.6 Hypokalemia (principal); E86.0 Dehydration; F64.0 Transsexualism; F31.9 Bipolar disorder, unspecified; K29.50 Unspecified chronic gastritis without bleeding; D50.9 Iron deficiency anemia, unspecified; F41.9 Anxiety disorder, unspecified; F17.210 Nicotine dependence, cigarettes, uncomplicated; Z71.6 Tobacco abuse counseling; G40.909 Epilepsy, unspecified, not intractable, without status epilepticus; Z20.822 Contact with and (suspected) exposure to COVID-19; Z79.899 Other long term (current) drug therapy
CPT/HCPCS: 0241U; 36415; 80048; 80076; 80201; 82947; 83690; 83735; 85025; 93005; 99285; J1650; J2405; J3480; J7120

== ENCOUNTER → 2024-01-27 09:24 | Outpatient (BNV) | payer MEDICARE, MEDICAID, SELFPAY | PROVIDERS: Emergency Provider Emergency Medicine; PCP Nurse Practitioner Family; Visit Provider Internal Medicine Cardiovascular Disease | DX: R94.31 Abnormal electrocardiogram [ECG] [EKG] (principal) | CPT/HCPCS: 93010 ==

== ENCOUNTER → 2024-01-27 16:55 | Outpatient (BNV) | payer MEDICARE, MEDICAID, SELFPAY | PROVIDERS: Admitting Provider Student in an Organized Health Care Education/Training Program; Emergency Provider Emergency Medicine; PCP Nurse Practitioner Family; Visit Provider Student in an Organized Health Care Education/Training Program | DX: E86.0 Dehydration (principal); E87.6 Hypokalemia; R56.9 Unspecified convulsions; R11.2 Nausea with vomiting, unspecified; D50.9 Iron deficiency anemia, unspecified | CPT/HCPCS: 99223; 99239 ==

== ENCOUNTER 2025-04-24 09:02 | Emergency (ER) | payer MEDICARE, MEDICAID, SELFPAY ==
--- NOTE | ~2025-04-24 | XR_ITS ---
CLINICAL HISTORY: rule out aspiration pna 1 view chest x-ray Comparison: None provided Findings: No consolidation or effusion. Heart size is normal. No acute fracture. IMPRESSION: 1. No acute findings. This document has been electronically signed by: Ariel Huffman MD on 04/24/2025 13:01:56
--- NOTE | ~2025-04-24 | CT_ITS ---
CLINICAL HISTORY: diffusely tender CT abdomen and pelvis with contrast Comparison: CT - CT ABDOMEN PELVIS W IV CON - 04/24/25 11:[address]/NV - CT ABDOMEN PELVIS WITH IV CONTRAST - 11/26/20 19:50 EDT Findings: There is a small hiatal hernia. The patient is status post cholecystectomy. The liver is otherwise unremarkable. There is interval development of a peripherally calcified versus enhancing 1.7 cm lesion in the spleen not definitely identified on the prior study. There is a small nonobstructing calculus in the midpole of the right kidney. The right kidney is otherwise unremarkable. There is a left renal cyst. The adrenal glands and pancreas are unremarkable. No bowel obstruction, pneumoperitoneum, or pneumatosis. There is mild inflammation /edema along the right anterior abdominal wall at the level of the umbilicus. Pelvic contents unremarkable. Normal appendix. No acute fracture. The rest of the GI tract demonstrates no significant abnormalities. There is no fluid collection or significant skin thickening. IMPRESSION: 1. Likely benign peripherally calcified or enhancing lesion in the spleen. Please evaluate further with a dedicated MRI or obtain a follow-up CT scan in 6 months. 2. Small hiatal hernia. 3. Nonobstructing calculus midpole right kidney. 4. Left renal cyst. 5. There is mild inflammation /edema along the right anterior abdominal wall at the level of the umbilicus. This document has been electronically signed by: Ariel Huffman MD on 04/24/2025 13:18:17
[2025-04-24 09:04] VITALS: BP 122/70; PULSE 112; RESP 18; TEMP 36.6; O2SAT 96; BMI 32.0
[2025-04-24 09:29] LABS: MANUAL DIFF FLAG NO
[2025-04-24 09:31] LABS: Hematocrit 47.9 % (37.0-47.0); Hemoglobin 16.0 g/dl (12.0-16.0); Imm Gran Abs Auto 0.03 X10*3/uL (0.00-0.03); Imm Gran Pct Auto 0.4 % (0.0-0.4); Lymphocytes Absolute Auto 2.9 X10*3/uL (1.2-4.9); Mean Corpuscular HGB Conc 33.4 g/dl (31.0-35.0); Mean Corpuscular Hemoglobin 26.8 pg (27.0-33.0); Mean Corpuscular Volume 80.1 fL (80.0-98.0); NRBC Abs Auto 0.000 X10*3/uL (0.0-0.012); NRBC Pct Auto 0.0 /100WBC (0.0-0.2); Platelet Count 364 X10*3/uL (160-400); Red Blood Count 5.98 X10*6/uL (4.20-5.50); White Blood Count 7.6 X10*3/uL (4.8-10.8)
--- OUTSIDE RECORDS SUMMARY | 2025-04-24 09:41 | XMS_ITS | Clinical Summary ---
Author Organization [facility] Address [address] [place] [id number] Phone Care Team Providers Care Demonstrator Sales Name Role Phone Pcp, Unknown Primary Care Provider Unavailabl e Allergies Active Allergy Reactions Criticality Noted Date Comments Amoxicillin Hives 10/22/2024 Doxycycline 10/22/2024 Erythromycin Rash Low 10/22/2024 Latex Rash Low 10/22/2024 Naproxen GI Upset 10/22/2024 Penicillin Rash Low 10/22/2024 Propoxyphene N-Acetaminophen Itching,Headaches 10/22/2024 Pseudoephedrine Hives,Itching,Rash Low 10/22/2024 Raspberry 10/22/2024 Sulbactam And Other Inhibito r Analogues 10/22/2024 Venlafaxine 10/22/2024 Watermelon Hives 10/22/2024 Medications amLODIPine (NORVASC) 10 MG tablet Take 1 tablet by mouth daily. 5 Active budesonide-form oterol 80-4.5 mcg/actuation inhaler Inhale 2 puffs into the lungs 2 (two) times a day. 5 Active clonazePAM (KLONOPIN) 1 MG tablet Take 1 mg by mouth 2 (two) times a day. 5 Active DEXILANT 60 mg capsule Take 60 mg by mouth daily. 4 Active docusate sodium (COLACE) 100 MG capsule Take 100 mg by mouth every morning. Active famotidine (PEPCID) 40 MG tablet Take 40 mg by mouth nightly at bedtime. Active hydroCHLOROthia zide 25 MG tablet Take 25 mg by mouth daily. 4 Active loratadine (CLARITIN) 10 mg tablet Take 10 mg by mouth daily. 4 Active lurasidone (LATUDA) 80 mg tablet Take 80 mg by mouth nightly at bedtime. Active mirtazapine (REMERON) 7.5 MG tablet Take 15 mg by mouth nightly at bedtime. 4 Active montelukast (SINGULAIR) 10 mg tablet Take 10 mg by mouth every morning. 5 Active QUEtiapine (SEROQUEL) 100 MG tablet Take 100 mg by mouth nightly at bedtime. Active sertraline (ZOLOFT) 100 MG tablet Take 100 mg by mouth daily. Active testosterone cypionate (DEPO-TESTOTERO NE) 200 mg/mL injection Inject 200 mg into the muscle every 7 days. 5 Active topiramate (TOPAMAX) 50 MG tablet Take 50 mg by mouth 2 (two) times a day. 5 Active moxifloxacin (VIGAMOX) 0.5 % ophthalmic solution Place 1 drop into the right eye 4 (four) times a day. Start 1 day before procedure on 11/16/24 3 mL 1 5 Active oxyCODONE-aceta minophen (PERCOCET) 5-325 mg per tablet Take 1 tablet by mouth every 4 (four) hours as needed for pain (specific location in comments). Partial fill upon patient request 5 tablet 5 Active Active Problems Problem Noted Date Diagnosed Date Anxiety 10/22/2024 Allergic rhinitis 10/22/2024 Bipolar disorder 10/22/2024 Arachnoid cyst 10/22/2024 Overview (10/22/2024): followed by neurology MRI brain was perfomed showing right posterior fossa arachnoid cyst with no concerning of feature of rapid expansion. MRI T&LSpine essentially normal. Chronic constipation 10/22/2024 Class 1 obesity 10/22/2024 Conduction disorder of the heart 10/22/2024 Depression 10/22/2024 Gastroesophageal reflux disease 10/22/2024 Overview (10/22/2024): followed by GI Moderate persistent asthma 10/22/2024 Migraines 10/22/2024 Hypertension 10/22/2024 High blood pressure 10/22/2024 PTSD (post-traumatic stress disorder) 10/22/2024 Nicotine dependence 10/22/2024 Obstructive sleep apnea syndrome 10/22/2024 Complex sleep apnea syndrome 10/22/2024 Asthma 10/22/2024 Seizure-like activity 10/22/2024 Comorbid sleep-related hypoventilation Family History Medical History Relation Comments Glaucoma Father Glaucoma Mother Cataracts Neg Hx Macular degeneration Neg Hx Retinal degeneration Neg Hx Retinal detachment Neg Hx Relation Status Comments Father Mother Social History Tobacco Use Types Packs/Day Years Used Date Smoking Tobacco: Former Cigarettes Passive Smoke Exposure: Past Smokeless Tobacco: Never Tobacco Cessation:Counseling Given: Not Answered Alcohol Use Standard Drinks/Week Comments Yes 0 (1 standard drink = 0.6 oz pur e alcohol) rare Education Answer Date Recorded Are you interested in more education? Not on zachary e 11/29/2022 Are you concerned about learning? Not on file 11/29/2022 No 11/29/2022 No 11/29/2022 Digital Access Answer Date Recorded No 12/17/2022 No 12/17/2022 Reliable internet access at home? Not on file 12/17/2022 Device with a working camera? Not on file Comments Unknown Sex and Gender Information Value Date Recorded Sex Assigned at Not on file Legal Sex Female 11:37 AM EDT Gender Identity Transgender Male 09/02/2024 9:09 AM EST Sexual Orientation Not on file Plan of Treatment Health Maintenance Due Date Last Done Comments Adult Td,Tdap Booster 1980 BLOOD PRESSURE 1980 POTASSIUM LEVEL 1980 DEPRESSION SCREENING 1992 SMOKING Hx and SMOKELESS TOB ACCO SCREENING 1993 HEPATITIS C SCREENING 1998 HIV ONE-TIME SCREENING (18-6 5 YEARS) 1998 PNEUMOCOCCAL VACCINES (0-49 years) (1 of 2 - PCV) 1999 PAP SMEAR 2001 MAMMOGRAM 2020 INFLUENZA VACCINE (#1) 2025 COVID-19 VACCINE (1 - 2024-2 6 season) 2025 HEPATITIS A VACCINES Aged Out No long er eligible based on patient's age to complete this topic HIB VACCINES Aged Out No longer eligi ble based on patient's age to complete this topic MENINGOCOCCAL VACCINES (ACWY) Aged Out No longer eligible based on patient's age to complete this topic MENINGOCOCCAL VACCINES (B) Aged Out N o longer eligible based on patient's age to complete this topic Medical Devices Not on file Insurance #[address] [place] [address] MEDICARE PART A & B [facility] Care Teams Demonstrator Sales Relationship Specialty Start Date End Date Pcp, Unknown PCP - General 11/16/24 Additional Source Comments The information contained in this document represents components of the legal health record. It is not the complete legal health record.[facility]
[2025-04-24 10:04] LABS: Alanine Aminotransferase 80 U/L (0-31); Albumin Level 4.6 g/dL (3.5-5.0); Alkaline Phosphatase 45 U/L (39-117); Anion Gap 15 (12-20); Aspartate Amino Transferase 42 U/L (5-31); Blood Urea Nitrogen 19 mg/dL (9-16); Calcium 9.5 mg/dL (8.4-10.2); Carbon Dioxide 24 mmol/L (22-29); Chloride 101 mmol/L (96-108); Creatinine Clr Calc Pharmacy 47.9; Estimated Glomerular Filt Rate 45; Potassium 2.3 mmol/L (3.3-5.1); Sodium 138 mmol/L (135-145); Total Protein 8.1 g/dL (6.5-8.0)
--- NOTE | 2025-04-24 10:04 | ED.NAVMDI ---
HPI - Nausea/Vomiting/Diarrhea General Chief complaint: Nausea/Vomiting/Diarrhea Stated complaint: nausea, vomiting Time Seen by Provider: 04/24/25 09:32 Source: patient Mode of arrival: ambulatory Limitations: no limitations History of Present Illness ED Provider: Yadi Mason PA-C HPI Narrative: patient seeks medical attention today for evaluation of GI symptoms. For about 1 week now patient is reporting that any time that they tried to eat something and incidentally makes him feel nauseous in the vomit. They report feeling hungry but consistently is not able to tolerate it. they have not noticed any blood in there vomit they had 1 episode of diarrhea 4 days ago they can not recall if they have had a bowel movement since that time. Reporting diffuse abdominal tenderness especially in the left upper quadrant. Reports a history of gastritis in the past a few years ago. Patient denies any NSAID use in their 90 days sober tomorrow. Denying any significant marijuana use either only uses it socially and can not recall the last time they did smoke. Patient does use a vape pen. There denying feeling short of breath they have no fevers no chills no night sweats denying any nasal congestion or sore throat or cough. Are continuing to feel nauseous no headaches or dizziness weakness body aches joint pain or rashes. Voiding few times a day. Last meal was last night they attempted to have chicken tenders and fries at 6 sites right fist a vomited at least 3 times after eating. when I explained to patient that there potassium low they reported it is always low . Related Data Home Medications ?Medication ?Instructions ?Recorded ?Confirmed lurasidone 80 mg tablet (Latuda) 80 mg PO BEDTIME 11/26/20 04/26/25 montelukast 10 mg tablet 10 mg PO BEDTIME 11/26/20 04/26/25 amlodipine 10 mg tablet 10 mg PO DAILY 01/27/24 04/26/25 dexlansoprazole 60 mg 60 mg PO DAILY@0630 01/27/24 04/26/25 capsule,biphase delayed release docusate sodium 100 mg capsule 200 mg PO DAILY 01/27/24 04/26/25 hydrochlorothiazide 25 mg tablet 25 mg PO DAILY 01/27/24 04/26/25 sertraline 100 mg tablet 100 mg PO DAILY 01/27/24 04/26/25 testosterone cypionate 200 mg/mL 50 mg IM TH 01/27/24 04/26/25 intramuscular oil cholecalciferol (vitamin D3) 25 25 mcg PO DAILY 04/26/25 04/26/25 mcg (1,000 unit) tablet (Vitamin D3) clonazepam 1 mg tablet 0.5 mg PO TID PRN anxiety 04/26/25 04/26/25 clonazepam 1 mg tablet 1 mg PO BEDTIME anxiety 04/26/25 04/26/25 famotidine 40 mg tablet 40 mg PO DAILY 04/26/25 04/26/25 melatonin 10 mg tablet 10 mg PO BEDTIME PRN Insomnia 04/26/25 04/26/25 mirtazapine 7.5 mg tablet 7.5 mg PO BEDTIME 04/26/25 04/26/25 quetiapine 100 mg tablet 200 mg PO BEDTIME PRN insomnia 04/26/25 04/26/25 topiramate 50 mg tablet 50 mg PO BID 04/26/25 04/26/25 Previous Rx's ?Medication ?Instructions ?Recorded ondansetron 4 mg disintegrating 4 mg PO Q8H PRN nausea and 04/24/25 tablet vomiting #9 tabs dicyclomine 20 mg tablet 20 mg PO TID #10 tabs 04/25/25 levofloxacin 500 mg tablet 500 mg PO DAILY 5 days #5 tabs 04/25/25 Allergies Allergy/AdvReac Type Severity Reaction Status Date / Time acetaminophen (From VICODIN) Allergy Intermediate ITCHING Verified 04/24/25 09:06 amoxicillin (AMOXICILLIN) Allergy Intermediate ITCHING Verified 04/24/25 09:06 hydrocodone (From VICODIN) Allergy Intermediate ITCHING Verified 04/24/25 09:06 oxycodone (From PERCOCET) Allergy Intermediate ITCHING Verified 04/24/25 09:06 propoxyphene (From Allergy Intermediate HEADACHES Verified 04/24/25 09:06 DARVOCET-N) Penicillins Allergy Hives Verified 04/25/25 16:18 pseudoephedrine Allergy Hives Verified 04/25/25 16:18 honey (HONEY) AdvReac Intermediate HEADACHES Verified 04/24/25 09:06 [facility] Past Medical History Medical History (Updated 05/02/25 @ 13:41 by Wing Landeros MD) Sleep apnea Liver mass Borderline personality disorder Bipolar 1 disorder PTSD (post-traumatic stress disorder) Depression GERD (gastroesophageal reflux disease) Asthma Gastritis Social History Social History Household Members: Spouse Housing: Apartment Are you a primary health careers instructor to a significant other at home: No Do you presently have visiting nurse or other home services: No Alcohol intake: former Patient Tobacco Use Status: Current everyday Tobacco user Tobacco use type: Cigarette e-Cigarette/Vaping Use: Former Use Second Hand Smoke Exposure: No Substance Use Type: Marijuana service: No Current occupational status: disabled Physical Exam Exam: Exam: General: Appears in no acute distress, appears well-nourished body habitus is obese, appears stated age. No septic or ill-appearing. Vitals were reviewed normal, and PMH/Social and Surgical hx was reviewed, including allergies and current medications. - reviewed for prior visits here Head: Normocephalic, no abnormal lesions noted. Eyes: EOMI. ENMT: moist oral mucosa, no edematous nasal turbinates, erythema, or purulent d/c noted. No erythema, normal appearance, and intact tympanic membrane. Hearing intact. No mastoid tenderness b/l. Normal posterior pharynx and structures. Uvula is midline no trismus. Neck: trachea midline, no lymphadenopathy. No nuchal rigidity. Cardiovascular: Peripheral perfusion is normal; S1 and S2 are present, and no M/R/G is present. RRR Respiratory: no respiratory distress, lungs clear to auscultation b/l, respirations full and symmetric. No flail chest, chest wall tenderness, or crepitus was noted. Speaking in full smooth sentences. Abdomen: non-distended, [nontender] Extremities: Warm and appear well perfused. Moving extremities without difficulty. Psych: Cooperative, calm. Neuro: Alert and orientated. No obvious focal deficits. Vital Signs: Vital Signs: Last Vital Signs Temp 98.0 F 04/24/25 16: Pulse 78 04/24/25 16: Resp 16 04/24/25 16: BP 99/55 L 04/24/25 16:26 Pulse Ox 98 04/24/25 16:26 O2 Del Method Room Air 04/24/25 16:26 BMI result Body Mass Index 32.0 Medications Administered Discontinued Medications Generic Name Dose Route Start Last Admin Trade Name Freq PRN Reason Stop Dose Admin Al Hydroxide/Mg Hydroxide 15 ml 04/24/25 13:42 04/24/25 13:52 Magnesium Hydrox/Alum Hydrox 30 Ml Oral.Susp PO 04/24/25 13:43 15 ml ONCE ONE Administration Sodium Chloride 1,000 mls @ 999 mls/hr 04/24/25 10:05 04/24/25 13:24 Ns IV 04/24/25 11:05 Infused .Q1H1M ONE Infusion Potassium Chloride 10 meq in 100 mls @ 100 mls/hr 04/24/25 10:15 04/24/25 16:13 Potassium Chloride/H20 IV 04/24/25 14:14 Infused Q1H RAINA Infusion Iohexol 100 ml 04/24/25 11:34 04/24/25 11:35 Iohexol 350 Mg/Ml 100 Ml Infus..Btl IV 04/24/25 11:35 85 ml ONCE ONE Administration Lidocaine HCl 15 ml 04/24/25 13:42 04/24/25 13:52 Lidocaine Hcl Viscous 2 % 15 Ml Solution MUCOUS MEM 04/24/25 13:43 15 ml ONCE ONE Administration Ondansetron HCl 4 mg 04/24/25 10:05 04/24/25 11:26 Ondansetron Hcl 4 Mg/2 Ml Vial IVPUSH 04/24/25 10:06 4 mg ONCE ONE Administration Medical Decision Making Medical Decision Making MDM Narrative: 44-year-old transgender male here today for evaluation of GI symptoms. patient presenting with left upper quadrant epigastric pain for the past week with nausea and vomiting. On physical exam diffusely tender abdomen mainly in the upper quadrants negative Corrigan's sign gallbladder is surgically absent. Patient does not appear to be septic or toxic. They had a rapid medical exam in triage with abdominal labs ordered. Given the diffuse tenderness a CT of the abdomen and pelvis was ordered or clinically suspicious for gastritis given there past medical history of this as well as it is seeing most consistent with food aggravation. On labs there is no evidence of leukocytosis or significant metabolic derangement or hepatobiliary disease lipase is normal. No pancreatitis. Patient does have a slightly low potassium at 2.3 this will be replenished via IV. Patient has a longstanding history this we will discuss potassium rich foods with the patient. EKG demonstrating normal sinus rhythm with no significant changes when compared to EKG on 01/27/2024. Nonspecific T-wave changes troponin is negative ACS can be ruled out. No pleuritic chest pain. patient is reporting only went out of 10 pain we will defer any significant pain management at this time. We will administer a GI cocktail. CT scan obtain no obstructive or intra-abdominal acute pathology to warrant a surgical consult or further workup at this time. IMPRESSION: 1. Likely benign peripherally calcified or enhancing lesion in the spleen. Please evaluate further with a dedicated MRI or obtain a follow-up CT scan in 6 months. 2. Small hiatal hernia. 3. Nonobstructing calculus midpole right kidney. 4. Left renal cyst. 5. There is mild inflammation /edema along the right anterior abdominal wall at the level of the umbilicus. patient does not have any tenderness of the umbilicus hernia strangulation incarceration not suspected. Overall presentation is felt to be gastritis we will recommend outpatient follow up with Gastroenterology and it give prescription for omeprazole and sucralfate in the interim as well as recommending dietary modifications. Patient is able tolerate p.o. fluids clinically feeling well and able to keep down. your return precautions discussed patient demonstrated verbal understanding of the plan and agreed he was discharged home stable with GI follow up recommended. Differential Diagnosis Differential Diagnoses: The differential diagnosis associated with the presentation includes See MDM, discussed Admission/Observation Consideration of admission/observation: Escalation of care including admission/observation considered Lab Data MDM Lab Attestation statement: I reviewed the patient's lab results. 04/24/25 09:25 04/24/25 09:25 Labs: Lab Results 04/24/25 04/24/25 Range/Units 09:25 13:14 WBC 7.6 (4.8-10.8) X10*3/uL RBC 5.98 H (4.20-5.50) X10*6/uL Hgb 16.0 D (12.0-16.0) g/dl Hct 47.9 H D (37.0-47.0) % MCV 80.1 (80.0-98.0) fL MCH 26.8 L (27.0-33.0) pg MCHC 33.4 (31.0-35.0) g/dl RDW 17.2 H (11.0-16.0) % Plt Count 364 D (160-400) X10*3/uL MPV 9.1 L (9.4-12.3) fL Immature Gran % (Auto) 0.4 (0.0-0.4) % Neut % (Auto) 48.1 (45-73) % Lymph % (Auto) 38.3 (20-40) % [place] % (Auto) 11.1 H (2-11) % Eos % (Auto) 1.4 (0-4) % Baso % (Auto) 0.7 (0-2) % Lymph # (Auto) 2.9 (1.2-4.9) X10*3/uL [place] # (Auto) 0.8 (0.1-1.2) X10*3/uL Eos # (Auto) 0.1 (0.0-0.4) X10*3/uL Baso # (Auto) 0.1 (0.0-0.2) X10*3/uL Abs Immat Gran (auto) 0.03 (0.00-0.03) X10*3/uL Absolute Neuts (auto) 3.7 (2.0-8.3) x10*3/uL Absolute Nucleated RBC 0.000 (0.0-0.012) X10*3/uL Nucleated RBC % (auto) 0.0 (0.0-0.2) /100WBC Sodium 138 (135-145) mmol/L Potassium 2.3 L* D (3.3-5.1) mmol/L Chloride 101 (96-108) mmol/L Carbon Dioxide 24 (22-29) mmol/L Anion Gap 15 (12-20) BUN 19 H (9-16) mg/dL Creatinine 1.29 (0.5-1.4) mg/dL Estim Creat Clear Calc 47.9 Estimated GFR 45 Random Glucose 98 (60-115) mg/dL Calcium 9.5 D (8.4-10.2) mg/dL Magnesium 2.5 (1.6-2.6) mg/dL Total Bilirubin 0.4 (0.0-1.0) mg/dL AST 42 H (5-31) U/L ALT 80 H (0-31) U/L Alkaline Phosphatase 45 (39-117) U/L Total Protein 8.1 H (6.5-8.0) g/dL Albumin 4.6 (3.5-5.0) g/dL Lipase 23 (8-78) U/L Urine Color Yellow Urine Appearance Clear Urine pH 6.5 (5.0-9.0) Ur Specific [place] >= 1.030 H (1.005-1.025) Urine Protein Negative (Neg-Trace) mg/dL Urine Glucose (UA) Negative (Negative) mg/dL Urine Ketones 15 (Negative) mg/dL Urine Blood Negative (Negative) Urine Nitrite Negative (Negative) Ur Leukocyte Esterase Small (1+) H (Negative) Urine RBC 0-2 (0-2) /HPF Urine WBC 11-20 (0-5) /HPF Ur Squamous Epith Cells 3-5 (0-2) /HPF Urine Bacteria None Seen (None Seen) Hyaline Casts 0-2 (0-2) /LPF Independent Interpretation I performed an independent interpretation of an: EKG, Plain X-Ray and CT Scan Interpretation: No abnormal findings of chest xray. CT without evidence of diverticulitis or SBO., EKG without STEMI or obvious malignant arrhythmia. Radiology Impression Discussion of test interpretation with radiology: I have reviewed the radiologist's reading. External Record Review External record reviewed: Primary care record Prescription Management I considered prescription management with: Pain Medication and Antibiotic Chronic Conditions Patient?s care impacted by: Other Social Determinants Patient?s care significantly limited by Social Determinants of Health including: Other Social Determinant of Health Critical Care Time Critical Care Time Critical Care Time: Yes Total Critical Care Time: 40 Attestation: This patient required critical care. Due to the fact that the patient required a significant amount of one on one physician ? patient contact time, ordering and review of studies, arranging urgent treatment with development of a management plan, evaluation of patient?s response to treatment with frequent reassessments, and discussions with other providers this patient required critical care time in excess of 30 minutes. Critical care time was indicated due to the inherent instability and/or potential for instability in this patient. The critical care time that is allocated to this patient is above and beyond any time spent on any other billable procedures performed on this patient. Discharge Plan Discharge Clinical Impression: Acute gastritis, Acute hypokalemia, Nausea and vomiting Patient Disposition: Home, Self-Care Instructions: Gastritis (ED), Potassium Content of Foods List (ED), Hypokalemia (ED) Additional Instructions: you were seen in the emergency department today for abdominal pain with nausea and vomiting. You had a CT scan that showed no acute infectious etiology. You do have a small hiatal hernia as well as the presentation most consistent with acute gastritis. Your potassium was mildly low while here we replenish this handout for additional foods that contain this. -Take your dexlansoprazole daily for reduction of acid. You have also been prescribed sucralfate. Take 4 times a day for 28 days. -AVOID alcohol, spicy foods, Motrin/Aleve medications, and eating past 8:00 at night. Uses Zofran if needed for nausea -You may take antacids such as Maalox or Tums for acute symptoms but realize that these medications will not prevent your symptoms. -Remain upright for at least 45 minutes following meals. -Follow-up with your primary care doctor and gastroenterology. -Return to ED if you develop fever, chills, increased pain, vomiting. Other things to do to prevent symptoms: -Lose weight (if you are overweight) -Raise the head of your bed by 6 to 8 inches (for example, by putting blocks of wood or rubber under 2 legs of the bed or a Styrofoam wedge under the mattress) -Avoid foods that make your symptoms worse (examples include coffee, chocolate, alcohol, peppermint, and fatty foods) -Cut down on the amount of alcohol you drink -Stop smoking, if you smoke -Eat a bunch of small meals each day, rather than 2 or 3 big meals -Avoid lying down for 3 hours after a meal Prescriptions: New ondansetron 4 mg tablet,disintegrating 4 mg PO Q8H PRN (Reason: nausea and vomiting) Qty: 9 0RF No Action montelukast 10 mg tablet 10 mg PO BEDTIME lurasidone [Latuda] 80 mg tablet 80 mg PO BEDTIME sertraline 100 mg tablet 100 mg PO DAILY amlodipine 10 mg tablet 10 mg PO DAILY hydrochlorothiazide 25 mg tablet 25 mg PO DAILY testosterone cypionate 200 mg/mL oil 50 mg IM TH dexlansoprazole 60 mg capsule,biphase delayed releas 60 mg PO DAILY@0630 docusate sodium 100 mg Capsule 200 mg PO DAILY dicyclomine 20 mg tablet 20 mg PO TID Qty: 10 0RF levofloxacin 500 mg tablet 500 mg PO DAILY 5 Days Qty: 5 0RF famotidine 40 mg tablet 40 mg PO DAILY clonazepam 1 mg tablet 0.5 mg PO TID PRN (Reason: anxiety) quetiapine 100 mg tablet 200 mg PO BEDTIME PRN (Reason: insomnia) Patient Comments: pt reports he takes 2 for sleep topiramate 50 mg tablet 50 mg PO BID mirtazapine 7.5 mg tablet 7.5 mg PO BEDTIME clonazepam 1 mg tablet 1 mg PO BEDTIME cholecalciferol (vitamin D3) [Vitamin D3] 25 mcg (1,000 unit) Tablet 25 mcg PO DAILY melatonin 10 mg Tablet 10 mg PO BEDTIME PRN (Reason: Insomnia) Referrals: [facility] [Provider Group, Gastroenterology] Referral Note: gastritis f/u Interventions: ED Discharge Assessment Last Done: 04/24/25 16:26 Discharge Date/Time: 04/24/25 16:27 Print Language: Citizen Of [place]
--- NOTE | 2025-04-24 10:05 | ECG_ITS ---
Test Reason : check qtc Blood Pressure : */* mmHG Vent. Rate : 91 BPM Atrial Rate : 91 BPM P-R Int : 156 ms QRS Dur : 84 ms QT Int : 364 ms P-R-T Axes : 51 50 15 degrees QTcB Int : 447 ms Normal sinus rhythm T wave abnormality, consider anterior ischemia Abnormal ECG When compared with ECG of 27-Jan-2024 15:14, Criteria for Septal infarct are no longer Present Nonspecific T wave abnormality has replaced inverted T waves in Lateral leads Referred By: Yadi Mason Electronically Signed By: KAT VALLE MD
[2025-04-24 10:27] LABS: Lipase 23 U/L (8-78); Magnesium 2.5 mg/dL (1.6-2.6)
[2025-04-24] MEDS: Potassium Chloride/H20 10 MEQ/100 ML PIGGYBACK 100 MEQ IV ×4 (11:26→15:03)
[2025-04-24] MEDS: iohexoL 350 MG/ML 100 ML INFUS..BTL IV (11:35)
[2025-04-24 12:16] VITALS: BP 96/64; PULSE 70; RESP 18; O2SAT 97
[2025-04-24 13:28] LABS: Appearance Urine Clear; Glucose Urine UA Negative (Negative); PH 6.5 (5.0-9.0); Specific Gravity - Urine >= 1.030 (1.005-1.025); UMIC TRIGGER UACC YES
[2025-04-24 13:47] LABS: UACC Culture Trigger YES
[2025-04-24] MEDS: Magnesium Hydrox/Alum Hydrox 30 ML ORAL.SUSP 15 ML PO (13:52)
[2025-04-24] MEDS: Lidocaine HCl Viscous 2 % 15 ML SOLUTION MUCOUS MEM (13:52)
[2025-04-24 14:01] VITALS: BP 114/60; PULSE 68; RESP 16; TEMP 36.4; O2SAT 97
[2025-04-24 16:05] VITALS: BP 99/55; PULSE 78; RESP 16; O2SAT 98
[2025-04-24 16:26] VITALS: BP 99/55; PULSE 78; RESP 16; TEMP 36.7; O2SAT 98
== END 2025-04-24 16:27 | disposition home or self-care (01) ==
PROVIDERS: Physician Assistant Medical; Emergency Provider Emergency Medicine; PCP Nurse Practitioner Family
DX: K29.00 Acute gastritis without bleeding (principal); E87.6 Hypokalemia; R11.2 Nausea with vomiting, unspecified; E66.9 Obesity, unspecified; Z68.32 Body mass index [BMI] 32.0-32.9, adult; Z72.0 Tobacco use; F64.0 Transsexualism; Z79.899 Other long term (current) drug therapy
CPT/HCPCS: 36415; 71045; 74177; 80053; 81001; 83690; 83735; 85025; 87086; 93005; 96361; 96365; 96366; 96375; 99285; J2405; J3480; Q9967

== ENCOUNTER → 2025-04-24 10:05 | Outpatient (BNV) | payer MEDICARE, MEDICAID, SELFPAY | PROVIDERS: Emergency Provider Emergency Medicine; PCP Nurse Practitioner Family; Visit Provider Internal Medicine Cardiovascular Disease | DX: R94.31 Abnormal electrocardiogram [ECG] [EKG] (principal); Z13.6 Encounter for screening for cardiovascular disorders | CPT/HCPCS: 93010 ==

== ENCOUNTER 2025-04-25 15:00 | Inpatient (IN) | payer MEDICARE, MEDICAID, SELFPAY ==
--- NOTE | ~2025-04-25 | CT_ITS ---
EXAMINATION: CT HEAD WITHOUT CONTRAST CLINICAL INFORMATION: Nausea and vomiting COMPARISON: None available. TECHNIQUE: Contiguous axial imaging was performed from the skull base to vertex without intravenous administration of contrast. This CT examination was performed using dose optimization techniques as appropriate, variously including the following: *Automated exposure control *Adjustment of mA and/or kV according to patient size (this includes techniques or standardized protocols for targeted exams where dose is matched to indication/reason for exam; i.e. extremities or head) *Use of iterative reconstruction technique FINDINGS: There is no acute ischemic change. There is no intracranial hemorrhage. There is mass effect from a CSF density located posterior to the right cerebellum consistent with an arachnoid cyst. It measures 14 mm anterior-posterior and 42 mm transversely. Basal cisterns and ventricles are within normal limits for age/cerebral volume. Orbits are symmetrical and unremarkable. Paranasal sinuses and mastoid air cells are pneumatized. There are no bony abnormalities. CT/CT head/brain wo IV con IMPRESSION: No acute intracranial abnormality. 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 Electronically signed by: Chucky Balderrama MD 04/27/2025 10:50 AM EDT
--- NOTE | ~2025-04-25 | US_ITS ---
CLINICAL HISTORY: r o sma syndrome ,celiac access compression-MALS US abdomen limited Comparison: CT/REG/SR - CT ABDOMEN PELVIS W IV CON - 04/24/25 11:29 EDT Findings: Aorta: Proximal SMA 96.5 cm/sec Distal to SMA 116 cm/sec Celiac artery: Inspiration supine 156 cm/sec Expiration supine 133 cm/sec Inspiration erect: 271 cm/sec Expiration erect: 181 cm/sec SMA: Proximal 160 cm/sec Mid: 124 cm/sec Distal: 42.4 cm/sec CANELO: C1-2 5.1 cm/sec Splenic artery: 102 cm/sec Hepatic artery: 111 cm/sec (celiac artery for celiac artery compression: In velocities normalized with sitting/standing, thin arcuate ligament compression present.) No ascites. 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 This document has been electronically signed by: Tomas Lopez MD on 05/05/2025 18:48:53
--- NOTE | ~2025-04-25 | XR_ITS ---
EXAMINATION: XR ABDOMEN KUB CLINICAL INDICATION: abdo pain, constipation check for constipation COMPARISON: Correlated to CT dated April 24, 2025. TECHNIQUE: AP view of the abdomen. FINDINGS: Patient's large body habitus large volume of intraperitoneal fat. The intestine is nondistended. There is no air-fluid levels. There is gas throughout intestine. Sutures in the right upper quadrant abdomen likely prior cholecystectomy. Mild multilevel lumbar spondylosis. XR/XR KUB IMPRESSION: Large volume of intraperitoneal fat. Please refer to CT. No intestinal obstruction pattern. Electronically signed by: Mingo Mcdermott MD 05/06/2025 07:08 AM EDT
--- NOTE | ~2025-04-25 | XR_ITS ---
EXAMINATION: XR CHEST CLINICAL INFORMATION: Chest pain COMPARISON: 04/24/2025 TECHNIQUE: Frontal view of the chest was obtained. FINDINGS: No significant abnormality is noted involving the heart, lungs, mediastinum, bony thorax or soft tissues. XR/XR chest 1V IMPRESSION: No acute disease Electronically signed by: Chucky Balderrama MD 04/25/2025 05:15 PM EDT RP
--- NOTE | ~2025-04-25 | CT_ITS ---
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 3D Postprocessing Comparison: US - US SMA - 05/05/25 17:[address]/REG/SR - CT ABDOMEN PELVIS W IV CON - 04/24/25 11:29 EDT Findings: The heart is normal size. Hiatal hernia. The lungs are clear. Prior cholecystectomy. The liver and spleen are homogeneous in attenuation. Splenic calcified rim low-attenuation center lesion, 1.8 x 1.9 cm. The left and right kidney demonstrate symmetric corticomedullary enhancement. Right interpolar region cortical low-attenuation lesion, 1.9 cm; renal cysts. No bowel obstruction, pneumoperitoneum, or pneumatosis. The pancreas is homogeneous in attenuation. The appendix is within normal limits. The uterus is within normal limits. No acute fractures. Right lower quadrant subcutaneous emphysematous changes; iatrogenic from prior subcutaneous injection. There is no acute angulation with indentation upon the superior aspect of celiac axis, sagittal image number [id number]. This scan was performed during inhalation. IMPRESSION: 1. Hiatal hernia. 2. Splenic calcified rim low-attenuation lesion, 1.9 cm. 3. Right renal cortical low-attenuation lesion, 1.9 cm; renal cysts. 4. Right lower quadrant subcutaneous emphysema, likely iatrogenic from recent subcutaneous injection. 5. No acute angulation with indentation upon the superior aspect of celiac axis to suggest median arcuate ligament syndrome. This document has been electronically signed by: Tomas Lopez MD on 05/05/2025 22:47:55
--- NOTE | ~2025-04-25 | FL_ITS ---
EXAMINATION: XR UPPER GI SERIES WITH SMALL BOWEL CLINICAL INFORMATION: Abdominal pain. Hiatal hernia incarceration. COMPARISON: CT abdomen and pelvis 05/05/2025. TECHNIQUE: Routine upper GI air contrast study followed by small bowel follow-through was performed. FINDINGS: On initial used car lot attendant imaging the bowel gas pattern is nonspecific. Following oral administration of thick barium and effervescent granules is normal propagation bolus from the oral cavity through the pharynx, esophagus into stomach without any evidence of obstruction, narrowing or stricture. No intraluminal filling defect or extrinsic compression seen. No laryngeal penetration and aspiration. On placing patient supine and prone lying the course, caliber and peristalsis of the stomach, duodenal bulb and the sweep is normal. There is a moderate size sliding hiatal hernia with mild gastroesophageal reflux. This is seen on several images. The mucosal pattern of the stomach, duodenal bulb and this CT is normal. The course, caliber and peristalsis of this stomach is normal except for moderate size hiatal hernia. No mucosal erosions or ulcerations seen. On sequential images obtained over the abdomen reveals a small bowel transit time of 120 minutes. The course, caliber and peristalsis small bowel loops are normal. On spot images IC junction is nondistended with visualized.. Appendix is not seen. FLUOROSCOPY TIME: 2 minutes and 16 seconds DOSE AREA PRODUCT: 2699 uGy-m2 (microgray-meter squared) FL/FL upper GI w air w SBFT IMPRESSION: Moderate size hiatal hernia with mild gastroesophageal reflux. Slightly delayed small bowel transit time of 120 minutes. The small bowel follow-through is otherwise unremarkable. Electronically signed by: David Amado MD 05/06/2025 02:24 PM EDT
[2025-04-25 16:13] VITALS: BP 130/75; PULSE 86; RESP 16; TEMP 36.6; O2SAT 99; BMI 32.3
--- NOTE | 2025-04-25 16:19 | ECG_ITS ---
Test Reason : abd pain Blood Pressure : */* mmHG Vent. Rate : 90 BPM Atrial Rate : 90 BPM P-R Int : 160 ms QRS Dur : 82 ms QT Int : 368 ms P-R-T Axes : 46 66 25 degrees QTcB Int : 450 ms Normal sinus rhythm Nonspecific T wave abnormality Abnormal ECG When compared with ECG of 24-Apr-2025 10:14, Nonspecific T wave abnormality has replaced inverted T waves in Anterior leads Referred By: Lenny Ge Electronically Signed By: KAT VALLE MD
--- NOTE | 2025-04-25 16:20 | ED.GENADULT ---
HPI - General Adult General Chief complaint: Abdominal Pain Stated complaint: seen t-1, vomitting, meds arent helping Time Seen by Provider: 04/25/25 18:10 Source: patient Mode of arrival: ambulatory Limitations: no limitations History of Present Illness ED Provider: Dr. Ochoa HPI narrative: This is a 44-year-old female to male transgender presented hospital today for evaluation of left-sided abdominal pain. She stated that this is worsening. Has not improved since her last visit here today. She has difficulty keeping food down. Every single time she eats she vomits. Denies any fever denies any dysuria. Does have history of gastric reflux in the past however this has been worsening. Related Data Home Medications ?Medication ?Instructions ?Recorded ?Confirmed lurasidone 80 mg tablet (Latuda) 80 mg PO BEDTIME 11/26/20 04/26/25 montelukast 10 mg tablet 10 mg PO BEDTIME 11/26/20 04/26/25 amlodipine 10 mg tablet 10 mg PO DAILY 01/27/24 04/26/25 dexlansoprazole 60 mg 60 mg PO DAILY@0630 01/27/24 04/26/25 capsule,biphase delayed release docusate sodium 100 mg capsule 200 mg PO DAILY 01/27/24 04/26/25 hydrochlorothiazide 25 mg tablet 25 mg PO DAILY 01/27/24 04/26/25 sertraline 100 mg tablet 100 mg PO DAILY 01/27/24 04/26/25 testosterone cypionate 200 mg/mL 50 mg IM TH 01/27/24 04/26/25 intramuscular oil cholecalciferol (vitamin D3) 25 25 mcg PO DAILY 04/26/25 04/26/25 mcg (1,000 unit) tablet (Vitamin D3) clonazepam 1 mg tablet 0.5 mg PO TID PRN anxiety 04/26/25 04/26/25 clonazepam 1 mg tablet 1 mg PO BEDTIME anxiety 04/26/25 04/26/25 famotidine 40 mg tablet 40 mg PO DAILY 04/26/25 04/26/25 melatonin 10 mg tablet 10 mg PO BEDTIME PRN Insomnia 04/26/25 04/26/25 mirtazapine 7.5 mg tablet 7.5 mg PO BEDTIME 04/26/25 04/26/25 quetiapine 100 mg tablet 200 mg PO BEDTIME PRN insomnia 04/26/25 04/26/25 topiramate 50 mg tablet 50 mg PO BID 04/26/25 04/26/25 Previous Rx's ?Medication ?Instructions ?Recorded ondansetron 4 mg disintegrating 4 mg PO Q8H PRN nausea and 04/24/25 tablet vomiting #9 tabs dicyclomine 20 mg tablet 20 mg PO TID #10 tabs 04/25/25 levofloxacin 500 mg tablet 500 mg PO DAILY 5 days #5 tabs 04/25/25 Allergies Allergy/AdvReac Type Severity Reaction Status Date / Time acetaminophen (From VICODIN) Allergy Intermediate ITCHING Verified 04/24/25 09:06 amoxicillin (AMOXICILLIN) Allergy Intermediate ITCHING Verified 04/24/25 09:06 hydrocodone (From VICODIN) Allergy Intermediate ITCHING Verified 04/24/25 09:06 oxycodone (From PERCOCET) Allergy Intermediate ITCHING Verified 04/24/25 09:06 propoxyphene (From Allergy Intermediate HEADACHES Verified 04/24/25 09:06 DARVOCET-N) Penicillins Allergy Hives Verified 04/25/25 16:18 pseudoephedrine Allergy Hives Verified 04/25/25 16:18 honey (HONEY) AdvReac Intermediate HEADACHES Verified 04/24/25 09:06 Review of Systems Review of Systems: Pertinent review of systems as mentioned in HPI. All other system otherwise negative. [facility] Past Medical History [facility] Narrative: Medical history as mentioned in [facility] Medical History (Updated 04/26/25 @ 03:03 by Alison Purcell DO) Liver mass Borderline personality disorder Bipolar 1 disorder PTSD (post-traumatic stress disorder) Depression GERD (gastroesophageal reflux disease) Asthma Gastritis Social History Social History Household Members: Spouse Housing: Apartment Are you a primary early breastfeeding care specialist to a significant other at home: No Do you presently have visiting nurse or other home services: No Alcohol intake: former Patient Tobacco Use Status: Current everyday Tobacco user Tobacco use type: Cigarette e-Cigarette/Vaping Use: Former Use Second Hand Smoke Exposure: No Substance Use Type: Marijuana service: No Current occupational status: disabled Physical Exam ED Exam Exam: General: Appears nauseous Head: Normacephalic, atraumatic ENT: oral mucosa moist, neck supple, no tracheal deviation Cardiovascular: regular rate, regular rhythm, no murmurs, rubbing, gallops Respiratory: CTAB, no wheeze, rales, rhonchi Gastrointestinal: Soft, non distended, left-sided abdominal pain on palpation, left CVA tenderness on palpation Extremities: No limb pain or swelling, no calf tenderness Neurological: Awake and alert, no facial droop noted Skin: Warm and dry Psychiatric: Appropriate mood and thoughts Vital Signs: Vital Signs - 24 hr 04/26/25 00:00 Pulse Rate 70 Respiratory Rate 20 Blood Pressure 110/62 Pulse Oximetry 98 Oxygen Delivery Method Room Air BMI result Body Mass Index 32.3 Course Course Course Narrative: RmNE: 44-year-old transitioning male presents to ED for continuous chest pain abdominal pain patent patient was seen here yesterday for similar symptoms. Repeat labs EKG chest x-ray ordered. Medications Administered Generic Name Dose Route Start Last Admin Trade Name Freq PRN Reason Stop Dose Admin Acetaminophen 650 mg 04/26/25 02:46 04/26/25 21:16 Acetaminophen 325 Mg Tablet PO 650 mg Q6H PRN Administration Pain, Mild 1-3,fever,headache Enoxaparin Sodium 40 mg 04/26/25 09:00 04/26/25 08:34 Enoxaparin Sodium 40 Mg/0.4 Ml Syringe SUBCUT Not Given Q24H RAINA Hydromorphone HCl 0.5 mg 04/26/25 02:46 04/26/25 23:12 Hydromorphone Hcl 0.5 Mg/0.5 Ml Syringe IVPUSH 0.5 mg Q4H PRN Administration Pain, Severe (Pain Scale 7-10) Protocol Dextrose/Sodium Chloride 1,000 mls @ 100 mls/hr 04/26/25 03:00 04/26/25 18:46 D51/2ns IVCONT 100 mls/hr .Q10H RAINA Administration Lactated Ringer's 1,000 mls @ 80 mls/hr 04/26/25 11:44 04/26/25 11:46 Lr IVCONT 80 mls/hr .[id number] RAINA Administration Lurasidone HCl 80 mg 04/26/25 05:00 04/26/25 21:15 Lurasidone Hcl 80 Mg Tablet PO 80 mg BEDTIME RAINA Administration Mirtazapine 7.5 mg 04/26/25 21:00 04/26/25 21:15 Mirtazapine 7.5 Mg Tablet PO 7.5 mg BEDTIME RAINA Administration Montelukast Sodium 10 mg 04/26/25 09:00 04/26/25 08:37 Montelukast Sodium 10 Mg Tablet PO 10 mg DAILY RAINA Administration Ondansetron HCl 4 mg 04/26/25 02:46 04/26/25 23:20 Ondansetron Hcl 4 Mg/2 Ml Vial IVPUSH 4 mg Q8H PRN Administration Nausea and Vomiting Pantoprazole Sodium 40 mg 04/26/25 16:30 04/26/25 18:46 Pantoprazole Sodium 40 Mg/10 Ml Vial IVPUSH 40 mg BID@0630,1630 RAINA Administration Sertraline HCl 100 mg 04/26/25 09:00 04/26/25 08:37 Sertraline Hcl 100 Mg Tablet PO 100 mg DAILY RAINA Administration Sodium Chloride 3 ml 04/26/25 08:00 04/26/25 21:17 0.9 % Sodium Chloride Flush 3 Ml Syringe IVFLUSH Not Given QSHIFT RAINA Topiramate 50 mg 04/26/25 09:00 04/26/25 21:16 Topiramate 25 Mg Tablet PO 50 mg BID RAINA Administration Discontinued Medications Generic Name Dose Route Start Last Admin Trade Name Freq PRN Reason Stop Dose Admin Al Hydroxide/Mg Hydroxide 30 ml 04/25/25 18:44 04/25/25 19:08 Magnesium Hydrox/Alum Hydrox 30 Ml Oral.Susp PO 04/25/25 18:45 30 ml ONCE ONE Administration Diazepam 5 mg 04/26/25 00:42 04/26/25 00:51 Diazepam 10 Mg/2 Ml Cartridge IVPUSH 04/26/25 00:43 5 mg STAT STA Administration Dicyclomine HCl 20 mg 04/26/25 00:02 04/26/25 00:29 Dicyclomine Hcl 10 Mg Capsule PO 04/26/25 00:03 Not Given ONCE ONE Famotidine 20 mg 04/25/25 18:43 04/25/25 19:08 Famotidine/Pf 20 Mg/2 Ml Vial IVPUSH 04/25/25 18:44 20 mg ONCE ONE Administration Lactated Ringer's 1,000 mls @ 999 mls/hr 04/25/25 18:45 04/26/25 01:20 Lr IV 04/25/25 19:45 Infused .Q1H1M RAINA Infusion Magnesium Sulfate 2 gm in 50 mls @ 25 mls/hr 04/25/25 19:16 04/26/25 00:28 Magnesium Sulfate/H2o IV 04/25/25 21:15 Infused ONCE ONE Infusion Potassium Chloride 10 meq in 100 mls @ 100 mls/hr 04/25/25 19:30 04/25/25 22:26 Potassium Chloride/H20 IV 04/25/25 21:29 Infused Q1H RAINA Infusion Levofloxacin 750 mg in 150 mls @ 100 mls/hr 04/25/25 20:56 04/26/25 02:00 Levaquin IV 04/25/25 22:25 Infused ONCE ONE Infusion Potassium Chloride 10 meq in 100 mls @ 100 mls/hr 04/26/25 05:45 04/26/25 09:49 Potassium Chloride/H20 IV 04/26/25 09:44 100 mls/hr Q1H RAINA Administration Lidocaine HCl 15 ml 04/25/25 18:44 04/25/25 19:08 Lidocaine Hcl Viscous 2 % 15 Ml Solution MUCOUS MEM 04/25/25 18:45 15 ml ONCE ONE Administration Metoclopramide HCl 5 mg 04/25/25 18:43 04/25/25 19:08 Metoclopramide Hcl 10 Mg/2 Ml Vial IV 04/25/25 18:44 5 mg ONCE ONE Administration Olanzapine 5 mg 04/25/25 20:35 04/25/25 21:24 Olanzapine 10 Mg Vial IM 04/25/25 20:36 5 mg STAT STA Administration Pantoprazole Sodium 40 mg 04/25/25 20:35 04/25/25 21:24 Pantoprazole Sodium 40 Mg/10 Ml Vial IVPUSH 04/25/25 20:36 40 mg ONCE ONE Administration Potassium Bicarbonate 25 meq 04/25/25 19:16 04/25/25 19:44 Potassium Bicarbonate/Cit Ac 25 Meq Tablet.Eff PO 04/25/25 19:17 25 meq ONCE ONE Administration Medical Decision Making Medical Decision Making MDM Narrative: 44-year-old female presented hospital today for evaluation of left upper quadrant pain. And nausea and vomiting. Recent CT abdomen and pelvis performed yesterday shows a 1.7 cm calcification and spleen, small hiatal hernia, nonobstructing calculi in the right kidney, left renal cyst and mild inflammation along the right anterior abdomen. Is no other significant finding on CT imaging. I suspect this is likely gastritis. We will plan to give patient some IV Pepcid, IV Reglan, plan to give patient has some GI cocktail IV fluid. Patient is noted to be hypokalemic as well. We will plan to replete some magnesium and IV potassium. Patient is unable to tolerate any p.o. intake. Upon review patient has been in the ER multiple time with hypokalemia due to her nausea and vomiting. We will plan to give patient IM Zyprexa for nausea. Patient does have some leuk esterase in the urine. We will plan to treat patient with IV Levaquin. Noted that patient has penicillin allergies. Patient will be signed out to oncoming provider pending reassessment after medication. I consider obtain a repeat CT imaging however patient has had a recent 1 yesterday. I do not think this is needed at this time 3:02 AM 04/26/2025 (Dr. Alison Purcell, Xavier.Nessa.) patient unable to tolerate oral intake. We will admit for intractable nausea and vomiting. Differential Diagnosis Differential Diagnoses: The differential diagnosis associated with the presentation includes Gastritis, gastroenteritis, colitis, UTI, pyelonephritis Lab Data MDM Lab Attestation statement: I reviewed the patient's lab results. 04/26/25 04:41 04/26/25 18:14 Labs: Lab Results 04/25/25 04/25/25 Range/Units 16:45 20:35 WBC 8.8 (4.8-10.8) X10*3/uL RBC 5.81 H (4.20-5.50) X10*6/uL Hgb 15.6 (12.0-16.0) g/dl Hct 47.3 H (37.0-47.0) % MCV 81.4 (80.0-98.0) fL MCH 26.9 L (27.0-33.0) pg MCHC 33.0 (31.0-35.0) g/dl RDW 17.3 H (11.0-16.0) % Plt Count 368 (160-400) X10*3/uL MPV 9.4 (9.4-12.3) fL Immature Gran % (Auto) 0.5 H (0.0-0.4) % Neut % (Auto) 53.7 (45-73) % Lymph % (Auto) 36.8 (20-40) % [place] % (Auto) 7.7 (2-11) % Eos % (Auto) 1.0 (0-4) % Baso % (Auto) 0.3 (0-2) % Lymph # (Auto) 3.2 (1.2-4.9) X10*3/uL [place] # (Auto) 0.7 (0.1-1.2) X10*3/uL Eos # (Auto) 0.1 (0.0-0.4) X10*3/uL Baso # (Auto) 0.0 (0.0-0.2) X10*3/uL Abs Immat Gran (auto) 0.04 H (0.00-0.03) X10*3/uL Absolute Neuts (auto) 4.7 (2.0-8.3) x10*3/uL Absolute Nucleated RBC 0.000 (0.0-0.012) X10*3/uL Nucleated RBC % (auto) 0.0 (0.0-0.2) /100WBC Sodium 138 (135-145) mmol/L Potassium 3.1 L D (3.3-5.1) mmol/L Chloride 102 (96-108) mmol/L Carbon Dioxide 27 (22-29) mmol/L Anion Gap 12 (12-20) BUN 12 (9-16) mg/dL Creatinine 1.17 (0.5-1.4) mg/dL Estim Creat Clear Calc 53.2 Estimated GFR 50 Random Glucose 79 (60-115) mg/dL Calcium 9.3 (8.4-10.2) mg/dL Total Bilirubin 0.3 (0.0-1.0) mg/dL AST 50 H (5-31) U/L ALT 66 H (0-31) U/L Alkaline Phosphatase 41 (39-117) U/L Troponin I High Sens < 2.7 (<3.5-17.0) ng/L NT-Pro-B Natriuret Pep 32.8 (<300) pg/mL Total Protein 8.4 H (6.5-8.0) g/dL Albumin 4.5 (3.5-5.0) g/dL Lipase 19 (8-78) U/L Beta HCG, Quant < 2 mIU/mL Urine Color Yellow Urine Appearance Clear Urine pH 7.5 (5.0-9.0) Ur Specific [place] 1.010 (1.005-1.025) Urine Protein Negative (Neg-Trace) mg/dL Urine Glucose (UA) Negative (Negative) mg/dL Urine Ketones 15 (Negative) mg/dL Urine Blood Negative (Negative) Urine Nitrite Negative (Negative) Ur Leukocyte Esterase Large (3+) H (Negative) Urine RBC 0-2 (0-2) /HPF Urine WBC >50 H (0-5) /HPF Ur Squamous Epith Cells 3-5 (0-2) /HPF Urine Bacteria None Seen (None Seen) Hyaline Casts 0-2 (0-2) /LPF External Record Review External record reviewed: Outpatient record and Prior outpatient radiology Discharge Plan Discharge Clinical Impression: Acute hypokalemia, Intractable nausea and vomiting Patient Disposition: Admitted As Inpatient Discharge Date/Time: 04/26/25 12:00
[2025-04-25 16:51] LABS: MANUAL DIFF FLAG NO
[2025-04-25 16:54] LABS: Hematocrit 47.3 % (37.0-47.0); Hemoglobin 15.6 g/dl (12.0-16.0); Imm Gran Abs Auto 0.04 X10*3/uL (0.00-0.03); Imm Gran Pct Auto 0.5 % (0.0-0.4); Lymphocytes Absolute Auto 3.2 X10*3/uL (1.2-4.9); Mean Corpuscular HGB Conc 33.0 g/dl (31.0-35.0); Mean Corpuscular Hemoglobin 26.9 pg (27.0-33.0); Mean Corpuscular Volume 81.4 fL (80.0-98.0); NRBC Abs Auto 0.000 X10*3/uL (0.0-0.012); NRBC Pct Auto 0.0 /100WBC (0.0-0.2); Platelet Count 368 X10*3/uL (160-400); Red Blood Count 5.81 X10*6/uL (4.20-5.50); White Blood Count 8.8 X10*3/uL (4.8-10.8)
[2025-04-25 17:25] LABS: NT Pro B Type Natriuretic Pept 32.8 pg/mL (<300)
[2025-04-25 17:27] LABS: Alanine Aminotransferase 66 U/L (0-31); Albumin Level 4.5 g/dL (3.5-5.0); Alkaline Phosphatase 41 U/L (39-117); Anion Gap 12 (12-20); Aspartate Amino Transferase 50 U/L (5-31); Blood Urea Nitrogen 12 mg/dL (9-16); Calcium 9.3 mg/dL (8.4-10.2); Carbon Dioxide 27 mmol/L (22-29); Chloride 102 mmol/L (96-108); Creatinine Clr Calc Pharmacy 53.2; Estimated Glomerular Filt Rate 50; Lipase 19 U/L (8-78); Potassium 3.1 mmol/L (3.3-5.1); Sodium 138 mmol/L (135-145); Total Protein 8.4 g/dL (6.5-8.0); Troponin-I High Sensitivity < 2.7 ng/L (<3.5-17.0)
[2025-04-25 18:33] VITALS: RESP 14; O2SAT 99
--- OUTSIDE RECORDS SUMMARY | 2025-04-25 18:39 | XMS_ITS | Clinical Summary ---
Author Organization [facility] Address [address] [place] [id number] Phone Care Team Providers Care Body Press Operator Name Role Phone Pcp, Unknown Primary Care [...] Medical Devices Not on file Insurance #[address] [place] [address] MEDICARE PART A & B [facility] Care Teams Body Press Operator Relationship Specialty Start Date End Date Pcp, Unknown PCP - General 11/16/24 Additional Source Comments The information contained in this document represents components of the legal health record. It is not the complete legal health record.[facility]
[2025-04-25] MEDS: Magnesium Hydrox/Alum Hydrox 30 ML ORAL.SUSP PO (19:08)
[2025-04-25] MEDS: Lidocaine HCl Viscous 2 % 15 ML SOLUTION MUCOUS MEM (19:08)
[2025-04-25] MEDS: Lactated Ringers 1,000 ML 999 ML IV (19:10)
[2025-04-25] MEDS: Potassium Chloride/H20 10 MEQ/100 ML PIGGYBACK 100 MEQ IV ×2 (19:44→21:26)
[2025-04-25] MEDS: Potassium Bicarbonate/Cit AC 25 MEQ TABLET.EFF PO (19:44)
[2025-04-25 20:43] LABS: Appearance Urine Clear; Glucose Urine UA Negative (Negative); PH 7.5 (5.0-9.0); Specific Gravity - Urine 1.010 (1.005-1.025); UMIC TRIGGER UA YES
[2025-04-25] MEDS: OLANZapine 10 MG VIAL 5 MG IM (21:24)
[2025-04-25 22:26] VITALS: BP 109/67; PULSE 79; RESP 20; O2SAT 93
[2025-04-25] MEDS: Magnesium Sulfate/H2O 2 GM/50 ML PIGGYBACK IV (22:26)
[2025-04-26] VITALS (16 sets, daily range): BP systolic 91–133; BP diastolic 50–95; PULSE 53–91; RESP 16–21; TEMP 36.2–36.9; O2SAT 94–98; BMI 30.9
--- NOTE | 2025-04-26 00:12 | PC.NURSE ---
Care assumed at 2300, pt resting on stretcher with SO at bedside. Pt's IV Magnesium continues to infuse, LR was not connected/infusing; this RN reconnected them. Pt and spouse made this RN aware that MD Purcell was at bedside and made them aware of plan for administration of bentyl and discharge however they are concerned as they do not believe the pt will be able to hold anything down as he vomits anything/everything he consumes and they are fearful that he will return. The pt himself stated that he was previously prescribed bentyl and it did not provide any relief and declined wanting to take it at this time. 02/27 left sided abdominal pain continues to be reported. Rn to speak with MD and recommend PO challenge
[2025-04-26] MEDS: diazePAM 10 MG/2 ML CARTRIDGE 5 MG IVPUSH (00:51)
--- NOTE | 2025-04-26 01:06 | PC.NURSE ---
Pt failed his PO challenge of water. He was advised to slowly sip on the ice water he was provided with and shortly there after he began to vomit. MD aware and new orders were obtained for valium IVP. Medication was administered per SEP and RN will reassess soon
[2025-04-26] MEDS: Dextrose 5 % and 0.45 % NaCl 1,000 ML 100 ML IVCONT ×2 (04:06→18:46)
--- NOTE | 2025-04-26 04:36 | PC.NURSE ---
pt relocated to ed bed 3 for comfort and continuous cardiac monitoring that can be overseen by the hob grinder pending room assignment. He reported one episode of vomiting approx 2-3 hours ago without having had anything by mouth. He can make his needs known, independently ambulate to><from the restroom and is without distress noted at this time. Pt aware of plan for admission, reviewed home medications with this RN and confirmed all current meds/doses. Concerned regarding his Lurasidone for bipolar as it is a at bedtime medication; RN will speak with hospitalist about this.
[2025-04-26 04:46] LABS: MANUAL DIFF FLAG NO
[2025-04-26 04:49] LABS: Hematocrit 43.5 % (37.0-47.0); Hemoglobin 14.2 g/dl (12.0-16.0); Imm Gran Abs Auto 0.04 X10*3/uL (0.00-0.03); Imm Gran Pct Auto 0.5 % (0.0-0.4); Lymphocytes Absolute Auto 2.4 X10*3/uL (1.2-4.9); Mean Corpuscular HGB Conc 32.6 g/dl (31.0-35.0); Mean Corpuscular Hemoglobin 26.8 pg (27.0-33.0); Mean Corpuscular Volume 82.2 fL (80.0-98.0); NRBC Abs Auto 0.000 X10*3/uL (0.0-0.012); NRBC Pct Auto 0.0 /100WBC (0.0-0.2); Platelet Count 323 X10*3/uL (160-400); Red Blood Count 5.29 X10*6/uL (4.20-5.50); White Blood Count 8.1 X10*3/uL (4.8-10.8)
--- NOTE | 2025-04-26 04:58 | PC.NURSE ---
med rec completed and entered. Pt requesting his nighttime dose of lurasidone as he missed his dose yesterday night and states it is for his bipolar; message sent to hospitalist
[2025-04-26 05:23] LABS: Alanine Aminotransferase 49 U/L (0-31); Albumin Level 3.8 g/dL (3.5-5.0); Alkaline Phosphatase 36 U/L (39-117); Anion Gap 12 (12-20); Aspartate Amino Transferase 37 U/L (5-31); Blood Urea Nitrogen 8 mg/dL (9-16); Calcium 8.4 mg/dL (8.4-10.2); Carbon Dioxide 26 mmol/L (22-29); Chloride 105 mmol/L (96-108); Creatinine Clr Calc Pharmacy 62.2; Estimated Glomerular Filt Rate > 60; Potassium 2.4 mmol/L (3.3-5.1); Sodium 141 mmol/L (135-145); Total Protein 6.7 g/dL (6.5-8.0)
--- NOTE | 2025-04-26 05:35 | PM.IMHP ---
History of Present Illness Date of Service: 04/26/25 Chief Complaint: Nausea/vomiting 44-year-old female to male transgender liver lesion, anxiety, depression, PTSD, asthma; presented to the hospital with a chief complaint of nausea/vomiting/abdominal pain. Patient mentioned that for about 3 weeks-has been having nausea vomiting and diffuse abdominal pain. Denies any diarrhea. Denies blood in the stool. Denies any concerns for food poisoning. Has had happened similar episode in the summer of last year. Mentioned that patient probably has gastroparesis. Denies any fever chills cough or sputum production. Denies any chest pain or palpitations. Review of all other systems is negative except mentioned above Review of all other systems is negative except mentioned above ER course: Per ER team, patient noted her diffuse abdominal tenderness; CT scan showed mild inflammation on the anterior abdomen; suspected gastritis. Given IV Reglan, IV Pepcid, GI cocktail. Patient was also noted to be hypokalemic. Repleted. [facility] Medical History (Updated 04/26/25 @ 03:03 by Alison Purcell DO) Liver mass Borderline personality disorder Bipolar 1 disorder PTSD (post-traumatic stress disorder) Depression GERD (gastroesophageal reflux disease) Asthma Gastritis Social History Household Members: Spouse Housing: Apartment Do you presently have visiting nurse or other home services: No Alcohol intake: former Patient Tobacco Use Status: Never used Tobacco Tobacco use type: Cigarette e-Cigarette/Vaping Use: Currently Using Use of substances other than those prescribed or required for medical reasons: No Substance Use Type: Marijuana Advance Directives: No Advance Directives Information Provided: Yes Nutrition Risks: No Nutritional Risk Patient : No service: No Current occupational status: disabled Meds Allergies Allergy/AdvReac Type Severity Reaction Status Date / Time acetaminophen (From VICODIN) Allergy Intermediate ITCHING Verified 04/24/25 09:06 amoxicillin (AMOXICILLIN) Allergy Intermediate ITCHING Verified 04/24/25 09:06 hydrocodone (From VICODIN) Allergy Intermediate ITCHING Verified 04/24/25 09:06 oxycodone (From PERCOCET) Allergy Intermediate ITCHING Verified 04/24/25 09:06 propoxyphene (From Allergy Intermediate HEADACHES Verified 04/24/25 09:06 DARVOCET-N) Penicillins Allergy Hives Verified 04/25/25 16:18 pseudoephedrine Allergy Hives Verified 04/25/25 16:18 honey (HONEY) AdvReac Intermediate HEADACHES Verified 04/24/25 09:06 Active Medications: Current Medications Acetaminophen (Acetaminophen 325 Mg Tablet) 650 mg PO Q6H PRN PRN Reason: Pain, Mild 1-3,fever,headache Calcium Carbonate (Calcium Carbonate 750 Mg Tab.Chew) 750 mg PO Q4H PRN PRN Reason: Heartburn Clonazepam (Clonazepam 0.5 Mg Tablet) 0.5 mg PO TID PRN PRN Reason: Anxiety Enoxaparin Sodium (Enoxaparin Sodium 40 Mg/0.4 Ml Syringe) 40 mg SUBCUT Q24H [facility] Hydromorphone HCl (Hydromorphone Hcl 0.5 Mg/0.5 Ml Syringe) 0.5 mg IVPUSH Q4H PRN; Protocol PRN Reason: Pain, Severe (Pain Scale 7-10) Dextrose/Sodium Chloride (D51/2ns) 1,000 mls @ 100 mls/hr IVCONT .Q10H [facility] Last Admin: 04/26/25 04:06 Dose: 100 mls/hr Potassium Chloride (Potassium Chloride/H20) 10 meq in 100 mls @ 100 mls/hr IV Q1H [facility] Stop: 04/26/25 09:44 Lurasidone HCl (Lurasidone Hcl 80 Mg Tablet) 80 mg PO BEDTIME [facility] Magnesium Hydroxide (Milk Of Magnesia 30 Ml Oral.Susp) 30 ml PO DAILY PRN PRN Reason: Constipation Melatonin (Melatonin 3 Mg Tablet) 6 mg PO BEDTIME PRN PRN Reason: Insomnia Mirtazapine (Mirtazapine 7.5 Mg Tablet) 7.5 mg PO BEDTIME [facility] Montelukast Sodium (Montelukast Sodium 10 Mg Tablet) 10 mg PO DAILY [facility] Ondansetron HCl (Ondansetron Hcl 4 Mg/2 Ml Vial) 4 mg IVPUSH Q8H PRN PRN Reason: Nausea and Vomiting Sertraline HCl (Sertraline Hcl 100 Mg Tablet) 100 mg PO DAILY [facility] Sodium Chloride (0.9 % Sodium Chloride Flush 3 Ml Syringe) 3 ml IVFLUSH QSHIFT [facility] Topiramate (Topiramate 25 Mg Tablet) 50 mg PO BID [facility] Home Medications ?Medication ?Instructions ?Recorded ?Confirmed ?Last Taken ?Type clonazepam 0.5 mg tablet 1 tab PO BID 11/26/20 01/27/24 Unknown History lurasidone 80 mg tablet (Latuda) 80 mg PO BEDTIME 11/26/20 04/26/25 01/27/24 History montelukast 10 mg tablet 10 mg PO DAILY 11/26/20 04/26/25 01/27/24 History quetiapine 25 mg tablet 37.5 mg PO BEDTIME 11/26/20 01/27/24 01/27/24 History amlodipine 10 mg tablet 10 mg PO DAILY 01/27/24 04/26/25 01/27/24 History dexlansoprazole 60 mg 60 mg PO DAILY 01/27/24 04/26/25 01/27/24 History capsule,biphase delayed release docusate sodium 100 mg capsule 200 mg PO DAILY 01/27/24 01/27/24 Unknown History hydrochlorothiazide 25 mg tablet 25 mg PO DAILY 01/27/24 04/26/25 01/27/24 History sertraline 100 mg tablet 100 mg PO DAILY 01/27/24 04/26/25 01/27/24 History testosterone cypionate 200 mg/mL 50 mg IM CORNELL 01/27/24 04/26/25 01/27/24 History intramuscular oil clonazepam 1 mg tablet 0.5 mg PO TID PRN anxiety 04/26/25 04/26/25 Unknown History famotidine 40 mg tablet 40 mg PO DAILY 04/26/25 04/26/25 Unknown History mirtazapine 7.5 mg tablet 7.5 mg PO BEDTIME 04/26/25 04/26/25 Unknown History quetiapine 100 mg tablet 100 - 200 mg PO BEDTIME PRN 04/26/25 04/26/25 Unknown History insomnia testosterone cypionate 200 mg/mL 50 mg IM QWEEK 04/26/25 04/26/25 Unknown History intramuscular oil topiramate 50 mg tablet 50 mg PO BID 04/26/25 04/26/25 Unknown History Physical Exam Vital Signs and Narrative: Vital Signs: Last Vital Signs Temp 98 F 04/25/25 16:13 Pulse 70 04/26/25 00:00 Resp 20 04/26/25 00:00 BP 110/62 04/26/25 00:00 Pulse Ox 98 04/26/25 00:00 O2 Del Method Room Air 04/26/25 00:00 BMI result Body Mass Index 32.3 Gen: Appears be in no acute distress HEENT: NCAT, Moist mucosa. Pulmonary: Vesicular breath sounds, fair air entry CVS: Normal S1-S2 Abdomen: BS+, Soft, mildly tender diffusely Extremities: Warm well perfused Neuro: Alert and awake. Results Labs 04/26/25 04:41 04/26/25 04:41 Labs: Laboratory Results - last 24 hr 04/25/25 04/25/25 04/26/25 16:45 20:35 04:41 MCV 81.4 82.2 MCH 26.9 L 26.8 L MCHC 33.0 32.6 RDW 17.3 H 16.3 H Plt Count 368 323 MPV 9.4 9.2 L Immature Gran % (Auto) 0.5 H 0.5 H Neut % (Auto) 53.7 58.2 Lymph % (Auto) 36.8 30.0 [place] % (Auto) 7.7 8.7 Eos % (Auto) 1.0 2.2 Baso % (Auto) 0.3 0.4 Lymph # (Auto) 3.2 2.4 [place] # (Auto) 0.7 0.7 Eos # (Auto) 0.1 0.2 Baso # (Auto) 0.0 0.0 Abs Immat Gran (auto) 0.04 H 0.04 H Absolute Neuts (auto) 4.7 4.7 Absolute Nucleated RBC 0.000 0.000 Nucleated RBC % (auto) 0.0 0.0 Anion Gap 12 12 Estim Creat Clear Calc 53.2 62.2 Estimated GFR 50 > 60 Random Glucose 79 84 Calcium 9.3 8.4 D Total Bilirubin 0.3 0.3 AST 50 H 37 H ALT 66 H 49 H Alkaline Phosphatase 41 36 L Troponin I High Sens < 2.7 NT-Pro-B Natriuret Pep 32.8 Total Protein 8.4 H 6.7 Albumin 4.5 3.8 Lipase 19 Beta HCG, Quant < 2 Urine Color Yellow Urine Appearance Clear Urine pH 7.5 Ur Specific [place] 1.010 Urine Protein Negative Urine Glucose (UA) Negative Urine Ketones 15 Urine Blood Negative Urine Nitrite Negative Ur Leukocyte Esterase Large (3+) H Urine RBC 0-2 Urine WBC >50 H Ur Squamous Epith Cells 3-5 Urine Bacteria None Seen Hyaline Casts 0-2 Imaging Radiologist's Impressions: Impressions Chest X-Ray 04/25/25 16:48 IMPRESSION: No acute disease Electronically signed by: Chucky Baledrrama MD 04/25/2025 05:15 PM EDT RP Assessment and Plan (1) Intractable nausea and vomiting: Status: Acute Plan 44-year-old female to male transgender liver lesion, anxiety, depression, PTSD, asthma; presented to the hospital with a chief complaint of nausea/vomiting/abdominal pain. Gastritis versus gastroparesis: Patient has been having poor intake for about 3 weeks now. Failed p.o. challenge in the ER. CT scan showed mild inflammation around the anterior abdominal wall at the level of umbilicus. Supportive care GI consult Gentle IV fluids Advanced diet as tolerated Ppi Splenic lesion: Recommended follow-up CT scan in 6 months versus MRI. Asked to follow up with the PCP Hypokalemia: Repleted. Follow up levels. DVT prophylaxis: Lovenox Code status: Full code Quality Stroke Does the patient have a stroke diagnosis?: No VTE Prior VTE?: No VTE Risk Level:: Medical - moderate - high VTE Device Contraindication: Treatment Not Indicated VTE Drug Contraindication: N/A - Med Ordered
[2025-04-26] MEDS: Potassium Chloride/H20 10 MEQ/100 ML PIGGYBACK 100 MEQ IV ×3 (06:46→09:49)
--- NOTE | 2025-04-26 08:46 | P.CONAN_ITS ---
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) Liver mass (Acute) Past Medical History Medical History (Updated 05/16/25 @ 10:56 by Fabio Duran MD) Diaphragmatic hernia Sleep apnea Liver mass Borderline personality disorder Bipolar 1 disorder PTSD (post-traumatic stress disorder) Depression GERD (gastroesophageal reflux disease) Asthma Gastritis Surgical History Surgical History (Updated 05/16/25 @ 10:10 by Sanjuana Guallpa CMA) Hx of total mastectomy Hx of foot surgery Hx of hand surgery Hx of cholecystectomy Social History Social History Household Members: Spouse Housing: Apartment Are you a primary vision care associate to a significant other at home: No Do you presently have visiting nurse or other home services: No Alcohol intake: former Patient Tobacco Use Status: Former Tobacco user Tobacco use type: Cigarette e-Cigarette/Vaping Use: Former Use Second Hand Smoke Exposure: No Substance Use Type: Marijuana Advance Directives Date on File: 05/09/25 service: No Current occupational status: disabled Meds Allergies Allergy/AdvReac Type Severity Reaction Status Date / Time acetaminophen (From VICODIN) Allergy Intermediate ITCHING Verified 05/16/25 10:56 amoxicillin (AMOXICILLIN) Allergy Intermediate ITCHING Verified 05/16/25 10:56 hydrocodone (From VICODIN) Allergy Intermediate ITCHING Verified 05/16/25 10:56 oxycodone (From PERCOCET) Allergy Intermediate ITCHING Verified 05/16/25 10:56 propoxyphene (From Allergy Intermediate HEADACHES Verified 05/16/25 10:56 DARVOCET-N) Penicillins Allergy Hives Verified 05/16/25 10:56 pseudoephedrine Allergy Hives Verified 05/16/25 10:56 honey (HONEY) AdvReac Intermediate HEADACHES Verified 05/16/25 10:56 Active Medications: Current Medications Acetaminophen (Acetaminophen 325 Mg Tablet) 650 mg PO Q6H PRN PRN Reason: Pain, Mild 1-3,fever,headache Calcium Carbonate (Calcium Carbonate 750 Mg Tab.Chew) 750 mg PO Q4H PRN PRN Reason: Heartburn Clonazepam (Clonazepam 0.5 Mg Tablet) 0.5 mg PO TID PRN PRN Reason: Anxiety Enoxaparin Sodium (Enoxaparin Sodium 40 Mg/0.4 Ml Syringe) 40 mg SUBCUT Q24H [facility] Last Admin: 04/26/25 08:34 Dose: Not Given Hydromorphone HCl (Hydromorphone Hcl 0.5 Mg/0.5 Ml Syringe) 0.5 mg IVPUSH Q4H PRN; Protocol PRN Reason: Pain, Severe (Pain Scale 7-10) Dextrose/Sodium Chloride (D51/2ns) 1,000 mls @ 100 mls/hr IVCONT .Q10H [facility] Last Admin: 04/26/25 04:06 Dose: 100 mls/hr Potassium Chloride (Potassium Chloride/H20) 10 meq in 100 mls @ 100 mls/hr IV Q1H [facility] Stop: 04/26/25 09:44 Last Infusion: 04/26/25 08:33 Dose: Infused Lurasidone HCl (Lurasidone Hcl 80 Mg Tablet) 80 mg PO BEDTIME [facility] Last Admin: 04/26/25 06:26 Dose: 80 mg Magnesium Hydroxide (Milk Of Magnesia 30 Ml Oral.Susp) 30 ml PO DAILY PRN PRN Reason: Constipation Melatonin (Melatonin 3 Mg Tablet) 6 mg PO BEDTIME PRN PRN Reason: Insomnia Mirtazapine (Mirtazapine 7.5 Mg Tablet) 7.5 mg PO BEDTIME [facility] Montelukast Sodium (Montelukast Sodium 10 Mg Tablet) 10 mg PO DAILY [facility] Last Admin: 04/26/25 08:37 Dose: 10 mg Ondansetron HCl (Ondansetron Hcl 4 Mg/2 Ml Vial) 4 mg IVPUSH Q8H PRN PRN Reason: Nausea and Vomiting Pantoprazole Sodium (Pantoprazole Sodium 40 Mg/10 Ml Vial) 40 mg IVPUSH BID@0630,1630 [facility] Sertraline HCl (Sertraline Hcl 100 Mg Tablet) 100 mg PO DAILY [facility] Last Admin: 04/26/25 08:37 Dose: 100 mg Sodium Chloride (0.9 % Sodium Chloride Flush 3 Ml Syringe) 3 ml IVFLUSH QSHIFT [facility] Last Admin: 04/26/25 08:34 Dose: Not Given Topiramate (Topiramate 25 Mg Tablet) 50 mg PO BID [facility] Last Admin: 04/26/25 08:37 Dose: 50 mg Home Medications ?Medication ?Instructions ?Recorded ?Confirmed ?Last Taken ?Type lurasidone 80 mg tablet (Latuda) 80 mg PO BEDTIME 04/1005/16/25 05/08/25 History montelukast 10 mg tablet 10 mg PO BEDTIME 11/26/2005/09/25 History dexlansoprazole 60 mg 60 mg PO DAILY@0630 01/27/24 05/16/25 05/09/25 History capsule,biphase delayed release docusate sodium 100 mg capsule 200 mg PO DAILY 4 05/16/25 05/09/25 History hydrochlorothiazide 25 mg tablet 25 mg PO DAILY 05/16/25 05/09/25 History sertraline 100 mg tablet 100 mg PO DAILY 01/27/2405/09/25 History testosterone cypionate 200 mg/mL 50 mg IM TH 01/27/24 05/16/25 04/14/25 History intramuscular oil cholecalciferol (vitamin D3) 25 25 mcg PO DAILY 05/16/25 05/09/25 History mcg (1,000 unit) tablet (Vitamin D3) clonazepam 1 mg tablet 1 mg PO BEDTIME anxiety 02/1105/16/25 05/08/25 History mirtazapine 7.5 mg tablet 7.5 mg PO BEDTIME 04/26/25 1 05/08/25 History quetiapine 100 mg tablet 200 mg PO BEDTIME PRN insomn ia 04/26/25 05/16/25 05/08/25 History topiramate 50 mg tablet 50 mg PO BID 04/26/2505/09/25 History Exam Height,Weight and Vital Signs: Height 4 ft 11 in Weight 72.6 kg Last Vital Signs Temp 97.9 F 04/26/25 08:18 Pulse 71 04/26/25 08:18 Resp 20 04/26/25 08:18 BP 110/67 04/26/25 08:18 Pulse Ox 97 04/26/25 08:18 O2 Del Method Room Air 04/26/25 08:18 Pertinent Lab Results Pertinent Lab Results: Laboratory Tests 04/25/25 04/25/25 04/26/25 16:45 20:35 04:41 WBC 8.8 8.1 RBC 5.81 H 5.29 Hgb 15.6 14.2 Hct 47.3 H 43.5 MCV 81.4 82.2 MCH 26.9 L 26.8 L MCHC 33.0 32.6 RDW 17.3 H 16.3 H Plt Count 368 323 MPV 9.4 9.2 L Immature Gran % (Auto) 0.5 H 0.5 H Neut % (Auto) 53.7 58.2 Lymph % (Auto) 36.8 30.0 [place] % (Auto) 7.7 8.7 Eos % (Auto) 1.0 2.2 Baso % (Auto) 0.3 0.4 Lymph # (Auto) 3.2 2.4 [place] # (Auto) 0.7 0.7 Eos # (Auto) 0.1 0.2 Baso # (Auto) 0.0 0.0 Abs Immat Gran (auto) 0.04 H 0.04 H Absolute Neuts (auto) 4.7 4.7 Absolute Nucleated RBC 0.000 0.000 Nucleated RBC % (auto) 0.0 0.0 Sodium 138 141 Potassium 3.1 L D 2.4 L* D Chloride 102 105 Carbon Dioxide 27 26 Anion Gap 12 12 BUN 12 8 L Creatinine 1.17 1.00 Estim Creat Clear Calc 53.2 62.2 Estimated GFR 50 > 60 Random Glucose 79 84 Calcium 9.3 8.4 D Total Bilirubin 0.3 0.3 AST 50 H 37 H ALT 66 H 49 H Alkaline Phosphatase 41 36 L Troponin I High Sens < 2.7 NT-Pro-B Natriuret Pep 32.8 Total Protein 8.4 H 6.7 Albumin 4.5 3.8 Lipase 19 Beta HCG, Quant < 2 Urine Color Yellow Urine Appearance Clear Urine pH 7.5 Ur Specific [place] 1.010 Urine Protein Negative Urine Glucose (UA) Negative Urine Ketones 15 Urine Blood Negative Urine Nitrite Negative Ur Leukocyte Esterase Large (3+) H Urine RBC 0-2 Urine WBC >50 H Ur Squamous Epith Cells 3-5 Urine Bacteria None Seen Hyaline Casts 0-2 Narrative Narrative: EKG 04/25/25 draft Vent. Rate : 90 BPM Atrial Rate : 90 BPM P-R Int : 160 ms QRS Dur : 82 ms QT Int : 368 ms P-R-T Axes : 46 66 25 degrees QTcB Int : 450 ms Normal sinus rhythm Nonspecific T wave abnormality Abnormal ECG When compared with ECG of 24-Apr-2025 10:14, Nonspecific T wave abnormality has replaced inverted T waves in Anterior leads
--- NOTE | 2025-04-26 09:00 | PM.GICN ---
History of Present Illness Data of Consult Service Date: 04/26/25 Primary Care Provider: Korina Gerard NP HPI Reason for consult: nausea,vomiting 44-year-old female to male transgender, with hx of anxiety, depression, PTSD, asthma who I am seeing for assessment for nausea and vomiting and abdominal pain. Patient noted 3 weeks of nausea with non bloody emesis with epigastric stabbing pain 10/10 with radiation and worsening reflux type symptoms. Has also noted occ swallowing issues with solids and pins and needles in hands and feet, always has headaches but denies double vision, slurred speech. He has also been commenced on ABx for possible UTI, but denies dysuria, freq No diarrhea, rectal bleeding or melena. denies taking any herbal meds, nsaids. No THC. Denies any fever chills cough or sputum production. Denies any chest pain or palpitations. IMAGING: CT scan: mild inflammation on the anterior abdomen; suspected gastritis, small hiatal hernia Labs: nml HGb, low K, mild AST/ALt elevation, lipase- nml Review of Systems Review of Systems: Constitutional : No Weight loss, No Fever, No Chills ENT/Mouth : No sore throat, No Rhinorrhea Eyes: No Swelling, No Redness Cardiovascular : No Chest Pain, No SOB, No Edema Respiratory : No Cough, No Sputum, No Wheezing Gastrointestinal : see HPI Genitourinary : NO Dysuria, No Urinary Frequency, No Hematuria, No Urgency Musculoskeletal : no joint pain, No Myalgias, No Joint Swelling Skin : No Skin Lesions, No rash Neuro : No Weakness, No Numbness, No Dizziness, No Headache Psych : No Anxiety/Panic, No Depression Heme/Lymph: No Bruising, No Lymphadenopathy Endocrine : No Polyuria, No Polydipsia All other systems reviewed and are negative. [facility] Past Medical History Medical History (Updated 04/26/25 @ 03:03 by Alison Purcell DO) Liver mass Borderline personality disorder Bipolar 1 disorder PTSD (post-traumatic stress disorder) Depression GERD (gastroesophageal reflux disease) Asthma Gastritis Family History Pertinent family history: no hx of stomach ulcers Social History Social History Household Members: Spouse Housing: Apartment Are you a primary spiritual care coordinator to a significant other at home: No Do you presently have visiting nurse or other home services: No Alcohol intake: former Patient Tobacco Use Status: Current someday Tobacco user Tobacco use type: Cigarette e-Cigarette/Vaping Use: Currently Using Second Hand Smoke Exposure: No Substance Use Type: Marijuana service: No Current occupational status: disabled Meds Allergies Allergy/AdvReac Type Severity Reaction Status Date / Time acetaminophen (From VICODIN) Allergy Intermediate ITCHING Verified 04/24/25 09:06 amoxicillin (AMOXICILLIN) Allergy Intermediate ITCHING Verified 04/24/25 09:06 hydrocodone (From VICODIN) Allergy Intermediate ITCHING Verified 04/24/25 09:06 oxycodone (From PERCOCET) Allergy Intermediate ITCHING Verified 04/24/25 09:06 propoxyphene (From Allergy Intermediate HEADACHES Verified 04/24/25 09:06 DARVOCET-N) Penicillins Allergy Hives Verified 04/25/25 16:18 pseudoephedrine Allergy Hives Verified 04/25/25 16:18 honey (HONEY) AdvReac Intermediate HEADACHES Verified 04/24/25 09:06 Active Medications: Current Medications Acetaminophen (Acetaminophen 325 Mg Tablet) 650 mg PO Q6H PRN PRN Reason: Pain, Mild 1-3,fever,headache Calcium Carbonate (Calcium Carbonate 750 Mg Tab.Chew) 750 mg PO Q4H PRN PRN Reason: Heartburn Clonazepam (Clonazepam 0.5 Mg Tablet) 0.5 mg PO TID PRN PRN Reason: Anxiety Enoxaparin Sodium (Enoxaparin Sodium 40 Mg/0.4 Ml Syringe) 40 mg SUBCUT Q24H [facility] Last Admin: 04/26/25 08:34 Dose: Not Given Hydromorphone HCl (Hydromorphone Hcl 0.5 Mg/0.5 Ml Syringe) 0.5 mg IVPUSH Q4H PRN; Protocol PRN Reason: Pain, Severe (Pain Scale 7-10) Dextrose/Sodium Chloride (D51/2ns) 1,000 mls @ 100 mls/hr IVCONT .Q10H [facility] Last Admin: 04/26/25 04:06 Dose: 100 mls/hr Potassium Chloride (Potassium Chloride/H20) 10 meq in 100 mls @ 100 mls/hr IV Q1H [facility] Stop: 04/26/25 09:44 Last Admin: 04/26/25 08:51 Dose: 100 mls/hr Lurasidone HCl (Lurasidone Hcl 80 Mg Tablet) 80 mg PO BEDTIME [facility] Last Admin: 04/26/25 06:26 Dose: 80 mg Magnesium Hydroxide (Milk Of Magnesia 30 Ml Oral.Susp) 30 ml PO DAILY PRN PRN Reason: Constipation Melatonin (Melatonin 3 Mg Tablet) 6 mg PO BEDTIME PRN PRN Reason: Insomnia Mirtazapine (Mirtazapine 7.5 Mg Tablet) 7.5 mg PO BEDTIME [facility] Montelukast Sodium (Montelukast Sodium 10 Mg Tablet) 10 mg PO DAILY [facility] Last Admin: 04/26/25 08:37 Dose: 10 mg Ondansetron HCl (Ondansetron Hcl 4 Mg/2 Ml Vial) 4 mg IVPUSH Q8H PRN PRN Reason: Nausea and Vomiting Pantoprazole Sodium (Pantoprazole Sodium 40 Mg/10 Ml Vial) 40 mg IVPUSH BID@0630,1630 [facility] Sertraline HCl (Sertraline Hcl 100 Mg Tablet) 100 mg PO DAILY [facility] Last Admin: 04/26/25 08:37 Dose: 100 mg Sodium Chloride (0.9 % Sodium Chloride Flush 3 Ml Syringe) 3 ml IVFLUSH QSHIFT [facility] Last Admin: 04/26/25 08:34 Dose: Not Given Topiramate (Topiramate 25 Mg Tablet) 50 mg PO BID [facility] Last Admin: 04/26/25 08:37 Dose: 50 mg Home Medications ?Medication ?Instructions ?Recorded ?Confirmed ?Last Taken ?Type lurasidone 80 mg tablet (Latuda) 80 mg PO BEDTIME 11/26/20 04/26/25 04/24/25 History montelukast 10 mg tablet 10 mg PO BEDTIME 11/26/20 04/26/25 04/25/25 History amlodipine 10 mg tablet 10 mg PO DAILY 01/27/24 04/26/25 04/25/25 History dexlansoprazole 60 mg 60 mg PO DAILY@0630 01/27/24 04/26/25 04/25/25 History capsule,biphase delayed release docusate sodium 100 mg capsule 200 mg PO DAILY 01/27/24 04/26/25 04/25/25 History hydrochlorothiazide 25 mg tablet 25 mg PO DAILY 01/27/24 04/26/25 04/25/25 History sertraline 100 mg tablet 100 mg PO DAILY 01/27/24 04/26/25 04/25/25 History testosterone cypionate 200 mg/mL 50 mg IM TH 01/27/24 04/26/25 04/14/25 History intramuscular oil cholecalciferol (vitamin D3) 25 25 mcg PO DAILY 04/26/25 04/26/25 04/25/25 History mcg (1,000 unit) tablet (Vitamin D3) clonazepam 1 mg tablet 0.5 mg PO TID PRN anxiety 04/26/25 04/26/25 Unknown History clonazepam 1 mg tablet 1 mg PO BEDTIME anxiety 04/26/25 04/26/25 04/24/25 History famotidine 40 mg tablet 40 mg PO DAILY 04/26/25 04/26/25 04/25/25 History melatonin 10 mg tablet 10 mg PO BEDTIME PRN Insomnia 04/26/25 04/26/25 Unknown History mirtazapine 7.5 mg tablet 7.5 mg PO BEDTIME 04/26/25 04/26/25 04/24/25 History quetiapine 100 mg tablet 200 mg PO BEDTIME PRN insomnia 04/26/25 04/26/25 Unknown History topiramate 50 mg tablet 50 mg PO BID 04/26/25 04/26/25 04/25/25 History Physical Exam Exam: Exam: EXAM: GENERAL: The patient is well developed and nontoxic. VITAL SIGNS:see workflow HEENT: Nonicteric sclerae, PERRLA, EOMI. Oropharynx clear. Moist mucous membranes. Conjunctivae appear well perfused. No thyroid mass. CHEST: Chest wall is nontender. HEART: Regular rate and rhythm without murmurs. LUNGS: Clear to auscultation bilaterally. ABDOMEN: Soft, positive bowel sounds, tender epigastrium, no organomegaly.no flank tenderness SKIN: No rash, no excessive bruising, petechiae, or purpura. NEUROLOGIC: Cranial nerves II-XII intact without motor/sensory deficit. Psych: normal affect Vital Signs: Vital Signs: Last Vital Signs Temp 97.9 F 04/26/25 08:18 Pulse 71 04/26/25 08:18 Resp 20 04/26/25 08:18 BP 110/67 04/26/25 08:18 Pulse Ox 97 04/26/25 08:18 O2 Del Method Room Air 04/26/25 08:18 BMI result Body Mass Index 32.3 Results Labs 04/26/25 04:41 04/26/25 09:11 Labs: Short CBC 04/25/25 04/26/25 Range/Units 16:45 04:41 WBC 8.8 8.1 (4.8-10.8) X10*3/uL Hgb 15.6 14.2 (12.0-16.0) g/dl Hct 47.3 H 43.5 (37.0-47.0) % Plt Count 368 323 (160-400) X10*3/uL BMP 04/25/25 04/26/25 16:45 04:41 Sodium 138 141 Potassium 3.1 L D 2.4 L* D Chloride 102 105 Carbon Dioxide 27 26 BUN 12 8 L Creatinine 1.17 1.00 Calcium 9.3 8.4 D Liver Function 04/25/25 04/26/25 Range/Units 16:45 04:41 Total Bilirubin 0.3 0.3 (0.0-1.0) mg/dL AST 50 H 37 H (5-31) U/L ALT 66 H 49 H (0-31) U/L Alkaline Phosphatase 41 36 L (39-117) U/L Albumin 4.5 3.8 (3.5-5.0) g/dL Urine 04/25/25 Range/Units 20:35 Urine Color Yellow Urine Appearance Clear Urine pH 7.5 (5.0-9.0) Ur Specific [place] 1.010 (1.005-1.025) Urine Protein Negative (Neg-Trace) mg/dL Urine Glucose (UA) Negative (Negative) mg/dL Imaging CT scan - abdomen: Attestation: I personally reviewed and interpreted this imaging study as follows: (haital hernia, gastric thickening incl duodenal thickening ) Assessment and Plan (1) Intractable nausea and vomiting: Status: Acute Plan 1/ N/V with abdominal pain, possible from gastritis or duodenitis, PUD, medications, central cause, or even UTI PLAN: /1 - EGD for further assessment 2/ PPI and scheduled anti emetics 3/ if neg then brain imaging to r/o central cause, and possible GES Procedures Date of Service Date of Service: 04/26/25
--- NOTE | 2025-04-26 09:05 | PHA.MEDREC ---
Pharmacy Consult ? Medication Reconciliation Pharmacy has completed the medication reconciliation. Spoke with pt and they confirmed their medications. Pt confirmed they take the Clonazepam 1mg tab 0.5mg (1/2) tab TID as needed for anxiety but at night pt will take 2 tablets before bed, they take Quetiapine 100mg tabs 2 tabs (200mg) at bedtime as needed, pt stated the Sucralfate was not working for them and stopped that recently and pt takes Testosterone injection once a week on and states they didn't take it last (pt not feeling well) by took it last 04/14.
--- NOTE | 2025-04-26 09:46 | PC.NURSE ---
report given to [facility] for patient EGD planned roller picker 11
--- NOTE | 2025-04-26 09:58 | PC.NURSE ---
assumed care of patient at 0700, patient is awake and alert, resp even and unlabored. patient in normal sinus on the monitor, patient medicated per [facility], has D5 .45% NS running at 100ml/hr. patient is ambulatory
[2025-04-26 10:05] LABS: Potassium 3.1 mmol/L (3.3-5.1)
[2025-04-26] MEDS: Lactated Ringers 1,000 ML 80 ML IVCONT (11:46)
--- NOTE | 2025-04-26 13:17 | W.PM.OPN ---
Operative Note Operative Note Date of Service: 04/26/25 Narrative: Procedure Description: EGD Indication: abdominal pain and nausea Anesthesia: MAC FLEXIBLE TRANSORAL UPPER GASTROINTESTINAL ENDOSCOPY UPPER ENDOSCOPY Consent: Indications for the procedure and potential complications of bleeding, perforation, reaction to medications and missed diagnosis were discussed with the patient and informed consent was obtained. Instrument: Olympus GIF H 190 J mid size upper endoscope Monitoring: Vital signs and clinical assessment, continuous EKG monitoring, Pulse oximetry, Carbon Dioxide monitoring and blood pressure monitoring were done throughout the procedure. Procedure: The patient was placed in the left lateral decubitis position and pre-procedure medications were administered and a bite block was placed. The endoscope was inserted into the mouth and advanced under direct vision to the third part of duodenum. A careful inspection was made as the upper endoscope was withdrawn including a retroflexed examination of the proximal stomach; Findings and interventions are described below. Findings: Larynx:normal Esophagus: GE junction at 32 cm, diaphragm hiatus at 35 cm, normal mucosa - 3 cm fixed hiatal hernia noted Stomach: diffuse streaky erythema and granularity . Biopsies were obtained. Grade 2 flap valve on retroflexed examination of the cardia. Duodenum: Normal bulb and descending duodenum, bx taken Intervention: Biopsies as noted above, Impression/Findings: gastritis hiatal hernia PLAN: o/p consult for hernia repair, maybe contributing to symptoms sucralfate 1g BID, high dose PPI BID GERD precautions if ongoing sx then brain imaging
--- NOTE | 2025-04-26 14:25 | MHC.CM.PN ---
CM attempted assessment today, pt is in OR, CM to follow up tomorrow.
--- NOTE | 2025-04-26 17:03 | PM.EVENT ---
Event Note Date of Service: 04/26/25 Event Note: Patient seen and examined by hospitalist team this morning, seen and examined again. Says still feel nauseated and has abdominal pain Physical exam and assessment and plan as per H and P note. Continue IV hydration, ppi, antiemetics, GI evaluation Time Spent With Patient Time: Total time managing care of this patient today ____ minutes.
[2025-04-26 18:36] LABS: Anion Gap 13 (12-20); Blood Urea Nitrogen 6 mg/dL (9-16); Calcium 8.8 mg/dL (8.4-10.2); Carbon Dioxide 22 mmol/L (22-29); Chloride 110 mmol/L (96-108); Creatinine Clr Calc Pharmacy 63.3; Estimated Glomerular Filt Rate > 60; Magnesium 2.6 mg/dL (1.6-2.6); Potassium 3.0 mmol/L (3.3-5.1); Sodium 142 mmol/L (135-145)
[2025-04-27] VITALS (7 sets, daily range): BP systolic 105–126; BP diastolic 57–86; PULSE 50–80; RESP 16–18; TEMP 36.2–36.7; O2SAT 92–97
[2025-04-27] MEDS: Dextrose 5 % and 0.45 % NaCl 1,000 ML 100 ML IVCONT (05:51)
--- NOTE | 2025-04-27 08:49 | HO.POSTANES ---
Post Anesthesia Evaluation Post Anesthesia Evaluation Date of Service: 04/27/25 Vital Signs: Vital Signs Temp Pulse Resp BP Pulse Ox O2 Del Method 04/27/25 07:02 97.1 F 53 18 111/60 94 Room Air 04/27/25 03:50 98.0 F 80 16 114/68 97 Room Air 04/27/25 00:00 98.0 F 74 16 126/62 92 Room Air Anesthesia: Monitored Mental Status: Awake Pain Control: Satisfactory Nausea/Vomiting: None Hydration: Adequate Anesthesia-Related Issues: No Anes. Related Issues
--- NOTE | 2025-04-27 09:18 | MHC.CM.PN ---
PATIENT IS IPTA. LIVES WITH [facility]/NEW HCP. HCP COPY UPLOADED IN [facility]. PATIENT IS NOT READY FOR DISCHARGE. CURRENTLY ANTICIPATES NO NEED FOR SERVICES AT DC. [facility] WILL TRANSPORT PATIENT HOME. CASE MANAGEMENT FOLLOWING FOR DC NEEDS. IMM 04/27/25 IN CHART
--- NOTE | 2025-04-27 11:23 | MHC.CM.PN ---
PER PROVIDER ROUNDS, PATIENT CURRENTLY NOT TOLERATING PO INTAKE. FOLLOWING FOR ADVANCEMENT OF DIET. PLAN FOR CT HEAD. ANTICIPATE 1 MORE DAY HERE. [facility] HOME SELF [facility]
--- NOTE | 2025-04-27 14:35 | P.PNIM_ITS ---
Subjective Subjective Date of Service: 04/27/25 Interval History: still vomiting Physical Exam 2 Exam: Exam: General: AO X 3, no acute distress Resp: CTA bilateral, no accessory muscles used CVS: S1,S2,RRR GI: soft, non tender, non distended Neuro: motor grossly intact, alert Psych: appropriate affect, appropriate insight Vital Signs: Vital Signs: Last Vital Signs Temp 97.2 F 04/27/25 11:11 Pulse 65 04/27/25 11:11 Resp 17 04/27/25 11:11 BP 122/72 04/27/25 11:11 Pulse Ox 97 04/27/25 11:11 O2 Del Method Room Air 04/27/25 11:11 BMI result Body Mass Index 30.9 Objective Data Active Medications Acetaminophen (Acetaminophen 325 Mg Tablet) 650 mg PO Q6H PRN PRN Reason: Pain, Mild 1-3,fever,headache Last Admin: 04/26/25 21:16 Dose: 650 mg Documented By: SHADY Calcium Carbonate (Calcium Carbonate 750 Mg Tab.Chew) 750 mg PO Q4H PRN PRN Reason: Heartburn Clonazepam (Clonazepam 0.5 Mg Tablet) 0.5 mg PO TID PRN PRN Reason: Anxiety Clonazepam (Clonazepam 1 Mg Tablet) 1 mg PO BEDTIME [facility] Enoxaparin Sodium (Enoxaparin Sodium 40 Mg/0.4 Ml Syringe) 40 mg SUBCUT Q24H [facility] Last Admin: 04/27/25 08:46 Dose: 40 mg Documented By: FOSTEKFernando Hydromorphone HCl (Hydromorphone Hcl 0.5 Mg/0.5 Ml Syringe) 0.5 mg IVPUSH Q4H PRN; Protocol PRN Reason: Pain, Severe (Pain Scale 7-10) Last Admin: 04/27/25 11:28 Dose: 0.5 mg Documented By: RAVEN Dextrose/Sodium Chloride (D51/2ns) 1,000 mls @ 80 mls/hr IVCONT .[id number] [facility] Lurasidone HCl (Lurasidone Hcl 80 Mg Tablet) 80 mg PO BEDTIME [facility] Last Admin: 04/26/25 21:15 Dose: 80 mg Documented By: SHADY Magnesium Hydroxide (Milk Of Magnesia 30 Ml Oral.Susp) 30 ml PO DAILY PRN PRN Reason: Constipation Melatonin (Melatonin 3 Mg Tablet) 6 mg PO BEDTIME PRN PRN Reason: Insomnia Mirtazapine (Mirtazapine 7.5 Mg Tablet) 7.5 mg PO BEDTIME [facility] Last Admin: 04/26/25 21:15 Dose: 7.5 mg Documented By: SHADY Montelukast Sodium (Montelukast Sodium 10 Mg Tablet) 10 mg PO DAILY [facility] Last Admin: 04/27/25 08:46 Dose: 10 mg Documented By: PIETER Ondansetron HCl (Ondansetron Hcl 4 Mg/2 Ml Vial) 4 mg IVPUSH Q8H PRN PRN Reason: Nausea and Vomiting Last Admin: 04/27/25 11:28 Dose: 4 mg Documented By: RAVEN Pantoprazole Sodium (Pantoprazole Sodium 40 Mg/10 Ml Vial) 40 mg IVPUSH BID@0630,1630 [facility] Last Admin: 04/27/25 05:54 Dose: 40 mg Documented By: SHADY Quetiapine Fumarate (Quetiapine Fumarate 200 Mg Tablet) 200 mg PO BEDTIME PRN PRN Reason: Insomnia Sertraline HCl (Sertraline Hcl 100 Mg Tablet) 100 mg PO DAILY [facility] Last Admin: 04/27/25 08:46 Dose: 100 mg Documented By: PIETER Sodium Chloride (0.9 % Sodium Chloride Flush 3 Ml Syringe) 3 ml IVFLUSH QSHIFT [facility] Last Admin: 04/27/25 08:49 Dose: Not Given Documented By: PIETER Non-Admin Reason: IV Running Topiramate (Topiramate 25 Mg Tablet) 50 mg PO BID [facility] Last Admin: 04/27/25 08:46 Dose: 50 mg Documented By: PIETER Labs 04/26/25 04:41 04/26/25 18:14 Labs: Laboratory Results - last 24 hr 04/26/25 18:14 Anion Gap 13 Estim Creat Clear Calc 63.3 Estimated GFR > 60 Random Glucose 73 Calcium 8.8 Magnesium 2.6 Assessment and Plan (1) Intractable nausea and vomiting: Status: Acute Plan 44 transgender male pmh mood disorder, ptsd, asthma, presented with n/v abd pain Intractable nausea and vomiting and abdominal pain EGD with hiatal hernia, no obvious cause CT head with no significant central lesion Continues to vomit inability to tolerate p.o. Continue IV fluids, antiemetic PPI Splenic lesion Repeat CT in 6 months Acute hypokalemia Replace and monitor DVT prophylaxis with Lovenox Full code reason for continued hospitalization: Not tolerating p.o. Quality Stroke Does the patient have a stroke diagnosis?: No VTE Prior VTE?: No VTE Risk Level:: Medical - moderate - high VTE Device Contraindication: Treatment Not Indicated VTE Drug Contraindication: N/A - Med Ordered
[2025-04-27 14:44] LABS: Appearance Urine Clear; Glucose Urine UA Negative (Negative); PH 6.5 (5.0-9.0); Specific Gravity - Urine 1.010 (1.005-1.025); UMIC TRIGGER UACC YES
[2025-04-27] MEDS: Dextrose 5 % and 0.45 % NaCl 1,000 ML 80 ML IVCONT (14:59)
[2025-04-27] MEDS: 0.9 % Sodium Chloride Flush 3 ML SYRINGE IVFLUSH (19:54)
[2025-04-28] MEDS: Dextrose 5 % and 0.45 % NaCl 1,000 ML 80 ML IVCONT ×2 (03:30→15:05)
[2025-04-28 04:00] VITALS: BP 112/77; PULSE 80; RESP 18; TEMP 36.2; O2SAT 98
[2025-04-28 06:58] LABS: Hematocrit 44.9 % (37.0-47.0); Hemoglobin 14.4 g/dl (12.0-16.0); Mean Corpuscular HGB Conc 32.1 g/dl (31.0-35.0); Mean Corpuscular Hemoglobin 26.6 pg (27.0-33.0); Mean Corpuscular Volume 83.0 fL (80.0-98.0); NRBC Abs Auto 0.000 X10*3/uL (0.0-0.012); NRBC Pct Auto 0.0 /100WBC (0.0-0.2); Platelet Count 332 X10*3/uL (160-400); Red Blood Count 5.41 X10*6/uL (4.20-5.50); White Blood Count 5.7 X10*3/uL (4.8-10.8)
[2025-04-28 07:15] LABS: Anion Gap 9 (12-20); Blood Urea Nitrogen 7 mg/dL (9-16); Calcium 8.7 mg/dL (8.4-10.2); Carbon Dioxide 25 mmol/L (22-29); Chloride 110 mmol/L (96-108); Creatinine Clr Calc Pharmacy 55.8; Estimated Glomerular Filt Rate 55; Magnesium 2.3 mg/dL (1.6-2.6); Potassium 3.0 mmol/L (3.3-5.1); Sodium 141 mmol/L (135-145)
[2025-04-28 07:41] VITALS: BP 113/71; PULSE 53; RESP 18; TEMP 36.3; O2SAT 98
[2025-04-28] MEDS: Potassium Chloride/H20 10 MEQ/100 ML PIGGYBACK 100 MEQ IV ×4 (08:39→13:39)
[2025-04-28] MEDS: 0.9 % Sodium Chloride Flush 3 ML SYRINGE IVFLUSH (08:44)
--- NOTE | 2025-04-28 09:57 | HO.PM.IMPN ---
Subjective Subjective Date of Service: 04/28/25 Interval History: Still with persistent vomiting inability to tolerate p.o. Physical Exam Exam: Exam: General: AO X 3, no acute distress Resp: CTA bilateral, no accessory muscles used CVS: S1,S2,RRR GI: soft, non tender, non distended Neuro: motor grossly intact, alert Psych: appropriate affect, appropriate insight Vital Signs: Vital Signs: Last Vital Signs Temp 97.3 F 04/28/25 07:41 Pulse 53 04/28/25 07:41 Resp 18 04/28/25 07:41 BP 113/71 04/28/25 07:41 Pulse Ox 98 04/28/25 07:41 O2 Del Method Room Air 04/28/25 07:41 BMI result Body Mass Index 30.9 Objective Data Active Medications Acetaminophen (Acetaminophen 325 Mg Tablet) 650 mg PO Q6H PRN PRN Reason: Pain, Mild 1-3,fever,headache Last Admin: 04/28/25 04:55 Dose: 650 mg Documented By: SHADY Calcium Carbonate (Calcium Carbonate 750 Mg Tab.Chew) 750 mg PO Q4H PRN PRN Reason: Heartburn Clonazepam (Clonazepam 0.5 Mg Tablet) 0.5 mg PO TID PRN PRN Reason: Anxiety Clonazepam (Clonazepam 1 Mg Tablet) 1 mg PO BEDTIME [facility] Last Admin: 04/27/25 20:32 Dose: 1 mg Documented By: SHADY Enoxaparin Sodium (Enoxaparin Sodium 40 Mg/0.4 Ml Syringe) 40 mg SUBCUT Q24H [facility] Last Admin: 04/28/25 08:38 Dose: 40 mg Documented By: OSCAR Hydromorphone HCl (Hydromorphone Hcl 0.5 Mg/0.5 Ml Syringe) 0.5 mg IVPUSH Q4H PRN; Protocol PRN Reason: Pain, Severe (Pain Scale 7-10) Last Admin: 04/28/25 08:39 Dose: 0.5 mg Documented By: OSCAR Dextrose/Sodium Chloride (D51/2ns) 1,000 mls @ 80 mls/hr IVCONT .[id number] [facility] Last Admin: 04/28/25 03:30 Dose: 80 mls/hr Documented By: SHADY Potassium Chloride (Potassium Chloride/H20) 10 meq in 100 mls @ 100 mls/hr IV Q1H [facility] Stop: 04/28/25 11:44 Last Admin: 04/28/25 08:39 Dose: 100 mls/hr Documented By: OSCAR Lurasidone HCl (Lurasidone Hcl 80 Mg Tablet) 80 mg PO BEDTIME [facility] Last Admin: 04/27/25 20:33 Dose: 80 mg Documented By: SHADY Magnesium Hydroxide (Milk Of Magnesia 30 Ml Oral.Susp) 30 ml PO DAILY PRN PRN Reason: Constipation Melatonin (Melatonin 3 Mg Tablet) 6 mg PO BEDTIME PRN PRN Reason: Insomnia Mirtazapine (Mirtazapine 7.5 Mg Tablet) 7.5 mg PO BEDTIME [facility] Last Admin: 04/27/25 20:32 Dose: 7.5 mg Documented By: SHADY Montelukast Sodium (Montelukast Sodium 10 Mg Tablet) 10 mg PO DAILY [facility] Last Admin: 04/28/25 08:39 Dose: 10 mg Documented By: OSCAR Ondansetron HCl (Ondansetron Hcl 4 Mg/2 Ml Vial) 4 mg IVPUSH Q8H PRN PRN Reason: Nausea and Vomiting Last Admin: 04/28/25 09:16 Dose: 4 mg Documented By: MARY Pantoprazole Sodium (Pantoprazole Sodium 40 Mg/10 Ml Vial) 40 mg IVPUSH BID@0630,1630 [facility] Last Admin: 04/28/25 04:55 Dose: 40 mg Documented By: SHADY Quetiapine Fumarate (Quetiapine Fumarate 200 Mg Tablet) 200 mg PO BEDTIME PRN PRN Reason: Insomnia Last Admin: 04/27/25 20:37 Dose: 200 mg Documented By: SHADY Sertraline HCl (Sertraline Hcl 100 Mg Tablet) 100 mg PO DAILY [facility] Last Admin: 04/28/25 08:39 Dose: 100 mg Documented By: OSCAR Sodium Chloride (0.9 % Sodium Chloride Flush 3 Ml Syringe) 3 ml IVFLUSH QSHIFT [facility] Last Admin: 04/28/25 08:44 Dose: 3 ml Documented By: OSCAR Sucralfate (Sucralfate Oral Suspension 1 Gm/10 Ml Oral.Susp) 1 gm PO QIDACHS [facility] Topiramate (Topiramate 25 Mg Tablet) 50 mg PO BID [facility] Last Admin: 04/28/25 08:38 Dose: 50 mg Documented By: OSCAR Labs 04/28/25 06:29 04/28/25 06:29 Labs: Laboratory Results - last 24 hr 04/27/25 04/28/25 14:06 06:29 MCV 83.0 MCH 26.6 L MCHC 32.1 RDW 16.9 H Plt Count 332 MPV 9.7 Absolute Nucleated RBC 0.000 Nucleated RBC % (auto) 0.0 Anion Gap 9 L Estim Creat Clear Calc 55.8 Estimated GFR 55 Random Glucose 86 Calcium 8.7 Magnesium 2.3 Urine Color Yellow Urine Appearance Clear Urine pH 6.5 Ur Specific [place] 1.010 Urine Protein Negative Urine Glucose (UA) Negative Urine Ketones 15 Urine Blood Negative Urine Nitrite Negative Ur Leukocyte Esterase Trace H Urine RBC 0-2 Urine WBC 0-5 Ur Squamous Epith Cells 0-2 Urine Bacteria None Seen Hyaline Casts 0-2 Assessment and Plan (1) Intractable nausea and vomiting: Status: Acute Plan 44 transgender male pmh mood disorder, ptsd, asthma, presented with n/v abd pain Intractable nausea and vomiting and abdominal pain EGD with hiatal hernia, no obvious cause CT head with no significant central lesion Continues to vomit inability to tolerate p.o. Continue IV fluids, antiemetic - will add prokinetic PPI, carafate Splenic lesion Repeat CT in 6 months Acute hypokalemia Replace and monitor DVT prophylaxis with Lovenox Full code reason for continued hospitalization: Not tolerating p.o. Quality Stroke Does the patient have a stroke diagnosis?: No VTE Prior VTE?: No VTE Risk Level:: Medical - moderate - high VTE Device Contraindication: Treatment Not Indicated VTE Drug Contraindication: N/A - Med Ordered
[2025-04-28 11:12] VITALS: BP 113/70; PULSE 54; RESP 19; TEMP 36.6; O2SAT 97
[2025-04-28] MEDS: Sucralfate Oral Suspension 1 GM/10 ML ORAL.SUSP PO (11:30)
--- NOTE | 2025-04-28 11:35 | P.CDIM_ITS ---
PROVIDER RESPONSE TEXT: To clarify, the appropriate diagnosis supported by the clinical indicators: Gastritis: acute QUERY TEXT: PHYSICIAN'S DOCUMENTATION REQUEST Date of Query: 04/28/2025 11:16 AM EDT Patient Name: Chin VELAZQUEZ Admit Date: 04/26/2025 Dear Lui Tellez MD, A review of the medical record indicates additional documentation may be needed. Please review below and update the documentation accordingly. Clinical Indicators: H&P: 04/26/25 - N/V/ abdominal pain, poor p.o. intake Ed course: patient noted with diffuse abdominal tenderness, CT scan showed mild inflammation on the anterior abdomen, suspected Gastritis. IV Reglan, IV Pepcid, GI cocktail. PMH: Gastritis EGD with biopsies 04/26/25 - Impression: Gastritis/hiatal hernia Based on the above, could you clarify any further specificity to the noted Gastritis: Gastritis Acute, chronic, spastic, superficial chronic, viral, hypertrophic, dietary deficiency, etc. Condition 2 (please specify) Other (explain) Clinically unable to determine (explain) Thank you, Lauren Thornton, CCS, CDIS Use of terms such as suspected, likely, concern for, or probable (associated with a specific diagnosis that is being evaluated, monitored, or treated as if it exists) are acceptable and can be coded in the inpatient setting, when documented at the time of discharge. Please use your independent medical judgment in providing your response. THIS QUERY IS PART OF THE PERMANENT MEDICAL RECORD
[2025-04-28 15:16] VITALS: BP 115/75; PULSE 58; RESP 18; TEMP 36.4; O2SAT 96
--- NOTE | 2025-04-28 15:55 | MHC.CM.PN ---
PATIENT NOT TOLERATING PO AT THIS TIME. NOT YET STABLE FOR DC. EVENTUAL PLAN IS HOME - SELF CARE.
[2025-04-28 20:00] VITALS: BP 116/69; PULSE 57; RESP 16; TEMP 36.3; O2SAT 96
--- NOTE | 2025-04-28 21:19 | P.PNGI_ITS ---
Subjective Subjective Date of Service: 04/28/25 Interval History: still has poor appetite and nausea CT imaging head is neg referred to Dr King for hiatal hernia repair and eval has abdominal pain, around mid abdomen, Critical Care Time (minutes): 0 Physical Exam 2 Exam: Exam: EXAM: GENERAL: The patient is well developed and nontoxic. VITAL SIGNS:see workflow HEENT: Nonicteric sclerae, PERRLA, EOMI. Oropharynx clear. Moist mucous membranes. Conjunctivae appear well perfused. No thyroid mass. CHEST: Chest wall is nontender. HEART: Regular rate and rhythm without murmurs. LUNGS: Clear to auscultation bilaterally. ABDOMEN: Soft, positive bowel sounds, tender epigastrium and lloyd umbilical area, no erythema seen, no organomegaly.no flank tenderness SKIN: No rash, no excessive bruising, petechiae, or purpura. NEUROLOGIC: Cranial nerves II-XII intact without motor/sensory deficit. Psych: normal affect Vital Signs: Vital Signs: Last Vital Signs Temp 97.3 F 04/28/25 20:00 Pulse 57 04/28/25 20:00 Resp 16 04/28/25 20:00 BP 116/69 04/28/25 20:00 Pulse Ox 96 04/28/25 20:00 O2 Del Method Room Air 04/28/25 20:00 BMI result Body Mass Index 30.9 Objective Data Labs 04/28/25 06:29 04/28/25 06:29 Labs: Laboratory Results - last 24 hr 04/28/25 06:29 WBC 5.7 RBC 5.41 Hgb 14.4 Hct 44.9 MCV 83.0 MCH 26.6 L MCHC 32.1 RDW 16.9 H Plt Count 332 MPV 9.7 Absolute Nucleated RBC 0.000 Nucleated RBC % (auto) 0.0 Sodium 141 Potassium 3.0 L Chloride 110 H Carbon Dioxide 25 Anion Gap 9 L BUN 7 L Creatinine 1.09 Estim Creat Clear Calc 55.8 Estimated GFR 55 Random Glucose 86 Calcium 8.7 Magnesium 2.3 Procedures Date of Service Date of Service: 04/28/25 Progress Note: A&P Assessment and plan (1) Intractable nausea and vomiting: Status: Acute Plan 1/ N/V and fixed hiatal hernia on endoscopy, per patient told he has gastroparesis as well PLAN: 1/ Try scheduled anti emetics 2/ can try azithromycin for pro motility effect and in case any underlying fascia inflammation per admission CT 3/ f/u Dr King for hernia repair 4/ cont with PPI and carafate Time Spent With Patient Time: Total time managing care of this patient today ____ minutes. Quality Stroke Does the patient have a stroke diagnosis?: No VTE Prior VTE?: No VTE Risk Level:: Medical - moderate - high VTE Device Contraindication: Treatment Not Indicated VTE Drug Contraindication: N/A - Med Ordered
--- NOTE | 2025-04-28 21:51 | PC.NURSE ---
Patient c/o 03/30 abdominal pain, not due for IV dilaudid until 2300. MD notified. MD order to give dose early. 0.5mg IV dilaudid administered at 2150.
[2025-04-28 23:57] VITALS: BP 99/68; PULSE 80; RESP 16; TEMP 36.3; O2SAT 96
[2025-04-29] MEDS: Dextrose 5 % and 0.45 % NaCl 1,000 ML 80 ML IVCONT ×2 (02:14→14:17)
[2025-04-29 03:15] VITALS: BP 96/59; PULSE 54; RESP 16; TEMP 36.1; O2SAT 92
[2025-04-29 07:10] VITALS: BP 107/61; PULSE 53; RESP 18; TEMP 36.3; O2SAT 94
[2025-04-29 07:31] LABS: Hematocrit 47.9 % (37.0-47.0); Hemoglobin 15.0 g/dl (12.0-16.0); Mean Corpuscular HGB Conc 31.3 g/dl (31.0-35.0); Mean Corpuscular Hemoglobin 26.1 pg (27.0-33.0); Mean Corpuscular Volume 83.4 fL (80.0-98.0); NRBC Abs Auto 0.000 X10*3/uL (0.0-0.012); NRBC Pct Auto 0.0 /100WBC (0.0-0.2); Platelet Count 392 X10*3/uL (160-400); Red Blood Count 5.74 X10*6/uL (4.20-5.50); White Blood Count 5.3 X10*3/uL (4.8-10.8)
[2025-04-29 07:48] LABS: Anion Gap 9 (12-20); Blood Urea Nitrogen 5 mg/dL (9-16); Calcium 8.3 mg/dL (8.4-10.2); Carbon Dioxide 25 mmol/L (22-29); Chloride 112 mmol/L (96-108); Creatinine Clr Calc Pharmacy 57.3; Estimated Glomerular Filt Rate 56; Magnesium 2.2 mg/dL (1.6-2.6); Potassium 3.2 mmol/L (3.3-5.1); Sodium 143 mmol/L (135-145)
[2025-04-29] MEDS: 0.9 % Sodium Chloride Flush 3 ML SYRINGE IVFLUSH ×2 (08:05→20:45)
[2025-04-29] MEDS: Potassium Chloride Packet 20 MEQ PACKET 40 MEQ PO (08:10)
--- NOTE | 2025-04-29 10:41 | P.PNIM_ITS ---
Subjective Subjective Date of Service: 04/29/25 Interval History: Still with persistent vomiting inability to tolerate p.o. Physical Exam 2 Exam: Exam: EXAM: GENERAL: The patient is well developed and nontoxic. VITAL SIGNS:see workflow HEENT: Nonicteric sclerae, PERRLA, EOMI. Oropharynx clear. Moist mucous membranes. Conjunctivae appear well perfused. No thyroid mass. CHEST: Chest wall is nontender. HEART: Regular rate and rhythm without murmurs. LUNGS: Clear to auscultation bilaterally. ABDOMEN: Soft, positive bowel sounds, tender epigastrium and lloyd umbilical area, no erythema seen, no organomegaly.no flank tenderness SKIN: No rash, no excessive bruising, petechiae, or purpura. NEUROLOGIC: Cranial nerves II-XII intact without motor/sensory deficit. Psych: normal affect Vital Signs: Vital Signs: Last Vital Signs Temp 97.4 F 04/29/25 07:10 Pulse 53 04/29/25 07:10 Resp 18 04/29/25 07:10 BP 107/61 04/29/25 07:10 Pulse Ox 94 04/29/25 07:10 O2 Del Method Room Air 04/29/25 07:10 BMI result Body Mass Index 30.9 Objective Data Active Medications Acetaminophen (Acetaminophen 325 Mg Tablet) 650 mg PO Q6H PRN PRN Reason: Pain, Mild 1-3,fever,headache Last Admin: 04/29/25 05:21 Dose: 650 mg Documented By: ANTKEREN Calcium Carbonate (Calcium Carbonate 750 Mg Tab.Chew) 750 mg PO Q4H PRN PRN Reason: Heartburn Clonazepam (Clonazepam 0.5 Mg Tablet) 0.5 mg PO TID PRN PRN Reason: Anxiety Clonazepam (Clonazepam 1 Mg Tablet) 1 mg PO BEDTIME [facility] Last Admin: 04/28/25 21:11 Dose: 1 mg Documented By: OSMANY Enoxaparin Sodium (Enoxaparin Sodium 40 Mg/0.4 Ml Syringe) 40 mg SUBCUT Q24H [facility] Last Admin: 04/29/25 08:03 Dose: 40 mg Documented By: QIANOPEMONO Hydromorphone HCl (Hydromorphone Hcl 0.5 Mg/0.5 Ml Syringe) 0.5 mg IVPUSH Q4H PRN; Protocol PRN Reason: Pain, Severe (Pain Scale 7-10) Last Admin: 04/29/25 10:36 Dose: 0.5 mg Documented By: OSCAR Dextrose/Sodium Chloride (D51/2ns) 1,000 mls @ 80 mls/hr IVCONT .[id number] [facility] Last Admin: 04/29/25 02:14 Dose: 80 mls/hr Documented By: ANTOIC Azithromycin 500 mg/ Sodium (Chloride) 250 mls @ 125 mls/hr IV Q24H [facility] Last Infusion: 04/28/25 17:59 Dose: Infused Documented By: OSCAR Lurasidone HCl (Lurasidone Hcl 80 Mg Tablet) 80 mg PO BEDTIME [facility] Last Admin: 04/28/25 21:11 Dose: 80 mg Documented By: OSMANY Magnesium Hydroxide (Milk Of Magnesia 30 Ml Oral.Susp) 30 ml PO DAILY PRN PRN Reason: Constipation Melatonin (Melatonin 3 Mg Tablet) 6 mg PO BEDTIME PRN PRN Reason: Insomnia Metoclopramide HCl (Metoclopramide Hcl 10 Mg/2 Ml Vial) 5 mg IVPUSH TIDAC [facility] Last Admin: 04/29/25 08:03 Dose: 5 mg Documented By: OSCAR Mirtazapine (Mirtazapine 7.5 Mg Tablet) 7.5 mg PO BEDTIME [facility] Last Admin: 04/28/25 21:11 Dose: 7.5 mg Documented By: OSMANY Montelukast Sodium (Montelukast Sodium 10 Mg Tablet) 10 mg PO DAILY [facility] Last Admin: 04/29/25 08:03 Dose: 10 mg Documented By: OSCAR Ondansetron HCl (Ondansetron Hcl 4 Mg/2 Ml Vial) 4 mg IVPUSH Q8H PRN PRN Reason: Nausea and Vomiting Last Admin: 04/29/25 02:08 Dose: 4 mg Documented By: ANTKEREN Pantoprazole Sodium (Pantoprazole Sodium 40 Mg/10 Ml Vial) 40 mg IVPUSH BID@0630,1630 [facility] Last Admin: 04/29/25 05:21 Dose: 40 mg Documented By: BHUPINDER Quetiapine Fumarate (Quetiapine Fumarate 200 Mg Tablet) 200 mg PO BEDTIME PRN PRN Reason: Insomnia Last Admin: 04/28/25 21:13 Dose: 200 mg Documented By: OSMANY Sertraline HCl (Sertraline Hcl 100 Mg Tablet) 100 mg PO DAILY [facility] Last Admin: 04/29/25 08:03 Dose: 100 mg Documented By: OSCAR Sodium Chloride (0.9 % Sodium Chloride Flush 3 Ml Syringe) 3 ml IVFLUSH QSHIFT [facility] Last Admin: 04/29/25 08:05 Dose: 3 ml Documented By: OSCAR Sucralfate (Sucralfate Oral Suspension 1 Gm/10 Ml Oral.Susp) 1 gm PO QIDACHS [facility] Last Admin: 04/29/25 08:03 Dose: Not Given Documented By: OSCAR Non-Admin Reason: Patient Refused Topiramate (Topiramate 25 Mg Tablet) 50 mg PO BID [facility] Last Admin: 04/29/25 08:03 Dose: 50 mg Documented By: OSCAR Labs 04/29/25 06:37 04/29/25 06:37 Labs: Laboratory Results - last 24 hr 04/29/25 06:37 MCV 83.4 MCH 26.1 L MCHC 31.3 RDW 17.0 H Plt Count 392 MPV 10.0 Absolute Nucleated RBC 0.000 Nucleated RBC % (auto) 0.0 Anion Gap 9 L Estim Creat Clear Calc 57.3 Estimated GFR 56 Random Glucose 77 Calcium 8.3 L Magnesium 2.2 Assessment and Plan (1) Intractable nausea and vomiting: Status: Acute Plan 44 transgender male pmh mood disorder, ptsd, asthma, presented with n/v abd pain Intractable nausea and vomiting and abdominal pain EGD with hiatal hernia, no obvious cause CT head with no significant central lesion Continues to vomit inability to tolerate p.o. Continue IV fluids, antiemetic - added prokinetics - reglan and azithro PPI, carafate Splenic lesion Repeat CT in 6 months Acute hypokalemia Replace and monitor DVT prophylaxis with Lovenox Full code reason for continued hospitalization: Not tolerating p.o. Quality Stroke Does the patient have a stroke diagnosis?: No VTE Prior VTE?: No VTE Risk Level:: Medical - moderate - high VTE Device Contraindication: Treatment Not Indicated VTE Drug Contraindication: N/A - Med Ordered
--- NOTE | 2025-04-29 12:33 | MHC.CM.PN ---
EMR REVIEWED AND PER MD ROUNDS, PT IS NOT MEDICALLY CLEARED FOR DISCHARGE DUE TO MANAGEMENT OF NAUSEA/VOMITING, NOT TOLERATING PO.
[2025-04-29 15:15] VITALS: BP 152/81; PULSE 64; RESP 18; TEMP 36.7; O2SAT 95
[2025-04-29 19:52] VITALS: BP 128/82; PULSE 69; RESP 16; TEMP 36.2; O2SAT 98
[2025-04-30] VITALS (9 sets, daily range): BP systolic 111–136; BP diastolic 57–90; PULSE 60–69; RESP 16–20; TEMP 36.3–36.7; O2SAT 93–98
[2025-04-30] MEDS: Dextrose 5 % and 0.45 % NaCl 1,000 ML 80 ML IVCONT ×2 (02:30→17:06)
[2025-04-30 07:31] LABS: Anion Gap 8 (12-20); Blood Urea Nitrogen 5 mg/dL (9-16); Calcium 9.0 mg/dL (8.4-10.2); Carbon Dioxide 21 mmol/L (22-29); Chloride 114 mmol/L (96-108); Creatinine Clr Calc Pharmacy 66.0; Estimated Glomerular Filt Rate > 60; Potassium 3.1 mmol/L (3.3-5.1); Sodium 140 mmol/L (135-145)
[2025-04-30] MEDS: Potassium Chloride Packet 20 MEQ PACKET 40 MEQ PO (08:06)
[2025-04-30] MEDS: 0.9 % Sodium Chloride Flush 3 ML SYRINGE IVFLUSH ×2 (08:07→17:12)
--- NOTE | 2025-04-30 10:43 | HO.PM.IMPN ---
Subjective Subjective Date of Service: 04/30/25 Interval History: Still with persistent vomiting inability to tolerate p.o. Physical Exam Exam: Exam: EXAM: GENERAL: The patient is well developed and nontoxic. VITAL SIGNS:see workflow HEENT: Nonicteric sclerae, PERRLA, EOMI. Oropharynx clear. Moist mucous membranes. Conjunctivae appear well perfused. No thyroid mass. CHEST: Chest wall is nontender. HEART: Regular rate and rhythm without murmurs. LUNGS: Clear to auscultation bilaterally. ABDOMEN: Soft, positive bowel sounds, tender epigastrium and lloyd umbilical area, no erythema seen, no organomegaly.no flank tenderness SKIN: No rash, no excessive bruising, petechiae, or purpura. NEUROLOGIC: Cranial nerves II-XII intact without motor/sensory deficit. Psych: normal affect Vital Signs: Vital Signs: Last Vital Signs Temp 97.6 F 04/30/25 07:40 Pulse 61 04/30/25 07:40 Resp 20 04/30/25 07:40 BP 131/70 04/30/25 07:40 Pulse Ox 97 04/30/25 07:40 O2 Del Method Room Air 04/30/25 07:40 BMI result Body Mass Index 30.9 Objective Data Active Medications Acetaminophen (Acetaminophen 325 Mg Tablet) 650 mg PO Q6H PRN PRN Reason: Pain, Mild 1-3,fever,headache Last Admin: 04/29/25 11:33 Dose: 650 mg Documented By: OSCAR Calcium Carbonate (Calcium Carbonate 750 Mg Tab.Chew) 750 mg PO Q4H PRN PRN Reason: Heartburn Last Admin: 04/29/25 20:45 Dose: 750 mg Documented By: STEVEN Clonazepam (Clonazepam 0.5 Mg Tablet) 0.5 mg PO TID PRN PRN Reason: Anxiety Clonazepam (Clonazepam 1 Mg Tablet) 1 mg PO BEDTIME [facility] Last Admin: 04/29/25 20:45 Dose: 1 mg Documented By: STEVEN Enoxaparin Sodium (Enoxaparin Sodium 40 Mg/0.4 Ml Syringe) 40 mg SUBCUT Q24H [facility] Last Admin: 04/30/25 08:07 Dose: 40 mg Documented By: OSCAR Hydromorphone HCl (Hydromorphone Hcl 0.5 Mg/0.5 Ml Syringe) 0.5 mg IVPUSH Q4H PRN; Protocol PRN Reason: Pain, Severe (Pain Scale 7-10) Last Admin: 04/30/25 06:35 Dose: 0.5 mg Documented By: STEVEN Dextrose/Sodium Chloride (D51/2ns) 1,000 mls @ 80 mls/hr IVCONT .[id number] [facility] Last Admin: 04/30/25 02:30 Dose: 80 mls/hr Documented By: STEVEN Azithromycin 500 mg/ Sodium (Chloride) 250 mls @ 125 mls/hr IV Q24H [facility] Last Infusion: 04/29/25 17:43 Dose: Infused Documented By: OSCAR Lurasidone HCl (Lurasidone Hcl 80 Mg Tablet) 80 mg PO BEDTIME [facility] Last Admin: 04/29/25 20:45 Dose: 80 mg Documented By: STEVEN Magnesium Hydroxide (Milk Of Magnesia 30 Ml Oral.Susp) 30 ml PO DAILY PRN PRN Reason: Constipation Melatonin (Melatonin 3 Mg Tablet) 6 mg PO BEDTIME PRN PRN Reason: Insomnia Metoclopramide HCl (Metoclopramide Hcl 10 Mg/2 Ml Vial) 5 mg IVPUSH TIDAC [facility] Last Admin: 04/30/25 06:35 Dose: 5 mg Documented By: STEVEN Mirtazapine (Mirtazapine 7.5 Mg Tablet) 7.5 mg PO BEDTIME [facility] Last Admin: 04/29/25 20:45 Dose: 7.5 mg Documented By: STEVEN Montelukast Sodium (Montelukast Sodium 10 Mg Tablet) 10 mg PO DAILY [facility] Last Admin: 04/30/25 08:06 Dose: 10 mg Documented By: OSCAR Ondansetron HCl (Ondansetron Hcl 4 Mg/2 Ml Vial) 4 mg IVPUSH Q8H PRN PRN Reason: Nausea and Vomiting Last Admin: 04/30/25 08:06 Dose: 4 mg Documented By: OSCAR Quetiapine Fumarate (Quetiapine Fumarate 200 Mg Tablet) 200 mg PO BEDTIME PRN PRN Reason: Insomnia Last Admin: 04/29/25 20:45 Dose: 200 mg Documented By: STEVEN Sertraline HCl (Sertraline Hcl 100 Mg Tablet) 100 mg PO DAILY [facility] Last Admin: 04/30/25 08:07 Dose: 100 mg Documented By: OSCAR Sodium Chloride (0.9 % Sodium Chloride Flush 3 Ml Syringe) 3 ml IVFLUSH QSHIFT [facility] Last Admin: 04/30/25 08:07 Dose: 3 ml Documented By: OSCAR Sucralfate (Sucralfate Oral Suspension 1 Gm/10 Ml Oral.Susp) 1 gm PO QIDACHS [facility] Last Admin: 04/30/25 06:38 Dose: Not Given Documented By: STEVEN Non-Admin Reason: Patient Refused Topiramate (Topiramate 25 Mg Tablet) 50 mg PO BID [facility] Last Admin: 04/30/25 08:07 Dose: 50 mg Documented By: OSCAR Labs 04/29/25 06:37 04/30/25 06:18 Labs: Laboratory Results - last 24 hr 04/30/25 06:18 Hold Purple Top SEE NOTE Anion Gap 8 L Estim Creat Clear Calc 66.0 Estimated GFR > 60 Random Glucose 100 Calcium 9.0 D Assessment and Plan (1) Intractable nausea and vomiting: Status: Acute Plan 44 transgender male pmh mood disorder, ptsd, asthma, presented with n/v abd pain Intractable nausea and vomiting and abdominal pain EGD with hiatal hernia, no obvious cause CT head with no significant central lesion Continues to vomit inability to tolerate p.o. Continue IV fluids, antiemetic - added prokinetics - reglan and azithro PPI, carafate Splenic lesion Repeat CT in 6 months Acute hypokalemia Replace and monitor DVT prophylaxis with Lovenox Full code reason for continued hospitalization: still Not tolerating p.o. Quality Stroke Does the patient have a stroke diagnosis?: No VTE Prior VTE?: No VTE Risk Level:: Medical - moderate - high VTE Device Contraindication: Treatment Not Indicated VTE Drug Contraindication: N/A - Med Ordered
[2025-05-01] VITALS (7 sets, daily range): BP systolic 111–131; BP diastolic 65–88; PULSE 48–75; RESP 16–20; TEMP 36–36.5; O2SAT 94–98
--- NOTE | 2025-05-01 | ECG_ITS ---
Test Reason : chest pain Blood Pressure : */* mmHG Vent. Rate : 45 BPM Atrial Rate : 45 BPM P-R Int : 178 ms QRS Dur : 76 ms QT Int : 418 ms P-R-T Axes : 25 38 54 degrees QTcB Int : 361 ms Sinus bradycardia Low voltage QRS Septal infarct , age undetermined T wave abnormality, consider anterior ischemia Abnormal ECG When compared with ECG of 25-Apr-2025 16:33, Vent. rate has decreased by 45 bpm Nonspecific T wave abnormality no longer evident in Inferior leads Nonspecific T wave abnormality now evident in Lateral leads QT has shortened Referred By: Taty Kruger Electronically Signed By: Wing Landeros
[2025-05-01] MEDS: Dextrose 5 % and 0.45 % NaCl 1,000 ML 80 ML IVCONT ×2 (05:24→20:28)
[2025-05-01 06:35] LABS: Hematocrit 48.2 % (37.0-47.0); Hemoglobin 15.1 g/dl (12.0-16.0); Mean Corpuscular HGB Conc 31.3 g/dl (31.0-35.0); Mean Corpuscular Hemoglobin 26.5 pg (27.0-33.0); Mean Corpuscular Volume 84.6 fL (80.0-98.0); NRBC Abs Auto 0.000 X10*3/uL (0.0-0.012); NRBC Pct Auto 0.0 /100WBC (0.0-0.2); Platelet Count 372 X10*3/uL (160-400); Red Blood Count 5.70 X10*6/uL (4.20-5.50); White Blood Count 4.3 X10*3/uL (4.8-10.8)
[2025-05-01 06:51] LABS: Anion Gap 8 (12-20); Blood Urea Nitrogen 5 mg/dL (9-16); Calcium 8.7 mg/dL (8.4-10.2); Carbon Dioxide 23 mmol/L (22-29); Chloride 114 mmol/L (96-108); Creatinine Clr Calc Pharmacy 60.8; Estimated Glomerular Filt Rate > 60; Magnesium 1.9 mg/dL (1.6-2.6); Potassium 3.4 mmol/L (3.3-5.1); Sodium 142 mmol/L (135-145)
[2025-05-01] MEDS: 0.9 % Sodium Chloride Flush 3 ML SYRINGE IVFLUSH ×3 (07:16→23:28)
--- NOTE | 2025-05-01 08:41 | P.PNIM_ITS ---
Subjective Subjective Date of Service: 05/01/25 Interval History: Still with persistent vomiting inability to tolerate p.o. Physical Exam 2 Exam: Exam: EXAM: GENERAL: The patient is well developed and nontoxic. VITAL SIGNS:see workflow HEENT: Nonicteric sclerae, PERRLA, EOMI. Oropharynx clear. Moist mucous membranes. Conjunctivae appear well perfused. No thyroid mass. CHEST: Chest wall is nontender. HEART: Regular rate and rhythm without murmurs. LUNGS: Clear to auscultation bilaterally. ABDOMEN: Soft, positive bowel sounds, tender epigastrium and lloyd umbilical area, no erythema seen, no organomegaly.no flank tenderness SKIN: No rash, no excessive bruising, petechiae, or purpura. NEUROLOGIC: Cranial nerves II-XII intact without motor/sensory deficit. Psych: normal affect Vital Signs: Vital Signs: Last Vital Signs Temp 97.7 F 05/01/25 07:31 Pulse 56 05/01/25 07:31 Resp 16 05/01/25 07:31 BP 111/65 05/01/25 07:31 Pulse Ox 94 05/01/25 07:31 O2 Del Method Room Air 05/01/25 07:31 BMI result Body Mass Index 30.9 Objective Data Active Medications Acetaminophen (Acetaminophen 325 Mg Tablet) 650 mg PO Q6H PRN PRN Reason: Pain, Mild 1-3,fever,headache Last Admin: 05/01/25 04:15 Dose: 650 mg Documented By: KATE Comments: Pt requesting acetaminophen for 03/30 pain Calcium Carbonate (Calcium Carbonate 750 Mg Tab.Chew) 750 mg PO Q4H PRN PRN Reason: Heartburn Last Admin: 04/30/25 14:58 Dose: 750 mg Documented By: RADHIKA Clonazepam (Clonazepam 1 Mg Tablet) 1 mg PO BEDTIME [facility] Last Admin: 04/30/25 19:53 Dose: 1 mg Documented By: KATE Enoxaparin Sodium (Enoxaparin Sodium 40 Mg/0.4 Ml Syringe) 40 mg SUBCUT Q24H [facility] Last Admin: 05/01/25 08:02 Dose: 40 mg Documented By: CONNER Hydromorphone HCl (Hydromorphone Hcl 0.5 Mg/0.5 Ml Syringe) 0.5 mg IVPUSH Q4H PRN; Protocol PRN Reason: Pain, Severe (Pain Scale 7-10) Last Admin: 05/01/25 07:06 Dose: 0.5 mg Documented By: CONNER Azithromycin 500 mg/ Sodium (Chloride) 250 mls @ 125 mls/hr IV Q24H [facility] Last Infusion: 04/30/25 17:12 Dose: Infused Documented By: CONNER Dextrose/Sodium Chloride (D51/2ns) 1,000 mls @ 80 mls/hr IVCONT .[id number] [facility] Last Admin: 05/01/25 05:24 Dose: 80 mls/hr Documented By: KATE Lurasidone HCl (Lurasidone Hcl 80 Mg Tablet) 80 mg PO BEDTIME [facility] Last Admin: 04/30/25 19:53 Dose: 80 mg Documented By: KATE Magnesium Hydroxide (Milk Of Magnesia 30 Ml Oral.Susp) 30 ml PO DAILY PRN PRN Reason: Constipation Melatonin (Melatonin 3 Mg Tablet) 6 mg PO BEDTIME PRN PRN Reason: Insomnia Metoclopramide HCl (Metoclopramide Hcl 10 Mg/2 Ml Vial) 5 mg IVPUSH TIDAC [facility] Last Admin: 05/01/25 07:06 Dose: 5 mg Documented By: CONNER Mirtazapine (Mirtazapine 7.5 Mg Tablet) 7.5 mg PO BEDTIME [facility] Last Admin: 04/30/25 19:53 Dose: 7.5 mg Documented By: KATE Montelukast Sodium (Montelukast Sodium 10 Mg Tablet) 10 mg PO DAILY [facility] Last Admin: 05/01/25 08:02 Dose: 10 mg Documented By: CONNER Omeprazole (Omeprazole 20 Mg Capsule.Dr) 20 mg PO BID@0630,1630 [facility] Last Admin: 05/01/25 05:26 Dose: 20 mg Documented By: KATE Ondansetron HCl (Ondansetron Hcl 4 Mg/2 Ml Vial) 4 mg IVPUSH Q8H PRN PRN Reason: Nausea and Vomiting Last Admin: 05/01/25 04:09 Dose: 4 mg Documented By: KATE Quetiapine Fumarate (Quetiapine Fumarate 200 Mg Tablet) 200 mg PO BEDTIME PRN PRN Reason: Insomnia Last Admin: 04/30/25 19:52 Dose: 200 mg Documented By: KATE Sertraline HCl (Sertraline Hcl 100 Mg Tablet) 100 mg PO DAILY [facility] Last Admin: 05/01/25 08:02 Dose: 100 mg Documented By: CONNER Sodium Chloride (0.9 % Sodium Chloride Flush 3 Ml Syringe) 3 ml IVFLUSH QSHIFT [facility] Last Admin: 05/01/25 07:16 Dose: 3 ml Documented By: CONNER Sucralfate (Sucralfate Oral Suspension 1 Gm/10 Ml Oral.Susp) 1 gm PO QIDACHS [facility] Last Admin: 05/01/25 06:55 Dose: Not Given Documented By: CONNER Non-Admin Reason: Patient Refused Topiramate (Topiramate 25 Mg Tablet) 50 mg PO BID [facility] Last Admin: 05/01/25 08:02 Dose: 50 mg Documented By: CONNER Labs 05/01/25 05:52 05/01/25 05:52 Labs: Laboratory Results - last 24 hr 05/01/25 05:52 MCV 84.6 MCH 26.5 L MCHC 31.3 RDW 17.8 H Plt Count 372 MPV 10.1 Absolute Nucleated RBC 0.000 Nucleated RBC % (auto) 0.0 Anion Gap 8 L Estim Creat Clear Calc 60.8 Estimated GFR > 60 Random Glucose 97 Calcium 8.7 Magnesium 1.9 Assessment and Plan (1) Intractable nausea and vomiting: Status: Acute Plan 44 transgender male pmh mood disorder, ptsd, asthma, presented with n/v abd pain Intractable nausea and vomiting and abdominal pain EGD with hiatal hernia, no obvious cause CT head with no significant central lesion Continues to vomit inability to tolerate p.o. Continue IV fluids, antiemetic - added prokinetics - reglan and azithro PPI, carafate Splenic lesion Repeat CT in 6 months Acute hypokalemia Replace and monitor DVT prophylaxis with Lovenox Full code reason for continued hospitalization: still Not tolerating p.o. Quality Stroke Does the patient have a stroke diagnosis?: No VTE Prior VTE?: No VTE Risk Level:: Medical - moderate - high VTE Device Contraindication: Treatment Not Indicated VTE Drug Contraindication: N/A - Med Ordered
--- NOTE | 2025-05-01 15:11 | PC.NURSE ---
This RN assumed care of patient at 15:05 on 05/01
--- NOTE | 2025-05-01 22:02 | PM.EVENT ---
Event Note Date of Service: 05/02/25 Event Note: Nursing notified this flex o writer operator pt having chest pressure, SOB at rest and and HR 44-46 BPM. Pt seen and examined and ECG ordered. Arrived promptly to see pt and pt resting in bed watcing TV in no obvious distress, not diaphoretic. Lungs CTA B, S1S2 Bradycardic and regular. ECG HR 44 SB regular, QTC WNL, [place] WNL. Anterior T wave changes not new compared to previous ECGs. No hx of bradycardia. No hxof lyme disease or use of BB's. Pt is not on AV N blocking agents. Stat troponin, BMP, MG and TSH with reflex ordered. Hemodynamics otherwise stable with no indication for atropine. Pt will be placed back on Tele overnight for close monitoring. Ordered pt to have one dose of MOM as this has helped on the past. Updated Dr. Heath via tiger. 2340 report from nursing pt had a 4 sec pause, awake and talking. Mg 1.9, K 3.3 and replacements have been ordered. CO2 20 but not off baseline. Dr. Burgos notified, requesting DDIMER, ordered. Added urine drug screen (hx of illicit use). Tick born panel also ordered. Testosterone levels also ordered (pt is transgender). Hpld orders now in place on clonazepam, reglan and seroquel. Cardiology consult placed. Dr. Heath Permitting pt to stay on 3rd floor on tele, does not want pt transferred to 4th floor. Nursing updated on plan. Pacing pads will be placed on pt. Time Spent With Patient Time: Total time managing care of this patient today ____ minutes.
[2025-05-01] MEDS: Milk of Magnesia 30 ML ORAL.SUSP PO (22:04)
--- NOTE | 2025-05-01 22:12 | PC.NURSE ---
This RN notified by nurses aide that patient c/o chest pain. On examination patient said it feels more like his chest is heavy and was experiencing mild SOB but no other symptoms. Vitals taken and patient was bradycardic but other vitals WNL. This RN notified Dr. Kruger who came to bedside to examine patient along with orders for ECG, tele monitor and labs. Refer to event note for more details.
[2025-05-01 22:37] LABS: Magnesium 1.9 mg/dL (1.6-2.6)
[2025-05-01 22:44] LABS: NT Pro B Type Natriuretic Pept 79.2 pg/mL (<300)
[2025-05-01 22:46] LABS: Troponin-I High Sensitivity < 2.7 ng/L (<3.5-17.0)
[2025-05-01 22:50] LABS: Anion Gap 12 (12-20); Blood Urea Nitrogen 3 mg/dL (9-16); Calcium 9.1 mg/dL (8.4-10.2); Carbon Dioxide 20 mmol/L (22-29); Chloride 112 mmol/L (96-108); Creatinine Clr Calc Pharmacy 64.6; Estimated Glomerular Filt Rate > 60; Potassium 3.3 mmol/L (3.3-5.1); Sodium 141 mmol/L (135-145)
[2025-05-01] MEDS: Potassium Chloride Packet 20 MEQ PACKET 40 MEQ PO (23:26)
--- NOTE | 2025-05-01 23:30 | PC.NURSE ---
late entry: Around 23:30 this RN was notified that patient had a 4 sec pause on monitor. Patient was in their room up and talking fine just seconds before. YOHAN Saskia notified and discussed what happened with MD Heath to consider transferring patient up to [facility]. This RN spoke with Dr. Heath on the phone and he decided patient did not require transfer and said to place pacer pads at bedside and notify if patient has another pause along with any other symptoms that require immediate attention. In the meantime YOHAN Saskia ordered cardiology consult and additional tests. Please refer to providers event note for specific details.
[2025-05-01 23:53] LABS: Free T4 (Free Thyroxine) 0.73 ng/dL (0.71-1.85)
[2025-05-02 00:18] LABS: D Dimer High Sensitivity 221 NG/ML
[2025-05-02 00:40] LABS: Cannabinoid Screen Urine POSITIVE (Not Detect)
[2025-05-02 03:13] VITALS: BP 101/73; PULSE 66; RESP 18; TEMP 36.8; O2SAT 96
[2025-05-02 07:22] VITALS: BP 139/69; PULSE 64; RESP 16; TEMP 36.6; O2SAT 97
[2025-05-02] MEDS: 0.9 % Sodium Chloride Flush 3 ML SYRINGE IVFLUSH ×2 (07:32→19:47)
[2025-05-02] MEDS: Dextrose 5 % and 0.45 % NaCl 1,000 ML 80 ML IVCONT (10:47)
[2025-05-02 12:46] VITALS: BP 138/70; PULSE 53; RESP 18; TEMP 36.6; O2SAT 95
--- NOTE | 2025-05-02 12:57 | PM.CNCAR ---
History of Present Illness History of Present Illness Date of Service: 05/02/25 Requesting physician: Lui Tellez Chief complaint: Bradycardia Narrative: 44-year-old male with transient bradycardia. He is presenting with epigastric pain, nausea and vomiting. He was noticed to be hypokalemic. Overnight he had epigastric pain and was noticed to be bradycardic. He has diffuse T-wave inversion of the EKG which are chronically present since 2022. He is getting burning chest discomfort which is also chronic. No dizziness or lightheadedness. His heart rate has recovered at this point. [facility] Past Medical History Medical History (Updated 05/02/25 @ 13:41 by Wing Landeros MD) Sleep apnea Liver mass Borderline personality disorder Bipolar 1 disorder PTSD (post-traumatic stress disorder) Depression GERD (gastroesophageal reflux disease) Asthma Gastritis Social History Social History Household Members: Spouse Housing: Apartment Are you a primary zoo caretaker to a significant other at home: No Do you presently have visiting nurse or other home services: No Alcohol intake: former Patient Tobacco Use Status: Current everyday Tobacco user Tobacco use type: Cigarette e-Cigarette/Vaping Use: Former Use Second Hand Smoke Exposure: No Substance Use Type: Marijuana service: No Current occupational status: disabled Meds Allergies Allergy/AdvReac Type Severity Reaction Status Date / Time acetaminophen (From VICODIN) Allergy Intermediate ITCHING Verified 04/24/25 09:06 amoxicillin (AMOXICILLIN) Allergy Intermediate ITCHING Verified 04/24/25 09:06 hydrocodone (From VICODIN) Allergy Intermediate ITCHING Verified 04/24/25 09:06 oxycodone (From PERCOCET) Allergy Intermediate ITCHING Verified 04/24/25 09:06 propoxyphene (From Allergy Intermediate HEADACHES Verified 04/24/25 09:06 DARVOCET-N) Penicillins Allergy Hives Verified 04/25/25 16:18 pseudoephedrine Allergy Hives Verified 04/25/25 16:18 honey (HONEY) AdvReac Intermediate HEADACHES Verified 04/24/25 09:06 Active Medications: Current Medications Acetaminophen (Acetaminophen 325 Mg Tablet) 650 mg PO Q6H PRN PRN Reason: Pain, Mild 1-3,fever,headache Last Admin: 05/01/25 20:23 Dose: 650 mg Calcium Carbonate (Calcium Carbonate 750 Mg Tab.Chew) 750 mg PO Q4H PRN PRN Reason: Heartburn Last Admin: 05/02/25 11:12 Dose: 750 mg Clonazepam (Clonazepam 1 Mg Tablet) 1 mg PO BEDTIME [facility] On Hold: 05/01/25 23:55 Last Admin: 05/01/25 20:24 Dose: 1 mg Enoxaparin Sodium (Enoxaparin Sodium 40 Mg/0.4 Ml Syringe) 40 mg SUBCUT Q24H [facility] Last Admin: 05/02/25 10:45 Dose: 40 mg Hydromorphone HCl (Hydromorphone Hcl 0.5 Mg/0.5 Ml Syringe) 0.5 mg IVPUSH Q4H PRN; Protocol PRN Reason: Pain, Severe (Pain Scale 7-10) Last Admin: 05/02/25 11:35 Dose: 0.5 mg Azithromycin 500 mg/ Sodium (Chloride) 250 mls @ 125 mls/hr IV Q24H [facility] Last Infusion: 05/01/25 17:01 Dose: Infused Dextrose/Sodium Chloride (D51/2ns) 1,000 mls @ 80 mls/hr IVCONT .[id number] [facility]INA Last Admin: 05/02/25 10:47 Dose: 80 mls/hr Lurasidone HCl (Lurasidone Hcl 80 Mg Tablet) 80 mg PO BEDTIME [facility] Last Admin: 05/01/25 20:24 Dose: 80 mg Magnesium Hydroxide (Milk Of Magnesia 30 Ml Oral.Susp) 30 ml PO DAILY PRN PRN Reason: Constipation Last Admin: 05/01/25 22:04 Dose: 30 ml Melatonin (Melatonin 3 Mg Tablet) 6 mg PO BEDTIME PRN PRN Reason: Insomnia Metoclopramide HCl (Metoclopramide Hcl 10 Mg/2 Ml Vial) 5 mg IVPUSH TIDAC [facility] On Hold: 05/01/25 23:56 Last Admin: 05/01/25 15:49 Dose: 5 mg Mirtazapine (Mirtazapine 7.5 Mg Tablet) 7.5 mg PO BEDTIME [facility] Last Admin: 05/01/25 20:24 Dose: 7.5 mg Montelukast Sodium (Montelukast Sodium 10 Mg Tablet) 10 mg PO DAILY [facility] Last Admin: 05/02/25 10:45 Dose: 10 mg Omeprazole (Omeprazole 20 Mg Capsule.Dr) 20 mg PO BID@0630,1630 [facility] Last Admin: 05/02/25 06:03 Dose: 20 mg Ondansetron HCl (Ondansetron Hcl 4 Mg/2 Ml Vial) 4 mg IVPUSH Q8H PRN PRN Reason: Nausea and Vomiting Last Admin: 05/01/25 21:27 Dose: 4 mg Quetiapine Fumarate (Quetiapine Fumarate 200 Mg Tablet) 200 mg PO BEDTIME PRN On Hold: 05/01/25 23:57 PRN Reason: Insomnia Last Admin: 05/01/25 20:24 Dose: 200 mg Sertraline HCl (Sertraline Hcl 100 Mg Tablet) 100 mg PO DAILY [facility] Last Admin: 05/02/25 10:45 Dose: 100 mg Sodium Chloride (0.9 % Sodium Chloride Flush 3 Ml Syringe) 3 ml IVFLUSH QSHIFT [facility] Last Admin: 05/02/25 07:32 Dose: 3 ml Sucralfate (Sucralfate Oral Suspension 1 Gm/10 Ml Oral.Susp) 1 gm PO QIDACHS [facility] Last Admin: 05/02/25 10:48 Dose: Not Given Topiramate (Topiramate 25 Mg Tablet) 50 mg PO BID [facility] Last Admin: 05/02/25 10:45 Dose: 50 mg Home Medications ?Medication ?Instructions ?Recorded ?Confirmed ?Last Taken ?Type lurasidone 80 mg tablet (Latuda) 80 mg PO BEDTIME 11/26/20 04/26/25 04/24/25 History montelukast 10 mg tablet 10 mg PO BEDTIME 11/26/20 04/26/25 04/25/25 History amlodipine 10 mg tablet 10 mg PO DAILY 01/27/24 04/26/25 04/25/25 History dexlansoprazole 60 mg 60 mg PO DAILY@0630 01/27/24 04/26/25 04/25/25 History capsule,biphase delayed release docusate sodium 100 mg capsule 200 mg PO DAILY 01/27/24 04/26/25 04/25/25 History hydrochlorothiazide 25 mg tablet 25 mg PO DAILY 01/27/24 04/26/25 04/25/25 History sertraline 100 mg tablet 100 mg PO DAILY 01/27/24 04/26/25 04/25/25 History testosterone cypionate 200 mg/mL 50 mg IM TH 01/27/24 04/26/25 04/14/25 History intramuscular oil cholecalciferol (vitamin D3) 25 25 mcg PO DAILY 04/26/25 04/26/25 04/25/25 History mcg (1,000 unit) tablet (Vitamin D3) clonazepam 1 mg tablet 0.5 mg PO TID PRN anxiety 04/26/25 04/26/25 Unknown History clonazepam 1 mg tablet 1 mg PO BEDTIME anxiety 04/26/25 04/26/25 04/24/25 History famotidine 40 mg tablet 40 mg PO DAILY 04/26/25 04/26/25 04/25/25 History melatonin 10 mg tablet 10 mg PO BEDTIME PRN Insomnia 04/26/25 04/26/25 Unknown History mirtazapine 7.5 mg tablet 7.5 mg PO BEDTIME 04/26/25 04/26/25 04/24/25 History quetiapine 100 mg tablet 200 mg PO BEDTIME PRN insomnia 04/26/25 04/26/25 Unknown History topiramate 50 mg tablet 50 mg PO BID 04/26/25 04/26/25 04/25/25 History Physical Exam Vital Signs: Vital Signs: Last Vital Signs Temp 97.8 F 05/02/25 12:46 Pulse 53 05/02/25 12:46 Resp 18 05/02/25 12:46 BP 138/70 05/02/25 12:46 Pulse Ox 95 05/02/25 12:46 O2 Del Method Room Air 05/02/25 12:46 BMI result Body Mass Index 30.9 GENERAL APPEARANCE: in no acute distress, pleasant. NECK: no carotid bruit, no jugular venous distention. SKIN: no suspicious lesions, warm and dry. HEART: no murmurs, regular rate and rhythm. LUNGS: clear to auscultation bilaterally. ABDOMEN: soft, tender in the epigastrium. EXTREMITIES: no edema. PERIPHERAL PULSES: equal. NEUROLOGIC: No gross deficits, AAO X 3 Objective Labs and Meds 05/01/25 05:52 05/01/25 22:10 Lab results: Laboratory Results - last 24 hr 05/01/25 05/01/25 05/02/25 22:10 23:56 00:00 Hold Purple Top SEE NOTE SEE NOTE D-Dimer High Sensitivty 221 Sodium 141 Potassium 3.3 Chloride 112 H Carbon Dioxide 20 L Anion Gap 12 BUN 3 L Creatinine 0.94 Estim Creat Clear Calc 64.6 Estimated GFR > 60 Random Glucose 94 Calcium 9.1 Magnesium 1.9 Troponin I High Sens < 2.7 NT-Pro-B Natriuret Pep 79.2 TSH 4.39 H Free T4 0.73 Hold Red Top See Note Hold Yellow Top See Note Urine Opiates Screen Ur Buprenorphine Scrn Ur Oxycodone Screen Urine Methadone Screen Urine Fentanyl Screen Ur Barbiturates Screen Ur Phencyclidine Scrn Ur Amphetamines Screen U Benzodiazepines Scrn Urine Cocaine Screen U Marijuana (THC) Screen 05/02/25 00:11 Hold Purple Top D-Dimer High Sensitivty Sodium Potassium Chloride Carbon Dioxide Anion Gap BUN Creatinine Estim Creat Clear Calc Estimated GFR Random Glucose Calcium Magnesium Troponin I High Sens NT-Pro-B Natriuret Pep TSH Free T4 Hold Red Top Hold Yellow Top Urine Opiates Screen Not Detected Ur Buprenorphine Scrn Not Detected Ur Oxycodone Screen Not Detected Urine Methadone Screen Not Detected Urine Fentanyl Screen Not Detected Ur Barbiturates Screen Not Detected Ur Phencyclidine Scrn Not Detected Ur Amphetamines Screen Not Detected U Benzodiazepines Scrn Not Detected Urine Cocaine Screen Not Detected U Marijuana (THC) Screen POSITIVE H Assessment and Plan (1) Sinus bradycardia: Status: Acute Plan Sinus bradycardia and a 44-year-old transgender female to male presenting with a epigastric pain, nausea and vomiting. He was noted to be bradycardic overnight. It appears to be related to vagal stimulation due to epigastric pain and nausea. Chronic T-wave changes with no evolution in the ECG. Given hypokalemia avoid hydrochlorothiazide. Also famotidine can rarely cause bradycardia 2 and should be avoided. Overall clinical story appears to be related to vagal stimulation from GI symptoms. Etiology of chronic T-wave changes unclear currently but there chronically present and may need further workup as outpatient starting with echocardiography. Thank you for allowing me to participate in the care of your patient. Please feel free to contact me if you have any questions. Procedures Date of Service Date of Service: 05/02/25
[2025-05-02 16:00] VITALS: BP 143/95; PULSE 78; RESP 16; TEMP 36.6; O2SAT 97
[2025-05-02 20:00] VITALS: BP 122/58; PULSE 92; RESP 16; TEMP 36.3; O2SAT 94
[2025-05-02 23:56] VITALS: BP 115/65; PULSE 79; RESP 16; TEMP 36.1; O2SAT 96
[2025-05-03] VITALS (9 sets, daily range): BP systolic 96–136; BP diastolic 51–84; PULSE 66–98; RESP 16–20; TEMP 36.1–36.7; O2SAT 94–99
[2025-05-03 06:27] LABS: Anion Gap 10 (12-20); Blood Urea Nitrogen 3 mg/dL (9-16); Calcium 9.3 mg/dL (8.4-10.2); Carbon Dioxide 24 mmol/L (22-29); Chloride 113 mmol/L (96-108); Creatinine Clr Calc Pharmacy 58.4; Estimated Glomerular Filt Rate 58; Potassium 3.5 mmol/L (3.3-5.1); Sodium 143 mmol/L (135-145)
[2025-05-03] MEDS: 0.9 % Sodium Chloride Flush 3 ML SYRINGE IVFLUSH ×2 (07:24→15:27)
--- NOTE | 2025-05-03 08:34 | HO.PM.IMPN ---
Subjective Subjective Date of Service: 05/03/25 Interval History: Still with persistent vomiting inability to tolerate p.o. Physical Exam Vital Signs: Vital Signs: Last Vital Signs Temp 97.3 F 05/03/25 07:48 Pulse 66 05/03/25 07:48 Resp 18 05/03/25 07:48 BP 126/83 05/03/25 07:48 Pulse Ox 96 05/03/25 07:48 O2 Del Method Room Air 05/03/25 07:48 BMI result Body Mass Index 30.9 GENERAL APPEARANCE: in no acute distress, pleasant. NECK: no carotid bruit, no jugular venous distention. SKIN: no suspicious lesions, warm and dry. HEART: no murmurs, regular rate and rhythm. LUNGS: clear to auscultation bilaterally. ABDOMEN: soft, tender in the epigastrium. EXTREMITIES: no edema. PERIPHERAL PULSES: equal. NEUROLOGIC: No gross deficits, AAO X 3 Objective Data Active Medications Acetaminophen (Acetaminophen 325 Mg Tablet) 650 mg PO Q6H PRN PRN Reason: Pain, Mild 1-3,fever,headache Last Admin: 05/02/25 17:10 Dose: 650 mg Documented By: CONNER Calcium Carbonate (Calcium Carbonate 750 Mg Tab.Chew) 750 mg PO Q4H PRN PRN Reason: Heartburn Last Admin: 05/02/25 11:12 Dose: 750 mg Documented By: CONNER Clonazepam (Clonazepam 1 Mg Tablet) 1 mg PO BEDTIME [facility] Last Admin: 05/02/25 21:20 Dose: 1 mg Documented By: CARRIE Enoxaparin Sodium (Enoxaparin Sodium 40 Mg/0.4 Ml Syringe) 40 mg SUBCUT Q24H [facility] Last Admin: 05/03/25 08:26 Dose: 40 mg Documented By: OSWALDO Hydromorphone HCl (Hydromorphone Hcl 0.5 Mg/0.5 Ml Syringe) 0.5 mg IVPUSH Q4H PRN; Protocol PRN Reason: Pain, Severe (Pain Scale 7-10) Last Admin: 05/03/25 08:28 Dose: 0.5 mg Documented By: OSWALDO Azithromycin 500 mg/ Sodium (Chloride) 250 mls @ 125 mls/hr IV Q24H [facility] Last Infusion: 05/02/25 18:19 Dose: Infused Documented By: CONNER Lurasidone HCl (Lurasidone Hcl 80 Mg Tablet) 80 mg PO BEDTIME [facility] Last Admin: 05/02/25 19:43 Dose: 80 mg Documented By: CARRIE Magnesium Hydroxide (Milk Of Magnesia 30 Ml Oral.Susp) 30 ml PO DAILY PRN PRN Reason: Constipation Last Admin: 05/01/25 22:04 Dose: 30 ml Documented By: CHERRI Melatonin (Melatonin 3 Mg Tablet) 6 mg PO BEDTIME PRN PRN Reason: Insomnia Metoclopramide HCl (Metoclopramide Hcl 10 Mg/2 Ml Vial) 5 mg IVPUSH TIDAC [facility] Last Admin: 05/03/25 07:23 Dose: 5 mg Documented By: OSWALDO Mirtazapine (Mirtazapine 7.5 Mg Tablet) 7.5 mg PO BEDTIME [facility] Last Admin: 05/02/25 19:43 Dose: 7.5 mg Documented By: CARRIE Montelukast Sodium (Montelukast Sodium 10 Mg Tablet) 10 mg PO DAILY [facility] Last Admin: 05/03/25 08:27 Dose: 10 mg Documented By: OSWALDO Omeprazole (Omeprazole 20 Mg Capsule.Dr) 20 mg PO BID@0630,1630 [facility] Last Admin: 05/03/25 06:33 Dose: 20 mg Documented By: CARRIE Ondansetron HCl (Ondansetron Hcl 4 Mg/2 Ml Vial) 4 mg IVPUSH Q8H PRN PRN Reason: Nausea and Vomiting Last Admin: 05/03/25 04:16 Dose: 4 mg Documented By: CARRIE Quetiapine Fumarate (Quetiapine Fumarate 200 Mg Tablet) 200 mg PO BEDTIME PRN PRN Reason: Insomnia Last Admin: 05/02/25 21:20 Dose: 200 mg Documented By: CARRIE Sertraline HCl (Sertraline Hcl 100 Mg Tablet) 100 mg PO DAILY [facility] Last Admin: 05/03/25 08:27 Dose: 100 mg Documented By: OSWALDO Sodium Chloride (0.9 % Sodium Chloride Flush 3 Ml Syringe) 3 ml IVFLUSH QSHIFT [facility] Last Admin: 05/03/25 07:24 Dose: 3 ml Documented By: OSWALDO Sucralfate (Sucralfate Oral Suspension 1 Gm/10 Ml Oral.Susp) 1 gm PO QIDACHS [facility] Last Admin: 05/03/25 07:24 Dose: Not Given Documented By: OSWALDO Non-Admin Reason: Patient Refused Topiramate (Topiramate 25 Mg Tablet) 50 mg PO BID [facility] Last Admin: 05/03/25 08:27 Dose: 50 mg Documented By: OSWALDO Labs 05/01/25 05:52 05/03/25 05:43 Labs: Laboratory Results - last 24 hr 05/03/25 05:43 Hold Purple Top SEE NOTE Anion Gap 10 L Estim Creat Clear Calc 58.4 Estimated GFR 58 Random Glucose 98 Calcium 9.3 Assessment and Plan (1) Intractable nausea and vomiting: Status: Acute Plan 44 transgender male pmh mood disorder, ptsd, asthma, presented with n/v abd pain Intractable nausea and vomiting and abdominal pain EGD with hiatal hernia, no obvious cause CT head with no significant central lesion Continues to vomit inability to tolerate p.o. Continue IV fluids, antiemetic - added prokinetics - reglan and azithro PPI, carafate bradycardia likely vasovagal due to nasuea, monitor chest pain likely gi +msk from vomiting cardio appreciated -outpatient echo Splenic lesion Repeat CT in 6 months Acute hypokalemia Replace and monitor DVT prophylaxis with Lovenox Full code reason for continued hospitalization: still Not tolerating p.o. Quality Stroke Does the patient have a stroke diagnosis?: No VTE Prior VTE?: No VTE Risk Level:: Medical - moderate - high VTE Device Contraindication: Treatment Not Indicated VTE Drug Contraindication: N/A - Med Ordered
[2025-05-03 21:32] LABS: A. Phagocytphilium DNA,RT-PCR NOT DETECTED (NOT DETECTED); Babesia Microti DNA, RT-PCR NOT DETECTED (NOT DETECTED); Borrelia Miyamotoi,DNA RT-PCR NOT DETECTED (NOT DETECTED); E.Chaffeensis DNA RT-PCR NOT DETECTED (NOT DETECTED); Lyme(Borrelia ssp)DNA RT-PCR NOT DETECTED (NOT DETECTED)
[2025-05-04] VITALS (8 sets, daily range): BP systolic 100–158; BP diastolic 61–96; PULSE 62–96; RESP 16–18; TEMP 36–36.5; O2SAT 94–98
[2025-05-04] MEDS: 0.9 % Sodium Chloride Flush 3 ML SYRINGE IVFLUSH ×3 (00:30→15:51)
[2025-05-04 06:18] LABS: Hematocrit 45.6 % (37.0-47.0); Hemoglobin 14.8 g/dl (12.0-16.0); Mean Corpuscular HGB Conc 32.5 g/dl (31.0-35.0); Mean Corpuscular Hemoglobin 27.0 pg (27.0-33.0); Mean Corpuscular Volume 83.1 fL (80.0-98.0); NRBC Abs Auto 0.000 X10*3/uL (0.0-0.012); NRBC Pct Auto 0.0 /100WBC (0.0-0.2); Platelet Count 408 X10*3/uL (160-400); Red Blood Count 5.49 X10*6/uL (4.20-5.50); White Blood Count 5.2 X10*3/uL (4.8-10.8)
[2025-05-04 06:23] LABS: Anion Gap 10 (12-20); Blood Urea Nitrogen 7 mg/dL (9-16); Calcium 8.9 mg/dL (8.4-10.2); Carbon Dioxide 22 mmol/L (22-29); Chloride 114 mmol/L (96-108); Creatinine Clr Calc Pharmacy 56.3; Estimated Glomerular Filt Rate 55; Potassium 3.2 mmol/L (3.3-5.1); Sodium 143 mmol/L (135-145)
[2025-05-04] MEDS: Potassium Chloride/H20 10 MEQ/100 ML PIGGYBACK 100 MEQ IV ×2 (10:34→11:51)
--- NOTE | 2025-05-04 11:38 | MHC.CLN ---
NUTRITION VISITED WITH PATIENT THIS MORNING. NO VOMITING TODAY. PATIENT WOULD LIKE TO EAT AND REQUESTED A TURKEY/CHEESE SANDWICH. DISCUSSED WITH PROVIDER. DIET ADVANCED TO REGULAR.
--- NOTE | 2025-05-04 15:49 | MHC.CM.PN ---
per rounds pt not medically ready for dc dc plan remains home
--- NOTE | 2025-05-04 16:24 | HO.PM.IMPN ---
Subjective Subjective Date of Service: 05/04/25 Interval History: persistent vomiting inability to tolerate p.o. Review of Systems tried food ,vomited out unable to take po yet Review of Systems: Yes all other systems are reviewed and are negative Physical Exam Exam: Exam: Appearance: Alert.? Oriented X3.?feels nauseated cvs: rrr, [id number] . res: clear to auscultation ,no rhonchii or wheezing abd: no rebound or guarding ,nt, bs present. ext pulses present , no cyanosis. neuro: axo3 , nonfocal. Vital Signs: Vital Signs: Last Vital Signs Temp 97.2 F 05/04/25 15:53 Pulse 80 05/04/25 15:53 Resp 16 05/04/25 15:53 BP 150/80 H 05/04/25 15:53 Pulse Ox 95 05/04/25 15:53 O2 Del Method Room Air 05/04/25 15:53 BMI result Body Mass Index 30.9 Objective Data Active Medications Acetaminophen (Acetaminophen 325 Mg Tablet) 650 mg PO Q6H PRN PRN Reason: Pain, Mild 1-3,fever,headache Last Admin: 05/04/25 04:32 Dose: 650 mg Documented By: KATE Comments: Pt requesting acetaminophen for 03/30 pain Calcium Carbonate (Calcium Carbonate 750 Mg Tab.Chew) 750 mg PO Q4H PRN PRN Reason: Heartburn Last Admin: 05/02/25 11:12 Dose: 750 mg Documented By: CONNER Clonazepam (Clonazepam 1 Mg Tablet) 1 mg PO BEDTIME [facility] Last Admin: 05/03/25 22:11 Dose: 1 mg Documented By: KATE Enoxaparin Sodium (Enoxaparin Sodium 40 Mg/0.4 Ml Syringe) 40 mg SUBCUT Q24H [facility] Last Admin: 05/04/25 08:13 Dose: 40 mg Documented By: OSWALDO Hydromorphone HCl (Hydromorphone Hcl 0.5 Mg/0.5 Ml Syringe) 0.5 mg IVPUSH Q4H PRN; Protocol PRN Reason: Pain, Severe (Pain Scale 7-10) Last Admin: 05/04/25 12:28 Dose: 0.5 mg Documented By: OSWALDO Azithromycin 500 mg/ Sodium (Chloride) 250 mls @ 125 mls/hr IV Q24H [facility] Last Admin: 05/04/25 15:52 Dose: 250 mls/hr Documented By: OSWALDO Lurasidone HCl (Lurasidone Hcl 80 Mg Tablet) 80 mg PO BEDTIME [facility] Last Admin: 05/03/25 22:11 Dose: 80 mg Documented By: KATE Magnesium Hydroxide (Milk Of Magnesia 30 Ml Oral.Susp) 30 ml PO DAILY PRN PRN Reason: Constipation Last Admin: 05/01/25 22:04 Dose: 30 ml Documented By: CHERRI Melatonin (Melatonin 3 Mg Tablet) 6 mg PO BEDTIME PRN PRN Reason: Insomnia Metoclopramide HCl (Metoclopramide Hcl 10 Mg/2 Ml Vial) 5 mg IVPUSH TIDAC [facility] Last Admin: 05/04/25 15:51 Dose: 5 mg Documented By: OSWALDO Mirtazapine (Mirtazapine 7.5 Mg Tablet) 7.5 mg PO BEDTIME [facility] Last Admin: 05/03/25 22:11 Dose: 7.5 mg Documented By: KATE Montelukast Sodium (Montelukast Sodium 10 Mg Tablet) 10 mg PO DAILY [facility] Last Admin: 05/04/25 08:10 Dose: 10 mg Documented By: OSWALDO Omeprazole (Omeprazole 20 Mg Capsule.Dr) 20 mg PO BID@0630,1630 [facility] Last Admin: 05/04/25 15:55 Dose: 20 mg Documented By: OSWALDO Ondansetron HCl (Ondansetron Hcl 4 Mg/2 Ml Vial) 4 mg IVPUSH Q8H PRN PRN Reason: Nausea and Vomiting Last Admin: 05/04/25 14:13 Dose: 4 mg Documented By: OSWALDO Quetiapine Fumarate (Quetiapine Fumarate 200 Mg Tablet) 200 mg PO BEDTIME PRN PRN Reason: Insomnia Last Admin: 05/03/25 22:11 Dose: 200 mg Documented By: KATE Sertraline HCl (Sertraline Hcl 100 Mg Tablet) 100 mg PO DAILY [facility] Last Admin: 05/04/25 08:10 Dose: 100 mg Documented By: OSWALDO Sodium Chloride (0.9 % Sodium Chloride Flush 3 Ml Syringe) 3 ml IVFLUSH QSHIFT [facility] Last Admin: 05/04/25 15:51 Dose: 3 ml Documented By: OSWALDO Sucralfate (Sucralfate Oral Suspension 1 Gm/10 Ml Oral.Susp) 1 gm PO QIDACHS [facility] Last Admin: 05/04/25 15:55 Dose: Not Given Documented By: OSWALDO Non-Admin Reason: Patient Refused Topiramate (Topiramate 25 Mg Tablet) 50 mg PO BID [facility] Last Admin: 05/04/25 08:10 Dose: 50 mg Documented By: OSWALDO Labs 05/04/25 05:55 05/04/25 05:55 Labs: Laboratory Results - last 24 hr 05/02/25 05/04/25 05:23 05:55 MCV 83.1 MCH 27.0 MCHC 32.5 RDW 17.8 H Plt Count 408 H MPV 9.8 Absolute Nucleated RBC 0.000 Nucleated RBC % (auto) 0.0 Anion Gap 10 L Estim Creat Clear Calc 56.3 Estimated GFR 55 Random Glucose 107 Calcium 8.9 A.phagocytophil DNA PCR NOT DETECTED Babesia microti DNA PCR NOT DETECTED Borrelia sp DNA (PCR) NOT DETECTED Borrelia miyamotoi (PCR) NOT DETECTED E.chaffeensis DNA (PCR) NOT DETECTED Tick-borne Disease PCR SEE NOTE Assessment and Plan (1) Intractable nausea and vomiting: Status: Acute Plan 44 transgender male pmh mood disorder, ptsd, asthma, presented with n/v abd pain Intractable nausea and vomiting and abdominal pain EGD with hiatal hernia, no obvious cause. drug screen positive for marijuana on 05/02/25. CT head with no significant central lesion Continues to vomit inability to tolerate p.o. Continue IV fluids, antiemetic - added prokinetics - reglan and azithro PPI, carafate bradycardia likely vasovagal due to nasuea, monitor chest pain: no chest pain today likely gi +msk from vomiting cardio appreciated -outpatient echo Splenic lesion Repeat CT in 6 months Acute hypokalemia Replace and monitor DVT prophylaxis with Lovenox Full code reason for continued hospitalization: still Not tolerating p.o. Quality Stroke Does the patient have a stroke diagnosis?: No VTE Prior VTE?: No VTE Risk Level:: Medical - moderate - high VTE Device Contraindication: Treatment Not Indicated VTE Drug Contraindication: N/A - Med Ordered
[2025-05-04] MEDS: Lactated Ringers 1,000 ML 80 ML IVCONT (16:47)
--- NOTE | 2025-05-04 18:23 | PC.NURSE ---
Pt attempted to eat an egg salad sandwich foir lunch however unable to hold it down. Pt vomited contents eaten, IV zofran given with good effect. Dr Woodruff aware that pt not tolerating diet. IVF ordered and started on pt.
[2025-05-05 03:05] VITALS: BP 136/89; PULSE 99; RESP 18; TEMP 36.4; O2SAT 93
[2025-05-05] MEDS: Lactated Ringers 1,000 ML 80 ML IVCONT ×2 (05:58→22:28)
[2025-05-05 07:06] VITALS: BP 124/85; PULSE 71; RESP 16; TEMP 36.1; O2SAT 95
[2025-05-05] MEDS: 0.9 % Sodium Chloride Flush 3 ML SYRINGE IVFLUSH ×2 (08:44→18:27)
[2025-05-05 11:29] VITALS: BP 135/85; PULSE 65; RESP 16; TEMP 36.5; O2SAT 94
[2025-05-05 13:45] LABS: Anion Gap 9 (12-20); Blood Urea Nitrogen 6 mg/dL (9-16); Calcium 9.1 mg/dL (8.4-10.2); Carbon Dioxide 25 mmol/L (22-29); Chloride 113 mmol/L (96-108); Creatinine Clr Calc Pharmacy 56.8; Estimated Glomerular Filt Rate 56; Potassium 3.8 mmol/L (3.3-5.1); Sodium 143 mmol/L (135-145)
--- NOTE | 2025-05-05 14:20 | HO.PM.IMPN ---
Subjective Subjective Date of Service: 05/05/25 Interval History: Has abdominal discomfort, nausea/vomiting Review of Systems Unable to tolerate p.o. Review of Systems: Yes all other systems are reviewed and are negative Physical Exam Exam: Exam: Appearance: Alert.? Oriented X3.?feels nauseated cvs: rrr, [id number] . res: clear to auscultation ,no rhonchii or wheezing abd: no rebound or guarding ,nt, bs present. ext pulses present , no cyanosis. neuro: axo3 , nonfocal. Vital Signs: Vital Signs: Last Vital Signs Temp 97.7 F 05/05/25 11:29 Pulse 65 05/05/25 11:29 Resp 16 05/05/25 11:29 BP 135/85 05/05/25 11:29 Pulse Ox 94 05/05/25 11:29 O2 Del Method Room Air 05/05/25 11:29 BMI result Body Mass Index 30.9 Objective Data Active Medications Acetaminophen (Acetaminophen 325 Mg Tablet) 650 mg PO Q6H PRN PRN Reason: Pain, Mild 1-3,fever,headache Last Admin: 05/04/25 04:32 Dose: 650 mg Documented By: KATE Comments: Pt requesting acetaminophen for 03/30 pain Calcium Carbonate (Calcium Carbonate 750 Mg Tab.Chew) 750 mg PO Q4H PRN PRN Reason: Heartburn Last Admin: 05/04/25 19:51 Dose: 750 mg Documented By: TEX Clonazepam (Clonazepam 1 Mg Tablet) 1 mg PO BEDTIME [facility] Last Admin: 05/04/25 20:40 Dose: 1 mg Documented By: TEX Enoxaparin Sodium (Enoxaparin Sodium 40 Mg/0.4 Ml Syringe) 40 mg SUBCUT Q24H [facility] Last Admin: 05/05/25 08:46 Dose: 40 mg Documented By: OSMANY Hydromorphone HCl (Hydromorphone Hcl 0.5 Mg/0.5 Ml Syringe) 0.5 mg IVPUSH Q4H PRN; Protocol PRN Reason: Pain, Severe (Pain Scale 7-10) Last Admin: 05/05/25 14:08 Dose: 0.5 mg Documented By: OSMANY Azithromycin 500 mg/ Sodium (Chloride) 250 mls @ 125 mls/hr IV Q24H [facility] Last Admin: 05/05/25 14:07 Dose: 250 mls/hr Documented By: OSMANY Lactated Ringer's (Lr) 1,000 mls @ 80 mls/hr IVCONT .[id number] [facility] Last Admin: 05/05/25 05:58 Dose: 80 mls/hr Documented By: TEX Lurasidone HCl (Lurasidone Hcl 80 Mg Tablet) 80 mg PO BEDTIME [facility] Last Admin: 05/04/25 20:40 Dose: 80 mg Documented By: TEX Magnesium Hydroxide (Milk Of Magnesia 30 Ml Oral.Susp) 30 ml PO DAILY PRN PRN Reason: Constipation Last Admin: 05/01/25 22:04 Dose: 30 ml Documented By: CHERRI Melatonin (Melatonin 3 Mg Tablet) 6 mg PO BEDTIME PRN PRN Reason: Insomnia Metoclopramide HCl (Metoclopramide Hcl 10 Mg/2 Ml Vial) 5 mg IVPUSH TIDAC [facility] Last Admin: 05/05/25 12:26 Dose: 5 mg Documented By: OSMANY Mirtazapine (Mirtazapine 7.5 Mg Tablet) 7.5 mg PO BEDTIME [facility] Last Admin: 05/04/25 20:53 Dose: 7.5 mg Documented By: TEX Montelukast Sodium (Montelukast Sodium 10 Mg Tablet) 10 mg PO DAILY [facility] Last Admin: 05/05/25 08:46 Dose: 10 mg Documented By: OSMANY Omeprazole (Omeprazole 20 Mg Capsule.Dr) 20 mg PO BID@0630,1630 [facility] Last Admin: 05/05/25 05:59 Dose: 20 mg Documented By: TEX Ondansetron HCl (Ondansetron Hcl 4 Mg/2 Ml Vial) 4 mg IVPUSH Q8H PRN PRN Reason: Nausea and Vomiting Last Admin: 05/04/25 14:13 Dose: 4 mg Documented By: OSWALDO Quetiapine Fumarate (Quetiapine Fumarate 200 Mg Tablet) 200 mg PO BEDTIME PRN PRN Reason: Insomnia Last Admin: 05/04/25 20:43 Dose: 200 mg Documented By: TEX Sertraline HCl (Sertraline Hcl 100 Mg Tablet) 100 mg PO DAILY [facility] Last Admin: 05/05/25 08:46 Dose: 100 mg Documented By: OSMANY Sodium Chloride (0.9 % Sodium Chloride Flush 3 Ml Syringe) 3 ml IVFLUSH QSHIFT [facility] Last Admin: 05/05/25 08:44 Dose: 3 ml Documented By: OSMANY Sucralfate (Sucralfate Oral Suspension 1 Gm/10 Ml Oral.Susp) 1 gm PO QIDACHS [facility] Last Admin: 05/05/25 11:33 Dose: Not Given Documented By: OSMANY Non-Admin Reason: Patient Refused Topiramate (Topiramate 25 Mg Tablet) 50 mg PO BID [facility] Last Admin: 05/05/25 08:46 Dose: 50 mg Documented By: OSMANY Labs 05/04/25 05:55 05/05/25 13:19 Labs: Laboratory Results - last 24 hr 05/05/25 13:19 Anion Gap 9 L Estim Creat Clear Calc 56.8 Estimated GFR 56 Random Glucose 92 Calcium 9.1 Assessment and Plan (1) Intractable nausea and vomiting: Status: Acute Plan 44 transgender male pmh mood disorder, ptsd, asthma, presented with n/v abd pain Intractable nausea and vomiting and abdominal pain EGD with hiatal hernia, no obvious cause. drug screen positive for marijuana on 05/02/25. CT head with no significant central lesion Continues to vomit inability to tolerate p.o. Continue IV fluids, antiemetic - added prokinetics - reglan and azithro PPI, carafate added small-bowel series, ultrasound SMA. bradycardia likely vasovagal due to nasuea, monitor chest pain: no chest pain today likely gi +msk from vomiting cardio appreciated -outpatient echo Splenic lesion Repeat CT in 6 months Acute hypokalemia Replace and monitor DVT prophylaxis with Lovenox Full code reason for continued hospitalization: still Not tolerating p.o. Quality Stroke Does the patient have a stroke diagnosis?: No VTE Prior VTE?: No VTE Risk Level:: Medical - moderate - high VTE Device Contraindication: Treatment Not Indicated VTE Drug Contraindication: N/A - Med Ordered
--- NOTE | 2025-05-05 15:46 | P.PNGI_ITS ---
Subjective Subjective Date of Service: 05/05/25 Interval History: still having ongoing pain usu post prandial with nausea and vomiting passing gas ok not passd stool for days Critical Care Time (minutes): 0 Physical Exam 2 Exam: Exam: EXAM: GENERAL: The patient is well developed and nontoxic. VITAL SIGNS:see workflow HEENT: Nonicteric sclerae, PERRLA, EOMI. Oropharynx clear. Moist mucous membranes. Conjunctivae appear well perfused. No thyroid mass. CHEST: Chest wall is nontender. HEART: Regular rate and rhythm without murmurs. LUNGS: Clear to auscultation bilaterally. ABDOMEN: Soft, positive bowel sounds, tender epigastrium, no organomegaly.no flank tenderness SKIN: No rash, no excessive bruising, petechiae, or purpura. NEUROLOGIC: Cranial nerves II-XII intact without motor/sensory deficit. Psych: normal affect Vital Signs: Vital Signs: Last Vital Signs Temp 97.7 F 05/05/25 11:29 Pulse 65 05/05/25 11:29 Resp 16 05/05/25 11:29 BP 135/85 05/05/25 11:29 Pulse Ox 94 05/05/25 11:29 O2 Del Method Room Air 05/05/25 11:29 BMI result Body Mass Index 30.9 Objective Data Labs 05/04/25 05:55 05/05/25 13:19 Labs: Laboratory Results - last 24 hr 05/05/25 13:19 Sodium 143 Potassium 3.8 Chloride 113 H Carbon Dioxide 25 Anion Gap 9 L BUN 6 L Creatinine 1.07 Estim Creat Clear Calc 56.8 Estimated GFR 56 Random Glucose 92 Calcium 9.1 Procedures Date of Service Date of Service: 05/05/25 Progress Note: A&P Assessment and plan (1) Intractable nausea and vomiting: Status: Acute Plan 1/ Post prandial pain, nausea, paraesophgeal hernia on EGD not improving PLAN: 1/ upper series and GI swallow to r/o incarcerated hernia, and r/o small bowel path 2/ duplex to ro vascular insufficiency, e.g MALS 3/ can consider checking porphyria screen 4/ KUB to check for fecal loading Time Spent With Patient Time: Total time managing care of this patient today ____ minutes. Quality Stroke Does the patient have a stroke diagnosis?: No VTE Prior VTE?: No VTE Risk Level:: Medical - moderate - high VTE Device Contraindication: Treatment Not Indicated VTE Drug Contraindication: N/A - Med Ordered
[2025-05-05 15:48] VITALS: BP 148/81; PULSE 87; RESP 14; TEMP 36.6; O2SAT 93
[2025-05-05 19:29] VITALS: BP 124/81; PULSE 59; RESP 18; TEMP 36.8; O2SAT 94
[2025-05-05] MEDS: iohexoL 350 MG/ML 100 ML INFUS..BTL IV (20:27)
[2025-05-05 23:36] VITALS: BP 128/62; PULSE 50; RESP 18; TEMP 36.7; O2SAT 93
--- NOTE | 2025-05-06 | ECG_ITS ---
Test Reason : bradycardia Blood Pressure : */* mmHG Vent. Rate : 46 BPM Atrial Rate : 46 BPM P-R Int : 158 ms QRS Dur : 82 ms QT Int : 416 ms P-R-T Axes : 15 33 57 degrees QTcB Int : 364 ms Sinus bradycardia Low voltage QRS Nonspecific T wave abnormality Abnormal ECG When compared with ECG of 01-May-2025 21:50, Criteria for Septal infarct are no longer Present Referred By: Taty Kruger Electronically Signed By: Wing Landeros
[2025-05-06 03:32] VITALS: BP 136/88; PULSE 88; RESP 20; TEMP 36.3; O2SAT 95
--- NOTE | 2025-05-06 05:07 | PM.EVENT ---
Event Note Date of Service: 05/06/25 Event Note: Notified by nursing 0500 pt bradycardic, asymptomatic, BP WNL no complaints of nausea or gastritis. ECG requested. No pauses today and pt was seen by Cardiology earlier this week and suggested pt was experiencing bradycardia due to vagal stimulatiuon from nausea and or gastritis.Pt remains on no AV N blockers and electrolytes are stable. Will order CBC, BMP noting previous hypokalemia and note that testosterone level are still pending as they are send out labs and tick born panel all negative. Please reconsider further cardiac evaluaton if needed. PT will remain on telemetry. No echo has been requested this admission. Time Spent With Patient Time: Total time managing care of this patient today ____ minutes.
--- NOTE | 2025-05-06 05:31 | PC.NURSE ---
0500 notified by [facility] charge nurse that pt had a 3 second pause.Taty Kruger notified.EKG done.Pt asymptomatic.
--- NOTE | 2025-05-06 06:02 | PC.NURSE ---
pt transfered to [facility] [id number].
--- NOTE | 2025-05-06 07:00 | CA_ITS ---
Transthoracic Echocardiogram Patient (Last, First, Middle): Chin Mata, Gender: Female Date of : 1980 Age: 44 Procedure Date: 05/06/2025 Procedure Type: Transthoracic Echocardiogram Location: ER Height: 160.02 cm Weight: 89.81 kg BSA: 1.93 m2 Heart Rate: 47 bpm BP: 130 / 65 mmHg Debeaker: LAMAR Referring MD: Taty Kruger [employer]- Symptoms: abnormal ECG and Bradycardia 40's Study Quality: Adequate ECG Rhythm: Bradycardia Conclusions: - Normal left ventricular size, thickness, systolic function, and wall motion. The visually estimated ejection fraction is between 55-60%. Diastolic function is normal for age. - Normal right ventricular cavity size and systolic function. Findings Left Ventricle Normal left ventricular size, thickness, systolic function, and wall motion. The visually estimated ejection fraction is between 55-60%. Diastolic function is normal for age. Right Ventricle Normal right ventricular cavity size and systolic function. Atria The left atrium is normal in size. The right atrium is normal in size. Aortic Valve Normal aortic valve structure and function. There is no aortic valve stenosis. There is no aortic valve regurgitation. Mitral Valve The mitral valve appears normal. There is no mitral valve regurgitation. There is no mitral valve stenosis. Pulmonic Valve The pulmonic valve is likely normal. Tricuspid Valve Normal tricuspid valve structure. There is no tricuspid valve regurgitation. Normal right atrial pressure. There is no evidence of pulmonary hypertension. Great Vessels All visible segments of the aorta are normal in size. The visualized portions of the pulmonary artery and branches are normal. Venous The inferior vena cava is normal in size and collapses greater than 50% with inspiration. Pericardium/Pleural There is no evidence of pericardial effusion. Prior Study Comparison No prior study available for comparison. Measurements 2D Linear Measurements IVSd: 1.02 0.6-0.9/0.6-1.0 cm LVIDd: 4.28 3.9-5.3/4.2-5.9 cm LVIDd Index: 2.22 2.4-3.2/2.2-3.1 cm/m2 LVIDs: 2.66 2.0-3.6 cm LVPWd: 0.95 0.7-1.1 cm LA Diam: 3.80 2.7-3.8/3.0-4.0 cm LAIDs Index: 1.97 1.5-2.3 cm/m2 LV Mass: 172.37 67-162/88-224 g LV Mass Index: 89.31 43-95/49-115 g/m2 LVOT Diam: 2.00 3.0+(-)1.3 cm 2D Systolic Function EF 4C: 58.30 >55% EF 2C: 60.90 >55% EF BiP: 61.10 >55% Mitral Valve MV Pk E: 1.07 MV PK A: 0.88 MV Decel Time: 170.00 E/A: 1.20 E'Lateral: 11.00 E'Medial: 7.94 E/E' Med: 13.50 E/E' Lat: 9.70 PHT: 50.00 MVA PHT: 4.40 Decel Spencer: 6.29 Aortic Valve AoV Pk Oh: 1.38 AoV Mn Oh: 0.90 AoV VTI: 0.36 AoV Pk Grad: 8.00 Aov Mn Grad: 4.00 [place] Cont.VTI: 1.50 LVOT LVOT Pk Oh: 0.72 LVOT Mn Oh: 0.50 LVOT VTI: 0.17 LVOT Pk Grad: 2.00 LVOT Mn Grad: 1.00 LVOT Diam: 2.00 LVOT Area: 3.14 Diastolic Function MV Pk E: 1.07 MV Pk A: 0.88 E/A: 1.20 E'Medial: 7.94 E/E' Med: 13.50 E' Laterial: 11.00 E/E' Lat: 9.70 Right Ventricle TAPSE (mm): 22.60 TVS' Oh: 9.14 Tricuspid Valve TR Pk Oh: 2.23 TR Pk Grad: 20.00 RA Press: 3.00 RVSP: 23.00 Great Vessels Aorta Sinus of Valsalva: 2.80 2.0-3.5 cm Ao Asc: 2.80 2.1-3.4 cm Pulmonary Veins Pulm Vein S/D 1.10 Pulmonary Valve PV Pk Oh: 0.94 Peak PV Grad: 4.00 Updated in Other Vendor System with Status of Final Wing Landeros MD electronically signed on 05/07/2025 2:52:21 PM with status of Final
[2025-05-06 07:26] VITALS: BP 134/86; PULSE 59; RESP 20; TEMP 36.9; O2SAT 96
--- NOTE | 2025-05-06 08:15 | P.PNIM_ITS ---
Subjective Subjective Date of Service: 05/06/25 Interval History: bradycardia with pause ,patientsaid was sleeping nausea improved has abd pain Review of Systems Review of Systems: Yes all other systems are reviewed and are negative Physical Exam 2 Exam: Exam: Appearance: Alert.? Oriented X3.?feels nauseated cvs: rrr, [id number] . res: clear to auscultation ,no rhonchii or wheezing abd: no rebound or guarding ,nt, bs present. ext pulses present , no cyanosis. neuro: axo3 , nonfocal. Vital Signs: Vital Signs: Last Vital Signs Temp 98.4 F 05/06/25 07:26 Pulse 59 05/06/25 07:26 Resp 20 05/06/25 07:26 BP 134/86 05/06/25 07:26 Pulse Ox 96 05/06/25 07:26 O2 Del Method Room Air 05/06/25 07:26 BMI result Body Mass Index 30.9 Objective Data Active Medications Acetaminophen (Acetaminophen 325 Mg Tablet) 650 mg PO Q6H PRN PRN Reason: Pain, Mild 1-3,fever,headache Last Admin: 05/06/25 04:05 Dose: 650 mg Documented By: TEX Calcium Carbonate (Calcium Carbonate 750 Mg Tab.Chew) 750 mg PO Q4H PRN PRN Reason: Heartburn Last Admin: 05/04/25 19:51 Dose: 750 mg Documented By: TEX Clonazepam (Clonazepam 1 Mg Tablet) 1 mg PO BEDTIME [facility] Last Admin: 05/05/25 22:25 Dose: 1 mg Documented By: TEX Enoxaparin Sodium (Enoxaparin Sodium 40 Mg/0.4 Ml Syringe) 40 mg SUBCUT Q24H [facility] Last Admin: 05/05/25 08:46 Dose: 40 mg Documented By: OSMANY Hydromorphone HCl (Hydromorphone Hcl 0.5 Mg/0.5 Ml Syringe) 0.5 mg IVPUSH Q4H PRN; Protocol On Hold: 05/06/25 05:48 PRN Reason: Pain, Severe (Pain Scale 7-10) Last Admin: 05/06/25 03:02 Dose: 0.5 mg Documented By: TEX Azithromycin 500 mg/ Sodium (Chloride) 250 mls @ 125 mls/hr IV Q24H [facility] Last Infusion: 05/05/25 17:12 Dose: Infused Documented By: CELI Lactated Ringer's (Lr) 1,000 mls @ 80 mls/hr IVCONT .[id number] [facility] Last Admin: 05/05/25 22:28 Dose: 80 mls/hr Documented By: TEX Lurasidone HCl (Lurasidone Hcl 80 Mg Tablet) 80 mg PO BEDTIME [facility] Last Admin: 05/05/25 22:25 Dose: 80 mg Documented By: TEX Magnesium Hydroxide (Milk Of Magnesia 30 Ml Oral.Susp) 30 ml PO DAILY PRN PRN Reason: Constipation Last Admin: 05/01/25 22:04 Dose: 30 ml Documented By: CHERRI Melatonin (Melatonin 3 Mg Tablet) 6 mg PO BEDTIME PRN PRN Reason: Insomnia Metoclopramide HCl (Metoclopramide Hcl 10 Mg/2 Ml Vial) 5 mg IVPUSH TIDAC [facility] Last Admin: 05/05/25 18:23 Dose: 5 mg Documented By: CELI Mirtazapine (Mirtazapine 7.5 Mg Tablet) 7.5 mg PO BEDTIME [facility] Last Admin: 05/05/25 22:25 Dose: 7.5 mg Documented By: TEX Montelukast Sodium (Montelukast Sodium 10 Mg Tablet) 10 mg PO DAILY [facility] Last Admin: 05/05/25 08:46 Dose: 10 mg Documented By: OSMANY Omeprazole (Omeprazole 20 Mg Capsule.Dr) 20 mg PO BID@0630,1630 [facility] Last Admin: 05/06/25 05:41 Dose: 20 mg Documented By: TEX Ondansetron HCl (Ondansetron Hcl 4 Mg/2 Ml Vial) 4 mg IVPUSH Q8H PRN PRN Reason: Nausea and Vomiting Last Admin: 05/04/25 14:13 Dose: 4 mg Documented By: OSWALDO Quetiapine Fumarate (Quetiapine Fumarate 200 Mg Tablet) 200 mg PO BEDTIME PRN PRN Reason: Insomnia Last Admin: 05/05/25 22:27 Dose: 200 mg Documented By: TEX Sertraline HCl (Sertraline Hcl 100 Mg Tablet) 100 mg PO DAILY [facility] Last Admin: 05/05/25 08:46 Dose: 100 mg Documented By: OSMANY Sodium Chloride (0.9 % Sodium Chloride Flush 3 Ml Syringe) 3 ml IVFLUSH QSHIFT [facility] Last Admin: 05/05/25 23:24 Dose: Not Given Documented By: TEX Non-Admin Reason: IV Running Sucralfate (Sucralfate Oral Suspension 1 Gm/10 Ml Oral.Susp) 1 gm PO QIDACHS [facility] Last Admin: 05/05/25 22:28 Dose: Not Given Documented By: TEX Non-Admin Reason: Patient Refused Topiramate (Topiramate 25 Mg Tablet) 50 mg PO BID [facility] Last Admin: 05/05/25 22:25 Dose: 50 mg Documented By: TEX Labs 05/06/25 12:44 05/06/25 12:44 Labs: Laboratory Results - last 24 hr 05/05/25 13:19 Anion Gap 9 L Estim Creat Clear Calc 56.8 Estimated GFR 56 Random Glucose 92 Calcium 9.1 Assessment and Plan (1) Intractable nausea and vomiting: Status: Acute Plan 44 transgender male pmh mood disorder, ptsd, asthma, presented with n/v abd pain Intractable nausea and vomiting and abdominal pain EGD with hiatal hernia, no obvious cause. drug screen positive for marijuana on 05/02/25. CT head with no significant central lesion Continues to vomit inability to tolerate p.o. Continue IV fluids, antiemetic - added prokinetics - reglan and azithro PPI, carafate overnight us, ct abd studies noted-seems no acute findings small bowel series pending bradycardia/pause-while sleeping likely vasovagal due to nasuea, monitor chest pain: no chest pain today likely gi +msk from vomiting cardio appreciated -outpatient echo Splenic lesion Repeat CT in 6 months Acute hypokalemia Replace and monitor DVT prophylaxis with Lovenox Full code reason for continued hospitalization: still Not tolerating p.o. Quality Stroke Does the patient have a stroke diagnosis?: No VTE Prior VTE?: No VTE Risk Level:: Medical - moderate - high VTE Device Contraindication: Treatment Not Indicated VTE Drug Contraindication: N/A - Med Ordered
[2025-05-06 12:00] VITALS: BP 129/86; PULSE 84; RESP 20; TEMP 36.6; O2SAT 99
[2025-05-06] MEDS: Lidocaine 4 % Patch ADH..PATCH 2 PATCH TRANSDERMA (12:05)
[2025-05-06 12:55] LABS: MANUAL DIFF FLAG NO
[2025-05-06 13:04] LABS: Hematocrit 47.0 % (37.0-47.0); Hemoglobin 15.2 g/dl (12.0-16.0); Imm Gran Abs Auto 0.02 X10*3/uL (0.00-0.03); Imm Gran Pct Auto 0.4 % (0.0-0.4); Lymphocytes Absolute Auto 2.2 X10*3/uL (1.2-4.9); Mean Corpuscular HGB Conc 32.3 g/dl (31.0-35.0); Mean Corpuscular Hemoglobin 26.7 pg (27.0-33.0); Mean Corpuscular Volume 82.6 fL (80.0-98.0); NRBC Abs Auto 0.000 X10*3/uL (0.0-0.012); NRBC Pct Auto 0.0 /100WBC (0.0-0.2); Platelet Count 409 X10*3/uL (160-400); Red Blood Count 5.69 X10*6/uL (4.20-5.50); White Blood Count 4.9 X10*3/uL (4.8-10.8)
[2025-05-06 13:27] LABS: Troponin-I High Sensitivity < 2.7 ng/L (<3.5-17.0)
[2025-05-06 13:32] LABS: Anion Gap 9 (12-20); Blood Urea Nitrogen 6 mg/dL (9-16); Calcium 9.0 mg/dL (8.4-10.2); Carbon Dioxide 24 mmol/L (22-29); Chloride 111 mmol/L (96-108); Creatinine Clr Calc Pharmacy 59.6; Estimated Glomerular Filt Rate 59; Magnesium 2.0 mg/dL (1.6-2.6); Potassium 3.4 mmol/L (3.3-5.1); Sodium 141 mmol/L (135-145)
[2025-05-06 15:42] VITALS: BP 153/82; PULSE 88; RESP 20; TEMP 36.8; O2SAT 99
--- NOTE | 2025-05-06 15:52 | MHC.CM.PN ---
EMR REVIEWED AND PER MD ROUNDS, PATIENT IS NOT MEDICALLY CLEARED FOR DISCHARGE DUE TO MANAGEMENT OF N/V.
[2025-05-06 15:55] LABS: NT Pro B Type Natriuretic Pept 55.0 pg/mL (<300)
[2025-05-06] MEDS: Lactated Ringers 1,000 ML 80 ML IVCONT (15:56)
--- NOTE | 2025-05-06 16:23 | P.PNGI_ITS ---
Subjective Subjective Date of Service: 05/06/25 Interval History: still having abdominal pain, nausea poor PO intake doppler suggesting possible MALS but angiogram negative small bowel follow thru with moderate hiatal hernia and reflux Critical Care Time (minutes): 0 Physical Exam 2 Exam: Exam: EXAM: GENERAL: The patient is well developed and nontoxic. VITAL SIGNS:see workflow HEENT: Nonicteric sclerae, PERRLA, EOMI. Oropharynx clear. Moist mucous membranes. Conjunctivae appear well perfused. No thyroid mass. CHEST: Chest wall is nontender. HEART: Regular rate and rhythm without murmurs. LUNGS: Clear to auscultation bilaterally. ABDOMEN: Soft, positive bowel sounds, mildly tender epigastrium, no organomegaly.no flank tenderness SKIN: No rash, no excessive bruising, petechiae, or purpura. NEUROLOGIC: Cranial nerves II-XII intact without motor/sensory deficit. Psych: normal affect Vital Signs: Vital Signs: Last Vital Signs Temp 98.2 F 05/06/25 15:42 Pulse 88 05/06/25 15:42 Resp 20 05/06/25 15:42 BP 153/82 H 05/06/25 15:42 Pulse Ox 99 05/06/25 15:42 O2 Del Method Room Air 05/06/25 15:42 BMI result Body Mass Index 30.9 Objective Data Labs 05/06/25 12:44 05/06/25 12:44 Labs: Laboratory Results - last 24 hr 05/06/25 12:44 WBC 4.9 RBC 5.69 H Hgb 15.2 Hct 47.0 MCV 82.6 MCH 26.7 L MCHC 32.3 RDW 17.9 H Plt Count 409 H MPV 9.7 Immature Gran % (Auto) 0.4 Neut % (Auto) 43.0 L Lymph % (Auto) 44.8 H Bucks % (Auto) 9.6 Eos % (Auto) 1.6 Baso % (Auto) 0.6 Lymph # (Auto) 2.2 Bucks # (Auto) 0.5 Eos # (Auto) 0.1 Baso # (Auto) 0.0 Abs Immat Gran (auto) 0.02 Absolute Neuts (auto) 2.1 Absolute Nucleated RBC 0.000 Nucleated RBC % (auto) 0.0 Sodium 141 Potassium 3.4 Chloride 111 H Carbon Dioxide 24 Anion Gap 9 L BUN 6 L Creatinine 1.02 Estim Creat Clear Calc 59.6 Estimated GFR 59 Random Glucose 84 Calcium 9.0 Magnesium 2.0 Troponin I High Sens < 2.7 NT-Pro-B Natriuret Pep 55.0 Procedures Date of Service Date of Service: 05/06/25 Progress Note: A&P Assessment and plan (1) Intractable nausea and vomiting: Status: Acute Assessment and Plan: 1/ Poor PO with nausea and abdo pain could be from para esophageal hernia, also pt is on topirimate which is associated with major Gi upsets and abdo pain PLAN: 1/ max PPI and carafate 2/ consider stopping topamax and using replacement therapy 3/ o/p f/u with Dr King for hiatal hernia Time Spent With Patient Time: Total time managing care of this patient today ____ minutes. Quality Stroke Does the patient have a stroke diagnosis?: No VTE Prior VTE?: No VTE Risk Level:: Medical - moderate - high VTE Device Contraindication: Treatment Not Indicated VTE Drug Contraindication: N/A - Med Ordered
[2025-05-06] MEDS: Sucralfate Oral Suspension 1 GM/10 ML ORAL.SUSP PO (16:33)
[2025-05-06] MEDS: 0.9 % Sodium Chloride Flush 3 ML SYRINGE IVFLUSH ×2 (16:33→20:50)
[2025-05-06 19:12] VITALS: BP 147/83; PULSE 60; RESP 16; TEMP 36.8; O2SAT 97
[2025-05-06 23:19] VITALS: BP 137/73; PULSE 65; RESP 16; TEMP 36.4; O2SAT 98
[2025-05-07] MEDS: Lactated Ringers 1,000 ML 80 ML IVCONT ×2 (03:03→09:00)
[2025-05-07 03:26] VITALS: BP 105/63; PULSE 55; RESP 16; TEMP 36.3; O2SAT 95
[2025-05-07 08:00] VITALS: BP 123/79; PULSE 80; RESP 20; TEMP 36.7; O2SAT 96
--- NOTE | 2025-05-07 08:40 | HO.PM.IMPN ---
Subjective Subjective Date of Service: 05/07/25 Review of Systems Review of Systems: Yes all other systems are reviewed and are negative Physical Exam Vital Signs: Vital Signs: Last Vital Signs Temp 98.1 F 05/07/25 08:00 Pulse 80 05/07/25 08:00 Resp 20 05/07/25 08:00 BP 123/79 05/07/25 08:00 Pulse Ox 96 05/07/25 08:00 O2 Del Method Room Air 05/07/25 08:00 BMI result Body Mass Index 30.9 Objective Data Active Medications Calcium Carbonate (Calcium Carbonate 750 Mg Tab.Chew) 750 mg PO Q4H PRN PRN Reason: Heartburn Last Admin: 05/04/25 19:51 Dose: 750 mg Documented By: TEX Clonazepam (Clonazepam 1 Mg Tablet) 1 mg PO BEDTIME RAINA Last Admin: 05/06/25 22:25 Dose: 1 mg Documented By: WILMAR Comments: per pharmacy to administer now. for bedtime now Enoxaparin Sodium (Enoxaparin Sodium 40 Mg/0.4 Ml Syringe) 40 mg SUBCUT Q24H RAINA Last Admin: 05/06/25 12:05 Dose: 40 mg Documented By: MICHELLE Hydromorphone HCl (Hydromorphone Hcl 0.5 Mg/0.5 Ml Syringe) 0.5 mg IVPUSH Q4H PRN; Protocol On Hold: 05/06/25 05:48 PRN Reason: Pain, Severe (Pain Scale 7-10) Last Admin: 05/06/25 03:02 Dose: 0.5 mg Documented By: TEX Azithromycin 500 mg/ Sodium (Chloride) 250 mls @ 125 mls/hr IV Q24H RAINA Last Infusion: 05/06/25 18:03 Dose: Infused Documented By: MICHELLE Lactated Ringer's (Lr) 1,000 mls @ 80 mls/hr IVCONT .[id number] RAINA Last Admin: 05/07/25 03:03 Dose: 80 mls/hr Documented By: NICKY Lidocaine (Lidocaine 4 % Patch Adh..Patch) 2 patch [facility] DAILY [facility]; Protocol Last Admin: 05/06/25 12:05 Dose: 2 patch Documented By: MICHELLE Lurasidone HCl (Lurasidone Hcl 80 Mg Tablet) 80 mg PO BEDTIME [facility] Last Admin: 05/06/25 20:49 Dose: 80 mg Documented By: NICKY Magnesium Hydroxide (Milk Of Magnesia 30 Ml Oral.Susp) 30 ml PO DAILY PRN PRN Reason: Constipation Last Admin: 05/01/25 22:04 Dose: 30 ml Documented By: CHERRI Melatonin (Melatonin 3 Mg Tablet) 6 mg PO BEDTIME PRN PRN Reason: Insomnia Metoclopramide HCl (Metoclopramide Hcl 10 Mg/2 Ml Vial) 5 mg IVPUSH [facility]AC [facility] Last Admin: 05/06/25 16:33 Dose: 5 mg Documented By: MICHELLE Mirtazapine (Mirtazapine 7.5 Mg Tablet) 7.5 mg PO BEDTIME [facility] Last Admin: 05/06/25 20:50 Dose: 7.5 mg Documented By: NICKY Montelukast Sodium (Montelukast Sodium 10 Mg Tablet) 10 mg PO DAILY [facility] Last Admin: 05/06/25 12:06 Dose: 10 mg Documented By: MICHELLE Omeprazole (Omeprazole 40 Mg Capsule.Dr) 40 mg PO BID@0630,1630 [facility] Last Admin: 05/07/25 06:22 Dose: 40 mg Documented By: NICKY Ondansetron HCl (Ondansetron Hcl 4 Mg/2 Ml Vial) 4 mg IVPUSH Q8H PRN PRN Reason: Nausea and Vomiting Last Admin: 05/07/25 06:25 Dose: 4 mg Documented By: NICKY Quetiapine Fumarate (Quetiapine Fumarate 200 Mg Tablet) 200 mg PO BEDTIME PRN PRN Reason: Insomnia Last Admin: 05/06/25 22:24 Dose: 200 mg Documented By: WILMAR Sertraline HCl (Sertraline Hcl 100 Mg Tablet) 100 mg PO DAILY [facility] Last Admin: 05/06/25 12:06 Dose: 100 mg Documented By: MICHELLE Sodium Chloride (0.9 % Sodium Chloride Flush 3 Ml Syringe) 3 ml IVFLUSH QSHIFT [facility] Last Admin: 05/07/25 07:28 Dose: Not Given Documented By: ALEN Non-Admin Reason: IV Running Sucralfate (Sucralfate Oral Suspension 1 Gm/10 Ml Oral.Susp) 1 gm PO QIDACHS [facility] Last Admin: 05/06/25 21:34 Dose: Not Given Documented By: NICKY Non-Admin Reason: Patient Refused Topiramate (Topiramate 25 Mg Tablet) 50 mg PO BID [facility] On Hold: 05/06/25 16:10 Last Admin: 05/06/25 12:22 Dose: 50 mg Documented By: MICHELLE Labs 05/06/25 12:44 05/06/25 12:44 Labs: Laboratory Results - last 24 hr 05/06/25 12:44 MCV 82.6 MCH 26.7 L MCHC 32.3 RDW 17.9 H Plt Count 409 H MPV 9.7 Immature Gran % (Auto) 0.4 Neut % (Auto) 43.0 L Lymph % (Auto) 44.8 H [place] % (Auto) 9.6 Eos % (Auto) 1.6 Baso % (Auto) 0.6 Lymph # (Auto) 2.2 [place] # (Auto) 0.5 Eos # (Auto) 0.1 Baso # (Auto) 0.0 Abs Immat Gran (auto) 0.02 Absolute Neuts (auto) 2.1 Absolute Nucleated RBC 0.000 Nucleated RBC % (auto) 0.0 Anion Gap 9 L Estim Creat Clear Calc 59.6 Estimated GFR 59 Random Glucose 84 Calcium 9.0 Magnesium 2.0 Troponin I High Sens < 2.7 NT-Pro-B Natriuret Pep 55.0 Assessment and Plan (1) Intractable nausea and vomiting: Status: Acute Plan 44 transgender male pmh mood disorder, ptsd, asthma, presented with n/v abd pain Intractable nausea and vomiting and abdominal pain EGD with hiatal hernia, no obvious cause. drug screen positive for marijuana on 05/02/25. CT head with no significant central lesion Continues to vomit inability to tolerate p.o. Continue IV fluids, antiemetic - added prokinetics - reglan and azithro PPI, carafate overnight us, ct abd studies noted-seems no acute findings small bowel series pending bradycardia/pause-while sleeping likely vasovagal due to nasuea, monitor chest pain: no chest pain today likely gi +msk from vomiting cardio appreciated -outpatient echo Splenic lesion Repeat CT in 6 months Acute hypokalemia Replace and monitor DVT prophylaxis with Lovenox Full code reason for continued hospitalization: still Not tolerating p.o. Quality Stroke Does the patient have a stroke diagnosis?: No VTE Prior VTE?: No VTE Risk Level:: Medical - moderate - high VTE Device Contraindication: Treatment Not Indicated VTE Drug Contraindication: N/A - Med Ordered
--- NOTE | 2025-05-07 11:28 | PM.DS ---
DS: Providers Provider Date of Service: 05/07/25 Date of admission: 04/26/25 02:46 Date of discharge: 05/07/25 Primary care physician: Korina Gerard NP Consults: 04/26/25 05:36 Consult to Gastroenterology Routine Consulting Provider: [facility] Reason for consultation: nausea/vomiting 05/01/25 23:36 Consult to Cardiology Routine Consulting Provider: [facility] Reason for consultation: bradycardia with 4 sec pause on tele Attending physician on discharge: Jocelin Woodruff Discharging clinician: Jocelin Woodruff DS: Diagnosis Discharge Diagnosis (1) Intractable nausea and vomiting: Status: Acute DS: Summary Hospital Course Hospital Course: HPI oer h&P note:44-year-old female to male transgender liver lesion, anxiety, depression, PTSD, asthma; presented to the hospital with a chief complaint of nausea/vomiting/abdominal pain. Patient mentioned that for about 3 weeks-has been having nausea vomiting and diffuse abdominal pain. Denies any diarrhea. Denies blood in the stool. Denies any concerns for food poisoning. Has had happened similar episode in the summer of last year. Mentioned that patient probably has gastroparesis. Denies any fever chills cough or sputum production. Denies any chest pain or palpitations. Review of all other systems is negative except mentioned above Review of all other systems is negative except mentioned above ER course: Per ER team, patient noted her diffuse abdominal tenderness; CT scan showed mild inflammation on the anterior abdomen; suspected gastritis. Given IV Reglan, IV Pepcid, GI cocktail. Patient was also noted to be hypokalemic. Repleted. hospital course: 44 transgender male pmh mood disorder, ptsd, asthma, presented with n/v abd pain Intractable nausea and vomiting and abdominal pain EGD with hiatal hernia, no obvious cause. drug screen positive for marijuana on 05/02/25. CT head with no significant central lesion. us and ct abd done :Hiatal hernia,No acute angulation with indentation upon the superior aspect of celiac axis to suggest median arcuate ligament syndrome. also upper Gi series done :Moderate size hiatal hernia with mild gastroesophageal reflux. most studies- as above negative ,has hiatal hernia as above. given IV fluids, antiemetic , prokinetics , reglan and azithro,also added PPI, carafate . Patient is seems to be improved with the above supportive care, discussed with GI-most of above GI workup negative except has yet hernia-might be contributing to above symptoms. Patient significantly improved with supportive care, tolerating diet, no nausea, abdominal pain also improved significantly. Patient was advised to continue PPI and Carafate, need to follow up with bariatric surgery outpatient for creatinine hernia management. bradycardia/pause-while sleeping likely vasovagal due to nasuea ,also during sleep(asymptomatic). d/wcardiology: likely due to vagal tone as above.no acute intervention. chest pain: no chest pain today likely gi +msk from vomiting trop and bnp seems fine cardio appreciated -outpatient echo. Splenic lesion Repeat CT in 6 months Right renal cortical low-attenuation lesion, 1.9 cm; renal cysts-outpatient follow up with pcp, consider uronology eval outpatient. Acute hypokalemia Replaced and improved. plan: Advance diet as tolerated -low residue diet(avoid fried /spicy food ) patient already quit marijuana use . keep yourself well hydrated. Continue PPI/sucralfate. follow up with cardiology -outpatient echo. Follow up with Neurology may consider changing topiramate to another antiseizure medication if possible. follow follow-up with Bariatric surgery for hiatal hernia management. Splenic lesion-Repeat CT in 6 months. Right renal cortical low-attenuation lesion, 1.9 cm; renal cysts-outpatient follow up with pcp, consider uronology eval outpatient. Above management discussed with the patient in detail length patient understand and in agreement with the above plan, time spent 50 minutes. All questions answered. Time Attestation Total time managing care of this patient today: 50 mintues. Discharge Coordination Time (in mins): 50 min Quality: Safe Use of Opioids Does Pt have an Active Cancer Diagnosis on the Problem List?: No Quality: Stroke Does the patient have a stroke diagnosis?: No Physical Exam Exam: Exam: Appearance: Alert.? Oriented X3.?feels nauseated cvs: rrr, [id number] . res: clear to auscultation ,no rhonchii or wheezing abd: no rebound or guarding ,nt, bs present. ext pulses present , no cyanosis. neuro: axo3 , nonfocal. Vital Signs: Vital Signs: Last Vital Signs Temp 98.1 F 05/07/25 08:00 Pulse 80 05/07/25 08:00 Resp 20 05/07/25 08:00 BP 123/79 05/07/25 08:00 Pulse Ox 96 05/07/25 08:00 O2 Del Method Room Air 05/07/25 08:00 BMI result Body Mass Index 30.9 DS: Data Data Completed and Pending Completed studies during hospitalization [Text1]: Pending at discharge 04/26/25 13:25 Surgical [PTH] Routine Procedures Assistance with Respiratory Ventilation, Less than 24 Consecutive Hours, Continuous Positive Airway Pressure (01/27/24) Labs on day of discharge: Laboratory Results - last 24 hr 05/06/25 12:44 WBC 4.9 RBC 5.69 H Hgb 15.2 Hct 47.0 MCV 82.6 MCH 26.7 L MCHC 32.3 RDW 17.9 H Plt Count 409 H MPV 9.7 Immature Gran % (Auto) 0.4 Neut % (Auto) 43.0 L Lymph % (Auto) 44.8 H [place] % (Auto) 9.6 Eos % (Auto) 1.6 Baso % (Auto) 0.6 Lymph # (Auto) 2.2 [place] # (Auto) 0.5 Eos # (Auto) 0.1 Baso # (Auto) 0.0 Abs Immat Gran (auto) 0.02 Absolute Neuts (auto) 2.1 Absolute Nucleated RBC 0.000 Nucleated RBC % (auto) 0.0 Sodium 141 Potassium 3.4 Chloride 111 H Carbon Dioxide 24 Anion Gap 9 L BUN 6 L Creatinine 1.02 Estim Creat Clear Calc 59.6 Estimated GFR 59 Random Glucose 84 Calcium 9.0 Magnesium 2.0 Troponin I High Sens < 2.7 NT-Pro-B Natriuret Pep 55.0 Imaging Abdominal x-ray: Radiologist's impression: ITS Impressions: Chest X-Ray 04/25/25 16:48 IMPRESSION: No acute disease Head CT 04/27/25 10:28 IMPRESSION: No acute intracranial abnormality. 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 KUB X-Ray 05/05/25 16:05 IMPRESSION: Large volume of intraperitoneal fat. Please refer to CT. No intestinal obstruction pattern. Upper GI and Small Bowel X-Ray 05/06/25 07:30 IMPRESSION: Moderate size hiatal hernia with mild gastroesophageal reflux. Slightly delayed small bowel transit time of 120 minutes. The small bowel follow-through is otherwise unremarkable. ct abd: 1. Hiatal hernia. 2. Splenic calcified rim low-attenuation lesion, 1.9 cm. 3. Right renal cortical low-attenuation lesion, 1.9 cm; renal cysts. 4. Right lower quadrant subcutaneous emphysema, likely iatrogenic from recent subcutaneous injection. 5. No acute angulation with indentation upon the superior aspect of celiac axis to suggest median arcuate ligament syndrome. Discharge Plan Discharge Anticipated Discharge Date/Time: 05/07/25 11:10 Patient Disposition: Home, Self-Care Discharge Diagnosis: nausea /vomiting Referrals: Silvino Lopez MD [Physician, Gastroenterology] - 1 Week Capo Griffin MD [Physician, General Surgery] Referral Note: history of hernia, requesting second opinion from general surgery Korina Gerard NP [Primary Care Provider, Internal Medicine] - 1 Week Discharge Medications: New dicyclomine 20 mg tablet 20 mg PO TID Qty: 10 0RF sucralfate 100 mg/mL Suspension 1 g PO QIDACHS Qty: 1000 0RF lidocaine [Lidocaine Pain Relief] 4 % Adhesive Patch,Medicated 2 patch transdermal DAILY Qty: 10 0RF Protocol: Apply to: Apply to: Affected area omeprazole 40 mg Capsule,Delayed Release(Dr/Ec) 40 mg PO BID@0630,1630 Qty: 180 0RF Continued montelukast 10 mg tablet 10 mg PO BEDTIME lurasidone [Latuda] 80 mg tablet 80 mg PO BEDTIME sertraline 100 mg tablet 100 mg PO DAILY amlodipine 10 mg tablet 10 mg PO DAILY hydrochlorothiazide 25 mg tablet 25 mg PO DAILY testosterone cypionate 200 mg/mL oil 50 mg IM TH dexlansoprazole 60 mg capsule,biphase delayed releas 60 mg PO DAILY@0630 docusate sodium 100 mg Capsule 200 mg PO DAILY clonazepam 1 mg tablet 0.5 mg PO TID PRN (Reason: anxiety) quetiapine 100 mg tablet 200 mg PO BEDTIME PRN (Reason: insomnia) Patient Comments: pt reports he takes 2 for sleep topiramate 50 mg tablet 50 mg PO BID mirtazapine 7.5 mg tablet 7.5 mg PO BEDTIME clonazepam 1 mg tablet 1 mg PO BEDTIME cholecalciferol (vitamin D3) [Vitamin D3] 25 mcg (1,000 unit) Tablet 25 mcg PO DAILY melatonin 10 mg Tablet 10 mg PO BEDTIME PRN (Reason: Insomnia) ondansetron 4 mg tablet,disintegrating 4 mg PO Q8H PRN (Reason: nausea and vomiting) Qty: 9 0RF Held famotidine 40 mg tablet 40 mg PO DAILY Hold Instructions: Resume on 06/19/25. Discharge Orders: Discharge Order (Routine); Ordered 05/07/25 Ordered By: Jocelin Woodruff Diet: Advance to usual diet Activity on Discharge: As tolerated Stand Alone Forms: Patient Portal Discharge page, Work/School Release Print Language: [place] Activity Restrictions/Additional Instructions: Take your antibiotic as prescribed until the course is completed. Do not stop this medication early if you start to feel better. Return to the emergency department immediately if you develop Care Plan Goals: Advance diet as tolerated -low residue diet(avoid fried /spicy food ) patient already quit marijuana use . keep yourself well hydrated. Continue PPI/sucralfate. follow up with cardiology -outpatient echo. Follow up with Neurology may consider changing topiramate to another antiseizure medication if possible. follow follow-up with Bariatric surgery for hiatal hernia management. Splenic lesion-Repeat CT in 6 months outpatient w. Right renal cortical low-attenuation lesion, 1.9 cm; renal cysts-outpatient workup, consider uronology eval outpatient. Health Concerns: As above. Plan of Treatment: As above. Assessment: As above. Patient Instructions: Hypokalemia (ED), Flank Pain (ED)
--- NOTE | 2025-05-07 11:52 | MHC.CM.PN ---
PT CLEARED TO DC HOME TODAY WITH NO SERVICES VIA PRIVATE TRANSPORT
[2025-05-07 12:00] VITALS: BP 137/92; PULSE 93; RESP 20; TEMP 37.2; O2SAT 95
--- NOTE | 2025-05-07 13:39 | PC.NURSE ---
iv and tele removed. belongings with pt. pt was educated on d/c
[2025-05-07 13:50] LABS: Chlamydia pneumoniae PCR Not Detected (Not Detect.); Coronavirus 229E PCR Not Detected (Not Detect.); Coronavirus HKU1 PCR Not Detected (Not Detect.); Coronavirus NL63 PCR Not Detected (Not Detect.); Coronavirus OC43 PCR Not Detected (Not Detect.); RSV PCR Not Detected (Not Detect.); Rhino/Enterovirus PCR Not Detected (Not Detect.)
[2025-05-07 13:52] LABS: Influenza A H1 PCR Not Detected (Not Detect.); Influenza A H1-2009 PCR Not Detected (Not Detect.); Influenza A H3 PCR Not Detected (Not Detect.); SARS-CoV-2 PCR Not Detected (Not Detect.)
[2025-05-07 17:44] LABS: Testosterone, Free 95.3 pg/mL (0.1-6.4)
== END 2025-05-07 13:38 | disposition home or self-care (01) | DRG 392 ==
LOC: HO.ED 23:52 → HO.EDOVER 04-26 02:49 → HO.IMC 04-26 15:59 → HO.S3 04-30 11:04 → HO.IMC 05-06 06:00
PROVIDERS: Internal Medicine; Internal Medicine Gastroenterology; Nurse Practitioner Family; Physician Assistant; Student in an Organized Health Care Education/Training Program; Admitting Provider Hospitalist; Emergency Provider Emergency Medicine; PCP Nurse Practitioner Family; Visit Provider Internal Medicine
PROC: 0DJ08ZZ Inspection of Upper Intestinal Tract, Via Natural or Artificial Opening Endoscopic (ICD-10-PCS; CPT 43235; principal; 2025-04-26 14:20)
DX: K29.00 Acute gastritis without bleeding (principal); F64.0 Transsexualism; D73.9 Disease of spleen, unspecified; I49.5 Sick sinus syndrome; R07.89 Other chest pain; K31.84 Gastroparesis; F43.10 Post-traumatic stress disorder, unspecified; E87.6 Hypokalemia; K44.9 Diaphragmatic hernia without obstruction or gangrene; Z79.899 Other long term (current) drug therapy
CPT/HCPCS: 36415; 70450; 71045; 74018; 74175; 74246; 74248; 80048; 80053; 80307; 81001; 83690; 83735; 83880; 84132; 84402; 84403; 84439; 84443; 84484; 84702; 85025; 85027; 85379; 87468; 87469; 87478; 87484; 87633; 87798; 88305; 88313; 88342; 93005; 93306; 93976; 99285; J0131; J0456; J1171; J1308; J1650; J1956; J2003; J2359; J2405; J2470; J2704; J2765; J3360; J3475; J3480; J7120; Q9957; Q9967

== ENCOUNTER → 2025-04-25 16:19 | Outpatient (BNV) | payer MEDICARE, MEDICAID, SELFPAY | PROVIDERS: Admitting Provider Hospitalist; Emergency Provider Emergency Medicine; PCP Nurse Practitioner Family; Visit Provider Internal Medicine Cardiovascular Disease | DX: R94.31 Abnormal electrocardiogram [ECG] [EKG] (principal); R10.9 Unspecified abdominal pain | CPT/HCPCS: 93010 ==

== ENCOUNTER → 2025-04-25 16:20 | Outpatient (BNV) | payer MEDICARE, MEDICAID, SELFPAY | PROVIDERS: PCP Nurse Practitioner Family; Visit Provider Radiology Diagnostic Radiology | DX: R07.9 Chest pain, unspecified (principal) | CPT/HCPCS: 71045 ==

== ENCOUNTER 2025-04-26 02:46 | Outpatient (BNV) | payer MEDICARE, MEDICAID, SELFPAY | END 2025-04-27 10:28 | PROVIDERS: Admitting Provider Hospitalist; Emergency Provider Emergency Medicine; PCP Nurse Practitioner Family; Visit Provider Radiology Diagnostic Radiology | DX: G93.0 Cerebral cysts (principal) | CPT/HCPCS: 70450 ==

== ENCOUNTER 2025-04-26 02:46 | Outpatient (BNV) | payer MEDICARE, MEDICAID, SELFPAY | END 2025-05-05 17:40 | PROVIDERS: Admitting Provider Hospitalist; Emergency Provider Emergency Medicine; PCP Nurse Practitioner Family; Visit Provider Radiology Diagnostic Radiology | DX: K59.00 Constipation, unspecified (principal) | CPT/HCPCS: 74018 ==

== ENCOUNTER 2025-04-26 02:46 | Outpatient (BNV) | payer MEDICARE, MEDICAID, SELFPAY | END 2025-05-06 07:30 | PROVIDERS: Admitting Provider Hospitalist; Emergency Provider Emergency Medicine; PCP Nurse Practitioner Family; Visit Provider Radiology Diagnostic Radiology | DX: K44.9 Diaphragmatic hernia without obstruction or gangrene (principal); K21.9 Gastro-esophageal reflux disease without esophagitis | CPT/HCPCS: 74246 ==

== ENCOUNTER 2025-04-26 02:46 | Outpatient (BNV) | payer MEDICARE, MEDICAID, SELFPAY | END 2025-05-01 21:50 | PROVIDERS: Admitting Provider Hospitalist; Emergency Provider Emergency Medicine; PCP Nurse Practitioner Family; Visit Provider Internal Medicine Cardiovascular Disease | DX: R00.1 Bradycardia, unspecified (principal) | CPT/HCPCS: 93010 ==

== ENCOUNTER 2025-04-26 02:46 | Outpatient (BNV) | payer MEDICARE, MEDICAID, SELFPAY | END 2025-05-06 05:19 | PROVIDERS: Admitting Provider Hospitalist; Emergency Provider Emergency Medicine; PCP Nurse Practitioner Family; Visit Provider Internal Medicine Cardiovascular Disease | DX: R94.31 Abnormal electrocardiogram [ECG] [EKG] (principal) | CPT/HCPCS: 93306 ==

== ENCOUNTER → 2025-04-26 02:46 | Outpatient (BNV) | payer MEDICARE, MEDICAID, SELFPAY | PROVIDERS: Admitting Provider Hospitalist; Emergency Provider Emergency Medicine; PCP Nurse Practitioner Family; Visit Provider Internal Medicine Cardiovascular Disease | DX: R00.1 Bradycardia, unspecified (principal) | CPT/HCPCS: 99223 ==

== ENCOUNTER → 2025-04-26 02:46 | Outpatient (BNV) | payer MEDICARE, MEDICAID, SELFPAY | PROVIDERS: Admitting Provider Hospitalist; Emergency Provider Emergency Medicine; PCP Nurse Practitioner Family; Visit Provider Internal Medicine | DX: R11.2 Nausea with vomiting, unspecified (principal) | CPT/HCPCS: 99223; 99231; 99499 ==

== ENCOUNTER → 2025-04-26 02:46 | Outpatient (BNV) | payer MEDICARE, MEDICAID, SELFPAY | PROVIDERS: Admitting Provider Hospitalist; Emergency Provider Emergency Medicine; PCP Nurse Practitioner Family; Visit Provider Internal Medicine Gastroenterology | DX: R11.2 Nausea with vomiting, unspecified (principal) | CPT/HCPCS: 99232 ==

== ENCOUNTER 2025-05-09 09:25 | Inpatient (IN) | payer MEDICARE, MEDICAID, SELFPAY ==
--- NOTE | ~2025-05-09 | CT_ITS ---
EXAMINATION: CT ANGIOGRAM ABDOMEN CLINICAL INFORMATION: Median arcuate ligament syndrome COMPARISON: None available. TECHNIQUE: Multiple axial images were obtained through the abdomen following the administration of 100 mL Omnipaque 350 intravenous contrast. Images were reviewed on a dedicated 3-D workstation. This CT examination was performed using dose optimization techniques as appropriate, variously including the following: *Automated exposure control *Adjustment of mA and/or kV according to patient size (this includes techniques or standardized protocols for targeted exams where dose is matched to indication/reason for exam; i.e. extremities or head) *Use of iterative reconstruction technique Comparison: US performed on the same day FINDINGS: Again seen is a focal hyperenhancing lesion in the posterior inferior right hepatic segment 7 mm in diameter. Gallbladder surgically absent and there are clips in the gallbladder fossa. There is a lesion in the lower portion of the spleen 19 mm diameter with peripheral calcification. The spleen is otherwise unremarkable. Adrenal glands unremarkable. Pancreas within normal limits. Simple renal cyst is seen in the medial mid to upper left kidney. Visualized GI tract is unremarkable. Major venous structure: IVC: No extrinsic compression. Proximal left common iliac vein deep to right common iliac artery: No extrinsic compression. Splenic vein: Unremarkable. Left renal vein: No collateral flow origin to compression.. CT Data: Celiac artery Deflection angle: 65 degrees. Hooked Celiac axis: Present. 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 The celiac axis appears hooked during expiration and the deflexion angle is increased measuring 65 degrees. Again noted is a hyperenhancing 7 mm lesion in the posterior inferior right hepatic segment, follow-up with MRI liver without and with IV contrast. There is a nonaggressive chronic appearing lesion in the spleen with peripheral calcific calcification. It is unchanged from the prior Fleischner guidelines were followed. Electronically signed by: Chucky Balderrama MD 05/12/2025 05:17 PM EDT
--- NOTE | ~2025-05-09 | US_ITS ---
EXAMINATION: US RETROPERITONEAL LIMITED (RENAL ONLY) CLINICAL INFORMATION: Left flank pain. COMPARISON: Correlated to CT dated May 05, 2025. TECHNIQUE: Real-time ultrasound kidneys using grayscale technique. FINDINGS: RIGHT KIDNEY: 9 x 4 x 6 cm (SAG x AP x TRV). Normal echotexture. Renal cortical thickness is normal. No hydronephrosis. No solid or cystic lesion detected. LEFT KIDNEY: 10 x 6 x 6 cm (SAG x AP x TRV). Normal echotexture. Renal cortical thickness is normal. No hydronephrosis. There is a 2.2 cm anechoic lesion at the corticomedullary junction of the upper pole without septations or flow on color Doppler interrogation. US/US renal BI IMPRESSION: 2.2 cm simple cyst, left kidney. No hydronephrosis.. Electronically signed by: Mingo Mcdermott MD 05/09/2025 02:06 PM EDT
--- NOTE | ~2025-05-09 | US_ITS ---
EXAMINATION: US SUPERIOR MESENTERIC ARTERY WITH DOPPLER CLINICAL INFORMATION: Reassess blood flow COMPARISON: May 05, 2025 TECHNIQUE: Ultrasound along with color Doppler imaging and spectral analysis was performed of the superior mesenteric artery, celiac trunk, inferior mesenteric artery, hepatic artery, splenic artery and the abdominal aorta at the origin of the superior mesenteric artery. FINDINGS: orthopedic radiologic technologist CT is not available. Abdominal aorta peak systolic velocity: Proximal segment to SMA: 122 cm/s. Distal to SMA: 120 cm/s. SMA peak systolic velocity : Proximal segment: 189 cm/s. Midsegment: 150 cm/s. Distal segment: 55 cm/s. Mesenteric aortic ratio (MAR): 1.54 Celiac trunk, inspiration and supine peak systolic velocity : 206 cm/s. Celiac trunk, expiration and supine peak systolic velocity : 257 cm/s. Celiac trunk, inspiration and erect peak systolic velocity : 67 cm/s. Celiac trunk, expiration and erect peak systolic velocity : 246 cm/s. Hepatic artery peak systolic velocity: 187 cm/s. Splenic artery peak systolic velocity: 115 cm/s US/US SMA IMPRESSION: No hemodynamically significant stenosis by ultrasound criteria, SMA. Increment/variability peak systolic velocities during inspiration and expiration and supine and erect position of the celiac trunk concerning for median arcuate ligament syndrome. Electronically signed by: Mingo Mcdermott MD 05/12/2025 07:50 AM EDT
[2025-05-09 09:27] VITALS: BP 128/86; PULSE 117; RESP 16; TEMP 36.3; O2SAT 95; BMI 31.1
[2025-05-09 09:48] LABS: MANUAL DIFF FLAG NO
[2025-05-09 09:49] LABS: Hematocrit 51.1 % (37.0-47.0); Hemoglobin 16.8 g/dl (12.0-16.0); Imm Gran Abs Auto 0.02 X10*3/uL (0.00-0.03); Imm Gran Pct Auto 0.3 % (0.0-0.4); Lymphocytes Absolute Auto 2.4 X10*3/uL (1.2-4.9); Mean Corpuscular HGB Conc 32.9 g/dl (31.0-35.0); Mean Corpuscular Hemoglobin 26.6 pg (27.0-33.0); Mean Corpuscular Volume 80.9 fL (80.0-98.0); NRBC Abs Auto 0.000 X10*3/uL (0.0-0.012); NRBC Pct Auto 0.0 /100WBC (0.0-0.2); Platelet Count 403 X10*3/uL (160-400); Red Blood Count 6.32 X10*6/uL (4.20-5.50); White Blood Count 6.4 X10*3/uL (4.8-10.8)
[2025-05-09 10:04] LABS: Alanine Aminotransferase 90 U/L (0-31); Albumin Level 4.6 g/dL (3.5-5.0); Alkaline Phosphatase 50 U/L (39-117); Anion Gap 15 (12-20); Aspartate Amino Transferase 51 U/L (5-31); Blood Urea Nitrogen 10 mg/dL (9-16); Calcium 9.9 mg/dL (8.4-10.2); Carbon Dioxide 17 mmol/L (22-29); Chloride 109 mmol/L (96-108); Creatinine Clr Calc Pharmacy 46.9; Estimated Glomerular Filt Rate 44; Lipase 23 U/L (8-78); Magnesium 1.9 mg/dL (1.6-2.6); Potassium 3.1 mmol/L (3.3-5.1); Sodium 138 mmol/L (135-145); Total Protein 8.3 g/dL (6.5-8.0)
--- NOTE | 2025-05-09 10:06 | ED.ABDPAIN ---
HPI - Abdominal Pain General Chief Complaint: Abdominal Pain Stated Complaint: abd pain, n/v/d, recently admitted Time Seen by Provider: 05/09/25 09:38 Source: patient, RN notes reviewed and old records reviewed Mode of arrival: ambulatory History of Present Illness ED Provider: Senait Rosado PA-C HPI narrative: 44-year-old FTM transgender with a past medical history borderline personality disorder, bipolar, PTSD, depression, GERD, asthma, gastritis, presenting to the ED complaining of left lower quadrant abdominal pain, nausea, vomiting, and inability to tolerate p.o. x2 days s/p hospital discharge. Patient was recently admitted to our facility from 04/25-05/07 for similar symptoms, had extensive workup and was diagnosed with hiatal hernia. Reports decreased urine output. Denies fever, chills, dysuria/hematuria, diarrhea/constipation Related Data Home Medications ?Medication ?Instructions ?Recorded ?Confirmed lurasidone 80 mg tablet (Latuda) 80 mg PO BEDTIME 11/26/20 04/26/25 montelukast 10 mg tablet 10 mg PO BEDTIME 11/26/20 04/26/25 amlodipine 10 mg tablet 10 mg PO DAILY 01/27/24 04/26/25 dexlansoprazole 60 mg 60 mg PO DAILY@0630 01/27/24 04/26/25 capsule,biphase delayed release docusate sodium 100 mg capsule 200 mg PO DAILY 01/27/24 04/26/25 hydrochlorothiazide 25 mg tablet 25 mg PO DAILY 01/27/24 04/26/25 sertraline 100 mg tablet 100 mg PO DAILY 01/27/24 04/26/25 testosterone cypionate 200 mg/mL 50 mg IM TH 01/27/24 04/26/25 intramuscular oil cholecalciferol (vitamin D3) 25 25 mcg PO DAILY 04/26/25 04/26/25 mcg (1,000 unit) tablet (Vitamin D3) clonazepam 1 mg tablet 0.5 mg PO TID PRN anxiety 04/26/25 04/26/25 clonazepam 1 mg tablet 1 mg PO BEDTIME anxiety 04/26/25 04/26/25 famotidine 40 mg tablet 40 mg PO DAILY 04/26/25 04/26/25 Held on 05/07/25. Instructions: Resume on 06/19/25. melatonin 10 mg tablet 10 mg PO BEDTIME PRN Insomnia 04/26/25 04/26/25 mirtazapine 7.5 mg tablet 7.5 mg PO BEDTIME 04/26/25 04/26/25 quetiapine 100 mg tablet 200 mg PO BEDTIME PRN insomnia 04/26/25 04/26/25 topiramate 50 mg tablet 50 mg PO BID 04/26/25 04/26/25 Previous Rx's ?Medication ?Instructions ?Recorded ondansetron 4 mg disintegrating 4 mg PO Q8H PRN nausea and 04/24/25 tablet vomiting #9 tabs dicyclomine 20 mg tablet 20 mg PO TID #10 tabs 04/25/25 lidocaine 4 % topical patch 2 patch transdermal DAILY #10 ea 05/07/25 (Lidocaine Pain Relief) omeprazole 40 mg capsule,delayed 40 mg PO BID@0630,1630 #180 caps 05/07/25 release sucralfate 100 mg/mL oral 1 g (10 mL) PO QIDACHS #1,000 mL 05/07/25 suspension Allergies Allergy/AdvReac Type Severity Reaction Status Date / Time acetaminophen (From VICODIN) Allergy Intermediate ITCHING Verified 05/09/25 09:32 amoxicillin (AMOXICILLIN) Allergy Intermediate ITCHING Verified 05/09/25 09:32 hydrocodone (From VICODIN) Allergy Intermediate ITCHING Verified 05/09/25 09:32 oxycodone (From PERCOCET) Allergy Intermediate ITCHING Verified 05/09/25 09:32 propoxyphene (From Allergy Intermediate HEADACHES Verified 05/09/25 09:32 DARVOCET-N) Penicillins Allergy Hives Verified 05/09/25 09:32 pseudoephedrine Allergy Hives Verified 05/09/25 09:32 honey (HONEY) AdvReac Intermediate HEADACHES Verified 05/09/25 09:32 Review of Systems Review of Systems Yes all other systems are reviewed and are negative Constitutional: Reports as per [facility] Past Medical History Attestation statement: The following information was validated with the patient. Source: old records reviewed Medical History Sleep apnea Liver mass Borderline personality disorder Bipolar 1 disorder PTSD (post-traumatic stress disorder) Depression GERD (gastroesophageal reflux disease) Asthma Gastritis Social History Social History Household Members: Spouse Housing: Apartment Are you a primary career development associate to a significant other at home: No Do you presently have visiting nurse or other home services: No Alcohol intake: former Patient Tobacco Use Status: Current everyday Tobacco user Tobacco use type: Cigarette e-Cigarette/Vaping Use: Former Use Second Hand Smoke Exposure: No Substance Use Type: Marijuana Advance Directives: Yes Advance Directives Information Provided: Yes Advance Directives on File: No service: No Current occupational status: disabled Physical Exam ED Vital Signs: Vital Signs - 24 hr 05/09/25 09:27 05/09/25 13:59 Temperature 97.4 F 97.9 F Pulse Rate 117 H 67 Respiratory Rate 16 14 Blood Pressure 128/86 107/70 Pulse Oximetry 95 98 Oxygen Delivery Method Room Air Room Air BMI result Body Mass Index 31.1 Const General: cooperative, healthy appearing and no acute distress Orientation/consciousness: patient oriented x3 Limitations: no limitations HENMT Head: Yes normal to inspection and Yes atraumatic Ears: hearing grossly normal bilaterally General nose exam: Normal external nose present Face and sinus: Yes normal facial exam Eyes General: appearance normal, both eyes and all related structures EOM: EOMs intact bilaterally Neck Neck: Yes normal visual inspection and Yes no meningeal signs Resp Effort & Inspection: normal respiratory effort and no respiratory distress Cardio Rate: regular rate GI Inspection: Yes normal to inspection Palpation (GI): Soft to palpation, Tenderness to palpation present (GI) (lower abdomen) in the LLQ, no guarding and not rigid General: Yes CVA tenderness on the left Back/Spine/Pelvis Back: CVA tenderness Skin Rashes: no rashes Wounds: no wounds Neuro General: patient oriented x3, tone normal and no meningeal signs Cranial nerves: Yes CN's II-XII intact bilaterally Gait exam (Neuro): Normal gait present Extrem General: Yes normal to inspection Course Course Course Narrative: -1135--no leukocytosis. Hemoconcentrated. Potassium slightly low at 3.1 > p.o. and IV repletion ordered. UA unremarkable. -UA with trace leuk esterase. Not infected. No blood. -tox screen positive for benzos and THC >> suspect THC causing symptoms/pain > on re-evaluation patient reports continued discomfort > case discussed with GI, Dr. Lopez who was following patient during recent admission > reccommends obtaining renal ultrasound - in agreement to avoid additional radiation at this time US renal BI IMPRESSION: 2.2 cm simple cyst, left kidney. No hydronephrosis. > on re-evaluation patient reports continued pain, and states still unable to tolerate p.o. Will reconsult Dr. Lopez. > Dr. Lopez recommends admission with re-evaluation in the morning. Will discuss case with hospitalist at 1548 Medical Decision Making Medical Decision Making [facility] Narrative: 44-year-old FTM transgender with a past medical history borderline personality disorder, bipolar, PTSD, depression, GERD, asthma, gastritis, presenting to the ED complaining of left lower quadrant abdominal pain, nausea, vomiting, and inability to tolerate p.o. x2 days s/p hospital discharge. On exam tachycardic, likely from dehydration rather than severe sepsis. NAD, nontoxic appearing, abdomen is soft with LLQ tenderness and left CVAT. No rebound or guarding. Low suspicion for severe sepsis. Concern for cyclical vomiting vs colitis vs gastroenteritis vs metabolic abnormalities. Diverticulitis on differential. Lower suspicion for appendicitis, mesenteric ischemia, pancreatitis, renal stones/pyelo. Patient with extensive workup with multiple imaging studies performed during hospitalization. Will avoid additional radiation at this time pending labs/workup Plan: EKG, labs, UA, IVF, antiemetic, pain control, re-evaluate Please refer to course for remaining clinical decision making, interpretation of labs/imaging results, and discussions with consultants and/or family members. Differential Diagnosis Differential Diagnoses: The differential diagnosis associated with the presentation includes As above Admission/Observation Consideration of admission/observation: Escalation of care including admission/observation considered Consult Healthcare Provider Management of the patient was discussed with: Business Support Coordinator (GI Dr. Lopez) Lab Data [facility] Lab Attestation statement: I reviewed the patient's lab results. 05/09/25 09:42 05/09/25 09:41 Labs: Lab Results 05/09/25 05/09/25 05/09/25 Range/Units 09:41 09:42 10:50 WBC 6.4 (4.8-10.8) X10*3/uL RBC 6.32 H (4.20-5.50) X10*6/uL Hgb 16.8 H (12.0-16.0) g/dl Hct 51.1 H (37.0-47.0) % MCV 80.9 (80.0-98.0) fL MCH 26.6 L (27.0-33.0) pg MCHC 32.9 (31.0-35.0) g/dl RDW 17.8 H (11.0-16.0) % Plt Count 403 H (160-400) X10*3/uL MPV 9.4 (9.4-12.3) fL Immature Gran % (Auto) 0.3 (0.0-0.4) % Neut % (Auto) 53.2 (45-73) % Lymph % (Auto) 37.0 (20-40) % Elliott % (Auto) 8.7 (2-11) % Eos % (Auto) 0.5 (0-4) % Baso % (Auto) 0.3 (0-2) % Lymph # (Auto) 2.4 (1.2-4.9) X10*3/uL Elliott # (Auto) 0.6 (0.1-1.2) X10*3/uL Eos # (Auto) 0.0 (0.0-0.4) X10*3/uL Baso # (Auto) 0.0 (0.0-0.2) X10*3/uL Abs Immat Gran (auto) 0.02 (0.00-0.03) X10*3/uL Absolute Neuts (auto) 3.4 (2.0-8.3) x10*3/uL Absolute Nucleated RBC 0.000 (0.0-0.012) X10*3/uL Nucleated RBC % (auto) 0.0 (0.0-0.2) /100WBC Sodium 138 (135-145) mmol/L Potassium 3.1 L (3.3-5.1) mmol/L Chloride 109 H (96-108) mmol/L Carbon Dioxide 17 L (22-29) mmol/L Anion Gap 15 (12-20) BUN 10 (9-16) mg/dL Creatinine 1.30 (0.5-1.4) mg/dL Estim Creat Clear Calc 46.9 Estimated GFR 44 Random Glucose 116 H (60-115) mg/dL Calcium 9.9 D (8.4-10.2) mg/dL Magnesium 1.9 (1.6-2.6) mg/dL Total Bilirubin 0.4 (0.0-1.0) mg/dL Direct Bilirubin 0.1 (0.0-0.5) mg/dL AST 51 H (5-31) U/L ALT 90 H (0-31) U/L Alkaline Phosphatase 50 (39-117) U/L Total Protein 8.3 H (6.5-8.0) g/dL Albumin 4.6 (3.5-5.0) g/dL Lipase 23 (8-78) U/L Urine Color Yellow Urine Appearance Clear Urine pH 5.5 (5.0-9.0) Ur Specific [place] 1.020 (1.005-1.025) Urine Protein Negative (Neg-Trace) mg/dL Urine Glucose (UA) Negative (Negative) mg/dL Urine Ketones Negative (Negative) mg/dL Urine Blood Negative (Negative) Urine Nitrite Negative (Negative) Ur Leukocyte Esterase Small (1+) H (Negative) Urine RBC 0-2 (0-2) /HPF Urine WBC 0-5 (0-5) /HPF Ur Squamous Epith Cells 0-2 (0-2) /HPF Urine Bacteria None Seen (None Seen) Hyaline Casts 3-5 (0-2) /LPF Urine Test NEGATIVE (NEGATIVE) Urine Opiates Screen Not Detected (Not Detect) Ur Buprenorphine Scrn Not Detected (Not Detect) ng/mL Ur Oxycodone Screen Not Detected (Not Detect) ng/mL Urine Methadone Screen Not Detected (Not Detect) ng/mL Urine Fentanyl Screen Not Detected (Not Detect) Ur Barbiturates Screen Not Detected (Not Detect) Ur Phencyclidine Scrn Not Detected (Not Detect) Ur Amphetamines Screen Not Detected (Not Detect) U Benzodiazepines Scrn POSITIVE H (Not Detect) Urine Cocaine Screen Not Detected (Not Detect) U Marijuana (THC) Screen POSITIVE H (Not Detect) Radiology Impression Discussion of test interpretation with radiology: I have reviewed the radiologist's reading. External Record Review External record reviewed: Inpatient record, Office record, Outpatient record, Prior outpatient labs, Prior outpatient radiology, Primary care record and Outside ED record Tests considered The following testing was considered but not selected: As above Prescription Management I considered prescription management with: Pain Medication and Other Chronic Conditions Patient?s care impacted by: Other (hiatal hernia) Social Determinants Patient?s care significantly limited by Social Determinants of Health including: Other Social Determinant of Health Medications Administered Discontinued Medications Generic Name Dose Route Start Last Admin Trade Name Asmita PRN Reason Stop Dose Admin Al Hydroxide/Mg Hydroxide 30 ml 05/09/25 09:52 05/09/25 10:27 Magnesium Hydrox/Alum Hydrox 30 Ml Oral.Susp PO 05/09/25 09:53 30 ml ONCE ONE Administration Dicyclomine HCl 20 mg 05/09/25 11:38 05/09/25 13:06 Dicyclomine Hcl 10 Mg Capsule PO 05/09/25 11:39 20 mg ONCE ONE Administration Famotidine 20 mg 05/09/25 09:52 05/09/25 10:29 Famotidine/Pf 20 Mg/2 Ml Vial IVPUSH 05/09/25 09:53 Not Given ONCE ONE Sodium Chloride 1,000 mls @ 999 mls/hr 05/09/25 09:45 05/09/25 13:06 Ns IV 05/09/25 10:45 Infused .Q1H1M RAINA Infusion Potassium Chloride 10 meq in 100 mls @ 100 mls/hr 05/09/25 10:08 05/09/25 13:06 Potassium Chloride/H20 IV 05/09/25 11:07 Infused ONCE ONE Infusion Sodium Chloride 1,000 mls @ 999 mls/hr 05/09/25 11:00 05/09/25 14:26 Ns IV 05/09/25 12:00 Infused .Q1H1M RAINA Infusion Ketorolac Tromethamine 15 mg 05/09/25 11:38 05/09/25 13:05 Ketorolac Tromethamine 15 Mg/Ml Vial IVPUSH 05/09/25 11:39 15 mg ONCE ONE Administration Lidocaine HCl 15 ml 05/09/25 09:52 05/09/25 10:30 Lidocaine Hcl Viscous 2 % 15 Ml Solution MUCOUS MEM 05/09/25 09:53 15 ml ONCE ONE Administration Ondansetron HCl 4 mg 05/09/25 09:52 05/09/25 10:27 Ondansetron Hcl 4 Mg/2 Ml Vial IVPUSH 05/09/25 09:53 4 mg ONCE ONE Administration Potassium Chloride 40 meq 05/09/25 10:24 05/09/25 10:35 Potassium Chloride Packet 20 Meq Packet PO 05/09/25 10:25 40 meq ONCE ONE Administration Critical Care Time Critical Care Time Critical Care Time: Yes Total Critical Care Time: 35 Attestation: I have personally provided critical care time exclusive of time spent on separately billable procedures. Time includes review of lab data, radiology results, discussion with consultants, and monitoring for potential decompensation. Intervention performed as documented. Discharge Plan Discharge Clinical Impression: Abdominal pain Patient Disposition: Admitted As Inpatient Print Language: Serbian
--- NOTE | 2025-05-09 10:14 | ECG_ITS ---
Test Reason : POTASSIUM Blood Pressure : */* mmHG Vent. Rate : 116 BPM Atrial Rate : 116 BPM P-R Int : 146 ms QRS Dur : 74 ms QT Int : 334 ms P-R-T Axes : 35 69 23 degrees QTcB Int : 464 ms Sinus tachycardia Low voltage QRS Septal infarct , age undetermined Abnormal ECG When compared with ECG of 06-May-2025 05:19, Vent. rate has increased by 70 bpm Septal infarct is now Present Nonspecific T wave abnormality now evident in Inferior leads Nonspecific T wave abnormality no longer evident in Lateral leads Referred By: Senait Rosado Electronically Signed By: KAT VALLE MD
[2025-05-09] MEDS: Magnesium Hydrox/Alum Hydrox 30 ML ORAL.SUSP PO (10:27)
[2025-05-09] MEDS: Lidocaine HCl Viscous 2 % 15 ML SOLUTION MUCOUS MEM (10:30)
[2025-05-09] MEDS: Potassium Chloride Packet 20 MEQ PACKET 40 MEQ PO (10:35)
[2025-05-09] MEDS: Potassium Chloride/H20 10 MEQ/100 ML PIGGYBACK 100 MEQ IV (10:50)
[2025-05-09 11:04] LABS: Appearance Urine Clear; Glucose Urine UA Negative (Negative); PH 5.5 (5.0-9.0); Specific Gravity - Urine 1.020 (1.005-1.025); UMIC TRIGGER UACC YES
[2025-05-09 11:05] LABS: UPreg QC Valid YES
[2025-05-09 11:10] LABS: Cannabinoid Screen Urine POSITIVE (Not Detect)
[2025-05-09 11:18] LABS: UACC Culture Trigger YES
[2025-05-09 13:59] VITALS: BP 107/70; PULSE 67; RESP 14; TEMP 36.6; O2SAT 98
--- NOTE | 2025-05-09 17:10 | PHA.MEDREC ---
Addendum entered by Eliza Rivas [facility] 05/09/25 17:39: REVIEWED BY PHARMACIST Original Note: Pharmacy Consult ? Medication Reconciliation Pharmacy has completed the medication reconciliation. Spoke with pt and they confirmed they were just admitted with us 04/26-05/07 and confirmed some medications were changed that DC. Pt was suppose to start Dicyclomine, Omeprazole (pt states they do not want to take Omeprazole and instead continue Dexlansoprazole) and Sucralfate but states their pharmacy never filled those medications, they were started on Lidocaine patches; 2 patches daily; which was filled by pt pharmacy, Famotidine was stopped by Dr. Woodruff 05/07 and pt taking Clonazepam 1mg tabs; 1 tab at bedtime now and no longer taking 1/2 tab (0.5mg) TID prn.
--- NOTE | 2025-05-09 17:32 | PM.IMHP ---
History of Present Illness Date of Service: 05/09/25 Chief Complaint: Nausea vomiting abdominal pain, unable to tolerate p.o. intake 44-year-old female to male transgender liver lesion, anxiety, depression, borderline personality disorder, bipolar, PTSD, asthma; presented to the hospital with a chief complaint of nausea/vomiting/LLQ abdominal pain. complaining of left lower quadrant abdominal pain, nausea, vomiting, and inability to tolerate p.o. x2 days s/p hospital discharge. Patient was recently admitted to our facility from 04/25-05/07 for similar symptoms, had extensive workup and was diagnosed with hiatal hernia in the past. Reports decreased urine output. Denies fever, chills, dysuria/hematuria, diarrhea/constipation. On exam tachycardic, likely from dehydration rather than severe sepsis. NAD, nontoxic appearing, abdomen is soft with LLQ tenderness and left CVAT. No rebound or guarding. Low suspicion for severe sepsis. Concern for cyclical vomiting vs colitis vs gastroenteritis vs metabolic abnormalities. Diverticulitis on differential. Lower suspicion for appendicitis, mesenteric ischemia, pancreatitis, renal stones/pyelo. Patient with extensive workup with multiple imaging studies performed during hospitalization. Will avoid additional radiation at this time pending labs/workup. Patient was just discharged on 05/07/2025 (less than 2 days ago with negative workup). Despite extensive education, patient insists on seeing GI physician and states that he would want to stay inpatient and have further workup. Plan is to admit the patient for cyclical vomiting and trial period of p.o. intake. Review of Systems Review of Systems: Yes all other systems are reviewed and are negative [facility] Medical History Sleep apnea Liver mass Borderline personality disorder Bipolar 1 disorder PTSD (post-traumatic stress disorder) Depression GERD (gastroesophageal reflux disease) Asthma Gastritis Social History Household Members: Spouse Housing: Apartment Are you a primary live in caregiver to a significant other at home: No Do you presently have visiting nurse or other home services: No Alcohol intake: former Patient Tobacco Use Status: Current everyday Tobacco user Tobacco use type: Cigarette e-Cigarette/Vaping Use: Former Use Second Hand Smoke Exposure: No Substance Use Type: Marijuana Advance Directives: Yes Advance Directives Information Provided: Yes Advance Directives on File: No service: No Current occupational status: disabled Meds Allergies Allergy/AdvReac Type Severity Reaction Status Date / Time acetaminophen (From VICODIN) Allergy Intermediate ITCHING Verified 05/09/25 09:32 amoxicillin (AMOXICILLIN) Allergy Intermediate ITCHING Verified 05/09/25 09:32 hydrocodone (From VICODIN) Allergy Intermediate ITCHING Verified 05/09/25 09:32 oxycodone (From PERCOCET) Allergy Intermediate ITCHING Verified 05/09/25 09:32 propoxyphene (From Allergy Intermediate HEADACHES Verified 05/09/25 09:32 DARVOCET-N) Penicillins Allergy Hives Verified 05/09/25 09:32 pseudoephedrine Allergy Hives Verified 05/09/25 09:32 honey (HONEY) AdvReac Intermediate HEADACHES Verified 05/09/25 09:32 Home Medications ?Medication ?Instructions ?Recorded ?Confirmed ?Last Taken ?Type lurasidone 80 mg tablet (Latuda) 80 mg PO BEDTIME 11/26/20 05/09/25 05/08/25 History montelukast 10 mg tablet 10 mg PO BEDTIME 11/26/20 05/09/25 05/09/25 History amlodipine 10 mg tablet 10 mg PO DAILY 01/27/24 05/09/25 05/09/25 History dexlansoprazole 60 mg 60 mg PO DAILY@0630 01/27/24 05/09/25 05/09/25 History capsule,biphase delayed release docusate sodium 100 mg capsule 200 mg PO DAILY 01/27/24 05/09/25 05/09/25 History hydrochlorothiazide 25 mg tablet 25 mg PO DAILY 01/27/24 05/09/25 05/09/25 History sertraline 100 mg tablet 100 mg PO DAILY 01/27/24 05/09/25 05/09/25 History testosterone cypionate 200 mg/mL 50 mg IM TH 01/27/24 05/09/25 04/14/25 History intramuscular oil cholecalciferol (vitamin D3) 25 25 mcg PO DAILY 04/26/25 05/09/25 05/09/25 History mcg (1,000 unit) tablet (Vitamin D3) clonazepam 1 mg tablet 1 mg PO BEDTIME anxiety 04/26/25 05/09/25 05/08/25 History mirtazapine 7.5 mg tablet 7.5 mg PO BEDTIME 04/26/25 05/09/25 05/08/25 History quetiapine 100 mg tablet 200 mg PO BEDTIME PRN insomnia 04/26/25 05/09/25 05/08/25 History topiramate 50 mg tablet 50 mg PO BID 04/26/25 05/09/25 05/09/25 History Physical Exam Vital Signs and Narrative: Vital Signs: Last Vital Signs Temp 97.9 F 05/09/25 13:59 Pulse 67 05/09/25 13:59 Resp 14 05/09/25 13:59 BP 107/70 05/09/25 13:59 Pulse Ox 98 05/09/25 13:59 O2 Del Method Room Air 05/09/25 13:59 BMI result Body Mass Index 31.1 General: AOx3, no acute distress Resp: CTA bilaterally CVS: S1, S2, RRR GI: +BS, NT, no distention Skin: Warm, dry Neuro: Cranial nerves II-XII grossly intact bilaterally. Motor grossly intact bilaterally Extremities: No edema Psych: Appropriate affect Results Labs 05/09/25 09:42 05/09/25 09:41 Labs: Laboratory Results - last 24 hr 05/09/25 05/09/25 05/09/25 09:41 09:42 10:50 MCV 80.9 MCH 26.6 L MCHC 32.9 RDW 17.8 H Plt Count 403 H MPV 9.4 Immature Gran % (Auto) 0.3 Neut % (Auto) 53.2 Lymph % (Auto) 37.0 Dixon % (Auto) 8.7 Eos % (Auto) 0.5 Baso % (Auto) 0.3 Lymph # (Auto) 2.4 Dixon # (Auto) 0.6 Eos # (Auto) 0.0 Baso # (Auto) 0.0 Abs Immat Gran (auto) 0.02 Absolute Neuts (auto) 3.4 Absolute Nucleated RBC 0.000 Nucleated RBC % (auto) 0.0 Anion Gap 15 Estim Creat Clear Calc 46.9 Estimated GFR 44 Random Glucose 116 H Calcium 9.9 D Magnesium 1.9 Total Bilirubin 0.4 Direct Bilirubin 0.1 AST 51 H ALT 90 H Alkaline Phosphatase 50 Total Protein 8.3 H Albumin 4.6 Lipase 23 Urine Color Yellow Urine Appearance Clear Urine pH 5.5 Ur Specific [place] 1.020 Urine Protein Negative Urine Glucose (UA) Negative Urine Ketones Negative Urine Blood Negative Urine Nitrite Negative Ur Leukocyte Esterase Small (1+) H Urine RBC 0-2 Urine WBC 0-5 Ur Squamous Epith Cells 0-2 Urine Bacteria None Seen Hyaline Casts 3-5 Urine Test NEGATIVE Urine Opiates Screen Not Detected Ur Buprenorphine Scrn Not Detected Ur Oxycodone Screen Not Detected Urine Methadone Screen Not Detected Urine Fentanyl Screen Not Detected Ur Barbiturates Screen Not Detected Ur Phencyclidine Scrn Not Detected Ur Amphetamines Screen Not Detected U Benzodiazepines Scrn POSITIVE H Urine Cocaine Screen Not Detected U Marijuana (THC) Screen POSITIVE H Imaging Radiologist's Impressions: Impressions Renal Ultrasound 05/09/25 13:34 IMPRESSION: 2.2 cm simple cyst, left kidney. No hydronephrosis.. Electronically signed by: Mingo Mcdermott MD 05/09/2025 02:06 PM EDT RP Assessment and Plan (1) Intractable nausea and vomiting: Status: Acute 44-year-old female to male transgender liver lesion, anxiety, depression, borderline personality disorder, bipolar, PTSD, asthma; presented to the hospital with a chief complaint of nausea/vomiting/LLQ abdominal pain. complaining of left lower quadrant abdominal pain, nausea, vomiting, and inability to tolerate p.o. x2 days s/p hospital discharge (05/07/25). Patient was recently admitted to our facility from 04/25-05/07 for similar symptoms, had extensive workup and was diagnosed with hiatal hernia. She reports severe nausea vomiting and abdominal pain and workup thus far unremarkable-similar to prior. He is insistent that he wants to see GI physician Dr. Lopez and hence he is being admitted under observation to trial p.o. intake and IV fluids. Intractable nausea and vomiting and abdominal pain-likely cyclical vomiting from marijuana (tox screen positive persistently), patient not forthcoming EGD prior recent admission a week ago with hiatal hernia, no obvious cause. The following imaging was done extensively during prior hospitalization and hence we are not repeating workup as to reduce radiation-risk versus benefits. Patient agreeable. drug screen positive for marijuana on 05/09/25, patient reports being abstinent CT head with no significant central lesion. us and ct abd done :Hiatal hernia,No acute angulation with indentation upon the superior aspect of celiac axis to suggest median arcuate ligament syndrome. also upper Gi series done :Moderate size hiatal hernia with mild gastroesophageal reflux. most studies- as above negative ,has hiatal hernia as above. given IV fluids, antiemetic , prokinetics , reglan and azithro,also added PPI, carafate . Patient is seems to be improved with the above supportive care, discussed with GI-most of above GI workup negative except has yet hernia-might be contributing to above symptoms. Patient significantly improved with supportive care, tolerating diet, no nausea, abdominal pain also improved significantly. Patient was advised to continue PPI and Carafate, need to follow up with bariatric surgery outpatient for creatinine hernia management. Encourage p.o. intake-advanced diet as tolerated and can be discharged tomorrow if stable. Outpatient follow-up for workup of chronic GI issues Advised the patient to refrain from marijuana bradycardia/pause-deemed vasovagal during prior admission We will monitor on telemetry and replete electrolytes to goal, fall precautions chest pain: no chest pain today likely gi +msk from vomiting trop and bnp seems fine cardio appreciated -outpatient echo. Splenic lesion Repeat CT in 6 months Right renal cortical low-attenuation lesion, 1.9 cm; renal cysts-outpatient follow up with pcp, consider uronology eval outpatient. Acute hypokalemia Replaced and improved. Patient needs admission as he reports 2 days of nausea vomiting and decreased p.o. intake just after discharge during prior admission. Adamant that he would only feel better after being admitted. This note is constructed using voice recognition software. While every effort has been made to ensure accuracy, electronic die maker errors may have been included. Quality Stroke Does the patient have a stroke diagnosis?: No VTE Prior VTE?: No VTE Risk Level:: Medical - moderate - high VTE Device Contraindication: N/A - Device Ordered VTE Drug Contraindication: N/A - Med Ordered
--- NOTE | 2025-05-09 18:15 | PM.GICN ---
History of Present Illness Data of Consult Service Date: 05/09/25 Primary Care Provider: Korina Gerard NP HPI Reason for consult: abdominal pain 44-year-old female to male transgender, with hx of anxiety, depression, PTSD, asthma who I am seeing for assessment for nausea and vomiting and abdominal pain. The pt presented to the hospital with a chief complaint of nausea/vomiting/ and 10/10 LLQ abdominal pain with poor PO intake. The patient was here last week for the same complaints and apparently the symptoms never actually went away. Patient denies THC for 3 months but u tox this admission and last week both pos for THC. Denies fever, chills, dysuria/hematuria, diarrhea/constipation. Patient does admit to attacks of nausea and vomtiing last 4 yrs on and off, but this is worse with more pain. Last admission EGD with hiatal hernia, pos duplex for MALS but CTA was neg albeit not done with dynamic protocol. Small bowel protocol with moderate hiatal hernia and reflux with delay in small bowel transit but no masses, lesions. renal us this admission was normal Review of Systems Review of Systems: Constitutional : No Weight loss, No Fever, No Chills ENT/Mouth : No sore throat, No Rhinorrhea Eyes: No Swelling, No Redness Cardiovascular : No Chest Pain, No SOB, No Edema Respiratory : No Cough, No Sputum, No Wheezing Gastrointestinal : see HPI Genitourinary : NO Dysuria, No Urinary Frequency, No Hematuria, No Urgency Musculoskeletal : no joint pain, No Myalgias, No Joint Swelling Skin : No Skin Lesions, No rash Neuro : No Weakness, No Numbness, No Dizziness, No Headache Psych : No Anxiety/Panic, No Depression Heme/Lymph: No Bruising, No Lymphadenopathy Endocrine : No Polyuria, No Polydipsia All other systems reviewed and are negative. [facility] Past Medical History Medical History Sleep apnea Liver mass Borderline personality disorder Bipolar 1 disorder PTSD (post-traumatic stress disorder) Depression GERD (gastroesophageal reflux disease) Asthma Gastritis Family History Pertinent family history: no FH of colo cancer Social History Social History Household Members: Spouse Housing: Apartment Are you a primary respiratory care assistant to a significant other at home: No Do you presently have visiting nurse or other home services: No Alcohol intake: former Patient Tobacco Use Status: Former Tobacco user Tobacco use type: Cigarette e-Cigarette/Vaping Use: Former Use Second Hand Smoke Exposure: No Substance Use Type: Marijuana Advance Directives Date on File: 05/09/25 service: No Current occupational status: disabled Meds Allergies Allergy/AdvReac Type Severity Reaction Status Date / Time acetaminophen (From VICODIN) Allergy Intermediate ITCHING Verified 05/09/25 09:32 amoxicillin (AMOXICILLIN) Allergy Intermediate ITCHING Verified 05/09/25 09:32 hydrocodone (From VICODIN) Allergy Intermediate ITCHING Verified 05/09/25 09:32 oxycodone (From PERCOCET) Allergy Intermediate ITCHING Verified 05/09/25 09:32 propoxyphene (From Allergy Intermediate HEADACHES Verified 05/09/25 09:32 DARVOCET-N) Penicillins Allergy Hives Verified 05/09/25 09:32 pseudoephedrine Allergy Hives Verified 05/09/25 09:32 honey (HONEY) AdvReac Intermediate HEADACHES Verified 05/09/25 09:32 Active Medications: Current Medications Acetaminophen (Acetaminophen 325 Mg Tablet) 650 mg PO Q6H PRN PRN Reason: Pain, Mild 1-3,fever,headache Calcium Carbonate (Calcium Carbonate 750 Mg Tab.Chew) 750 mg PO Q4H PRN PRN Reason: Heartburn Clonazepam (Clonazepam 1 Mg Tablet) 1 mg PO BEDTIME [facility] Docusate Sodium (Docusate Sodium 100 Mg Capsule) 200 mg PO DAILY [facility] Enoxaparin Sodium (Enoxaparin Sodium 40 Mg/0.4 Ml Syringe) 40 mg SUBCUT Q24H [facility] Hydrochlorothiazide (Hydrochlorothiazide 25 Mg Tablet) 25 mg PO DAILY [facility]; Protocol Lidocaine (Lidocaine 4 % Patch Adh..Patch) 2 patch TRANSDERMA DAILY [facility]INA; Protocol Lurasidone HCl (Lurasidone Hcl 80 Mg Tablet) 80 mg PO BEDTIME [facility] Magnesium Hydroxide (Milk Of Magnesia 30 Ml Oral.Susp) 30 ml PO DAILY PRN PRN Reason: Constipation Melatonin (Melatonin 3 Mg Tablet) 6 mg PO BEDTIME PRN PRN Reason: Insomnia Mirtazapine (Mirtazapine 7.5 Mg Tablet) 7.5 mg PO BEDTIME [facility] Montelukast Sodium (Montelukast Sodium 10 Mg Tablet) 10 mg PO BEDTIME [facility] Omeprazole (Omeprazole 40 Mg Capsule.) 40 mg PO DAILY@0630 [facility] Ondansetron HCl (Ondansetron Odt 4 Mg Tab.Rapdis) 4 mg TRANSLINGU Q8H PRN PRN Reason: nausea and vomiting Quetiapine Fumarate (Quetiapine Fumarate 200 Mg Tablet) 200 mg PO BEDTIME PRN PRN Reason: Sleep Sertraline HCl (Sertraline Hcl 100 Mg Tablet) 100 mg PO DAILY [facility] Sodium Chloride (0.9 % Sodium Chloride Flush 3 Ml Syringe) 3 ml IVFLUSH QSHIFT [facility] Testosterone Cypionate (Testosterone Cypionate 200 Mg/1 Ml Vial) 50 mg IM Th@0900 [facility] Topiramate (Topiramate 25 Mg Tablet) 50 mg PO BID [facility] Vitamin D (Cholecalciferol (Vitamin D3) 25 Mcg Tablet) 25 mcg PO DAILY [facility] Home Medications ?Medication ?Instructions ?Recorded ?Confirmed ?Last Taken ?Type lurasidone 80 mg tablet (Latuda) 80 mg PO BEDTIME 11/26/20 05/09/25 05/08/25 History montelukast 10 mg tablet 10 mg PO BEDTIME 11/26/20 05/09/25 05/09/25 History amlodipine 10 mg tablet 10 mg PO DAILY 01/27/24 05/09/25 05/09/25 History dexlansoprazole 60 mg 60 mg PO DAILY@0630 01/27/24 05/09/25 05/09/25 History capsule,biphase delayed release docusate sodium 100 mg capsule 200 mg PO DAILY 01/27/24 05/09/25 05/09/25 History hydrochlorothiazide 25 mg tablet 25 mg PO DAILY 01/27/24 05/09/25 05/09/25 History sertraline 100 mg tablet 100 mg PO DAILY 01/27/24 05/09/25 05/09/25 History testosterone cypionate 200 mg/mL 50 mg IM TH 01/27/24 05/09/25 04/14/25 History intramuscular oil cholecalciferol (vitamin D3) 25 25 mcg PO DAILY 04/26/25 05/09/25 05/09/25 History mcg (1,000 unit) tablet (Vitamin D3) clonazepam 1 mg tablet 1 mg PO BEDTIME anxiety 04/26/25 05/09/25 05/08/25 History mirtazapine 7.5 mg tablet 7.5 mg PO BEDTIME 04/26/25 05/09/25 05/08/25 History quetiapine 100 mg tablet 200 mg PO BEDTIME PRN insomnia 04/26/25 05/09/25 05/08/25 History topiramate 50 mg tablet 50 mg PO BID 04/26/25 05/09/25 05/09/25 History Physical Exam Exam: Exam: EXAM: GENERAL: The patient is well developed and nontoxic. VITAL SIGNS:see workflow HEENT: Nonicteric sclerae, PERRLA, EOMI. Oropharynx clear. Moist mucous membranes. Conjunctivae appear well perfused. No thyroid mass. CHEST: Chest wall is nontender. HEART: Regular rate and rhythm without murmurs. LUNGS: Clear to auscultation bilaterally. ABDOMEN: Soft, positive bowel sounds, mildly tender LLQ and epigastrium, no organomegaly.no flank tenderness SKIN: No rash, no excessive bruising, petechiae, or purpura. NEUROLOGIC: Cranial nerves II-XII intact without motor/sensory deficit. Psych: normal affect Vital Signs: Vital Signs: Last Vital Signs Temp 97.9 F 05/09/25 13:59 Pulse 67 05/09/25 13:59 Resp 14 05/09/25 13:59 BP 107/70 05/09/25 13:59 Pulse Ox 98 05/09/25 13:59 O2 Del Method Room Air 05/09/25 13:59 BMI result Body Mass Index 31.1 Results Labs 05/09/25 09:42 05/09/25 09:41 Labs: Short CBC 05/09/25 Range/Units 09:42 WBC 6.4 (4.8-10.8) X10*3/uL Hgb 16.8 H (12.0-16.0) g/dl Hct 51.1 H (37.0-47.0) % Plt Count 403 H (160-400) X10*3/uL BMP 05/09/25 09:41 Sodium 138 Potassium 3.1 L Chloride 109 H Carbon Dioxide 17 L BUN 10 Creatinine 1.30 Calcium 9.9 D Liver Function 05/09/25 Range/Units 09:41 Total Bilirubin 0.4 (0.0-1.0) mg/dL Direct Bilirubin 0.1 (0.0-0.5) mg/dL AST 51 H (5-31) U/L ALT 90 H (0-31) U/L Alkaline Phosphatase 50 (39-117) U/L Albumin 4.6 (3.5-5.0) g/dL Urine 05/09/25 Range/Units 10:50 Urine Color Yellow Urine Appearance Clear Urine pH 5.5 (5.0-9.0) Ur Specific [place] 1.020 (1.005-1.025) Urine Protein Negative (Neg-Trace) mg/dL Urine Glucose (UA) Negative (Negative) mg/dL Assessment and Plan (1) Intractable nausea and vomiting: Status: Acute Plan 1/ bouts of n/v and abdominal pain, worse this time, urine tox pos for THC, ddx: cannabinoid hyperemesis, cyclic vomiting, gastroparesis, MALS Plan: 1/ cont with schedule anti emetic, 2/ if ongoing sx then gastric emptying study, consider repeat doppler to recheck celiac aixs, if pos then maybe MRA with dynamic respiratory protocol 3/ PPI and o/.p f/u for hiatal hernia 4/ THC avoidance Procedures Date of Service Date of Service: 05/10/25
[2025-05-09 19:08] VITALS: BP 121/68; PULSE 63; RESP 15; TEMP 36.6; O2SAT 98
[2025-05-09 19:39] VITALS: RESP 17
[2025-05-09 22:27] VITALS: BP 110/70; PULSE 65; O2SAT 96
[2025-05-09 23:20] VITALS: RESP 16
[2025-05-10] VITALS (7 sets, daily range): BP systolic 117–136; BP diastolic 66–88; PULSE 61–108; RESP 12–18; TEMP 36.4–37.1; O2SAT 94–98
--- NOTE | 2025-05-10 04:08 | PC.NURSE ---
pt previously notified tech of desire for analgesic r/t abd pain. this nurse finished care of different patient then entered Ray's room after about 20 mins to find pt sleeping in fowlers position, even regular non labored respirations, call damian remains in reach, has ambulated numerously throughout shift steadily ad gisselle. plan of care ongoing
--- NOTE | 2025-05-10 09:34 | HO.NURTONUR ---
Chin is a 44yo full code who presented to the ED with nausea/vomiting and LLQpain, patient was recently admitted and had extensive GI work up, found to have hiatal hernia and was educated on marijuana use due to cyclical vomiting. patient requested admission to speak with GI for consult, GI consulted, note is pending. patient is alert, oriented and ambulatory, has IV access in the R arm.
[2025-05-10] MEDS: Lactated Ringers 1,000 ML 80 ML IVCONT (11:39)
[2025-05-10] MEDS: Flu Vacc TS2025-26(6mo up)/PF 0.5 ML SYRINGE IM (11:39)
--- NOTE | 2025-05-10 13:50 | MHC.CM.PN ---
pt lives with s/o is indepedent has no services ,has own ride home dc plan home n/s
--- NOTE | 2025-05-10 15:01 | P.PNIM_ITS ---
Subjective Subjective Date of Service: 05/10/25 Interval History: Nausea vomiting , unable to tolerate p.o. intake Review of Systems Vomiting improved, has some nausea says has some intermittent abdominal soreness Encouraged for p.o. intake. Physical Exam 2 Exam: Exam: General: AOx3, no acute distress Resp: CTA bilaterally CVS: S1, S2, RRR GI: +BS,nt , no distention Skin: Warm, dry Neuro: Cranial nerves II-XII grossly intact bilaterally. Motor grossly intact bilaterally Extremities: No edema Psych: Appropriate affect Vital Signs: Vital Signs: Last Vital Signs Temp 98.0 F 05/10/25 11:41 Pulse 67 05/10/25 11:41 Resp 12 05/10/25 11:41 BP 121/83 05/10/25 11:41 Pulse Ox 96 05/10/25 11:41 O2 Del Method Room Air 05/10/25 11:41 BMI result Body Mass Index 31.1 Objective Data Active Medications Acetaminophen (Acetaminophen 325 Mg Tablet) 650 mg PO Q6H PRN PRN Reason: Pain, Mild 1-3,fever,headache Last Admin: 05/10/25 08:53 Dose: 650 mg Documented By: RUSH Calcium Carbonate (Calcium Carbonate 750 Mg Tab.Chew) 750 mg PO Q4H PRN PRN Reason: Heartburn Capsaicin (Capsaicin 0.075% Cream 57 Gm Tube) 1 appl TOPICAL QID PRN; Protocol PRN Reason: Pain, Moderate(Pain Scale 4-6) Clonazepam (Clonazepam 1 Mg Tablet) 1 mg PO BEDTIME [facility] Last Admin: 05/09/25 22:21 Dose: 1 mg Documented By: NATHAN Docusate Sodium (Docusate Sodium 100 Mg Capsule) 200 mg PO DAILY [facility] Last Admin: 05/10/25 08:52 Dose: 200 mg Documented By: RUSH Enoxaparin Sodium (Enoxaparin Sodium 40 Mg/0.4 Ml Syringe) 40 mg SUBCUT Q24H [facility] Last Admin: 05/09/25 22:22 Dose: 40 mg Documented By: NATHAN Hydrochlorothiazide (Hydrochlorothiazide 25 Mg Tablet) 25 mg PO DAILY [facility]; Protocol On Hold: 05/10/25 11:16 Last Admin: 05/10/25 08:52 Dose: 25 mg Documented By: RUSH Lactated Ringer's (Lr) 1,000 mls @ 80 mls/hr IVCONT .[id number] [facility] Last Admin: 05/10/25 11:39 Dose: 80 mls/hr Documented By: CONNER Ketorolac Tromethamine (Ketorolac Tromethamine 15 Mg/Ml Vial) 15 mg IVPUSH BID PRN PRN Reason: Pain, Severe (Pain Scale 7-10) Lidocaine (Lidocaine 4 % Patch Adh..Patch) 2 patch TRANSDERMA DAILY [facility]; Protocol Last Admin: 05/10/25 09:02 Dose: Not Given Documented By: RUSH Non-Admin Reason: Patient Refused Lurasidone HCl (Lurasidone Hcl 80 Mg Tablet) 80 mg PO BEDTIME [facility] Last Admin: 05/09/25 22:21 Dose: 80 mg Documented By: NATHAN Magnesium Hydroxide (Milk Of Magnesia 30 Ml Oral.Susp) 30 ml PO DAILY PRN PRN Reason: Constipation Melatonin (Melatonin 3 Mg Tablet) 6 mg PO BEDTIME PRN PRN Reason: Insomnia Metoclopramide HCl (Metoclopramide Hcl 10 Mg/2 Ml Vial) 5 mg IVPUSH TID PRN PRN Reason: Nausea and Vomiting Mirtazapine (Mirtazapine 7.5 Mg Tablet) 7.5 mg PO BEDTIME [facility] Last Admin: 05/09/25 22:21 Dose: 7.5 mg Documented By: NATHAN Montelukast Sodium (Montelukast Sodium 10 Mg Tablet) 10 mg PO DAILY [facility] Last Admin: 05/10/25 08:52 Dose: 10 mg Documented By: RUSH Omeprazole (Omeprazole 40 Mg Capsule.Dr) 40 mg PO DAILY@0630 [facility] On Hold: 05/10/25 11:15 Last Admin: 05/10/25 05:07 Dose: 40 mg Documented By: NATHAN Ondansetron HCl (Ondansetron Odt 4 Mg Tab.Rapdis) 4 mg TRANSLINGU Q8H PRN PRN Reason: nausea and vomiting Last Admin: 05/10/25 05:07 Dose: 4 mg Documented By: NATHAN Comments: ben griffith Pantoprazole Sodium (Pantoprazole Sodium 40 Mg/10 Ml Vial) 40 mg IVPUSH BID@0630,1630 [facility] Quetiapine Fumarate (Quetiapine Fumarate 200 Mg Tablet) 200 mg PO BEDTIME PRN PRN Reason: Sleep Last Admin: 05/09/25 22:22 Dose: 200 mg Documented By: NATHAN Sertraline HCl (Sertraline Hcl 100 Mg Tablet) 100 mg PO DAILY [facility] Last Admin: 05/10/25 09:01 Dose: 100 mg Documented By: RUSH Sodium Chloride (0.9 % Sodium Chloride Flush 3 Ml Syringe) 3 ml IVFLUSH QSHIFT [facility] Last Admin: 05/10/25 07:25 Dose: Not Given Documented By: RUSH Non-Admin Reason: See Note Sucralfate (Sucralfate 1 Gm Tablet) 1 gm PO QIDACHS [facility] Last Admin: 05/10/25 11:41 Dose: Not Given Documented By: CONNER Non-Admin Reason: Patient Refused Testosterone Cypionate (Testosterone Cypionate 200 Mg/1 Ml Vial) 50 mg IM Th@0900 [facility] Topiramate (Topiramate 25 Mg Tablet) 50 mg PO BID [facility] Last Admin: 05/10/25 08:54 Dose: 50 mg Documented By: RUSH Vitamin D (Cholecalciferol (Vitamin D3) 25 Mcg Tablet) 25 mcg PO DAILY [facility] Last Admin: 05/10/25 08:54 Dose: 25 mcg Documented By: RUSH Labs 05/09/25 09:42 05/09/25 09:41 Labs: Laboratory Results - last 24 hr 05/09/25 09:41 C-Reactive Protein 0.17 Microbiology Microbiology Results: Microbiology 05/09/25 Unknown Urine Culture - Preliminary Urine clean catch - Clean Catch Midstream Culture in progress. Assessment and Plan (1) Intractable nausea and vomiting: Status: Acute Plan 44-year-old female to male transgender liver lesion, anxiety, depression, borderline personality disorder, bipolar, PTSD, asthma; presented to the hospital with a chief complaint of nausea/vomiting/LLQ abdominal pain. complaining of left lower quadrant abdominal pain, nausea, vomiting, and inability to tolerate p.o. x2 days s/p hospital discharge (05/07/25). Patient was recently admitted to our facility from 04/25-05/07 for similar symptoms, had extensive workup and was diagnosed with hiatal hernia. She reports severe nausea vomiting and abdominal pain and workup thus far unremarkable-similar to prior. He is insistent that he wants to see GI physician Dr. Lopez and hence he is being admitted under observation to trial p.o. intake and IV fluids. chart reviewed: Intractable nausea and vomiting and abdominal pain-likely cyclical vomiting from marijuana (tox screen positive persistently), patient not forthcoming EGD prior recent admission a week ago with hiatal hernia, no obvious cause. drug screen positive for marijuana on 05/09/25, patient reports being abstinent CT head with no significant central lesion. us and ct abd done :Hiatal hernia,No acute angulation with indentation upon the superior aspect of celiac axis to suggest median arcuate ligament syndrome. also upper Gi series done :Moderate size hiatal hernia with mild gastroesophageal reflux. most studies- as above negative ,has hiatal hernia as above. given IV fluids, antiemetic , prokinetics , reglan and azithro,also added PPI, carafate .Encourage p.o. intake-advanced diet as tolerated and can be discharged tomorrow if stable. Patient also has hiatal hernia- need to follow up with bariatric surgery outpatient for creatinine hernia management. Advised the patient to refrain from marijuana, patient says he is still feel nauseated, hesitant to take p.o. Gi eval. bradycardia/pause-deemed vasovagal during prior admission We will monitor on telemetry and replete electrolytes to goal, fall precautions chest pain(during last admisison) : no chest pain today likely gi +msk from vomiting trop and bnp seems fine cardio appreciated -outpatient echo. Splenic lesion Repeat CT in 6 months Right renal cortical low-attenuation lesion, 1.9 cm; renal cysts-outpatient follow up with pcp, consider uronology eval outpatient. Acute hypokalemia Replaced and improved. ongoing needs admission for stay : nausea vomiting and decreased p.o. intake just after discharge during prior admission, gi eval pending Quality Stroke Does the patient have a stroke diagnosis?: No VTE Prior VTE?: No VTE Risk Level:: Medical - moderate - high VTE Device Contraindication: N/A - Device Ordered VTE Drug Contraindication: N/A - Med Ordered
[2025-05-10 18:01] LABS: Potassium 3.0 mmol/L (3.3-5.1)
[2025-05-11] VITALS (7 sets, daily range): BP systolic 124–139; BP diastolic 64–91; PULSE 58–99; RESP 14–18; TEMP 36–36.9; O2SAT 93–98
[2025-05-11] MEDS: Lactated Ringers 1,000 ML 80 ML IVCONT ×2 (00:32→14:02)
[2025-05-11 06:24] LABS: Hematocrit 45.1 % (37.0-47.0); Hemoglobin 15.0 g/dl (12.0-16.0); Mean Corpuscular HGB Conc 33.3 g/dl (31.0-35.0); Mean Corpuscular Hemoglobin 26.9 pg (27.0-33.0); Mean Corpuscular Volume 81.0 fL (80.0-98.0); NRBC Abs Auto 0.000 X10*3/uL (0.0-0.012); NRBC Pct Auto 0.0 /100WBC (0.0-0.2); Platelet Count 286 X10*3/uL (160-400); Red Blood Count 5.57 X10*6/uL (4.20-5.50); White Blood Count 5.8 X10*3/uL (4.8-10.8)
[2025-05-11 06:34] LABS: Anion Gap 14 (12-20); Blood Urea Nitrogen 13 mg/dL (9-16); Calcium 9.3 mg/dL (8.4-10.2); Carbon Dioxide 18 mmol/L (22-29); Chloride 113 mmol/L (96-108); Creatinine Clr Calc Pharmacy 52.5; Estimated Glomerular Filt Rate 51; Potassium 3.3 mmol/L (3.3-5.1); Sodium 142 mmol/L (135-145)
--- NOTE | 2025-05-11 09:50 | P.PNIM_ITS ---
Subjective Subjective Date of Service: 05/11/25 Interval History: ate breakfast but with pain and early satiety and nausea Physical Exam 2 Exam: Exam: General: AOx3, no acute distress Resp: CTA bilaterally CVS: S1, S2, RRR GI: +BS,nt , no distention Skin: Warm, dry Neuro: Cranial nerves II-XII grossly intact bilaterally. Motor grossly intact bilaterally Extremities: No edema Psych: Appropriate affect Vital Signs: Vital Signs: Last Vital Signs Temp 97.4 F 05/11/25 08:00 Pulse 86 05/11/25 08:00 Resp 14 05/11/25 08:00 BP 126/79 05/11/25 08:00 Pulse Ox 96 05/11/25 08:00 O2 Del Method Room Air 05/11/25 08:00 BMI result Body Mass Index 31.1 Objective Data Active Medications Acetaminophen (Acetaminophen 325 Mg Tablet) 650 mg PO Q6H PRN PRN Reason: Pain, Mild 1-3,fever,headache Last Admin: 05/11/25 08:39 Dose: 650 mg Documented By: CELI Calcium Carbonate (Calcium Carbonate 750 Mg Tab.Chew) 750 mg PO Q4H PRN PRN Reason: Heartburn Capsaicin (Capsaicin 0.075% Cream 57 Gm Tube) 1 appl TOPICAL QID PRN; Protocol PRN Reason: Pain, Moderate(Pain Scale 4-6) Clonazepam (Clonazepam 1 Mg Tablet) 1 mg PO BEDTIME [facility] Last Admin: 05/10/25 20:34 Dose: 1 mg Documented By: CHERRI Docusate Sodium (Docusate Sodium 100 Mg Capsule) 200 mg PO DAILY [facility] Last Admin: 05/11/25 08:46 Dose: 200 mg Documented By: CELI Enoxaparin Sodium (Enoxaparin Sodium 40 Mg/0.4 Ml Syringe) 40 mg SUBCUT Q24H [facility] Last Admin: 05/10/25 20:41 Dose: 40 mg Documented By: CHERRI Hydrochlorothiazide (Hydrochlorothiazide 25 Mg Tablet) 25 mg PO DAILY [facility]; Protocol On Hold: 05/10/25 11:16 Last Admin: 05/10/25 08:52 Dose: 25 mg Documented By: RUSH Lactated Ringer's (Lr) 1,000 mls @ 80 mls/hr IVCONT .[id number] [facility] Last Admin: 05/11/25 00:32 Dose: 80 mls/hr Documented By: CHERRI Ketorolac Tromethamine (Ketorolac Tromethamine 15 Mg/Ml Vial) 15 mg IVPUSH BID PRN PRN Reason: Pain, Severe (Pain Scale 7-10) Last Admin: 05/11/25 04:14 Dose: 15 mg Documented By: CHERRI Lidocaine (Lidocaine 4 % Patch Adh..Patch) 2 patch TRANSDERMA DAILY [facility]; Protocol Last Admin: 05/11/25 08:43 Dose: Not Given Documented By: CELI Non-Admin Reason: Patient Refused Lurasidone HCl (Lurasidone Hcl 80 Mg Tablet) 80 mg PO BEDTIME [facility] Last Admin: 05/10/25 20:35 Dose: 80 mg Documented By: CHERRI Magnesium Hydroxide (Milk Of Magnesia 30 Ml Oral.Susp) 30 ml PO DAILY PRN PRN Reason: Constipation Melatonin (Melatonin 3 Mg Tablet) 6 mg PO BEDTIME PRN PRN Reason: Insomnia Metoclopramide HCl (Metoclopramide Hcl 10 Mg/2 Ml Vial) 5 mg IVPUSH TID PRN PRN Reason: Nausea and Vomiting Last Admin: 05/11/25 04:14 Dose: 5 mg Documented By: CHERRI Mirtazapine (Mirtazapine 7.5 Mg Tablet) 7.5 mg PO BEDTIME [facility] Last Admin: 05/10/25 20:35 Dose: 7.5 mg Documented By: CHERRI Montelukast Sodium (Montelukast Sodium 10 Mg Tablet) 10 mg PO DAILY [facility] Last Admin: 05/11/25 08:39 Dose: 10 mg Documented By: CELI Omeprazole (Omeprazole 40 Mg Capsule.Dr) 40 mg PO DAILY@0630 [facility] On Hold: 05/10/25 11:15 Last Admin: 05/10/25 05:07 Dose: 40 mg Documented By: NATHAN Ondansetron HCl (Ondansetron Hcl 4 Mg/2 Ml Vial) 4 mg IVPUSH Q6H PRN PRN Reason: Nausea Pantoprazole Sodium (Pantoprazole Sodium 40 Mg/10 Ml Vial) 40 mg IVPUSH BID@0630,1630 [facility] Last Admin: 05/11/25 06:07 Dose: 40 mg Documented By: CHERRI Quetiapine Fumarate (Quetiapine Fumarate 200 Mg Tablet) 200 mg PO BEDTIME PRN PRN Reason: Sleep Last Admin: 05/10/25 20:35 Dose: 200 mg Documented By: CHERRI Sertraline HCl (Sertraline Hcl 100 Mg Tablet) 100 mg PO DAILY [facility] Last Admin: 05/11/25 08:39 Dose: 100 mg Documented By: CELI Sodium Chloride (0.9 % Sodium Chloride Flush 3 Ml Syringe) 3 ml IVFLUSH QSHIFT [facility] Last Admin: 05/11/25 08:38 Dose: Not Given Documented By: CELI Non-Admin Reason: IV Running Sucralfate (Sucralfate 1 Gm Tablet) 1 gm PO QIDACHS [facility] Last Admin: 05/11/25 07:25 Dose: Not Given Documented By: ECLI Non-Admin Reason: Patient Refused Testosterone Cypionate (Testosterone Cypionate 200 Mg/1 Ml Vial) 50 mg IM Th@0900 [facility] Topiramate (Topiramate 25 Mg Tablet) 50 mg PO BID [facility] Last Admin: 05/11/25 08:39 Dose: 50 mg Documented By: CELI Vitamin D (Cholecalciferol (Vitamin D3) 25 Mcg Tablet) 25 mcg PO DAILY [facility] Last Admin: 05/11/25 08:39 Dose: 25 mcg Documented By: CELI Labs 05/11/25 05:28 05/11/25 05:28 Labs: Laboratory Results - last 24 hr 05/11/25 05:28 MCV 81.0 MCH 26.9 L MCHC 33.3 RDW 17.1 H Plt Count 286 D MPV 10.4 Absolute Nucleated RBC 0.000 Nucleated RBC % (auto) 0.0 Anion Gap 14 Estim Creat Clear Calc 52.5 Estimated GFR 51 Random Glucose 102 Calcium 9.3 D Microbiology Microbiology Results: Microbiology 05/09/25 Unknown Urine Culture - Preliminary Urine clean catch - Clean Catch Midstream Culture in progress. Assessment and Plan (1) Intractable nausea and vomiting: Status: Acute Plan 44 transgender male PMH mood disorder, borderline personality disorder, bipolar, PTSD, presented with intractable nausea and vomiting and abdominal pain Recurrent intractable nausea vomiting and abdominal pain Differential includes MALS, gastroparesis, cannabis induced cyclic vomiting GI following If continues to have symptoms we will pursue gastric emptying study ? Repeat imaging for MALS Splenic lesion Outpatient follow up Mood disorder Continue Seroquel, Latuda, clonazepam Hypertension Low normal blood pressure, hold amlodipine DVT prophylaxis with Lovenox Full code reason for continued hospitalization: Still with pain and nausea, not tolerating p.o. Quality Stroke Does the patient have a stroke diagnosis?: No VTE Prior VTE?: No VTE Risk Level:: Medical - moderate - high VTE Device Contraindication: N/A - Device Ordered VTE Drug Contraindication: N/A - Med Ordered
--- NOTE | 2025-05-11 13:20 | MHC.CM.PN ---
Patient not medically cleared for dc. CM will continue to follow.
[2025-05-12] MEDS: Lactated Ringers 1,000 ML 80 ML IVCONT (03:18)
[2025-05-12 03:20] VITALS: BP 119/76; PULSE 75; RESP 16; TEMP 36.2
[2025-05-12 07:40] VITALS: BP 107/66; PULSE 84; RESP 16; TEMP 36.5; O2SAT 95
--- NOTE | 2025-05-12 09:35 | HO.PM.IMPN ---
Subjective Subjective Date of Service: 05/12/25 Interval History: With abdominal pain, not tolerating p.o. requiring IV hydration and IV Zofran Physical Exam Exam: Exam: General: AOx3, no acute distress Resp: CTA bilaterally CVS: S1, S2, RRR GI: +BS,nt , no distention Skin: Warm, dry Neuro: Cranial nerves II-XII grossly intact bilaterally. Motor grossly intact bilaterally Extremities: No edema Psych: Appropriate affect Vital Signs: Vital Signs: Last Vital Signs Temp 97.7 F 05/12/25 07:40 Pulse 84 05/12/25 07:40 Resp 16 05/12/25 07:40 BP 107/66 05/12/25 07:40 Pulse Ox 95 05/12/25 07:40 O2 Del Method Room Air 05/12/25 07:40 BMI result Body Mass Index 31.1 Objective Data Active Medications Acetaminophen (Acetaminophen 325 Mg Tablet) 650 mg PO Q6H PRN PRN Reason: Pain, Mild 1-3,fever,headache Last Admin: 05/11/25 08:39 Dose: 650 mg Documented By: CELI Calcium Carbonate (Calcium Carbonate 750 Mg Tab.Chew) 750 mg PO Q4H PRN PRN Reason: Heartburn Capsaicin (Capsaicin 0.075% Cream 57 Gm Tube) 1 appl TOPICAL QID PRN; Protocol PRN Reason: Pain, Moderate(Pain Scale 4-6) Clonazepam (Clonazepam 1 Mg Tablet) 1 mg PO BEDTIME [facility] Last Admin: 05/11/25 19:25 Dose: 1 mg Documented By: ROB Docusate Sodium (Docusate Sodium 100 Mg Capsule) 200 mg PO DAILY [facility] Last Admin: 05/12/25 07:54 Dose: 200 mg Documented By: GABI Enoxaparin Sodium (Enoxaparin Sodium 40 Mg/0.4 Ml Syringe) 40 mg SUBCUT Q24H [facility] Last Admin: 05/11/25 19:25 Dose: 40 mg Documented By: ROB Hydrochlorothiazide (Hydrochlorothiazide 25 Mg Tablet) 25 mg PO DAILY [facility]; Protocol On Hold: 05/10/25 11:16 Last Admin: 05/10/25 08:52 Dose: 25 mg Documented By: RUSH Lactated Ringer's (Lr) 1,000 mls @ 80 mls/hr IVCONT .[id number] [facility] Last Admin: 05/12/25 03:18 Dose: 80 mls/hr Documented By: ROB Ketorolac Tromethamine (Ketorolac Tromethamine 15 Mg/Ml Vial) 15 mg IVPUSH BID PRN PRN Reason: Pain, Severe (Pain Scale 7-10) Last Admin: 05/12/25 04:57 Dose: 15 mg Documented By: ROB Lidocaine (Lidocaine 4 % Patch Adh..Patch) 2 patch TRANSDERMA DAILY [facility]; Protocol Last Admin: 05/12/25 08:08 Dose: Not Given Documented By: GABI Non-Admin Reason: Patient Refused Lurasidone HCl (Lurasidone Hcl 80 Mg Tablet) 80 mg PO BEDTIME [facility] Last Admin: 05/11/25 19:25 Dose: 80 mg Documented By: ROB Magnesium Hydroxide (Milk Of Magnesia 30 Ml Oral.Susp) 30 ml PO DAILY PRN PRN Reason: Constipation Melatonin (Melatonin 3 Mg Tablet) 6 mg PO BEDTIME PRN PRN Reason: Insomnia Metoclopramide HCl (Metoclopramide Hcl 10 Mg/2 Ml Vial) 5 mg IVPUSH TID PRN PRN Reason: Nausea and Vomiting Last Admin: 05/12/25 03:13 Dose: 5 mg Documented By: ROB Mirtazapine (Mirtazapine 7.5 Mg Tablet) 7.5 mg PO BEDTIME [facility] Last Admin: 05/11/25 19:25 Dose: 7.5 mg Documented By: ROB Montelukast Sodium (Montelukast Sodium 10 Mg Tablet) 10 mg PO DAILY [facility] Last Admin: 05/12/25 07:55 Dose: 10 mg Documented By: GABI Omeprazole (Omeprazole 40 Mg Capsule.Dr) 40 mg PO DAILY@0630 [facility] On Hold: 05/10/25 11:15 Last Admin: 05/10/25 05:07 Dose: 40 mg Documented By: NATHAN Ondansetron HCl (Ondansetron Hcl 4 Mg/2 Ml Vial) 4 mg IVPUSH Q6H PRN PRN Reason: Nausea Last Admin: 05/11/25 23:20 Dose: 4 mg Documented By: ROB Pantoprazole Sodium (Pantoprazole Sodium 40 Mg/10 Ml Vial) 40 mg IVPUSH BID@0630,1630 [facility] Last Admin: 05/12/25 05:34 Dose: 40 mg Documented By: ROB Quetiapine Fumarate (Quetiapine Fumarate 200 Mg Tablet) 200 mg PO BEDTIME PRN PRN Reason: Sleep Last Admin: 05/10/25 20:35 Dose: 200 mg Documented By: CHERRI Sertraline HCl (Sertraline Hcl 100 Mg Tablet) 100 mg PO DAILY [facility] Last Admin: 05/12/25 07:54 Dose: 100 mg Documented By: GABI Sodium Chloride (0.9 % Sodium Chloride Flush 3 Ml Syringe) 3 ml IVFLUSH QSHIFT [facility] Last Admin: 05/12/25 07:54 Dose: Not Given Documented By: GABI Non-Admin Reason: IV Running Sucralfate (Sucralfate 1 Gm Tablet) 1 gm PO QIDACHS [facility] Last Admin: 05/12/25 08:29 Dose: Not Given Documented By: GABI Non-Admin Reason: Patient Refused Testosterone Cypionate (Testosterone Cypionate 200 Mg/1 Ml Vial) 50 mg IM Th@0900 [facility] Last Admin: 05/12/25 07:56 Dose: 50 mg Documented By: GABI Topiramate (Topiramate 25 Mg Tablet) 50 mg PO BID [facility] Last Admin: 05/12/25 07:55 Dose: 50 mg Documented By: GABI Vitamin D (Cholecalciferol (Vitamin D3) 25 Mcg Tablet) 25 mcg PO DAILY [facility] Last Admin: 05/12/25 07:54 Dose: 25 mcg Documented By: GABI Labs 05/11/25 05:28 05/11/25 05:28 Microbiology Microbiology Results: Microbiology 05/09/25 Unknown Urine Culture - Final Urine clean catch - Clean Catch Midstream Assessment and Plan (1) Intractable nausea and vomiting: Status: Acute Plan 44 transgender male PMH mood disorder, borderline personality disorder, bipolar, PTSD, presented with intractable nausea and vomiting and abdominal pain Recurrent intractable nausea vomiting and abdominal pain Differential includes MALS, gastroparesis, cannabis induced cyclic vomiting GI following, repeat US still supicious for MALS will pursue dynamic imaging CTA vs MRA for confirmation continue iv fluids and antiemetics Splenic lesion Outpatient follow up Mood disorder Continue Seroquel, Latuda, clonazepam Hypertension Low normal blood pressure, hold amlodipine DVT prophylaxis with Lovenox Full code reason for continued hospitalization: Still with pain and nausea, not tolerating p.o. Quality Stroke Does the patient have a stroke diagnosis?: No VTE Prior VTE?: No VTE Risk Level:: Medical - moderate - high VTE Device Contraindication: N/A - Device Ordered VTE Drug Contraindication: N/A - Med Ordered
[2025-05-12 11:01] VITALS: BP 113/62; RESP 16; TEMP 36.2; O2SAT 95
[2025-05-12 11:20] LABS: Glucose, Whole Blood 116 mg/dL (60-115)
--- NOTE | 2025-05-12 13:54 | MHC.CM.PN ---
Status changed to inpatient. IMM delivered.
[2025-05-12 16:00] VITALS: BP 148/81; PULSE 63; RESP 14; TEMP 36.6; O2SAT 99
[2025-05-12] MEDS: iohexoL 350 MG/ML 100 ML INFUS..BTL IV (16:57)
[2025-05-12 20:00] VITALS: BP 147/69; PULSE 76; RESP 18; TEMP 36.3; O2SAT 96
[2025-05-12 23:32] VITALS: BP 110/68; PULSE 56; RESP 18; TEMP 36.4; O2SAT 98
[2025-05-13 03:28] VITALS: BP 107/60; PULSE 68; RESP 18; TEMP 36.4; O2SAT 98
[2025-05-13 07:12] LABS: Hematocrit 42.4 % (37.0-47.0); Hemoglobin 13.9 g/dl (12.0-16.0); Mean Corpuscular HGB Conc 32.8 g/dl (31.0-35.0); Mean Corpuscular Hemoglobin 27.0 pg (27.0-33.0); Mean Corpuscular Volume 82.3 fL (80.0-98.0); NRBC Abs Auto 0.000 X10*3/uL (0.0-0.012); NRBC Pct Auto 0.0 /100WBC (0.0-0.2); Platelet Count 254 X10*3/uL (160-400); Red Blood Count 5.15 X10*6/uL (4.20-5.50); White Blood Count 5.2 X10*3/uL (4.8-10.8)
[2025-05-13 07:42] LABS: Alanine Aminotransferase 59 U/L (0-31); Albumin Level 3.7 g/dL (3.5-5.0); Alkaline Phosphatase 39 U/L (39-117); Anion Gap 10 (12-20); Aspartate Amino Transferase 38 U/L (5-31); Blood Urea Nitrogen 8 mg/dL (9-16); Calcium 8.9 mg/dL (8.4-10.2); Carbon Dioxide 21 mmol/L (22-29); Chloride 114 mmol/L (96-108); Creatinine Clr Calc Pharmacy 52.5; Estimated Glomerular Filt Rate 51; Magnesium 2.0 mg/dL (1.6-2.6); Potassium 3.1 mmol/L (3.3-5.1); Sodium 142 mmol/L (135-145); Total Protein 6.6 g/dL (6.5-8.0)
[2025-05-13 07:57] VITALS: BP 103/72; PULSE 69; RESP 17; TEMP 36.2; O2SAT 96
[2025-05-13] MEDS: 0.9 % Sodium Chloride Flush 3 ML SYRINGE IVFLUSH (08:10)
[2025-05-13] MEDS: Potassium Chloride Packet 20 MEQ PACKET 40 MEQ PO (09:01)
--- NOTE | 2025-05-13 11:01 | HO.PM.IMPN ---
Subjective Subjective Date of Service: 05/13/25 Interval History: still with pain, poor intake Physical Exam Exam: Exam: General: AOx3, no acute distress Resp: CTA bilaterally CVS: S1, S2, RRR GI: +BS,nt , no distention Skin: Warm, dry Neuro: Cranial nerves II-XII grossly intact bilaterally. Motor grossly intact bilaterally Extremities: No edema Psych: Appropriate affect Vital Signs: Vital Signs: Last Vital Signs Temp 97.1 F 05/13/25 07:57 Pulse 69 05/13/25 07:57 Resp 17 05/13/25 07:57 BP 103/72 05/13/25 07:57 Pulse Ox 96 05/13/25 07:57 O2 Del Method Room Air 05/13/25 07:57 O2 Flow Rate 1 05/12/25 23:32 BMI result Body Mass Index 31.1 Objective Data Active Medications Acetaminophen (Acetaminophen 325 Mg Tablet) 650 mg PO Q6H PRN PRN Reason: Pain, Mild 1-3,fever,headache Last Admin: 05/13/25 08:15 Dose: 650 mg Documented By: MARY Calcium Carbonate (Calcium Carbonate 750 Mg Tab.Chew) 750 mg PO Q4H PRN PRN Reason: Heartburn Capsaicin (Capsaicin 0.075% Cream 57 Gm Tube) 1 appl TOPICAL QID PRN; Protocol PRN Reason: Pain, Moderate(Pain Scale 4-6) Clonazepam (Clonazepam 1 Mg Tablet) 1 mg PO BEDTIME [facility] Last Admin: 05/12/25 19:43 Dose: 1 mg Documented By: ROB Docusate Sodium (Docusate Sodium 100 Mg Capsule) 200 mg PO DAILY [facility] Last Admin: 05/13/25 08:08 Dose: 200 mg Documented By: MARY Enoxaparin Sodium (Enoxaparin Sodium 40 Mg/0.4 Ml Syringe) 40 mg SUBCUT Q24H [facility] Last Admin: 05/12/25 19:43 Dose: 40 mg Documented By: ROB Hydrochlorothiazide (Hydrochlorothiazide 25 Mg Tablet) 25 mg PO DAILY [facility]; Protocol On Hold: 05/10/25 11:16 Last Admin: 05/10/25 08:52 Dose: 25 mg Documented By: RUSH Ketorolac Tromethamine (Ketorolac Tromethamine 15 Mg/Ml Vial) 15 mg IVPUSH BID PRN PRN Reason: Pain, Severe (Pain Scale 7-10) Last Admin: 05/13/25 03:25 Dose: 15 mg Documented By: ROB Lidocaine (Lidocaine 4 % Patch Adh..Patch) 2 patch TRANSDERMA DAILY [facility]; Protocol Last Admin: 05/13/25 08:15 Dose: Not Given Documented By: MARY Non-Admin Reason: Patient Refused Lurasidone HCl (Lurasidone Hcl 80 Mg Tablet) 80 mg PO BEDTIME [facility] Last Admin: 05/12/25 19:43 Dose: 80 mg Documented By: ROB Magnesium Hydroxide (Milk Of Magnesia 30 Ml Oral.Susp) 30 ml PO DAILY PRN PRN Reason: Constipation Melatonin (Melatonin 3 Mg Tablet) 6 mg PO BEDTIME PRN PRN Reason: Insomnia Metoclopramide HCl (Metoclopramide Hcl 10 Mg/2 Ml Vial) 5 mg IVPUSH TID PRN PRN Reason: Nausea and Vomiting Last Admin: 05/13/25 10:37 Dose: 5 mg Documented By: MARY Mirtazapine (Mirtazapine 7.5 Mg Tablet) 7.5 mg PO BEDTIME [facility] Last Admin: 05/12/25 19:42 Dose: 7.5 mg Documented By: ROB Montelukast Sodium (Montelukast Sodium 10 Mg Tablet) 10 mg PO DAILY [facility] Last Admin: 05/13/25 08:08 Dose: 10 mg Documented By: MARY Omeprazole (Omeprazole 40 Mg Capsule.Dr) 40 mg PO DAILY@0630 [facility] On Hold: 05/10/25 11:15 Last Admin: 05/10/25 05:07 Dose: 40 mg Documented By: NATHAN Ondansetron HCl (Ondansetron Hcl 4 Mg/2 Ml Vial) 4 mg IVPUSH Q6H PRN PRN Reason: Nausea Last Admin: 05/13/25 08:14 Dose: 4 mg Documented By: MARY Pantoprazole Sodium (Pantoprazole Sodium 40 Mg/10 Ml Vial) 40 mg IVPUSH BID@0630,1630 [facility] Last Admin: 05/13/25 05:40 Dose: 40 mg Documented By: ROB Quetiapine Fumarate (Quetiapine Fumarate 200 Mg Tablet) 200 mg PO BEDTIME PRN PRN Reason: Sleep Last Admin: 05/12/25 19:42 Dose: 200 mg Documented By: ROB Sertraline HCl (Sertraline Hcl 100 Mg Tablet) 100 mg PO DAILY [facility] Last Admin: 05/13/25 08:09 Dose: 100 mg Documented By: MARY Sodium Chloride (0.9 % Sodium Chloride Flush 3 Ml Syringe) 3 ml IVFLUSH QSHIFT [facility] Last Admin: 05/13/25 08:10 Dose: 3 ml Documented By: MARY Sucralfate (Sucralfate 1 Gm Tablet) 1 gm PO QIDACHS [facility] Last Admin: 05/13/25 10:37 Dose: Not Given Documented By: MARY Non-Admin Reason: Patient Refused Testosterone Cypionate (Testosterone Cypionate 200 Mg/1 Ml Vial) 50 mg IM Th@0900 [facility] Last Admin: 05/12/25 07:56 Dose: 50 mg Documented By: GABI Topiramate (Topiramate 25 Mg Tablet) 50 mg PO BID [facility] Last Admin: 05/13/25 08:08 Dose: 50 mg Documented By: MARY Vitamin D (Cholecalciferol (Vitamin D3) 25 Mcg Tablet) 25 mcg PO DAILY [facility] Last Admin: 05/13/25 08:09 Dose: 25 mcg Documented By: MARY Labs 05/13/25 05:35 05/13/25 05:35 Labs: Laboratory Results - last 24 hr 05/12/25 05/13/25 11:06 05:35 MCV 82.3 MCH 27.0 MCHC 32.8 RDW 17.6 H Plt Count 254 MPV 10.9 Absolute Nucleated RBC 0.000 Nucleated RBC % (auto) 0.0 Anion Gap 10 L Estim Creat Clear Calc 52.5 Estimated GFR 51 POC Glucose 116 H Random Glucose 119 H Calcium 8.9 Magnesium 2.0 Total Bilirubin 0.2 Direct Bilirubin < 0.2 AST 38 H ALT 59 H Alkaline Phosphatase 39 Total Protein 6.6 Albumin 3.7 Assessment and Plan (1) Intractable nausea and vomiting: Status: Acute Plan 44 transgender male PMH mood disorder, borderline personality disorder, bipolar, PTSD, presented with intractable nausea and vomiting and abdominal pain Recurrent intractable nausea vomiting and abdominal pain 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
--- NOTE | 2025-05-13 11:32 | P.DS_ITS ---
DS: Providers Provider Date of Service: 05/13/25 Date of admission: 05/12/25 12:53 Date of discharge: 05/13/25 Primary care physician: Korina Gerard NP Consults: 05/10/25 15:11 Consult to Gastroenterology Routine Consulting Provider: [facility] Reason for consultation: reccurrent n/v/abd pain DS: Diagnosis Discharge Diagnosis (1) Intractable nausea and vomiting: Status: Acute DS: Summary Hospital Course Hospital Course: from initial hpi: 44-year-old female to male transgender liver lesion, anxiety, depression, borderline personality disorder, bipolar, PTSD, asthma; presented to the hospital with a chief complaint of nausea/vomiting/LLQ abdominal pain. complaining of left lower quadrant abdominal pain, nausea, vomiting, and inability to tolerate p.o. x2 days s/p hospital discharge. Patient was recently admitted to our facility from 04/25-05/07 for similar symptoms, had extensive workup and was diagnosed with hiatal hernia in the past. Reports decreased urine output. Denies fever, chills, dysuria/hematuria, diarrhea/constipation. On exam tachycardic, likely from dehydration rather than severe sepsis. NAD, nontoxic appearing, abdomen is soft with LLQ tenderness and left CVAT. No rebound or guarding. Low suspicion for severe sepsis. Concern for cyclical vomiting vs colitis vs gastroenteritis vs metabolic abnormalities. Diverticu litis on differential. Lower suspicion for appendicitis, mesenteric ischemia, pancreatitis, renal stones/pyelo. Patient with extensive workup with multiple imaging studies performed during hospitalization. Will avoid additional radiation at this time pending labs/workup. Patient was just discharged on 05/07/2025 (less than 2 days ago with negative workup). Despite extensive education, patient insists on seeing GI physician and states that he would want to stay inpatient and have further workup. Plan is to admit the patient for cyclical vomiting and trial period of p.o. intake. hospital course: Patient was admitted for recurrent intractable nausea and vomiting and abdominal pain. Was seen by Gastroenterology who recommended repeating ultrasound to rule out MALS. Ultrasound was suspicious for MALS so dynamic CTA was performed which confirmed diagnosis. Case was discussed with vascular surgery who recommended referral to bariatric Dr. Madalyn Teran for possible MAL release. As Patient now adequately hydrating will be discharged home with pain control and referral. For splenic lesion outpatient follow up recommended. For mood disorder continued on Seroquel, Latuda, clonazepam. For hypertension due to low normal blood pressures amlodipine has been held. Time Attestation Discharge Coordination Time (in mins): 34 Quality: Safe Use of Opioids Does Pt have an Active Cancer Diagnosis on the Problem List?: No Quality: Stroke Does the patient have a stroke diagnosis?: No Physical Exam Exam: Exam: General: AOx3, no acute distress Resp: CTA bilaterally CVS: S1, S2, RRR GI: +BS,nt , no distention Skin: Warm, dry Neuro: Cranial nerves II-XII grossly intact bilaterally. Motor grossly intact bilaterally Extremities: No edema Psych: Appropriate affect Vital Signs: Vital Signs: Last Vital Signs Temp 97.1 F 05/13/25 07:57 Pulse 69 05/13/25 07:57 Resp 17 05/13/25 07:57 BP 103/72 05/13/25 07:57 Pulse Ox 96 05/13/25 07:57 O2 Del Method Room Air 05/13/25 07:57 O2 Flow Rate 1 05/12/25 23:32 BMI result Body Mass Index 31.1 DS: Data Data Completed and Pending Completed studies during hospitalization [Text1]: Procedures Assistance with Respiratory Ventilation, Less than 24 Consecutive Hours, Continuous Positive Airway Pressure (01/27/24) Labs on day of discharge: Laboratory Results - last 24 hr 05/13/25 05:35 WBC 5.2 RBC 5.15 Hgb 13.9 Hct 42.4 MCV 82.3 MCH 27.0 MCHC 32.8 RDW 17.6 H Plt Count 254 MPV 10.9 Absolute Nucleated RBC 0.000 Nucleated RBC % (auto) 0.0 Sodium 142 Potassium 3.1 L Chloride 114 H Carbon Dioxide 21 L Anion Gap 10 L BUN 8 L Creatinine 1.16 Estim Creat Clear Calc 52.5 Estimated GFR 51 Random Glucose 119 H Calcium 8.9 Magnesium 2.0 Total Bilirubin 0.2 Direct Bilirubin < 0.2 AST 38 H ALT 59 H Alkaline Phosphatase 39 Total Protein 6.6 Albumin 3.7 Discharge Plan Discharge Anticipated Discharge Date/Time: 05/13/25 11:26 Patient Disposition: Home, Self-Care Discharge Diagnosis: MALS Referrals: Korina Gerard NP [Primary Care Provider, Internal Medicine] - 1 Week Madalyn Teran MD [Physician, General Surgery] - 1 Week Referral Note: MALS with frequent hospitalizations for pain and inability to eat Discharge Medications: New omeprazole 20 mg capsule,delayed release(DR/EC) 20 mg PO DAILY Qty: 90 0RF hydromorphone 2 mg tablet 2 mg PO Q6H PRN (Reason: pain (scale score 7-10)) Qty: 14 0RF Rx Instructions: Partial Fill upon patient request. Continued montelukast 10 mg tablet 10 mg PO BEDTIME lurasidone [Latuda] 80 mg tablet 80 mg PO BEDTIME sertraline 100 mg tablet 100 mg PO DAILY hydrochlorothiazide 25 mg tablet 25 mg PO DAILY testosterone cypionate 200 mg/mL oil 50 mg IM TH dexlansoprazole 60 mg capsule,biphase delayed releas 60 mg PO DAILY@0630 docusate sodium 100 mg Capsule 200 mg PO DAILY quetiapine 100 mg tablet 200 mg PO BEDTIME PRN (Reason: insomnia) Patient Comments: pt reports he takes 2 for sleep topiramate 50 mg tablet 50 mg PO BID mirtazapine 7.5 mg tablet 7.5 mg PO BEDTIME clonazepam 1 mg tablet 1 mg PO BEDTIME cholecalciferol (vitamin D3) [Vitamin D3] 25 mcg (1,000 unit) Tablet 25 mcg PO DAILY lidocaine [Lidocaine Pain Relief] 4 % Adhesive Patch,Medicated 2 patch transdermal DAILY Qty: 10 0RF Protocol: Apply to: Apply to: Affected area ondansetron 4 mg tablet,disintegrating 4 mg PO Q8H PRN (Reason: nausea and vomiting) Qty: 9 0RF Discontinued amlodipine 10 mg tablet 10 mg PO DAILY Discharge Orders: Discharge Order (Routine); Ordered 05/13/25 Ordered By: Lui Tellez Diet: Advance to usual diet Activity on Discharge: As tolerated Stand Alone Forms: Patient Portal Discharge page Print Language: [place] Care Plan Goals: recovery Health Concerns: MALS Plan of Treatment: symptom control follow up with dr madalyn teran for possible MAL release surgery Assessment: see above
--- NOTE | 2025-05-13 11:51 | MHC.CM.PN ---
Patient medically cleared for dc home self care via private transport.
[2025-05-13 12:00] VITALS: BP 154/87; PULSE 90; RESP 16; TEMP 36.6; O2SAT 98
== END 2025-05-13 13:31 | disposition home or self-care (01) | DRG 392 ==
LOC: HO.ED 15:43 → HO.EDOVER 17:40 → HO.S3 05-10 09:34
PROVIDERS: Internal Medicine; Internal Medicine Gastroenterology; Physician Assistant; Admitting Provider Student in an Organized Health Care Education/Training Program; Emergency Provider Emergency Medicine; PCP Nurse Practitioner Family; Visit Provider Internal Medicine
DX: I77.4 Celiac artery compression syndrome (principal); F64.0 Transsexualism; E87.6 Hypokalemia; F39 Unspecified mood [affective] disorder; I10 Essential (primary) hypertension; D73.89 Other diseases of spleen; K44.9 Diaphragmatic hernia without obstruction or gangrene; Z87.891 Personal history of nicotine dependence; Z79.899 Other long term (current) drug therapy
CPT/HCPCS: 36415; 74175; 76775; 80048; 80076; 80307; 81001; 81003; 81025; 82947; 83690; 83735; 84132; 85025; 85027; 86140; 87086; 90656; 93005; 93976; 99221; 99285; J1071; J1171; J1200; J1650; J1885; J2405; J2470; J2765; J3480; J7120; Q9967

== ENCOUNTER → 2025-05-09 10:14 | Outpatient (BNV) | payer MEDICARE, MEDICAID, SELFPAY | PROVIDERS: Emergency Provider Emergency Medicine; PCP Nurse Practitioner Family; Visit Provider Internal Medicine Cardiovascular Disease | DX: R00.0 Tachycardia, unspecified (principal) | CPT/HCPCS: 93010 ==

== ENCOUNTER → 2025-05-09 11:35 | Outpatient (BNV) | payer MEDICARE, MEDICAID, SELFPAY | PROVIDERS: Emergency Provider Emergency Medicine; PCP Nurse Practitioner Family; Visit Provider Radiology Diagnostic Radiology | DX: N28.1 Cyst of kidney, acquired (principal) | CPT/HCPCS: 76775 ==

== ENCOUNTER 2025-05-09 17:33 | Outpatient (BNV) | payer MEDICARE, MEDICAID, SELFPAY | END 2025-05-11 18:37 | PROVIDERS: Admitting Provider Student in an Organized Health Care Education/Training Program; Emergency Provider Emergency Medicine; PCP Nurse Practitioner Family; Visit Provider Radiology Diagnostic Radiology | DX: R10.84 Generalized abdominal pain (principal) | CPT/HCPCS: 93976 ==

== ENCOUNTER → 2025-05-09 17:33 | Outpatient (BNV) | payer MEDICARE, MEDICAID, SELFPAY | PROVIDERS: Admitting Provider Student in an Organized Health Care Education/Training Program; Emergency Provider Emergency Medicine; PCP Nurse Practitioner Family; Visit Provider Student in an Organized Health Care Education/Training Program | DX: R11.2 Nausea with vomiting, unspecified (principal) | CPT/HCPCS: 99222; 99231; 99232; 99233; 99239 ==

== ENCOUNTER → 2025-05-09 17:33 | Outpatient (BNV) | payer MEDICARE, MEDICAID, SELFPAY | PROVIDERS: Admitting Provider Student in an Organized Health Care Education/Training Program; Emergency Provider Emergency Medicine; PCP Nurse Practitioner Family; Visit Provider Internal Medicine Gastroenterology | DX: R11.2 Nausea with vomiting, unspecified (principal) | CPT/HCPCS: 99223 ==

== ENCOUNTER 2025-05-12 12:53 | Outpatient (BNV) | payer MEDICARE, MEDICAID, SELFPAY | END 2025-05-12 16:33 | PROVIDERS: Admitting Provider Student in an Organized Health Care Education/Training Program; Emergency Provider Emergency Medicine; PCP Nurse Practitioner Family; Visit Provider Radiology Diagnostic Radiology | DX: I77.4 Celiac artery compression syndrome (principal) | CPT/HCPCS: 74175 ==